=== PATIENT | female | born 1970 | race Two or more races ===

== ENCOUNTER 2018-07-27 14:17 | Emergency (ER) | payer BC ==
[~2018-07-27] VITALS: Ht 154.9 cm; Wt 68.0 kg
--- NOTE | 2018-07-27 15:30 | PHYS DOC ---
Past Medical History Past Medical History: No Pertinent History Past Surgical History: Hysterectomy Alcohol Use: None Drug Use: None Adult General Chief Complaint Chief Complaint: DIZZY/LIGHT HEADED HPI HPI Patient is a 48 year old Chadian-speaking female who presents to the ED today complaining of dizziness and a headache. Patient states yesterday she developed a cough and nasal congestion, she states she took Sudagrip which is a [place] version of a cough and congestion medication, patient states when she took the medication she became dizzy and has had a headache on and off since then. She states she was not able to sleep at night. She rates the headache is mild and intermittent. She states her symptoms are worse when she is up. She denies sensation of the room spinning or herself spinning. She denies any chest pain or shortness of breath. Interpretation was provided by the daughter for Ch[place] PCP Dr. Torres Review of Systems Review of Systems Constitutional: Denies fever or chills [] Eyes: Denies change in visual acuity, redness, or eye pain [] HENT: Reports nasal congestion, denies sore throat [] Respiratory: Reports cough, denies shortness of breath [] Cardiovascular: No additional information not addressed in HPI [] GI: Denies abdominal pain, nausea, vomiting, bloody stools or diarrhea [] : Denies dysuria or hematuria [] Musculoskeletal: Denies back pain or joint pain [] Integument: Denies rash or skin lesions [] Neurologic: Reports headache and dizziness, denies focal weakness or sensory changes [] Endocrine: Denies polyuria or polydipsia [] All other systems were reviewed and found to be within normal limits, except as documented in this note. Current Medications Current Medications Current Medications Medications (Trade) Dose Ordered Sig/Lizbeth Start Time Stop Time Status Last Admin Dose Admin Meclizine HCl (Antivert) 25 mg 1X ONCE 07/27/18 16:00 07/27/18 16:01 DC 07/27/18 16:45 25 MG Ondansetron HCl (Zofran Odt) 4 mg 1X ONCE 07/27/18 16:00 07/27/18 16:01 DC 07/27/18 16:47 4 MG Sodium Chloride 1,000 ml @ 1,000 mls/hr 1X ONCE 07/27/18 16:00 07/27/18 16:59 DC 07/27/18 16:48 1,000 MLS/HR Allergies Allergies Allergies Coded Allergies Type Severity Reaction Last Updated Verified No Known Drug Allergies 07/27/18 No Physical Exam Physical Exam Constitutional: Well developed, well nourished, no acute distress, non-toxic appearance. [] HENT: Normocephalic, atraumatic, bilateral external ears normal, oropharynx moist, no oral exudates, nose normal. [] Eyes: PERRLA, EOMI, conjunctiva normal, no discharge. [] Neck: Normal range of motion, no tenderness, supple, no stridor. [] Cardiovascular:Heart rate regular rhythm, no murmur [] Lungs & Thorax: Bilateral breath sounds clear to auscultation [] Abdomen: Bowel sounds normal, soft, no tenderness, no masses, no pulsatile masses. [] Skin: Warm, dry, no erythema, no rash. [] Back: No tenderness, no CVA tenderness. [] Extremities: No tenderness, no cyanosis, no clubbing, ROM intact, no edema. [] Neurologic: Alert and oriented X 3, normal motor function, normal sensory function, no focal deficits noted. Cranial nerves II through XII intact Psychologic: Affect normal, judgement normal, mood normal. [] Current Patient Data Vital Signs Vital Signs Date Time Temp Pulse Resp B/P (MAP) Pulse Ox O2 Delivery O2 Flow Rate FiO2 07/27/18 15:14 98.6 98 16 158/78 (104) 98 Room Air 98.6 Lab Values Laboratory Tests Test 07/27/18 15:00 07/27/18 15:10 07/27/18 16:56 Urine Collection Type Unknown Urine Color Yellow Urine Clarity Clear Urine pH 7.5 Urine Specific [place] <=1.005 Urine Protein Negative mg/dL (NEG-TRACE) Urine Glucose (UA) Negative mg/dL (NEG) Urine Ketones (Stick) Negative mg/dL (NEG) Urine Blood Negative (NEG) Urine Nitrite Negative (NEG) Urine Bilirubin Negative (NEG) Urine Urobilinogen Dipstick 0.2 mg/dL (0.2 mg/dL) Urine Leukocyte Esterase Negative (NEG) Urine RBC 0 /HPF (0-2) Urine WBC 0 /HPF (0-4) Urine Squamous Epithelial Cells Mod /LPF Urine Bacteria Few /HPF (0-FEW) Urine Opiates Screen Neg (NEG) Urine Methadone Screen Neg (NEG) Urine Barbiturates Neg (NEG) Urine Phencyclidine Screen Neg (NEG) Urine Amphetamine/Methamphetamine Neg (NEG) Urine Benzodiazepines Screen Neg (NEG) Urine Cocaine Screen Neg (NEG) Urine Cannabinoids Screen Neg (NEG) Urine Ethyl Alcohol Neg (NEG) White Blood Count 3.1 x10^3/uL (4.0-11.0) L Red Blood Count 4.44 x10^6/uL (3.50-5.40) Hemoglobin 14.1 g/dL (12.0-15.5) Hematocrit 41.9 % (36.0-47.0) Mean Corpuscular Volume 95 fL (79-100) Mean Corpuscular Hemoglobin 32 pg (25-35) Mean Corpuscular Hemoglobin Concent 34 g/dL (31-37) Red Cell Distribution Width 14.2 % (11.5-14.5) Platelet Count 243 x10^3/uL (140-400) Neutrophils (%) (Auto) 34 % (31-73) Lymphocytes (%) (Auto) 53 % (24-48) H Monocytes (%) (Auto) 10 % (0-9) H Eosinophils (%) (Auto) 2 % (0-3) Basophils (%) (Auto) 0 % (0-3) Neutrophils # (Auto) 1.1 x10^3uL (1.8-7.7) L Lymphocytes # (Auto) 1.6 x10^3/uL (1.0-4.8) Monocytes # (Auto) 0.3 x10^3/uL (0.0-1.1) Eosinophils # (Auto) 0.1 x10^3/uL (0.0-0.7) Basophils # (Auto) 0.0 x10^3/uL (0.0-0.2) Prothrombin Time 11.9 SEC (11.7-14.0) Prothrombin Time INR 0.9 (0.8-1.1) PTT 29 SEC (24-38) Sodium Level 142 mmol/L (136-145) Potassium Level 3.9 mmol/L (3.5-5.1) Chloride Level 103 mmol/L (98-107) Carbon Dioxide Level 30 mmol/L (21-32) Anion Gap 9 (6-14) Blood Urea Nitrogen 7 mg/dL (7-20) Creatinine 0.5 mg/dL (0.6-1.0) L Estimated GFR (Cockcroft-Gault) 132.8 BUN/Creatinine Ratio 14 (6-20) Glucose Level 122 mg/dL (70-99) H Calcium Level 9.0 mg/dL (8.5-10.1) Magnesium Level 2.3 mg/dL (1.8-2.4) Total Bilirubin 0.3 mg/dL (0.2-1.0) Aspartate Amino Transferase (AST) 74 U/L (15-37) H Alanine Aminotransferase (ALT) 86 U/L (14-59) H Alkaline Phosphatase 93 U/L (46-116) Creatine Kinase 485 U/L (26-192) H Creatine Kinase MB (Mass) 0.7 ng/mL (0.0-3.6) Creatine Kinase MB Relative Index 0.1 % (0-4) Troponin I Quantitative < 0.017 ng/mL (0.000-0.055) XD-Tjx-G-Type Natriuretic Peptide 19 pg/mL (0-124) Total Protein 7.8 g/dL (6.4-8.2) Albumin 3.9 g/dL (3.4-5.0) Albumin/Globulin Ratio 1.0 (1.0-1.7) Lipase 145 U/L (73-393) Thyroid Stimulating Hormone (TSH) 1.458 uIU/mL (0.358-3.74) Ethyl Alcohol Level < 10 mg/dL (0-10) Influenza Type A Antigen Positive (NEGATIVE) Influenza Type B Antigen Negative (NEGATIVE) Laboratory Tests 07/27/18 15:10 Laboratory Tests 07/27/18 15:10 EKG EKG [] Radiology/Procedures Radiology/Procedures []PROCEDURE: PORTABLE CHEST 1V Single view of the chest. 07/27/2018 3:33 PM Indication: CHEST PAIN, DIZZINESS Comparison: None Findings: Indistinctness of the left heart border is seen. Low lung volumes are noted. Favor atelectasis, though lingula infiltrate cannot be excluded. No pneumothorax is seen. No evidence of pleural effusion is seen. No acute osseous changes are identified. IMPRESSION: Indistinctness of the left heart border. Differential considerations include atelectasis versus infiltrate. Consider follow-up two-view chest radiograph, with attention to depth of inspiration. Electronically signed by: Heath Silva MD (07/27/2018 3:46 PM) [id number] DICTATED and SIGNED BY: HEATH SILVA MD DATE: 07/27/18 1546 PROCEDURE: CT HEAD WO CONTRAST Examination: CT HEAD WO CONTRAST History: DIZZY, NO PRIORS Comparison/Correlation: None Findings: Axial images of the head were obtained without contrast. Ventricles are normal size. No intracranial hemorrhage, midline shift, or mass effect. Globes and optic nerves are unremarkable. Paranasal sinuses and bony structures are grossly unremarkable. Impression: No suspicious process. PQRS Compliance Statement: One or more of the following individualized dose reduction techniques were utilized for this examination: 1. Automated exposure control 2. Adjustment of the mA and/or kV according to patient size 3. Use of iterative reconstruction technique Electronically signed by: Sukumar Bentley MD (07/27/2018 4:06 PM) [id number] DICTATED and SIGNED BY: SUKUMAR BENTLEY MD DATE: 07/27/18 1606 Course & Med Decision Making Course & Med Decision Making Pertinent Labs and Imaging studies reviewed. (See chart for details) This is a 48-year-old female patient who presents to the ED today with multiple complaints. Patient had a cough and nasal congestion yesterday, she took Sudagrip and developed headache and dizziness. CBC with a WBC of 3.1, CMP with AST of 74, ALT of 86, urine analysis is negative for infection, CT of the head is negative, troponin is normal, EKG is negative. Positive for influenza A, negative influenza B, chest x-ray was suspicious for left lower lobe pneumonia. Patient is afebrile. Was given a liter of fluid Zofran and meclizine. Feeling better. Will be discharged with Tamiflu, Zofran, meclizine and azithromycin. Instructed not to take Sudagrip. F/ u with PCP next week, instructed to return to the ED at any point symptoms worsen. Dragon Disclaimer Dragon Disclaimer This electronic medical record was generated, in whole or in part, using a voice recognition dictation system. Departure Departure Impression: Primary Impression: Influenza A Additional Impressions: Left lower lobe pneumonia Dizziness Disposition: 01 HOME, SELF-CARE Condition: STABLE Referrals: UNKNOWN PCP NAME (PCP) follow up in 1 week WAQAS TORRES MD follow up in 1 week Patient Instructions: Influenza A (H1N1), Pneumonia, Adult Additional Instructions: You were evaluated in the emergency room and tested positive for influenza you also have a touch of pneumonia. Please take the prescribed medications as ordered. Avoid taking Sudagrip. Follow-up with your doctor next week, come back to the ED at any point symptoms worsen. Scripts Ibuprofen (IBUPROFEN) 800 Mg Tablet 800 MG PO PRN Q6HRS PRN for INFLAMMATION, #10 TAB Prov: JOSEPH RICHARD APRN 07/27/18 Meclizine Hcl (MECLIZINE HCL) 25 Mg Tablet 1 TAB PO TID, #20 TAB Prov: JOSEPH RICHARD APRN 07/27/18 Azithromycin (ZITHROMAX) 250 Mg Tablet 1 PKG PO UD, #1 PKG Prov: JOSEPH RICHARD APRN 07/27/18 Oseltamivir Phosphate (TAMIFLU) 75 Mg Capsule 1 CAP PO BID, #10 CAP Prov: JOSEPH RICHARD APRN 07/27/18 Problem Qualifiers Additional Impressions: Left lower lobe pneumonia Pneumonia type: due to unspecified organism Qualified Codes: J18.1 - Lobar pneumonia, unspecified organism JOSEPH RICHARD APRN Jul 27, 2018 15:30
[2018-07-27 15:45] LABS: BASO % 0 % (0-3); EOS # 0.1 x10^3/uL (0.0-0.7); EOS % 2 % (0-3); HEMATOCRIT 41.9 % (36.0-47.0); HEMOGLOBIN 14.1 g/dL (12.0-15.5); LYMPH # 1.6 x10^3/uL (1.0-4.8); LYMPH % 53 % (24-48); MEAN CORPUSCULAR HEMOGLOBIN 32 pg (25-35); MEAN CORPUSCULAR HGB CONC 34 g/dL (31-37); MEAN CORPUSCULAR VOLUME 95 fL (79-100); MONO # 0.3 x10^3/uL (0.0-1.1); MONO % 10 % (0-9); NEUT # 1.1 x10^3uL (1.8-7.7); NEUT % 34 % (31-73); PLATELET COUNT 243 x10^3/uL (140-400); RED BLOOD COUNT 4.44 x10^6/uL (3.50-5.40); RED CELL DISTRIBUTION WIDTH 14.2 % (11.5-14.5); WHITE BLOOD COUNT 3.1 x10^3/uL (4.0-11.0)
--- NOTE | 2018-07-27 15:49 | RAD ---
Single view of the chest. 07/27/2018 3:33 PM Indication: CHEST PAIN, DIZZINESS Comparison: None Findings: Indistinctness of the left heart border is seen. Low lung volumes are noted. Favor atelectasis, though lingula infiltrate cannot be excluded. No pneumothorax is seen. No evidence of pleural effusion is seen. No acute osseous changes are identified. IMPRESSION: Indistinctness of the left heart border. Differential considerations include atelectasis versus infiltrate. Consider follow-up two-view chest radiograph, with attention to depth of inspiration. Electronically signed by: Heath Lacy MD (07/27/2018 3:46 PM) [id number]
[2018-07-27 15:58] LABS: CREATININE 0.5 mg/dL (0.6-1.0); GFR 132.8; POTASSIUM 3.9 mmol/L (3.5-5.1)
[2018-07-27] MEDS ORDERED: ONDANSETRON ODT 4 MG TAB.RAPDIS. PO ONE (16:00)
[2018-07-27] MEDS ORDERED: IV NORMAL SALINE 1000ML BAG 1,000 ML IV ONE (16:00)
[2018-07-27] MEDS ORDERED: MECLIZINE HCL 12.5 MG TABLET. PO ONE (16:00)
[2018-07-27 16:01] LABS: PROTHROMBIN TIME PATIENT 11.9 SEC (11.7-14.0)
[2018-07-27 16:04] LABS: ALBUMIN 3.9 g/dL (3.4-5.0); MAGNESIUM 2.3 mg/dL (1.8-2.4); TOTAL BILIRUBIN 0.3 mg/dL (0.2-1.0); TOTAL PROTEIN 7.8 g/dL (6.4-8.2)
--- NOTE | 2018-07-27 16:09 | RAD ---
Examination: CT HEAD WO CONTRAST History: DIZZY, NO PRIORS Comparison/Correlation: None Findings: Axial images of the head were obtained without contrast. Ventricles are normal size. No intracranial hemorrhage, midline shift, or mass effect. Globes and optic nerves are unremarkable. Paranasal sinuses and bony structures are grossly unremarkable. Impression: No suspicious process. PQRS Compliance Statement: One or more of the following individualized dose reduction techniques were utilized for this examination: 1. Automated exposure control 2. Adjustment of the mA and/or kV according to patient size 3. Use of iterative reconstruction technique Electronically signed by: Sukumar Alfaro MD (07/27/2018 4:06 PM) [id number]
--- NOTE | 2018-07-27 16:29 | EKG ---
[facility] [address] [place] [address] Test Date: 2018-07-27 Test Time: 15:06:56 Pat Name: AUGUST HILTON Department: Room: Gender: F [employer] Research Analyst: : 1970 Requested By: JOSEPH RICHARD Order Number: [id number] Reading MD: Tomas Fleming MD Measurements Intervals [place] Rate: 93 P: -32 SD: 156 QRS: 41 QRSD: 88 T: 34 QT: 368 QTc: 460 Interpretive Statements SINUS RHYTHM Electronically Signed On 07-29-2018 16:33:22 CDT by Tomas Fleming MD
[2018-07-27 17:02] LABS: BILIRUBIN,URINE NEGATIVE (NEG); CLARITY,URINE CLEAR; COLOR,URINE YELLOW; NITRITE,URINE NEGATIVE (NEG); PH,URINE 7.5; PROTEIN,URINE NEGATIVE (NEG-TRACE); UROBILINOGEN,URINE 0.2 mg/dL (0.2 mg/dL)
[2018-07-27 17:09] LABS: BARBITURATES NEG (NEG); BENZODIAZEPINES NEG (NEG); CANNABINOIDS NEG (NEG); COCAINE NEG (NEG); METHADONE NEG (NEG); OPIATES NEG (NEG); PHENCYCLIDINE NEG (NEG)
[2018-07-27 17:12] LABS: AMPHETAMINE/METHAMPHETAMINE NEG (NEG)
[2018-07-27 17:14] LABS: BACTERIA,URINE FEW /HPF (0-FEW); RBC,URINE 0 /HPF (0-2); SQUAMOUS EPITHELIAL CELL,UR MOD /LPF; WBC,URINE 0 /HPF (0-4)
[2018-07-27 17:24] LABS: INFLUENZA A PATIENT POSITIVE (NEGATIVE); INFLUENZA B PATIENT NEGATIVE (NEGATIVE)
[2018-07-27 18:14] VITALS: BP 129/66
[2018-07-27] MEDS ORDERED: IBUP-1060 PO (18:42)
[2018-07-27] MEDS ORDERED: AZIT250T PO (18:42)
[2018-07-27] MEDS ORDERED: MECL25TA3 PO (18:42)
[2018-07-27] MEDS ORDERED: OSEL75CA PO (18:42)
== END 2018-07-27 18:57 | disposition home or self-care (01) ==
LOC: EDBD 14:17 → ER 14:17
DX: J10.01 Influenza due to other identified influenza virus with the same other identified influenza virus pneumonia (principal); R42 Dizziness and giddiness; R51 Headache; Z90.710 Acquired absence of both cervix and uterus
CPT/HCPCS: 36415; 70450; 71045; 80053; 80307; 81001; 82553; 83690; 83735; 83880; 84443; 84484; 85025; 85610; 85730; 87804; 93005; 96360; 99284; G0480; J7030; J8597; Q0162

== ENCOUNTER 2020-04-02 18:41 | Emergency (ER) | payer BC ==
[~2020-04-02] VITALS: Ht 157.5 cm; Wt 80.0 kg
[~2020-04-02 18:41] MED LIST: AZIT250T PO; IBUP-1060 PO; MECL-75 PO; OSEL75CA PO
[2020-04-02 19:26] VITALS: BP 143/84
[2020-04-02] MEDS ORDERED: NAPROXEN 500 MG TABLET PO STA (19:46)
[2020-04-02] MEDS ORDERED: predniSONE 10 MG TABLET PO ONE (20:00)
[2020-04-02] MEDS ORDERED: LIDO:MAALOX 1:1 20 ML SINGLE DOSE. SWSW ONE (20:00)
[2020-04-02] MEDS ORDERED: ACETAMINOPHEN 500 MG TABLET PO ONE (20:00)
--- NOTE | 2020-04-02 20:59 | RAD ---
CHEST PA LATERAL History: Reason: cough / Spl. Instructions: / History: Comparison: July 27, 2018 Findings: Multifocal ill-defined opacities bilaterally, left greater than right. No pleural effusion. No pneumothorax. Normal heart size. Low lung volumes. Impression: 1. Multifocal ill-defined opacities bilaterally, can be seen with pneumonia including viral pneumonia. Electronically signed by: Geovanny Eddy DO (04/02/2020 8:56 PM) [facility]
[2020-04-02] MEDS ORDERED: AZITHROMYCIN 250 MG TABLET. PO ONE (22:00)
[2020-04-02] MEDS ORDERED: LIDOCAINE 1% PF 2 ML VIAL. INJ ONE (22:00)
[2020-04-02] MEDS ORDERED: predniSONE 20 MG TABLET PO ONE (22:00)
[2020-04-02] MEDS ORDERED: guaiFENesin/CODEINE 100mg/10mg 5 ML LIQUID PO ONE (22:00)
[2020-04-02] MEDS ORDERED: cefTRIAXone IM 1 GM VIAL IM ONE (22:00)
[2020-04-02] MEDS ORDERED: PRED50TA PO (22:05)
[2020-04-02] MEDS ORDERED: GUAI120L35 PO (22:05)
[2020-04-02] MEDS ORDERED: AZIT250T PO (22:05)
--- NOTE | 2020-04-02 22:05 | PHYS DOC ---
Past Medical History Past Medical History: No Pertinent History, Hypertension Additional Past Medical Histor: seasonal allergies Past Surgical History: Hysterectomy Smoking Status: Never Smoker Alcohol Use: None Drug Use: None General Adult EDM: Chief Complaint: SHORTNESS OF BREATH HPI: HPI: Patient is a 49 year old female with a history of hypertension presenting to the ED today complaining of a cough, body aches, shortness of air, symptoms began 6 days ago. Patient states she resides in a home with several family members with similar symptoms. Denies any fever. Denies any chest pain. Patient is Portuguese-speaking and interpretation was provided by family as well as freelance interpreter/translator line for Portuguese Review of Systems: Review of Systems: Constitutional: Reports body aches. Denies fever or chills. [] Eyes: Denies change in visual acuity. [] HENT: Denies nasal congestion or sore throat. [] Respiratory: Reports cough and shortness of breath Cardiovascular: Denies chest pain or edema. [] GI: Denies abdominal pain, nausea, vomiting, bloody stools or diarrhea. [] : Denies dysuria. [] Musculoskeletal: Denies back pain or joint pain. [] Integument: Denies rash. [] Neurologic: Denies headache, focal weakness or sensory changes. [] Psychiatric: Denies depression or anxiety. [] Heart Score: Risk Factors: Risk Factors: DM, Current or recent (<one month) smoker, HTN, HLP, family history of CAD, obesity. Risk Scores: Score 0 - 3: 2.5% MACE over next 6 weeks - Discharge Home Score 4 - 6: 20.3% MACE over next 6 weeks - Admit for Clinical Observation Score 7 - 10: 72.7% MACE over next 6 weeks - Early Invasive Strategies Current Medications: Current Medications Medications (Trade) Dose Ordered Sig/Lizbeth Start Time Stop Time Status Last Admin Dose Admin Acetaminophen (Tylenol) 1,000 mg 1X ONCE 04/02/20 20:00 04/02/20 20:01 DC 04/02/20 20:07 1,000 MG Azithromycin (Zithromax) 1,000 mg 1X ONCE 04/02/20 22:00 04/02/20 22:01 Ceftriaxone Sodium (Rocephin Im) 1 gm 1X ONCE 04/02/20 22:00 04/02/20 22:01 Guaifenesin/ Codeine Phosphate (Robitussin Ac) 5 ml 1X ONCE 04/02/20 22:00 04/02/20 22:01 Lidocaine HCl (Xylocaine-Mpf 1% 2ml Vial) 2 ml 1X ONCE 04/02/20 22:00 04/02/20 22:01 Multi-Ingredient Mouthwash/Gargle (Gi Cocktail) 20 ml 1X ONCE 04/02/20 20:00 04/02/20 20:01 DC 04/02/20 20:07 20 ML Naproxen (Naprosyn) 500 mg 1X STAT 04/02/20 19:46 04/02/20 19:49 DC 04/02/20 20:07 500 MG Prednisone (Prednisone) 60 mg 1X ONCE 04/02/20 22:00 04/02/20 22:01 Cancel Allergies: Allergies: Allergies Coded Allergies Type Severity Reaction Last Updated Verified No Known Drug Allergies 07/27/18 No Physical Exam: PE: Constitutional: Well developed, well nourished, no acute distress, non-toxic appearance. [] HENT: Normocephalic, atraumatic, bilateral external ears normal, oropharynx moist, no oral exudates, nose normal. [] Eyes: PERRLA, EOMI, conjunctiva normal, no discharge. [] Neck: Normal range of motion, no tenderness, supple, no stridor. [] Cardiovascular:Heart rate regular rhythm, no murmur [] Lungs & Thorax: Bilateral breath sounds clear to auscultation [] Abdomen: Bowel sounds normal, soft, no tenderness, no masses, no pulsatile masses. [] Skin: Warm, dry, no erythema, no rash. [] Back: No tenderness, no CVA tenderness. [] Extremities: No tenderness, no cyanosis, no clubbing, ROM intact, no edema. [] Neurologic: Alert and oriented X 3, normal motor function, normal sensory function, no focal deficits noted. [] Psychologic: Affect normal, judgement normal, mood normal. [] Current Patient Data: Vital Signs: Vital Signs Date Time Temp Pulse Resp B/P (MAP) Pulse Ox O2 Delivery O2 Flow Rate FiO2 04/02/20 19:26 101.0 123 20 143/84 (103) 97 Room Air 101.0 EKG: EKG: [] Radiology/Procedures: Radiology/Procedures: []PROCEDURE: CHEST PA & LATERAL CHEST PA LATERAL History: Reason: cough / Spl. Instructions: / History: Comparison: July 27, 2018 Findings: Multifocal ill-defined opacities bilaterally, left greater than right. No pleural effusion. No pneumothorax. Normal heart size. Low lung volumes. Impression: 1. Multifocal ill-defined opacities bilaterally, can be seen with pneumonia including viral pneumonia. Electronically signed by: Geovanny Reza DO (04/02/2020 8:56 PM) [facility] DICTATED and SIGNED BY: GEOVANNY REZA DO DATE: 04/02/[id number] 0 Course & Med Decision Making: Course & Med Decision Making Pertinent Labs and Imaging studies reviewed. (See chart for details) This is a 49-year-old female patient presented to the ED today complaining of cough, shortness of breath, body aches, symptoms for 6 days. Temperature on arrival to the ED is 101. Chest x-ray interpreted by radiologist was noted for bilateral lower lobe opacities seen with pneumonia including viral pneumonia. She was tested for COVID-19. Her O2 sats above 96% on room air. She was given azithromycin, Rocephin injection 1 g, prednisone and guaifenesin with codeine in the emergency room. She was also given Tylenol 1 g. I spoke to patient using freelance interpreter/translator line, I also spoke to the son who also interpreted for patient. She is given her diagnosis, she was discharged with antibiotics and prednisone as well as cough medicine. Follow-up with PCP in the course of this week or next week. Instructed to return to the ED at any point symptoms worsen. Rick Disclaimer: Rick Disclaimer: This electronic medical record was generated, in whole or in part, using a voice recognition dictation system. Departure Departure Impression: Primary Impression: Pneumonia of both lower lobes Qualified Codes: J18.9 - Pneumonia, unspecified organism Additional Impressions: Person under investigation for COVID-19 Fever Qualified Codes: R50.9 - Fever, unspecified Disposition: 01 DC HOME SELF CARE/HOMELESS Condition: STABLE Referrals: UNKNOWN PCP NAME (PCP) follow up with your doctor in one week Patient Instructions: Fever, Adult, Pneumonia, Adult, [id number] Additional Instructions: You were evaluated in the emergency room and noted to have a fever and pneumonia. You were tested for COVID-19. Please quarantine yourself for 14 days or until you get results from us. Take the prescribed medicines as ordered. Come back to the ED at any point symptoms worsen Scripts Guaifenesin/Codeine Phosphate (Codeine-Guaifen 10-100 mg/5 ml) 120 Ml Liquid 5 ML PO PRN Q6HRS PRN for cough and congestion MDD 20 Milliliter(s) for 6 Days, #120 ML 0 Refills Prov: JOSEPH RICHARD APRN 04/02/20 Prednisone (PREDNISONE) 50 Mg Tablet 1 TAB PO DAILY, #4 TAB Prov: JOSEPH RICHARD APRN 04/02/20 Azithromycin (ZITHROMAX) 250 Mg Tablet 1 PKG PO UD, #1 PKG Prov: JOSEPH RICHARD APRN 04/02/20 JOSEPH RICHARD APRN Apr 02, 2020 22:05
== END 2020-04-02 22:45 | disposition home or self-care (01) ==
LOC: ER 18:41
DX: U07.1 COVID-19 (principal); J18.9 Pneumonia, unspecified organism; R50.9 Fever, unspecified; R05 Cough; R06.02 Shortness of breath; I10 Essential (primary) hypertension; Z90.710 Acquired absence of both cervix and uterus
CPT/HCPCS: 71046; 96372; 99284; C9803; J0696; J3490; J7512; U0003

== ENCOUNTER 2020-04-05 21:48 | Inpatient (IN) | payer BC ==
[~2020-04-05] VITALS: Ht 147.3 cm; Wt 63.3 kg
[~2020-04-05 21:48] MED LIST changes: +GUAI120L35 PO; +PRED50TA PO
[2020-04-05 22:26] LABS: BASO # 0.1 x10^3/uL (0.0-0.2); BASO % 1 % (0-3); EOS % 0 % (0-3); HEMATOCRIT 39.5 % (36.0-47.0); HEMOGLOBIN 14.1 g/dL (12.0-15.5); LYMPH # 1.3 x10^3/uL (1.0-4.8); LYMPH % 15 % (24-48); MEAN CORPUSCULAR HEMOGLOBIN 33 pg (25-35); MEAN CORPUSCULAR HGB CONC 36 g/dL (31-37); MEAN CORPUSCULAR VOLUME 93 fL (79-100); MONO # 0.4 x10^3/uL (0.0-1.1); MONO % 4 % (0-9); NEUT # 7.1 x10^3/uL (1.8-7.7); NEUT % 80 % (31-73); PLATELET COUNT 241 x10^3/uL (140-400); RED BLOOD COUNT 4.27 x10^6/uL (3.50-5.40); RED CELL DISTRIBUTION WIDTH 13.7 % (11.5-14.5); WHITE BLOOD COUNT 8.8 x10^3/uL (4.0-11.0)
[2020-04-05 22:35] LABS: CALCIUM 8.2 mg/dL (8.5-10.1); CREATININE 0.7 mg/dL (0.6-1.0); GFR 89.7; POTASSIUM 3.5 mmol/L (3.5-5.1)
[2020-04-05 22:38] LABS: PROTHROMBIN TIME PATIENT 12.9 SEC (11.7-14.0)
[2020-04-05 22:40] LABS: ALBUMIN 3.5 g/dL (3.4-5.0); ALBUMIN/GLOBULIN RATIO 0.8 (1.0-1.7); MAGNESIUM 2.5 mg/dL (1.8-2.4); TOTAL BILIRUBIN 0.5 mg/dL (0.2-1.0); TOTAL PROTEIN 8.1 g/dL (6.4-8.2)
--- NOTE | 2020-04-05 22:41 | PHYS DOC ---
Past Medical History Past Medical History: No Pertinent History, High Cholesterol, Hypertension Additional Past Medical Histor: seasonal allergies, fatty liver Past Surgical History: Hysterectomy Smoking Status: Never Smoker Alcohol Use: None Drug Use: None General Adult EDM: Chief Complaint: SHORTNESS OF BREATH HPI: HPI: Patient is a 49-year-old female who presented 4 days ago for Covid-like symptoms pending testing. Patient reports symptoms have worsened including fever, shortness of air, loss of taste, nausea, fatigue, dizziness, and bilateral lower extremity pain. Denies any vomiting or diarrhea. Reports family members now with similar symptoms. Reports her spouse had some symptoms prior to her. Review of Systems: Review of Systems: Constitutional: Reports fever, chills, body aches, and generalized malaise Eyes: Denies redness or eye pain HENT: Denies nasal congestion or sore throat Respiratory: Reports cough and shortness of breath Cardiovascular: Denies chest pain or palpitations GI: Denies abdominal pain or vomiting; reports nausea : Denies dysuria or hematuria Musculoskeletal: Denies back pain or joint pain Integument: Denies rash or skin lesions Neurologic: Denies headache, focal weakness or sensory changes Complete systems were reviewed and found to be within normal limits, except as documented in this note. Allergies: Allergies: Allergies Coded Allergies Type Severity Reaction Last Updated Verified No Known Drug Allergies 07/27/18 No Physical Exam: PE: Constitutional: Well developed, well nourished, no acute distress, non-toxic appearance HENT: Normocephalic, atraumatic Eyes: Conjunctiva normal, no discharge Neck: Normal range of motion, no tenderness, supple, no meningeal signs Lungs & Thorax: Mild respiratory distress, tachypnea, equal chest rise and fall Abdomen: Soft, no tenderness Skin: Warm, dry, no erythema, no rash Extremities: No tenderness, ROM intact, no edema Neurologic: Alert and oriented X 3, normal motor function, normal sensory function, no focal deficits noted Psychologic: Affect normal, judgment normal Current Patient Data: Labs: Laboratory Tests Test 04/05/20 22:12 White Blood Count 8.8 x10^3/uL (4.0-11.0) Red Blood Count 4.27 x10^6/uL (3.50-5.40) Hemoglobin 14.1 g/dL (12.0-15.5) Hematocrit 39.5 % (36.0-47.0) Mean Corpuscular Volume 93 fL (79-100) Mean Corpuscular Hemoglobin 33 pg (25-35) Mean Corpuscular Hemoglobin Concent 36 g/dL (31-37) Red Cell Distribution Width 13.7 % (11.5-14.5) Platelet Count 241 x10^3/uL (140-400) Neutrophils (%) (Auto) 80 % (31-73) H Lymphocytes (%) (Auto) 15 % (24-48) L Monocytes (%) (Auto) 4 % (0-9) Eosinophils (%) (Auto) 0 % (0-3) Basophils (%) (Auto) 1 % (0-3) Neutrophils # (Auto) 7.1 x10^3/uL (1.8-7.7) Lymphocytes # (Auto) 1.3 x10^3/uL (1.0-4.8) Monocytes # (Auto) 0.4 x10^3/uL (0.0-1.1) Eosinophils # (Auto) 0.0 x10^3/uL (0.0-0.7) Basophils # (Auto) 0.1 x10^3/uL (0.0-0.2) Laboratory Tests 04/05/20 22:12 EKG: EKG: @2234 Sinus tachycardia at 119bpm, NO ST elevation, QRS 82ms, QT/QTc 308/434ms, baseline artifact noted. Radiology/Procedures: Radiology/Procedures: PROCEDURE: CT ANGIOGRAPHY CHEST EXAMINATION: CT ANGIOGRAPHY CHEST CLINICAL HISTORY: Shortness of breath, Covid positive, elevated d-dimer Technique: Spiral CT acquisition of the chest from the thoracic inlet to the upper abdomen following IV contrast with coronal and sagittal reformatted images also provided for review. CT Dose Reduction Employed: One or more of the following individualized dose reduction techniques were utilized for this examination: 1. Automated exposure control 2. Adjustment of the mA and/or kV according to patient size 3. Use of iterative reconstruction technique. Comparison: Chest radiograph 04/02/2020 FINDINGS: Limitations: Prominent motion artifact limits evaluation. Evaluation for Thromboembolic Disease: No evidence of main or lobar pulmonary arterial thrombus. Remainder of the pulmonary arterial system suboptimally evaluated. Lines, Tubes, and Devices: None. Lung Parenchyma, Pleura, and Airways: Peripheral and lower lobe predominant patchy groundglass opacities. No pleural effusion. Central airways patent. Lower Neck, Lymph Nodes, and Mediastinum: Visualized thyroid gland within normal limits. No supraclavicular, axillary, mediastinal, or hilar adenopathy. Heart, Pericardium, and Thoracic Vessels: Cardiac chambers normal in size. No pericardial effusion. Thoracic aorta within normal limits. No coronary artery atherosclerotic calcifications are noted, although the study is not optimized for coronary assessment. Bones and Soft Tissues: Multilevel thoracic degenerative changes. Upper Abdomen: Diffuse hypoattenuation of the hepatic parenchyma, compatible with steatosis. IMPRESSION: No evidence of main or lobar pulmonary embolus on significantly limited evaluation. Bilateral patchy groundglass opacities as described, compatible with viral pneumonia. Electronically signed by: Jorge Luis Samuels DO (04/06/2020 1:01 AM) [facility] Course & Med Decision Making: Course & Med Decision Making Pertinent Labs and Imaging studies reviewed. (See chart for details) Patient presents with worsening Covid-like symptoms. History of recent ER evaluation. [facility] review notes patient positive for COVID-19. Covid precautions in place. Patient noted to be hypoxic upon arrival. Supplemental O2 applied. Labs obtained and posted to chart. Rapid influenza negative. Troponin within normal limits. Lactic acid within normal limits. D-dimer eleva teresa. CPK significantly elevated. Troponin within normal limits. EKG stable. IV fluid hydration provided. Symptomatic treatment provided with dexamethasone. Empiric antibiotic initiated. CTA chest without signs of PE but note viral type pneumonia findings. Patient requiring admission for further evaluation and treatment. Discussed with Dr. Ascencio (hospitalist) who is in agreement with admission. Discussed findings and plan with patient, who acknowledges understanding and agreement. COVID-19 CRITERIA: The patient was evaluated during the global COVID-19 pandemic, and that diagnosis was suspected/considered upon their initial presentation. Their evaluation, treatment and testing was consistent with current guidelines for patients who present with complaints or symptoms that may be related to COVID-19. Rick Disclaimer: Rick Disclaimer: This electronic medical record was generated, in whole or in part, using a voice recognition dictation system. Departure Departure Impression: Primary Impression: Respiratory failure Qualified Codes: J96.01 - Acute respiratory failure with hypoxia Additional Impressions: Hypoxia Pneumonia due to 2019 novel coronavirus Rhabdomyolysis Qualified Codes: M62.82 - Rhabdomyolysis Disposition: 09 ADMITTED INPT THIS HOSP Admitting Physician: HARMONY Garrett) Condition: GUARDED Referrals: UNKNOWN PCP NAME (PCP) COVID-19 Assessment: COVID-19 Patient Risks: Age 65 or older: No Sign of co-morbidity: Yes Exp to person + for COVID: No Exp to PUI: No Travel from affected area: No Lower respiratory symptoms: Yes Fever: Yes Other: Yes PPE Use: Full PPE with N95 mask or PAPR: Yes Critical Care Time Critical care time was 30 minutes which includes time at bedside, spent in discu ssion of patient's care with specialists and/or family members, with interpretation of laboratory and/or radiological studies and is exclusive of procedures. GUI MUNOZ DO Apr 05, 2020 22:41
[2020-04-05 22:44] LABS: D-DIMER 0.7 ug/mlFEU (0.00-0.50)
[2020-04-05 23:33] LABS: CREATINE KINASE 54211 U/L (26-192)
[2020-04-05] MEDS ORDERED: IOHEXOL 350 MG/ML 100 ML VIAL. IV ONE (23:45)
[2020-04-05] MEDS ORDERED: CONTRAST GIVEN. MC PRN (23:45)
[2020-04-05 23:46] LABS: BILIRUBIN,URINE NEGATIVE (NEG); CLARITY,URINE CLEAR; COLOR,URINE YELLOW; NITRITE,URINE NEGATIVE (NEG); PROTEIN,URINE 100 mg/dL (NEG-TRACE)
[2020-04-05 23:52] LABS: BACTERIA,URINE 0 /HPF (0-FEW); WBC,URINE OCC /HPF (0-4)
[2020-04-06 00:08] LABS: INFLUENZA A PATIENT NEGATIVE (NEGATIVE); INFLUENZA B PATIENT NEGATIVE (NEGATIVE)
[2020-04-06] MEDS ORDERED: AZITHROMYCIN 500 MG in IV NORMAL SALINE 250ML 250 ML IV ONE (01:00)
[2020-04-06] MEDS ORDERED: IV NORMAL SALINE 1000ML BAG 1,000 ML IV ONE ×2 (01:00→01:30)
[2020-04-06] MEDS ORDERED: DEXAMETHASONE SOD PHOS 4 MG/ML VIAL IVP ONE ×2 (01:00→17:30)
--- NOTE | 2020-04-06 01:03 | RAD ---
EXAMINATION: CT ANGIOGRAPHY CHEST CLINICAL HISTORY: Shortness of breath, Covid positive, elevated d-dimer Technique: Spiral CT acquisition of the chest from the thoracic inlet to the upper abdomen following IV contrast with coronal and sagittal reformatted images also provided for review. CT Dose Reduction Employed: One or more of the following individualized dose reduction techniques were utilized for this examination: 1. Automated exposure control 2. Adjustment of the mA and/or kV according to patient size 3. Use of iterative reconstruction technique. Comparison: Chest radiograph 04/02/2020 FINDINGS: Limitations: Prominent motion artifact limits evaluation. Evaluation for Thromboembolic Disease: No evidence of main or lobar pulmonary arterial thrombus. Remainder of the pulmonary arterial system suboptimally evaluated. Lines, Tubes, and Devices: None. Lung Parenchyma, Pleura, and Airways: Peripheral and lower lobe predominant patchy groundglass opacities. No pleural effusion. Central airways patent. Lower Neck, Lymph Nodes, and Mediastinum: Visualized thyroid gland within normal limits. No supraclavicular, axillary, mediastinal, or hilar adenopathy. Heart, Pericardium, and Thoracic Vessels: Cardiac chambers normal in size. No pericardial effusion. Thoracic aorta within normal limits. No coronary artery atherosclerotic calcifications are noted, although the study is not optimized for coronary assessment. Bones and Soft Tissues: Multilevel thoracic degenerative changes. Upper Abdomen: Diffuse hypoattenuation of the hepatic parenchyma, compatible with steatosis. IMPRESSION: No evidence of main or lobar pulmonary embolus on significantly limited evaluation. Bilateral patchy groundglass opacities as described, compatible with viral pneumonia. Electronically signed by: Jorge Luis Samuels DO (04/06/2020 1:01 AM) [facility]
[2020-04-06] MEDS ORDERED: ONDANSETRON PF 4 MG/2 ML VIAL. IV PRN (01:30)
[2020-04-06] MEDS ORDERED: ACETAMINOPHEN 325 MG TABLET. PO PRN (01:30)
[2020-04-06 02:19] VITALS: BP 138/77
[2020-04-06] MEDS ORDERED: LORA10TA68 PO (05:36)
[2020-04-06 07:00] VITALS: BP 133/74
--- NOTE | 2020-04-06 09:26 | PDOC1 ---
History and Physical Date of Admission Date of Admission DATE: 04/06/20 TIME: 09:25 Source Source: Caregiver, Chart review, Patient History of Present Illness History of Present Illness Ms Olson is a 49-year-old female w/ PMHx High Cholesterol, Hypertension, seasonal allergies, fatty liver who presented 04/02/2020 for Covid-like symptoms and returns with the same. Patient reports symptoms have worsened including fever, shortness of air, loss of taste, nausea, fatigue, dizziness, and bilateral lower extremity pain. Denies any vomiting or diarrhea. Reports family members now with similar symptoms. Reports her spouse had some symptoms prior to her. Her PCR test returned positive today. Labs significant for WBC 8.8, Hb 14.1, platelets 241, D-dimer 0.70, NA 135, K3.5, BUN 6, CR 0.7, glucose 111, AST 366, ALT 177, CK 54,211. Rapid influenza negative EKG Sinus tachycardia at 119bpm, NO ST elevation, QRS 82ms, QT/QTc 308/434ms, baseline artifact noted. CTPA with no PE but Bilateral patchy groundglass opacities as described, compatible with viral pneumonia. She was hypoxic to 82% on normal air and required 6L NCO2 to improve her O2 status. Admitted for further care IV fluid hydration provided. Symptomatic treatment provided with dexamethasone. Empiric antibiotic initiated. Past Medical History Cardiovascular: HTN, Hyperlipidemia Past Surgical History Past Surgical History: Hysterectomy Family History Family History: Diabetes, High Cholestrol, Hypertension Social History Smoke: No ALCOHOL: none Drugs: None Current Problem List Problem List Problems Medical Problems: (1) Hypoxia Status: Acute (2) Pneumonia due to 2019 novel coronavirus Status: Acute (3) Respiratory failure Status: Acute (4) Rhabdomyolysis Status: Acute Current Medications Current Medications Current Medications Iohexol (Omnipaque 350 Mg/ml) 100 ml 1X ONCE IV Last administered on 04/05/20at 00:14; Start 04/05/20 at 23:45; Stop 04/05/20 at 23:46; Status DC Info (CONTRAST GIVEN -- Rx MONITORING) 1 each PRN DAILY PRN MC SEE COMMENTS; Start 04/05/20 at 23:45; Stop 04/07/20 at 23:44 Sodium Chloride 1,000 ml @ 1,000 mls/hr 1X ONCE IV Last administered on 04/06/20at 01:17; Start 04/06/20 at 01:00; Stop 04/06/20 at 01:59; Status DC Dexamethasone Sodium Phosphate (Decadron) 10 mg 1X ONCE IVP Last administered on 04/06/20at 01:16; Start 04/06/20 at 01:00; Stop 04/06/20 at 01:02; Status DC Azithromycin 500 mg/Sodium Chloride 250 ml @ 250 mls/hr 1X ONCE IV Last administered on 04/06/20at 01:16; Start 04/06/20 at 01:00; Stop 04/06/20 at 01:59; Status DC Ondansetron HCl (Zofran) 4 mg PRN Q8HRS PRN IV NAUSEA/VOMITING; Start 04/06/20 at 01:30; Stop 04/07/20 at 01:29 Acetaminophen (Tylenol) 650 mg PRN Q4HRS PRN PO FEVER > 100.3'F Last administered on 04/06/20at 02:44; Start 04/06/20 at 01:30; Stop 04/07/20 at 01:29 Sodium Chloride 1,000 ml @ 100 mls/hr 1X ONCE IV Last administered on 04/06/20at 02:37; Start 04/06/20 at 01:30; Stop 04/06/20 at 11:29 Active Scripts Active Codeine-Guaifen 10-100 mg/5 ml (Guaifenesin/Codeine Phosphate) 120 Ml Liquid 5 Ml PO PRN Q6HRS PRN MDD 20 Milliliter(s) 6 Days Prednisone 50 Mg Tablet 1 Tab PO DAILY Zithromax (Azithromycin) 250 Mg Tablet 1 Pkg PO UD Ibuprofen 800 Mg Tablet 800 Mg PO PRN Q6HRS PRN Meclizine Hcl 25 Mg Tablet 1 Tab PO TID Zithromax (Azithromycin) 250 Mg Tablet 1 Pkg PO UD Tamiflu (Oseltamivir Phosphate) 75 Mg Capsule 1 Cap PO BID Reported Claritin (Loratadine) 10 Mg Tablet 10 Mg PO DAILY Allergies Allergies: Coded Allergies: No Known Drug Allergies (Unverified , 07/27/18) ROS General: YES: Fatigue, Malaise, Appetite; No: Chills, Night Sweats, Other PSYCHOLOGICAL ROS: No: Anxiety, Behavioral Disorder, Concentration difficultie, Decreased libido, Depression, Disorientation, Hallucinations, Hostility, Irritablity, Memory difficulties, Mood Swings, Obsessive thoughts, Physical abuse, Sexual abuse, Sleep disturbances, Suicidal ideation, Other Eyes: No Blurry vision, No Decreased vision, No Double vision, No Dry eyes, No Excessive tearing, No Eye Pain, No Itchy Eyes, No Loss of vision, No Photophobia, No Scotomata, No Uses contacts, No Uses glasses, No Other HEENT: No: Heacaches, Visual Changes, Hearing change, Nasal congestion, Nasal discharge, Oral lesions, Sinus pain, Sore Throat, Epistaxis, Sneezing, Snoring, Tinnitus, Vertigo, Vocal changes, Other ALLERGY AND IMMUNOLOGY: No: Hives, Insect Bite Sensitivity, Itchy/Watery Eyes, Nasal Congestion, Post Nasal Drip, Seasonal Allergies, Other Hematological and Lymphatic: No: Bleeding Problems, Blood Clots, Blood Transfusions, Brusing, Night Sweats, Pallor, Swollen Lymph Nodes, Other ENDOCRINE: No: Breast Changes, Galactorrhea, Hair Pattern Changes, Hot Flashes, Malaise/lethargy, Mood Swings, Palpitations, Polydipsia/polyuria, Skin Changes, Temperature Intolerance, Unexpected Weight Changes, Other Breast: No New/Changing Breast Lumps, No Nipple changes, No Nipple discharge, No Other Respiratory: YES: Cough, Shortness of breath, SOB with excertion; No: Hemoptysis, Orthopnea, Pleuritic Pain, Sputum Changes, Stridor, Tachypnea, Wheezing, Other Cardiovascular: No Chest Pain, No Palpitations, No Orthopnea, No Paroxysmal Noc. Dyspnea, No Edema, No Lt Headedness, No Other Gastrointestinal: Yes Nausea; No Vomiting, No Abdominal Pain, No Diarrhea, No Constipation, No Melena, No Hematochezia, No Other Genitourinary: No Dysuria, No Frequency, No Incontinence, No Hematuria, No Retention, No Discharge, No Urgency, No Pain, No Flank Pain, No Other, No , No , No , No , No , No , No Musculoskeletal: No Gait Disturbance, No Joint Pain, No Joint Stiffness, No Joint Swelling, No Muscle Pain, No Muscular Weakness, No Pain In:, No Swelling In:, No Other Neurological: No Behavorial Changes, No Bowel/Bladder ControlChng, No Confusion, No Dizziness, No Gait Disturbance, No Headaches, No Impaired Coord/balance, No Memory Loss, No Numbness/Tingling, No Seizures, No Speech Problems, No Tremors, No Visual Changes, No Weakness, No Other Skin: No Dry Skin, No Eczema, No Hair Changes, No Lumps, No Mole Changes, No Mottling, No Nail Changes, No Pruritus, No Rash, No Skin Lesion Changes, No Other, No Acne Physical Exam General: Alert, Oriented X3, Cooperative, mild distress HEENT: Atraumatic, PERRLA, EOMI, Mucous membr. moist/pink Lungs: Other (Coarse rhonchi bilaterally) Heart: S1S2, RRR, no thrills, no rubs, no gallops, no murmurs Abdomen: Normal bowel sounds, Soft, No tenderness, No hepatosplenomegaly, No masses Rectal Exam: not examined Extremities: No clubbing, No cyanosis, No edema, Normal pulses, No te nderness/swelling Skin: No rashes, No breakdown, No significant lesion Neuro: Normal gait, Normal speech, Strength at 5/5 X4 ext, Normal tone, Sensation intact, Cranial nerves 3-12 NL, Reflexes 2+ Psych/Mental Status: Mental status NL, Mood NL Vitals Vitals Vital Signs Date Time Temp Pulse Resp B/P (MAP) Pulse Ox O2 Delivery O2 Flow Rate FiO2 04/06/20 07:00 96.9 89 18 133/74 (93) 98 Nasal Cannula 8.0 96.9 Labs Labs Laboratory Tests Test 04/05/20 22:12 04/05/20 23:36 04/06/20 05:00 White Blood Count 8.8 x10^3/uL (4.0-11.0) Red Blood Count 4.27 x10^6/uL (3.50-5.40) Hemoglobin 14.1 g/dL (12.0-15.5) Hematocrit 39.5 % (36.0-47.0) Mean Corpuscular Volume 93 fL (79-100) Mean Corpuscular Hemoglobin 33 pg (25-35) Mean Corpuscular Hemoglobin Concent 36 g/dL (31-37) Red Cell Distribution Width 13.7 % (11.5-14.5) Platelet Count 241 x10^3/uL (140-400) Neutrophils (%) (Auto) 80 % (31-73) Lymphocytes (%) (Auto) 15 % (24-48) Monocytes (%) (Auto) 4 % (0-9) Eosinophils (%) (Auto) 0 % (0-3) Basophils (%) (Auto) 1 % (0-3) Neutrophils # (Auto) 7.1 x10^3/uL (1.8-7.7) Lymphocytes # (Auto) 1.3 x10^3/uL (1.0-4.8) Monocytes # (Auto) 0.4 x10^3/uL (0.0-1.1) Eosinophils # (Auto) 0.0 x10^3/uL (0.0-0.7) Basophils # (Auto) 0.1 x10^3/uL (0.0-0.2) Prothrombin Time 12.9 SEC (11.7-14.0) Prothromb Time International Ratio 1.0 (0.8-1.1) Activated Partial Thromboplast Time 27 SEC (24-38) D-Dimer (Mary) 0.70 ug/mlFEU (0.00-0.50) Sodium Level 135 mmol/L (136-145) Potassium Level 3.5 mmol/L (3.5-5.1) Chloride Level 99 mmol/L (98-107) Carbon Dioxide Level 26 mmol/L (21-32) Anion Gap 10 (6-14) Blood Urea Nitrogen 6 mg/dL (7-20) Creatinine 0.7 mg/dL (0.6-1.0) Estimated GFR (Cockcroft-Gault) 89.7 BUN/Creatinine Ratio 9 (6-20) Glucose Level 111 mg/dL (70-99) Lactic Acid Level 1.5 mmol/L (0.4-2.0) Calcium Level 8.2 mg/dL (8.5-10.1) Magnesium Level 2.5 mg/dL (1.8-2.4) Total Bilirubin 0.5 mg/dL (0.2-1.0) Aspartate Amino Transf (AST/SGOT) 366 U/L (15-37) Alanine Aminotransferase (ALT/SGPT) 177 U/L (14-59) Alkaline Phosphatase 101 U/L (46-116) Creatine Kinase 78951 U/L (26-192) Creatine Kinase MB (Mass) < 0.5 ng/mL (0.0-3.6) Creatine Kinase MB Relative Index 0.0 % (0-4) Troponin I Quantitative < 0.017 ng/mL (0.000-0.055) 0.023 ng/mL (0.000-0.055) FA-Osm-S-Type Natriuretic Peptide 127 pg/mL (0-124) Total Protein 8.1 g/dL (6.4-8.2) Albumin 3.5 g/dL (3.4-5.0) Albumin/Globulin Ratio 0.8 (1.0-1.7) Urine Collection Type Unknown Urine Color Yellow Urine Clarity Clear Urine pH 8.0 (<5.0-8.0) Urine Specific [place] 1.010 (1.000-1.030) Urine Protein 100 mg/dL (NEG-TRACE) Urine Glucose (UA) Negative mg/dL (NEG) Urine Ketones (Stick) Negative mg/dL (NEG) Urine Blood Large (NEG) Urine Nitrite Negative (NEG) Urine Bilirubin Negative (NEG) Urine Urobilinogen Dipstick 1.0 mg/dL (0.2 mg/dL) Urine Leukocyte Esterase Negative (NEG) Urine RBC 1-2 /HPF (0-2) Urine WBC Occ /HPF (0-4) Urine Squamous Epithelial Cells Few /LPF Urine Bacteria 0 /HPF (0-FEW) Influenza Type A Antigen Negative (NEGATIVE) Influenza Type B Antigen Negative (NEGATIVE) Laboratory Tests Test 04/05/20 22:12 04/05/20 23:36 04/06/20 05:00 White Blood Count 8.8 x10^3/uL (4.0-11.0) Red Blood Count 4.27 x10^6/uL (3.50-5.40) Hemoglobin 14.1 g/dL (12.0-15.5) Hematocrit 39.5 % (36.0-47.0) Mean Corpuscular Volume 93 fL (79-100) Mean Corpuscular Hemoglobin 33 pg (25-35) Mean Corpuscular Hemoglobin Concent 36 g/dL (31-37) Red Cell Distribution Width 13.7 % (11.5-14.5) Platelet Count 241 x10^3/uL (140-400) Neutrophils (%) (Auto) 80 % (31-73) Lymphocytes (%) (Auto) 15 % (24-48) Monocytes (%) (Auto) 4 % (0-9) Eosinophils (%) (Auto) 0 % (0-3) Basophils (%) (Auto) 1 % (0-3) Neutrophils # (Auto) 7.1 x10^3/uL (1.8-7.7) Lymphocytes # (Auto) 1.3 x10^3/uL (1.0-4.8) Monocytes # (Auto) 0.4 x10^3/uL (0.0-1.1) Eosinophils # (Auto) 0.0 x10^3/uL (0.0-0.7) Basophils # (Auto) 0.1 x10^3/uL (0.0-0.2) Prothrombin Time 12.9 SEC (11.7-14.0) Prothromb Time International Ratio 1.0 (0.8-1.1) Activated Partial Thromboplast Time 27 SEC (24-38) D-Dimer (Mary) 0.70 ug/mlFEU (0.00-0.50) Sodium Level 135 mmol/L (136-145) Potassium Level 3.5 mmol/L (3.5-5.1) Chloride Level 99 mmol/L (98-107) Carbon Dioxide Level 26 mmol/L (21-32) Anion Gap 10 (6-14) Blood Urea Nitrogen 6 mg/dL (7-20) Creatinine 0.7 mg/dL (0.6-1.0) Estimated GFR (Cockcroft-Gault) 89.7 BUN/Creatinine Ratio 9 (6-20) Glucose Level 111 mg/dL (70-99) Lactic Acid Level 1.5 mmol/L (0.4-2.0) Calcium Level 8.2 mg/dL (8.5-10.1) Magnesium Level 2.5 mg/dL (1.8-2.4) Total Bilirubin 0.5 mg/dL (0.2-1.0) Aspartate Amino Transf (AST/SGOT) 366 U/L (15-37) Alanine Aminotransferase (ALT/SGPT) 177 U/L (14-59) Alkaline Phosphatase 101 U/L (46-116) Creatine Kinase 24394 U/L (26-192) Creatine Kinase MB (Mass) < 0.5 ng/mL (0.0-3.6) Creatine Kinase MB Relative Index 0.0 % (0-4) Troponin I Quantitative < 0.017 ng/mL (0.000-0.055) 0.023 ng/mL (0.000-0.055) LN-Ihx-Y-Type Natriuretic Peptide 127 pg/mL (0-124) Total Protein 8.1 g/dL (6.4-8.2) Albumin 3.5 g/dL (3.4-5.0) Albumin/Globulin Ratio 0.8 (1.0-1.7) Urine Collection Type Unknown Urine Color Yellow Urine Clarity Clear Urine pH 8.0 (<5.0-8.0) Urine Specific [place] 1.010 (1.000-1.030) Urine Protein 100 mg/dL (NEG-TRACE) Urine Glucose (UA) Negative mg/dL (NEG) Urine Ketones (Stick) Negative mg/dL (NEG) Urine Blood Large (NEG) Urine Nitrite Negative (NEG) Urine Bilirubin Negative (NEG) Urine Urobilinogen Dipstick 1.0 mg/dL (0.2 mg/dL) Urine Leukocyte Esterase Negative (NEG) Urine RBC 1-2 /HPF (0-2) Urine WBC Occ /HPF (0-4) Urine Squamous Epithelial Cells Few /LPF Urine Bacteria 0 /HPF (0-FEW) Influenza Type A Antigen Negative (NEGATIVE) Influenza Type B Antigen Negative (NEGATIVE) Images Images CTPA: Limitations: Prominent motion artifact limits evaluation. Evaluation for Thromboembolic Disease: No evidence of main or lobar pulmonary arterial thrombus. Remainder of the pulmonary arterial system suboptimally evaluated. Lines, Tubes, and Devices: None. Lung Parenchyma, Pleura, and Airways: Peripheral and lower lobe predominant patchy groundglass opacities. No pleural effusion. Central airways patent. Lower Neck, Lymph Nodes, and Mediastinum: Visualized thyroid gland within normal limits. No supraclavicular, axillary, mediastinal, or hilar adenopathy. Heart, Pericardium, and Thoracic Vessels: Cardiac chambers normal in size. No pericardial effusion. Thoracic aorta within normal limits. No coronary artery atherosclerotic calcifications are noted, although the study is not optimized for coronary assessment. Bones and Soft Tissues: Multilevel thoracic degenerative changes. Upper Abdomen: Diffuse hypoattenuation of the hepatic parenchyma, compatible with steatosis. IMPRESSION: No evidence of main or lobar pulmonary embolus on significantly limited evaluation. Bilateral patchy groundglass opacities as described, compatible with viral pneumonia. VTE Prophylaxis Ordered VTE Prophylaxis Devices: No VTE Pharmacological Prophylaxi: Yes Assessment/Plan Assessment/Plan A/P: Acute respiratory failure with hypoxia -likely due to COVID-19 pneumonia. Will aggressively use steroids. Pneumonia due to 2019 novel coronavirus - as above. May need pulmonary consultation if her respiratory status continues to decline. Rhabdomyolysis -will hydrate aggressively, monitor LFTs and renal function. Cannot have remdesivir due to this. Hypokalemia - replaced Transaminitis - likely related to rhabdomyolysis. Unfortunately this combination of symptoms is a contraindication to remdesivir therapy. High Cholesterol - given rhabdo will avoid statins Hypertension - monitor Seasonal allergies - claritin Fatty liver - will monitor transaminases FEN - regular diet PPX - lovenox FULL CODE Dispo - inpatient for above Justifications for Admission Other Justification ELINOR KAT MD Apr 06, 2020 09:26
[2020-04-06] MEDS: IV NORMAL SALINE 1000ML BAG 1,000 ML IV SCH ×2 (09:30→17:33)
[2020-04-06 09:41] LABS: CALCIUM 7.4 mg/dL (8.5-10.1); CREATININE 0.6 mg/dL (0.6-1.0); GFR 107.2; POTASSIUM 4.3 mmol/L (3.5-5.1)
[2020-04-06 11:00] VITALS: BP 103/62
--- NOTE | 2020-04-06 12:45 | NUR ---
Decreased patient oxygen flow to 7L NC. Pt sPO2 on 7L NC is approx. 84-87%. Oxygen increased back to 8L NC, patient sPO2 now between 89-93%.Will continue to monitor.
[2020-04-06 15:00] VITALS: BP 112/36
[2020-04-06] MEDS: AMINO AC 3%/ELECTROLYTE/GLYCER 1,000 ML IV SCH (17:33)
[2020-04-06] MEDS: ENOXAPARIN 40 MG/0.4 ML SYRINGE. SQ SCH (17:33)
[2020-04-06] MEDS: ZINC SULFATE 220 MG CAPSULE. PO SCH (17:33)
[2020-04-06 19:51] VITALS: BP 133/82
[2020-04-06 23:03] VITALS: BP 118/70
[2020-04-07] VITALS (13 sets, daily range): BP systolic 11–153; BP diastolic 61–93
[2020-04-07] MEDS: IV NORMAL SALINE 1000ML BAG 1,000 ML IV SCH ×4 (00:19→23:55)
[2020-04-07 05:22] LABS: HEMOGLOBIN 13.5 g/dL (12.0-15.5); MEAN CORPUSCULAR HEMOGLOBIN 32 pg (25-35); MEAN CORPUSCULAR HGB CONC 35 g/dL (31-37); MEAN CORPUSCULAR VOLUME 93 fL (79-100); PLATELET COUNT 333 x10^3/uL (140-400); RED BLOOD COUNT 4.19 x10^6/uL (3.50-5.40); RED CELL DISTRIBUTION WIDTH 13.5 % (11.5-14.5); WHITE BLOOD COUNT 11.3 x10^3/uL (4.0-11.0)
[2020-04-07 05:23] LABS: BASO % 0 % (0-3); EOS % 0 % (0-3); LYMPH # 1.3 x10^3/uL (1.0-4.8); LYMPH % 11 % (24-48); MONO # 0.7 x10^3/uL (0.0-1.1); MONO % 6 % (0-9); NEUT # 9.3 x10^3/uL (1.8-7.7); NEUT % 83 % (31-73)
[2020-04-07 05:54] LABS: ALBUMIN 2.9 g/dL (3.4-5.0); ALBUMIN/GLOBULIN RATIO 0.6 (1.0-1.7); CALCIUM 8.4 mg/dL (8.5-10.1); CREATININE 0.6 mg/dL (0.6-1.0); GFR 107.2; TOTAL BILIRUBIN 0.4 mg/dL (0.2-1.0); TOTAL PROTEIN 7.5 g/dL (6.4-8.2)
--- NOTE | 2020-04-07 06:00 | NUR ---
Pt this am with decreased O2 saturation noted. Pt O2 increased to 10L high flow however unable to keep O2 up. Pt placed on nonrebreather and O2 increased to 90% however pt states she still did not feel the oxygen so also placed nasal cannula on. Pt O2 increased to 92%. Called and spoke to Dr. Gallego and received ok orders for lasix IVP at this time. Medication given. Report given to Day Nurse.
[2020-04-07] MEDS: AMINO AC 3%/ELECTROLYTE/GLYCER 1,000 ML IV SCH ×2 (06:44→18:30)
[2020-04-07] MEDS ORDERED: FUROSEMIDE 40 MG/4 ML VIAL. IVP ONE (06:45)
--- NOTE | 2020-04-07 07:42 | PDOC ---
[employer] PROGRESS NOTE Date of Service DOS: DATE: 04/07/20 TIME: 07:37 Chief Complaint Chief Complaint A/P: Acute respiratory failure with hypoxia -likely due to COVID-19 pneumonia. Will aggressively use steroids. Pneumonia due to 2019 novel coronavirus - as above. May need pulmonary consultation if her respiratory status continues to decline. Rhabdomyolysis -will hydrate aggressively, monitor LFTs and renal function. Cannot have remdesivir due to this. Will add lasix today. Hypokalemia - replaced Transaminitis - likely related to rhabdomyolysis. Unfortunately this combination of symptoms is a contraindication to remdesivir therapy. High Cholesterol - given rhabdo will avoid statins Hypertension - monitor Seasonal allergies - claritin Fatty liver - will monitor transaminases Hyperglycemia - check A1c, sliding scale while on steroids FEN - regular diet PPX - lovenox FULL CODE Dispo - inpatient for above History of Present Illness History of Present Illness Ms Olson is a 49-year-old female w/ PMHx High Cholesterol, Hypertension, seasonal allergies, fatty liver who presented 04/02/2020 for Covid-like symptoms and returns with the same. Patient reports symptoms have worsened including fever, shortness of air, loss of taste, nausea, fatigue, dizziness, and bilateral lower extremity pain. Denies any vomiting or diarrhea. Reports family members now with similar symptoms. Reports her spouse had some symptoms prior to her. Her SARS-CoV-2 PCR test from 04/02/2020 returned positive. Other labs significant for WBC 8.8, Hb 14.1, platelets 241, D-dimer 0.70, NA 135, K3.5, BUN 6, CR 0.7, glucose 111, AST 366, ALT 177, CK 54,211. Rapid influenza negative EKG Sinus tachycardia at 119bpm, NO ST elevation, QRS 82ms, QT/QTc 308/434ms, baseline artifact noted. Febrile to 101 F CTPA with no PE but Bilateral patchy groundglass opacities as described, compatible with viral pneumonia. She was hypoxic to 82% on normal air and required 6L NCO2 to improve her O2 status. Admitted for further care IV fluid hydration provided. Symptomatic treatment provided with dexamethasone. Empiric antibiotic initiated. Afebrile overnight. Appetite decreased. O2 needs increased to 10 L/min. Labs [place] 0.6[place] [address], AST elevated 300 ALT 165. She is in much more r espiratory distress today. Plan: Add Lasix. Unfortunately she does still need some IV fluids for her severe rhabdomyolysis. We will would like to wean off O2 as soon as possible. Consult pulmonology. Continue steroid Transfer to ICU for Vapotherm Unfortunately rhabdomyolysis and transaminitis are high risk for remdesivir therapy Vitals/I&O Vitals/I&O: Vital Signs Date Time Temp Pulse Resp B/P (MAP) Pulse Ox O2 Delivery O2 Flow Rate FiO2 04/07/20 02:53 98.1 80 18 114/68 (83) 96 Nasal Cannula 7.0 98.1 I & O 04/06/20 04/06/20 04/07/20 15:00 23:00 07:00 Intake Total 770 ml 360 ml Output Total 1000 ml Balance -230 ml 360 ml Physical Exam General: Alert, Oriented X3, Cooperative, mild distress Abdomen: Normal bowel sounds, Soft, No tenderness, No hepatosplenomegaly, No masses Extremities: No clubbing, No cyanosis, No edema, Normal pulses, No tenderness/swelling Skin: No rashes, No breakdown, No significant lesion Labs Labs: Laboratory Tests Test 04/06/20 08:30 04/07/20 04:45 Sodium Level 140 mmol/L (136-145) 137 mmol/L (136-145) Potassium Level 4.3 mmol/L (3.5-5.1) 4.0 mmol/L (3.5-5.1) Chloride Level 106 mmol/L (98-107) 104 mmol/L (98-107) Carbon Dioxide Level 24 mmol/L (21-32) 23 mmol/L (21-32) Anion Gap 10 (6-14) 10 (6-14) Blood Urea Nitrogen 6 mg/dL (7-20) 9 mg/dL (7-20) Creatinine 0.6 mg/dL (0.6-1.0) 0.6 mg/dL (0.6-1.0) Estimated GFR (Cockcroft-Gault) 107.2 107.2 Glucose Level 178 mg/dL (70-99) 149 mg/dL (70-99) Calcium Level 7.4 mg/dL (8.5-10.1) 8.4 mg/dL (8.5-10.1) Creatine Kinase 08805 U/L (26-192) 38003 U/L (26-192) Troponin I Quantitative 0.017 ng/mL (0.000-0.055) White Blood Count 11.3 x10^3/uL (4.0-11.0) Red Blood Count 4.19 x10^6/uL (3.50-5.40) Hemoglobin 13.5 g/dL (12.0-15.5) Hematocrit 39.0 % (36.0-47.0) Mean Corpuscular Volume 93 fL (79-100) Mean Corpuscular Hemoglobin 32 pg (25-35) Mean Corpuscular Hemoglobin Concent 35 g/dL (31-37) Red Cell Distribution Width 13.5 % (11.5-14.5) Platelet Count 333 x10^3/uL (140-400) Neutrophils (%) (Auto) 83 % (31-73) Lymphocytes (%) (Auto) 11 % (24-48) Monocytes (%) (Auto) 6 % (0-9) Eosinophils (%) (Auto) 0 % (0-3) Basophils (%) (Auto) 0 % (0-3) Neutrophils # (Auto) 9.3 x10^3/uL (1.8-7.7) Lymphocytes # (Auto) 1.3 x10^3/uL (1.0-4.8) Monocytes # (Auto) 0.7 x10^3/uL (0.0-1.1) Eosinophils # (Auto) 0.0 x10^3/uL (0.0-0.7) Basophils # (Auto) 0.0 x10^3/uL (0.0-0.2) BUN/Creatinine Ratio 15 (6-20) Total Bilirubin 0.4 mg/dL (0.2-1.0) Aspartate Amino Transf (AST/SGOT) 300 U/L (15-37) Alanine Aminotransferase (ALT/SGPT) 165 U/L (14-59) Alkaline Phosphatase 92 U/L (46-116) Total Protein 7.5 g/dL (6.4-8.2) Albumin 2.9 g/dL (3.4-5.0) Albumin/Globulin Ratio 0.6 (1.0-1.7) Assessment and Plan Assessmemt and Plan Problems Medical Problems: (1) Hypoxia Status: Acute (2) Pneumonia due to 2019 novel coronavirus Status: Acute (3) Respiratory failure Status: Acute (4) Rhabdomyolysis Status: Acute Comment Review of Relevant I have reviewed the following items eddie (where applicable) has been applied. Medications: Current Medications Medications (Trade) Dose Ordered Sig/Lizbeth Route PRN Reason Start Time Stop Time Status Last Admin Dose Admin Sodium Chloride 1,000 ml @ 150 mls/hr [id number] IV 04/06/20 09:30 04/07/20 00:19 Dexamethasone Sodium Phosphate (Decadron) 6 mg 1X ONCE IVP 04/06/20 17:30 04/06/20 17:31 DC 04/06/20 17:34 Enoxaparin Sodium (Lovenox 40mg Syringe) 40 mg Q24H SQ 04/06/20 18:00 04/06/20 17:33 Zinc Sulfate (Orazinc) 220 mg DAILY PO 04/06/20 17:00 04/06/20 17:33 Amino Acids/ Glycerin/ Electrolytes 1,000 ml @ 80 mls/hr [id number] IV 04/06/20 17:30 04/07/20 06:44 Furosemide (Lasix) 60 mg 1X ONCE IVP 04/07/20 06:45 04/07/20 06:46 DC 04/07/20 06:44 Justifications for Admission Other Justification ELINOR KAT MD Apr 07, 2020 07:42
[2020-04-07] MEDS ORDERED: DEXTROSE 50% 25 GM / 50ML DISP.SYRIN. IV PRN (07:45)
[2020-04-07] MEDS: INSULIN LISPRO 300 UNITS/3 ML VIAL. SQ SCH ×3 (08:00→16:56)
[2020-04-07] MEDS: ZINC SULFATE 220 MG CAPSULE. PO SCH (08:35)
--- NOTE | 2020-04-07 12:11 | NUR ---
Zoom consult done with Dr. Hunt on ipad. Pt called her son on her personal cellphone during the meeting to translate. Pt verbalized understanding of transferring to ICU. Pt verbalized understanding of using vapotherm. Pt made aware of the risks of being placed on life support machine. Pt and family want all measures done for at this time. Will continue to monitor.
--- NOTE | 2020-04-07 12:52 | CONS ---
DATE OF CONSULTATION: PULMONARY CONSULTATION ATTENDING PHYSICIAN: Dieter Gallego MD REASON FOR CONSULTATION: Hypoxia, respiratory failure, COVID pneumonia. HISTORY OF PRESENT ILLNESS: The patient is a 49-year-old obese female with a BMI of 33. The patient does not speak Lebanese. I have done the consultation via interpretation with her son, who speaks Lebanese. The patient initially presented with COVID-like symptoms. She was complaining of fever, shortness of breath and loss of taste and smell and fatigue along with dizziness. No vomiting or diarrhea. She was tested positive for COVID. The patient was brought into the hospital due to dyspnea and hypoxia. Her saturations were 82% on 6 liters. She underwent CTA chest, which was reviewed by me and it showed evidence of bilateral patchy ground glass opacities consistent with viral pneumonia. No evidence of pulmonary embolism. She is currently on a nonrebreather mask with 100% FiO2. PAST MEDICAL HISTORY: Significant for hypertension and hyperlipidemia. PAST SURGICAL HISTORY: Hysterectomy. FAMILY HISTORY: Diabetes, dyslipidemia and hypertension. SOCIAL HISTORY: Nonsmoker. ALLERGIES: None. MEDICATIONS: Reviewed as listed in the MRAD. REVIEW OF SYSTEMS: Limited due to language barrier. PHYSICAL EXAMINATION: VITAL SIGNS: On examination, which was done via telemedicine, blood pressure is stable. Pulse ox is 92% on 15 liters, afebrile. GENERAL: She is mildly tachypneic. ABDOMEN: Obese. EXTREMITIES: No rash. LABORATORY DATA: Reviewed. White cell count 11.3, hemoglobin 13.5, platelets are 333. BUN 9, creatinine 0.6. IMPRESSION: 1. Acute hypoxic respiratory failure secondary to COVID-[address] chest with bilateral patchy interstitial infiltrates compatible with COVID-19 pneumonia. 3. Underlying obesity. 4. History of hypertension. RECOMMENDATIONS: 1. I have discussed with the patient's son and RN. At this time, her respiratory status is marginal. I will transfer her to the ICU and place her on Vapotherm. 2. We will continue with IV dexamethasone. 3. DVT prophylaxis with Lovenox. 4. Not a candidate for remdesivir at present. 5. Her respiratory status is marginal. We will closely watch for need for intubation. I have spoken to the son. He states that try other options before pursuing with intubation, but he wants full code. Critical care time 35 minutes. PALAK GRIGGS MD DR: Ant JOB#: [id number] / [id number]
[2020-04-07] MEDS: DEXAMETHASONE SOD PHOS 4 MG/ML VIAL IVP SCH (13:00)
[2020-04-07] MEDS: cefTRIAXone IV Push 1 GM VIAL. IVP SCH (13:00)
--- NOTE | 2020-04-07 13:30 | NUR ---
Pt transferred to room 106. Report called to LUANA Vargas. Pt transported via wheelchair. Pt clothing, purse, cell phone and cell phone firer glost kiln placed in green patient belonging bags and transferred with patient.
[2020-04-07] MEDS: ENOXAPARIN 40 MG/0.4 ML SYRINGE. SQ SCH (17:39)
[2020-04-07] MEDS: STERILE WATER for RESP 1,000 ML BAG. INH PRN (20:40)
[2020-04-07] MEDS: guaiFENesin DM 200MG/20MG 10 ML SYRUP PO PRN (21:09)
[2020-04-07] MEDS: ZOLPIDEM 5 MG TABLET. PO PRN (21:09)
[2020-04-07] MEDS: INSULIN GLARGINE SYRINGE. SQ SCH (21:20)
[2020-04-08] VITALS (24 sets, daily range): BP systolic 94–155; BP diastolic 51–95
[2020-04-08] MEDS: IV NORMAL SALINE 1000ML BAG 1,000 ML IV SCH ×4 (01:30→23:14)
[2020-04-08 02:07] LABS: HEMOGLOBIN A1C 6.2 % (4.8-5.6)
[2020-04-08] MEDS: STERILE WATER for RESP 1,000 ML BAG. INH PRN ×2 (02:23→15:11)
[2020-04-08] MEDS: AMINO AC 3%/ELECTROLYTE/GLYCER 1,000 ML IV SCH ×2 (06:46→16:09)
[2020-04-08 06:48] LABS: ALBUMIN 2.6 g/dL (3.4-5.0); ALBUMIN/GLOBULIN RATIO 0.6 (1.0-1.7); CALCIUM 7.9 mg/dL (8.5-10.1); CREATININE 0.6 mg/dL (0.6-1.0); GFR 107.2; POTASSIUM 3.7 mmol/L (3.5-5.1); TOTAL BILIRUBIN 0.5 mg/dL (0.2-1.0); TOTAL PROTEIN 6.9 g/dL (6.4-8.2)
[2020-04-08] MEDS: INSULIN LISPRO 300 UNITS/3 ML VIAL. SQ SCH ×3 (07:26→17:32)
[2020-04-08] MEDS: ZINC SULFATE 220 MG CAPSULE. PO SCH (07:56)
[2020-04-08] MEDS: DEXAMETHASONE SOD PHOS 4 MG/ML VIAL IVP SCH (07:57)
--- NOTE | 2020-04-08 08:09 | EKG ---
[facility] [address] [place] [address] Test Date: 2020-04-05 Test Time: 22:34:42 Pat Name: AUGUST HILTON Department: Room: [facility] Gender: F Tile Setter Supervisor: : [id number] Requested By: GUI MUNOZ Order Number: [id number] Reading MD: Adair Phillips Measurements Intervals [place] Rate: 119 P: -34 NE: 100 QRS: -19 QRSD: 82 T: 11 QT: 308 QTc: 434 Interpretive Statements SINUS TACHYCARDIA LEFTWARD AXIS Electronically Signed On 04-09-2020 11:06:24 HORIZONTAL BORING MILL SET UP OPERATOR by Adair Phillips
--- NOTE | 2020-04-08 08:41 | PDOC ---
PROGRESS NOTES Date of Service: DATE: 04/08/20 TIME: 08:41 Chief Complaint Chief Complaint IMPRESSION Acute respiratory failure with hypoxia -likely due to COVID-19 pneumonia. Will aggressively use steroids. Bilateral patchy groundglass opacities as described, compatible with viral pneumonia. CTA CHEST Pneumonia due to 2019 novel coronavirus - as above. pulmonary consultation Rhabdomyolysis -will hydrate aggressively, monitor LFTs and renal function. Cannot have remdesivir due to this. Will add lasix today. Hypokalemia - replaced Transaminitis - likely related to rhabdomyolysis. Unfortunately this combination of symptoms is a contraindication to remdesivir therapy. High Cholesterol - given rhabdo will avoid statins, consult nephrology Hypertension - monitor Seasonal allergies - claritin Fatty liver - will monitor transaminases, CONSULT gi Hyperglycemia - check A1c, sliding scale while on steroids PLAN FEN - regular diet PPX - lovenox FULL CODE Dispo - inpatient for above ICU BED consult nephrology 31 MIN CC TIME History of Present Illness History of Present Illness Ms Olson is a 49-year-old female w/ PMHx High Cholesterol, Hypertension, seasonal allergies, fatty liver who presented 04/02/2020 for Covid-like symptoms and returns with the same. Patient reports symptoms have worsened including fever, shortness of air, loss of taste, nausea, fatigue, dizziness, and bilateral lower extremity pain. Denies any vomiting or diarrhea. Reports family members now with similar symptoms. Reports her spouse had some symptoms prior to her. Her SARS-CoV-2 PCR test from 04/02/2020 returned positive. Other labs significant for WBC 8.8, Hb 14.1, platelets 241, D-dimer 0.70, NA 135, K3.5, BUN 6, CR 0.7, glucose 111, AST 366, ALT 177, CK 54,211. Rapid influenza negative EKG Sinus tachycardia at 119bpm, NO ST elevation, QRS 82ms, QT/QTc 308/434ms, baseline artifact noted. Febrile to 101 F CTPA with no PE but Bilateral patchy groundglass opacities as described, compatible with viral pneumonia. She was hypoxic to 82% on normal air and required 6L NCO2 to improve her O2 status. Admitted for further care IV fluid hydration provided. Symptomatic treatment provided with dexamethasone. Empiric antibiotic initiated. Afebrile overnight. Appetite decreased. O2 needs increased to 10 L/min. Labs [place] 0[place] [address], AST elevated 300 ALT 165. She is in much more respiratory distress today. Plan: Add Lasix. Unfortunately she does still need some IV fluids for her severe r habdomyolysis. We will would like to wean off O2 as soon as possible. Consult pulmonology. Continue steroid Transfer to ICU for Vapotherm Unfortunately rhabdomyolysis and transaminitis are high risk for remdesivir therapy Vitals Vitals Vital Signs Date Time Temp Pulse Resp B/P (MAP) Pulse Ox O2 Delivery O2 Flow Rate FiO2 04/08/20 07:00 97.5 95 20 138/75 (96) 93 Nasal Cannula 40.0 97.5 Physical Exam Physical Exam visual exam due to covid 19 pandemic General: Alert, Oriented X3, Cooperative, mild distress Abdomen: Normal bowel sounds, Soft, No tenderness, No hepatosplenomegaly, No masses Extremities: No clubbing, No cyanosis, No edema, Normal pulses, No tenderness/swelling Skin: No rashes, No breakdown, No significant lesion Labs LABS Procedure Result BLOOD CULTURE Preliminary NO GROWTH AFTER 2 DAYS EXAMINATION: CT ANGIOGRAPHY CHEST CLINICAL HISTORY: Shortness of breath, Covid positive, elevated d-dimer Technique: Spiral CT acquisition of the chest from the thoracic inlet to the upper abdomen following IV contrast with coronal and sagittal reformatted images also provided for review. CT Dose Reduction Employed: One or more of the following individualized dose reduction techniques were utilized for this examination: 1. Automated exposure control 2. Adjustment of the mA and/or kV according to patient size 3. Use of iterative reconstruction technique. Comparison: Chest radiograph 04/02/2020 FINDINGS: Limitations: Prominent motion artifact limits evaluation. Evaluation for Thromboembolic Disease: No evidence of main or lobar pulmonary arterial thrombus. Remainder of the pulmonary arterial system suboptimally evaluated. Lines, Tubes, and Devices: None. Lung Parenchyma, Pleura, and Airways: Peripheral and lower lobe predominant patchy groundglass opacities. No pleural effusion. Central airways patent. Lower Neck, Lymph Nodes, and Mediastinum: Visualized thyroid gland within normal limits. No supraclavicular, axillary, mediastinal, or hilar adenopathy. Heart, Pericardium, and Thoracic Vessels: Cardiac chambers normal in size. No pericardial effusion. Thoracic aorta within normal limits. No coronary artery atherosclerotic calcifications are noted, although the study is not optimized for coronary assessment. Bones and Soft Tissues: Multilevel thoracic degenerative changes. Upper Abdomen: Diffuse hypoattenuation of the hepatic parenchyma, compatible with steatosis. IMPRESSION: No evidence of main or lobar pulmonary embolus on significantly limited evaluation. Bilateral patchy groundglass opacities as described, compatible with viral pneumonia. Electronically signed by: Jorge Luis Kaur DO (04/06/2020 1:01 AM) [facility] DICTATED and SIGNED BY: JORGE LUIS KAUR DO DATE: 04/06/20 [id number] Laboratory Tests Test 04/07/20 12:22 04/07/20 16:51 04/07/20 21:14 04/08/20 05:10 Glucose (Fingerstick) 131 mg/dL (70-99) 123 mg/dL (70-99) 146 mg/dL (70-99) D-Dimer (Mary) 0.44 ug/mlFEU (0.00-0.50) Sodium Level 139 mmol/L (136-145) Potassium Level 3.7 mmol/L (3.5-5.1) Chloride Level 105 mmol/L (98-107) Carbon Dioxide Level 22 mmol/L (21-32) Anion Gap 12 (6-14) Blood Urea Nitrogen 10 mg/dL (7-20) Creatinine 0.6 mg/dL (0.6-1.0) Estimated GFR (Cockcroft-Gault) 107.2 BUN/Creatinine Ratio 17 (6-20) Glucose Level 116 mg/dL (70-99) Calcium Level 7.9 mg/dL (8.5-10.1) Total Bilirubin 0.5 mg/dL (0.2-1.0) Aspartate Amino Transf (AST/SGOT) 253 U/L (15-37) Alanine Aminotransferase (ALT/SGPT) 152 U/L (14-59) Alkaline Phosphatase 91 U/L (46-116) Creatine Kinase 48009 U/L (26-192) Total Protein 6.9 g/dL (6.4-8.2) Albumin 2.6 g/dL (3.4-5.0) Albumin/Globulin Ratio 0.6 (1.0-1.7) Assessment and Plan Assessmemt and Plan Problems Medical Problems: (1) Hypoxia Status: Acute (2) Pneumonia due to 2019 novel coronavirus Status: Acute (3) Respiratory failure Status: Acute (4) Rhabdomyolysis Status: Acute Comment Review of Relevant I have reviewed the following items eddie (where applicable) has been applied. Labs Laboratory Tests Test 04/07/20 04:45 04/07/20 07:59 04/07/20 12:22 04/07/20 16:51 White Blood Count 11.3 x10^3/uL (4.0-11.0) Red Blood Count 4.19 x10^6/uL (3.50-5.40) Hemoglobin 13.5 g/dL (12.0-15.5) Hematocrit 39.0 % (36.0-47.0) Mean Corpuscular Volume 93 fL (79-100) Mean Corpuscular Hemoglobin 32 pg (25-35) Mean Corpuscular Hemoglobin Concent 35 g/dL (31-37) Red Cell Distribution Width 13.5 % (11.5-14.5) Platelet Count 333 x10^3/uL (140-400) Neutrophils (%) (Auto) 83 % (31-73) Lymphocytes (%) (Auto) 11 % (24-48) Monocytes (%) (Auto) 6 % (0-9) Eosinophils (%) (Auto) 0 % (0-3) Basophils (%) (Auto) 0 % (0-3) Neutrophils # (Auto) 9.3 x10^3/uL (1.8-7.7) Lymphocytes # (Auto) 1.3 x10^3/uL (1.0-4.8) Monocytes # (Auto) 0.7 x10^3/uL (0.0-1.1) Eosinophils # (Auto) 0.0 x10^3/uL (0.0-0.7) Basophils # (Auto) 0.0 x10^3/uL (0.0-0.2) Sodium Level 137 mmol/L (136-145) Potassium Level 4.0 mmol/L (3.5-5.1) Chloride Level 104 mmol/L (98-107) Carbon Dioxide Level 23 mmol/L (21-32) Anion Gap 10 (6-14) Blood Urea Nitrogen 9 mg/dL (7-20) Creatinine 0.6 mg/dL (0.6-1.0) Estimated GFR (Cockcroft-Gault) 107.2 BUN/Creatinine Ratio 15 (6-20) Glucose Level 149 mg/dL (70-99) Hemoglobin A1c 6.2 % (4.8-5.6) Calcium Level 8.4 mg/dL (8.5-10.1) Total Bilirubin 0.4 mg/dL (0.2-1.0) Aspartate Amino Transf (AST/SGOT) 300 U/L (15-37) Alanine Aminotransferase (ALT/SGPT) 165 U/L (14-59) Alkaline Phosphatase 92 U/L (46-116) Creatine Kinase 05441 U/L (26-192) Total Protein 7.5 g/dL (6.4-8.2) Albumin 2.9 g/dL (3.4-5.0) Albumin/Globulin Ratio 0.6 (1.0-1.7) Thyroid Stimulating Hormone (TSH) 0.659 uIU/mL (0.358-3.74) Glucose (Fingerstick) 183 mg/dL (70-99) 131 mg/dL (70-99) 123 mg/dL (70-99) Test 04/07/20 21:14 04/08/20 05:10 Glucose (Fingerstick) 146 mg/dL (70-99) D-Dimer (Mary) 0.44 ug/mlFEU (0.00-0.50) Sodium Level 139 mmol/L (136-145) Potassium Level 3.7 mmol/L (3.5-5.1) Chloride Level 105 mmol/L (98-107) Carbon Dioxide Level 22 mmol/L (21-32) Anion Gap 12 (6-14) Blood Urea Nitrogen 10 mg/dL (7-20) Creatinine 0.6 mg/dL (0.6-1.0) Estimated GFR (Cockcroft-Gault) 107.2 BUN/Creatinine Ratio 17 (6-20) Glucose Level 116 mg/dL (70-99) Calcium Level 7.9 mg/dL (8.5-10.1) Total Bilirubin 0.5 mg/dL (0.2-1.0) Aspartate Amino Transf (AST/SGOT) 253 U/L (15-37) Alanine Aminotransferase (ALT/SGPT) 152 U/L (14-59) Alkaline Phosphatase 91 U/L (46-116) Creatine Kinase 76015 U/L (26-192) Total Protein 6.9 g/dL (6.4-8.2) Albumin 2.6 g/dL (3.4-5.0) Albumin/Globulin Ratio 0.6 (1.0-1.7) Laboratory Tests Test 04/07/20 12:22 04/07/20 16:51 04/07/20 21:14 04/08/20 05:10 Glucose (Fingerstick) 131 mg/dL (70-99) 123 mg/dL (70-99) 146 mg/dL (70-99) D-Dimer (Mary) 0.44 ug/mlFEU (0.00-0.50) Sodium Level 139 mmol/L (136-145) Potassium Level 3.7 mmol/L (3.5-5.1) Chloride Level 105 mmol/L (98-107) Carbon Dioxide Level 22 mmol/L (21-32) Anion Gap 12 (6-14) Blood Urea Nitrogen 10 mg/dL (7-20) Creatinine 0.6 mg/dL (0.6-1.0) Estimated GFR (Cockcroft-Gault) 107.2 BUN/Creatinine Ratio 17 (6-20) Glucose Level 116 mg/dL (70-99) Calcium Level 7.9 mg/dL (8.5-10.1) Total Bilirubin 0.5 mg/dL (0.2-1.0) Aspartate Amino Transf (AST/SGOT) 253 U/L (15-37) Alanine Aminotransferase (ALT/SGPT) 152 U/L (14-59) Alkaline Phosphatase 91 U/L (46-116) Creatine Kinase 30792 U/L (26-192) Total Protein 6.9 g/dL (6.4-8.2) Albumin 2.6 g/dL (3.4-5.0) Albumin/Globulin Ratio 0.6 (1.0-1.7) Microbiology 04/06/20 Blood Culture - Preliminary, Resulted NO GROWTH AFTER 2 DAYS Medications Current Medications Iohexol (Omnipaque 350 Mg/ml) 100 ml 1X ONCE IV Last administered on 04/05/20at 00:14; Start 04/05/20 at 23:45; Stop 04/05/20 at 23:46; Status DC Info (CONTRAST GIVEN -- Rx MONITORING) 1 each PRN DAILY PRN MC SEE COMMENTS; S tart 04/05/20 at 23:45; Stop 04/07/20 at 23:44; Status DC Sodium Chloride 1,000 ml @ 1,000 mls/hr 1X ONCE IV Last administered on 04/06/20at 01:17; Start 04/06/20 at 01:00; Stop 04/06/20 at 01:59; Status DC Dexamethasone Sodium Phosphate (Decadron) 10 mg 1X ONCE IVP Last administered on 04/06/20at 01:16; Start 04/06/20 at 01:00; Stop 04/06/20 at 01:02; Status DC Azithromycin 500 mg/Sodium Chloride 250 ml @ 250 mls/hr 1X ONCE IV Last administered on 04/06/20at 01:16; Start 04/06/20 at 01:00; Stop 04/06/20 at 01:59; Status DC Ondansetron HCl (Zofran) 4 mg PRN Q8HRS PRN IV NAUSEA/VOMITING; Start 04/06/20 at 01:30; Stop 04/06/20 at 17:17; Status DC Acetaminophen (Tylenol) 650 mg PRN Q4HRS PRN PO FEVER > 100.3'F Last administered on 04/06/20at 02:44; Start 04/06/20 at 01:30; Stop 04/06/20 at 17:17; Status DC Sodium Chloride 1,000 ml @ 100 mls/hr 1X ONCE IV Last administered on 04/06/20at 02:37; Start 04/06/20 at 01:30; Stop 04/06/20 at 11:29; Status DC Sodium Chloride 1,000 ml @ 150 mls/hr Q6H40M IV Last administered on 04/08/20at 07:26; Start 04/06/20 at 09:30 Ondansetron HCl (Zofran) 4 mg PRN Q4HRS PRN IV NAUSEA/VOMITING; Start 04/06/20 at 17:15 Acetaminophen (Tylenol) 650 mg PRN Q6HRS PRN PO FEVER > 100.3'F; Start 04/06/20 at 17:15 Guaifenesin (Robitussin Dm) 10 ml PRN Q6HRS PRN PO COUGH Last administered on 04/07/20at 21:09; Start 04/06/20 at 17:15 Dexamethasone Sodium Phosphate (Decadron) 6 mg 1X ONCE IVP Last administered on 04/06/20at 17:34; Start 04/06/20 at 17:30; Stop 04/06/20 at 17:31; Status DC Enoxaparin Sodium (Lovenox 40mg Syringe) 40 mg Q24H SQ Last administered on 04/07/20at 17:39; Start 04/06/20 at 18:00 Zinc Sulfate (Orazinc) 220 mg DAILY PO Last administered on 04/08/20at 07:56; Start 04/06/20 at 17:00 Zolpidem Tartrate (Ambien) 5 mg PRN QHS PRN PO INSOMNIA; Start 04/06/20 at 17:15 Morphine Sulfate (Morphine Sulfate) 2 mg PRN Q2HR PRN IV PAIN; Start 04/06/20 at 17:15 Amino Acids/ Glycerin/ Electrolytes 1,000 ml @ 80 mls/hr [id number] IV Last adm inistered on 04/07/20at 06:44; Start 04/06/20 at 17:30 Furosemide (Lasix) 60 mg 1X ONCE IVP Last administered on 04/07/20at 06:44; Start 04/07/20 at 06:45; Stop 04/07/20 at 06:46; Status DC Insulin Glargine (Lantus Syringe) 5 unit QHS SQ Last administered on 04/07/20at 21:20; Start 04/07/20 at 21:00 Insulin Human Lispro (HumaLOG) 0-7 UNITS TIDWMEALS SQ ; Start 04/07/20 at 08:00 Dextrose (Dextrose 50%-Water Syringe) 12.5 gm PRN Q15MIN PRN IV SEE COMMENTS; Start 04/07/20 at 07:45 Dexamethasone Sodium Phosphate (Decadron) 6 mg DAILY IVP Last administered on 04/08/20at 07:57; Start 04/07/20 at 13:00 Ceftriaxone Sodium (Rocephin) 1 gm Q24H IVP Last administered on 04/07/20at 13:00; Start 04/07/20 at 13:00 Sterile Water (WATER for RESP) 1,000 ml CONT PRN INH VIA VAPOTHERM DEVICE Last administered on 04/08/20at 02:23; Start 04/07/20 at 13:00 Active Scripts Active Codeine-Guaifen 10-100 mg/5 ml (Guaifenesin/Codeine Phosphate) 120 Ml Liquid 5 Ml PO PRN Q6HRS PRN MDD 20 Milliliter(s) 6 Days Prednisone 50 Mg Tablet 1 Tab PO DAILY Zithromax (Azithromycin) 250 Mg Tablet 1 Pkg PO UD Ibuprofen 800 Mg Tablet 800 Mg PO PRN Q6HRS PRN Meclizine Hcl 25 Mg Tablet 1 Tab PO TID Zithromax (Azithromycin) 250 Mg Tablet 1 Pkg PO UD Tamiflu (Oseltamivir Phosphate) 75 Mg Capsule 1 Cap PO BID Reported Claritin (Loratadine) 10 Mg Tablet 10 Mg PO DAILY Vitals/I & O Vital Sign - Last 24 Hours 04/07/20 04/07/20 04/07/20 04/07/20 11:00 13:30 13:30 15:00 Temp 97.7 98.5 97.7 98.5 Pulse 99 93 82 Resp 24 B/P (MAP) 125/63 (83) 153/93 (113) 140/81 (100) Pulse Ox 93 99 95 O2 Delivery NonRebreather Mask vapotherm vapotherm O2 Flow Rate 15.0 40.0 40.0 40.0 04/07/20 04/07/20 04/07/20 04/07/20 15:21 16:09 16:57 18:03 Pulse 82 79 92 B/P (MAP) 127/81 (96) 124/82 (96) 141/78 (99) Pulse Ox 95 95 95 95 O2 Delivery VAPOTHERM O2 Flow Rate 40.0 40.0 40.0 40.0 04/07/20 04/07/20 04/07/20 04/07/20 19:00 20:00 20:00 20:10 Temp 98.2 98.2 Pulse 84 70 B/P (MAP) 119/70 (86) 11/70 (51) Pulse Ox 96 94 94 O2 Delivery vapotherm Non-Rebreather vapotherm VAPOTHERM O2 Flow Rate 40.0 40.0 40.0 40.0 04/07/20 04/07/20 04/07/20 04/07/20 21:00 22:00 23:00 23:38 Temp 97.8 97.8 Pulse 78 84 79 B/P (MAP) 123/75 (91) 121/77 (92) 110/61 (77) Pulse Ox 96 92 97 O2 Delivery vapotherm vapotherm Vapotherm O2 Flow Rate 40.0 40.0 40.0 04/07/20 04/08/20 04/08/20 04/08/20 23:50 00:00 00:16 01:00 Pulse 63 62 Resp 19 32 B/P (MAP) 112/70 (84) 115/70 (85) Pulse Ox 92 92 94 O2 Delivery VAPOTHERM Vapotherm Non-Rebreather Vapotherm O2 Flow Rate 40.0 40.0 40.0 40.0 04/08/20 04/08/20 04/08/20 04/08/20 02:00 03:00 03:35 04:00 Temp 97.7 97.7 Pulse 88 72 78 Resp 24 22 36 B/P (MAP) 94/51 (65) 123/69 (87) 117/73 (88) Pulse Ox 92 95 92 O2 Delivery Vapotherm Vapotherm Vapotherm O2 Flow Rate 40.0 40.0 40.0 04/08/20 04/08/20 04/08/20 04/08/20 04:00 04:15 05:00 06:00 Pulse 84 69 Resp 32 26 B/P (MAP) 131/83 (99) 138/75 (96) Pulse Ox 93 94 92 O2 Delivery Non-Rebreather VAPOTHERM Vapotherm Vapotherm O2 Flow Rate 40.0 40.0 40.0 40.0 04/08/20 07:00 Temp 97.5 97.5 Pulse 95 Resp 20 B/P (MAP) 138/75 (96) Pulse Ox 93 O2 Delivery Nasal Cannula O2 Flow Rate 40.0 Intake and Output 04/07/20 04/07/20 04/08/20 14:59 22:59 06:59 Intake Total 250 ml 500 ml 1100 ml Output Total 0 ml 1050 ml 1375 ml Balance 250 ml -550 ml -275 ml Justicifation of Admission Dx: Justifications for Admission: Justification of Admission Dx: Yes Comments: severe rhabdomyolysis RADHA GARCIA MD Apr 08, 2020 08:41
[2020-04-08] MEDS: ENOXAPARIN 40 MG/0.4 ML SYRINGE. SQ SCH ×2 (09:05→21:15)
--- NOTE | 2020-04-08 09:49 | PDOC ---
PULMONARY PROGRESS NOTES DATE: 04/08/20 TIME: 09:46 Subjective Patient remains on Vapotherm FiO2 100% and 40 L Afebrile overnight No overnight concerns from nursing Vitals Vital Signs Date Time Temp Pulse Resp B/P (MAP) Pulse Ox O2 Delivery O2 Flow Rate FiO2 04/08/20 09:00 79 18 146/85 (105) 95 40.0 04/08/20 08:30 VAPOTHERM 04/08/20 07:00 97.5 97.5 Comments Patient seen during ID pandemic, visual exam performed Regular rate and rhythm Vapotherm No accessory muscle use/distress No obvious rash or edema Labs Laboratory Tests Test 04/07/20 04:45 04/07/20 07:59 04/07/20 12:22 04/07/20 16:51 White Blood Count 11.3 x10^3/uL (4.0-11.0) Red Blood Count 4.19 x10^6/uL (3.50-5.40) Hemoglobin 13.5 g/dL (12.0-15.5) Hematocrit 39.0 % (36.0-47.0) Mean Corpuscular Volume 93 fL (79-100) Mean Corpuscular Hemoglobin 32 pg (25-35) Mean Corpuscular Hemoglobin Concent 35 g/dL (31-37) Red Cell Distribution Width 13.5 % (11.5-14.5) Platelet Count 333 x10^3/uL (140-400) Neutrophils (%) (Auto) 83 % (31-73) Lymphocytes (%) (Auto) 11 % (24-48) Monocytes (%) (Auto) 6 % (0-9) Eosinophils (%) (Auto) 0 % (0-3) Basophils (%) (Auto) 0 % (0-3) Neutrophils # (Auto) 9.3 x10^3/uL (1.8-7.7) Lymphocytes # (Auto) 1.3 x10^3/uL (1.0-4.8) Monocytes # (Auto) 0.7 x10^3/uL (0.0-1.1) Eosinophils # (Auto) 0.0 x10^3/uL (0.0-0.7) Basophils # (Auto) 0.0 x10^3/uL (0.0-0.2) Sodium Level 137 mmol/L (136-145) Potassium Level 4.0 mmol/L (3.5-5.1) Chloride Level 104 mmol/L (98-107) Carbon Dioxide Level 23 mmol/L (21-32) Anion Gap 10 (6-14) Blood Urea Nitrogen 9 mg/dL (7-20) Creatinine 0.6 mg/dL (0.6-1.0) Estimated GFR (Cockcroft-Gault) 107.2 BUN/Creatinine Ratio 15 (6-20) Glucose Level 149 mg/dL (70-99) Hemoglobin A1c 6.2 % (4.8-5.6) Calcium Level 8.4 mg/dL (8.5-10.1) Total Bilirubin 0.4 mg/dL (0.2-1.0) Aspartate Amino Transf (AST/SGOT) 300 U/L (15-37) Alanine Aminotransferase (ALT/SGPT) 165 U/L (14-59) Alkaline Phosphatase 92 U/L (46-116) Creatine Kinase 56643 U/L (26-192) Total Protein 7.5 g/dL (6.4-8.2) Albumin 2.9 g/dL (3.4-5.0) Albumin/Globulin Ratio 0.6 (1.0-1.7) Thyroid Stimulating Hormone (TSH) 0.659 uIU/mL (0.358-3.74) Glucose (Fingerstick) 183 mg/dL (70-99) 131 mg/dL (70-99) 123 mg/dL (70-99) Test 04/07/20 21:14 04/08/20 05:10 Glucose (Fingerstick) 146 mg/dL (70-99) D-Dimer (Mary) 0.44 ug/mlFEU (0.00-0.50) Sodium Level 139 mmol/L (136-145) Potassium Level 3.7 mmol/L (3.5-5.1) Chloride Level 105 mmol/L (98-107) Carbon Dioxide Level 22 mmol/L (21-32) Anion Gap 12 (6-14) Blood Urea Nitrogen 10 mg/dL (7-20) Creatinine 0.6 mg/dL (0.6-1.0) Estimated GFR (Cockcroft-Gault) 107.2 BUN/Creatinine Ratio 17 (6-20) Glucose Level 116 mg/dL (70-99) Calcium Level 7.9 mg/dL (8.5-10.1) Total Bilirubin 0.5 mg/dL (0.2-1.0) Aspartate Amino Transf (AST/SGOT) 253 U/L (15-37) Alanine Aminotransferase (ALT/SGPT) 152 U/L (14-59) Alkaline Phosphatase 91 U/L (46-116) Creatine Kinase 54215 U/L (26-192) Total Protein 6.9 g/dL (6.4-8.2) Albumin 2.6 g/dL (3.4-5.0) Albumin/Globulin Ratio 0.6 (1.0-1.7) Laboratory Tests Test 04/07/20 12:22 04/07/20 16:51 04/07/20 21:14 04/08/20 05:10 Glucose (Fingerstick) 131 mg/dL (70-99) 123 mg/dL (70-99) 146 mg/dL (70-99) D-Dimer (Mary) 0.44 ug/mlFEU (0.00-0.50) Sodium Level 139 mmol/L (136-145) Potassium Level 3.7 mmol/L (3.5-5.1) Chloride Level 105 mmol/L (98-107) Carbon Dioxide Level 22 mmol/L (21-32) Anion Gap 12 (6-14) Blood Urea Nitrogen 10 mg/dL (7-20) Creatinine 0.6 mg/dL (0.6-1.0) Estimated GFR (Cockcroft-Gault) 107.2 BUN/Creatinine Ratio 17 (6-20) Glucose Level 116 mg/dL (70-99) Calcium Level 7.9 mg/dL (8.5-10.1) Total Bilirubin 0.5 mg/dL (0.2-1.0) Aspartate Amino Transf (AST/SGOT) 253 U/L (15-37) Alanine Aminotransferase (ALT/SGPT) 152 U/L (14-59) Alkaline Phosphatase 91 U/L (46-116) Creatine Kinase 36591 U/L (26-192) Total Protein 6.9 g/dL (6.4-8.2) Albumin 2.6 g/dL (3.4-5.0) Albumin/Globulin Ratio 0.6 (1.0-1.7) Medications Active Scripts Medications Dose Route/Sig Max Daily Dose Days Date Category Claritin (Loratadine) 10 Mg Tablet 10 Mg PO DAILY 04/06/20 Reported Codeine-Guaifen 10-100 mg/5 ml (Guaifenesin/Codeine Phosphate) 120 Ml Liquid 5 Ml PO PRN Q6HRS PRN MDD 20 Milliliter(s) 6 04/02/20 Rx Prednisone 50 Mg Tablet 1 Tab PO DAILY 04/02/20 Rx Zithromax (Azithromycin) 250 Mg Tablet 1 Pkg PO UD 04/02/20 Rx Ibuprofen 800 Mg Tablet 800 Mg PO PRN Q6HRS PRN 07/27/18 Rx Meclizine Hcl 25 Mg Tablet 1 Tab PO TID 07/27/18 Rx Zithromax (Azithromycin) 250 Mg Tablet 1 Pkg PO UD 07/27/18 Rx Tamiflu (Oseltamivir Phosphate) 75 Mg Capsule 1 Cap PO BID 07/27/18 Rx Comments CTA chest IMPRESSION: No evidence of main or lobar pulmonary embolus on significantly limited evaluation. Bilateral patchy groundglass opacities as described, compatible with viral pneumonia. Impression . IMPRESSION: 1. Acute hypoxic respiratory failure secondary to COVID-[address] chest with bilateral patchy interstitial infiltrates compatible with COVID-19 pneumonia. 3. Underlying obesity. 4. History of hypertension. Plan . RECOMMENDATIONS: Continue supplemental oxygen to keep oxygen saturations greater than 92%, currently on Vapotherm 100% FiO2 and 40 L Continue IV steroids Not a candidate for remdesivir Monitor respiratory status for need for intubation Continue PPN for nutritional support CTA of chest reviewed negative for pulmonary embolism Continue antibiotics, currently on Rocephin DVT/GI prophylaxis Discussed with RN and RT Critical care time 30 minutes reviewing laboratory data, diagnostics and discussing with the care team PALAK GRIGGS MD Apr 08, 2020 09:49
--- NOTE | 2020-04-08 12:15 | PDOC2 ---
CONSULT Date of Consult Date of Consult DATE: 04/08/20 TIME: 12:15 Reason for Consult Reason for Consult: Rhabdomyolysis Source Source: Caregiver, Chart review History of Present Illness Reason for Visit: Pt is a 49-year-old female w/ PMHx High Cholesterol, Hypertension, fatty liver who presented on 04/02/2020 for Covid-like symptoms and returns with the same, admitted on 04/05 . She was having worsening symptoms including fever, shortness of air, loss of taste, nausea, fatigue, dizziness, and bilateral lower extremity pain. Denies any vomiting or diarrhea. No urinary complaints Reports family members with similar symptoms. Reports her spouse had some symptoms prior to her. Her PCR test returned positive . She was hypoxic to 82% at presentation . Currently on Vapotherm. No new concerns voiced by nursing Labs POA - NA 135, K3.5, BUN 6, CR 0.7, AST 366, ALT 177, CK 54,211. Rapid influenza negative.CTA with no PE but Bilateral patchy groundglass opacities as described, compatible with viral pneumonia. . Past Medical History Cardiovascular: HTN, Hyperlipidemia Past Surgical History Past Surgical History: Hysterectomy Family History Family History Family members including tested CoVid Positive Family History: Diabetes, High Cholestrol, Hypertension Social History No ALCOHOL: none Drugs: None Current Problem List Problem List Problems Medical Problems: (1) Hypoxia Status: Acute (2) Pneumonia due to 2019 novel coronavirus Status: Acute (3) Respiratory failure Status: Acute (4) Rhabdomyolysis Status: Acute Current Medications Current Medications Current Medications Iohexol (Omnipaque 350 Mg/ml) 100 ml 1X ONCE IV Last administered on 04/05/20at 00:14; Start 04/05/20 at 23:45; Stop 04/05/20 at 23:46; Status DC Info (CONTRAST GIVEN -- Rx MONITORING) 1 each PRN DAILY PRN MC SEE COMMENTS; Start 04/05/20 at 23:45; Stop 04/07/20 at 23:44; Status DC Sodium Chloride 1,000 ml @ 1,000 mls/hr 1X ONCE IV Last administered on 04/06/20at 01:17; Start 04/06/20 at 01:00; Stop 04/06/20 at 01:59; Status DC Dexamethasone Sodium Phosphate (Decadron) 10 mg 1X ONCE IVP Last administered on 04/06/20at 01:16; Start 04/06/20 at 01:00; Stop 04/06/20 at 01:02; Status DC Azithromycin 500 mg/Sodium Chloride 250 ml @ 250 mls/hr 1X ONCE IV Last administered on 04/06/20at 01:16; Start 04/06/20 at 01:00; Stop 04/06/20 at 01:59; Status DC Ondansetron HCl (Zofran) 4 mg PRN Q8HRS PRN IV NAUSEA/VOMITING; Start 04/06/20 at 01:30; Stop 04/06/20 at 17:17; Status DC Acetaminophen (Tylenol) 650 mg PRN Q4HRS PRN PO FEVER > 100.3'F Last administered on 04/06/20at 02:44; Start 04/06/20 at 01:30; Stop 04/06/20 at 17:17; Status DC Sodium Chloride 1,000 ml @ 100 mls/hr 1X ONCE IV Last administered on 04/06/20at 02:37; Start 04/06/20 at 01:30; Stop 04/06/20 at 11:29; Status DC Sodium Chloride 1,000 ml @ 150 mls/hr Q6H40M IV Last administered on 04/08/20at 07:26; Start 04/06/20 at 09:30 Ondansetron HCl (Zofran) 4 mg PRN Q4HRS PRN IV NAUSEA/VOMITING; Start 04/06/20 at 17:15 Acetaminophen (Tylenol) 650 mg PRN Q6HRS PRN PO FEVER > 100.3'F; Start 04/06/20 at 17:15 Guaifenesin (Robitussin Dm) 10 ml PRN Q6HRS PRN PO COUGH Last administered on 04/07/20at 21:09; Start 04/06/20 at 17:15 Dexamethasone Sodium Phosphate (Decadron) 6 mg 1X ONCE IVP Last administered on 04/06/20at 17:34; Start 04/06/20 at 17:30; Stop 04/06/20 at 17:31; Status DC Enoxaparin Sodium (Lovenox 40mg Syringe) 40 mg Q24H SQ Last administered on 04/07/20at 17:39; Start 04/06/20 at 18:00; Stop 04/08/20 at 08:52; Status DC Zinc Sulfate (Orazinc) 220 mg DAILY PO Last administered on 04/08/20at 07:56; Start 04/06/20 at 17:00 Zolpidem Tartrate (Ambien) 5 mg PRN QHS PRN PO INSOMNIA; Start 04/06/20 at 17:15 Morphine Sulfate (Morphine Sulfate) 2 mg PRN Q2HR PRN IV PAIN; Start 04/06/20 at 17:15 Amino Acids/ Glycerin/ Electrolytes 1,000 ml @ 80 mls/hr [id number] IV Last administered on 04/07/20at 06:44; Start 04/06/20 at 17:30 Furosemide (Lasix) 60 mg 1X ONCE IVP Last administered on 04/07/20at 06:44; Start 04/07/20 at 06:45; Stop 04/07/20 at 06:46; Status DC Insulin Glargine (Lantus Syringe) 5 unit QHS SQ Last administered on 04/07/20at 21:20; Start 04/07/20 at 21:00 Insulin Human Lispro (HumaLOG) 0-7 UNITS TIDWMEALS SQ ; Start 04/07/20 at 08:00 Dextrose (Dextrose 50%-Water Syringe) 12.5 gm PRN Q15MIN PRN IV SEE COMMENTS; Start 04/07/20 at 07:45 Dexamethasone Sodium Phosphate (Decadron) 6 mg DAILY IVP Last administered on 04/08/20at 07:57; Start 04/07/20 at 13:00 Ceftriaxone Sodium (Rocephin) 1 gm Q24H IVP Last administered on 04/07/20at 13:00; Start 04/07/20 at 13:00 Sterile Water (WATER for RESP) 1,000 ml CONT PRN INH VIA VAPOTHERM DEVICE Last administered on 04/08/20at 02:23; Start 04/07/20 at 13:00 Enoxaparin Sodium (Lovenox 40mg Syringe) 40 mg BID SQ Last administered on 04/08/20at 09:05; Start 04/08/20 at 09:00 Active Scripts Active Codeine-Guaifen 10-100 mg/5 ml (Guaifenesin/Codeine Phosphate) 120 Ml Liquid 5 Ml PO PRN Q6HRS PRN MDD 20 Milliliter(s) 6 Days Prednisone 50 Mg Tablet 1 Tab PO DAILY Zithromax (Azithromycin) 250 Mg Tablet 1 Pkg PO UD Ibuprofen 800 Mg Tablet 800 Mg PO PRN Q6HRS PRN Meclizine Hcl 25 Mg Tablet 1 Tab PO TID Zithromax (Azithromycin) 250 Mg Tablet 1 Pkg PO UD Tamiflu (Oseltamivir Phosphate) 75 Mg Capsule 1 Cap PO BID Reported Claritin (Loratadine) 10 Mg Tablet 10 Mg PO DAILY Allergies Allergies: Coded Allergies: No Known Drug Allergies (Unverified , 07/27/18) ROS Review of System As per HPI, rest of the ROS is negative Physical Exam Physical Exam General: NAD HEENT: Atraumatic, PERRLA, EOMI, Mucous membr. moist/pink, On Non rebreather Neck supple Lungs: decreased at bases Heart: S1S2, RRR, no thrills, no rubs, no gallops, no murmurs Abdomen: Normal bowel sounds, Soft, No tenderness Extremities: No clubbing, No cyanosis, No edema, Skin: No rashes, Neuro: grossly normal Psych/Mental Status: Mental status NL, No Rosa Vital Signs Vital Signs Date Time Temp Pulse Resp B/P (MAP) Pulse Ox O2 Delivery O2 Flow Rate FiO2 04/08/20 11:55 94 VAPOTHERM 40.0 04/08/20 11:00 84 22 146/89 (108) 04/08/20 10:00 98.0 98.0 Assessment & Plan Rhabdomyolysis - CK improving, continue aggressive hydration with IV NS ,Lasix prn , statins held , renal function normal, UA unremarkable UOP increasing, doesnt have rosa supportive care, strict I/O monitor Acute respiratory failure with hypoxia -likely due to COVID-19 pneumonia. On steroids. Covid 19 Pneumonia - as above. Hypokalemia POA - replaced Transaminitis - likely related to rhabdomyolysis. . Hypertension - monitor Labs Labs Laboratory Tests Test 04/07/20 04:45 04/07/20 07:59 04/07/20 12:22 04/07/20 16:51 White Blood Count 11.3 x10^3/uL (4.0-11.0) Red Blood Count 4.19 x10^6/uL (3.50-5.40) Hemoglobin 13.5 g/dL (12.0-15.5) Hematocrit 39.0 % (36.0-47.0) Mean Corpuscular Volume 93 fL (79-100) Mean Corpuscular Hemoglobin 32 pg (25-35) Mean Corpuscular Hemoglobin Concent 35 g/dL (31-37) Red Cell Distribution Width 13.5 % (11.5-14.5) Platelet Count 333 x10^3/uL (140-400) Neutrophils (%) (Auto) 83 % (31-73) Lymphocytes (%) (Auto) 11 % (24-48) Monocytes (%) (Auto) 6 % (0-9) Eosinophils (%) (Auto) 0 % (0-3) Basophils (%) (Auto) 0 % (0-3) Neutrophils # (Auto) 9.3 x10^3/uL (1.8-7.7) Lymphocytes # (Auto) 1.3 x10^3/uL (1.0-4.8) Monocytes # (Auto) 0.7 x10^3/uL (0.0-1.1) Eosinophils # (Auto) 0.0 x10^3/uL (0.0-0.7) Basophils # (Auto) 0.0 x10^3/uL (0.0-0.2) Sodium Level 137 mmol/L (136-145) Potassium Level 4.0 mmol/L (3.5-5.1) Chloride Level 104 mmol/L (98-107) Carbon Dioxide Level 23 mmol/L (21-32) Anion Gap 10 (6-14) Blood Urea Nitrogen 9 mg/dL (7-20) Creatinine 0.6 mg/dL (0.6-1.0) Estimated GFR (Cockcroft-Gault) 107.2 BUN/Creatinine Ratio 15 (6-20) Glucose Level 149 mg/dL (70-99) Hemoglobin A1c 6.2 % (4.8-5.6) Calcium Level 8.4 mg/dL (8.5-10.1) Total Bilirubin 0.4 mg/dL (0.2-1.0) Aspartate Amino Transf (AST/SGOT) 300 U/L (15-37) Alanine Aminotransferase (ALT/SGPT) 165 U/L (14-59) Alkaline Phosphatase 92 U/L (46-116) Creatine Kinase 63894 U/L (26-192) Total Protein 7.5 g/dL (6.4-8.2) Albumin 2.9 g/dL (3.4-5.0) Albumin/Globulin Ratio 0.6 (1.0-1.7) Thyroid Stimulating Hormone (TSH) 0.659 uIU/mL (0.358-3.74) Glucose (Fingerstick) 183 mg/dL (70-99) 131 mg/dL (70-99) 123 mg/dL (70-99) Test 04/07/20 21:14 04/08/20 05:10 Glucose (Fingerstick) 146 mg/dL (70-99) D-Dimer (Mary) 0.44 ug/mlFEU (0.00-0.50) Sodium Level 139 mmol/L (136-145) Potassium Level 3.7 mmol/L (3.5-5.1) Chloride Level 105 mmol/L (98-107) Carbon Dioxide Level 22 mmol/L (21-32) Anion Gap 12 (6-14) Blood Urea Nitrogen 10 mg/dL (7-20) Creatinine 0.6 mg/dL (0.6-1.0) Estimated GFR (Cockcroft-Gault) 107.2 BUN/Creatinine Ratio 17 (6-20) Glucose Level 116 mg/dL (70-99) Calcium Level 7.9 mg/dL (8.5-10.1) Total Bilirubin 0.5 mg/dL (0.2-1.0) Aspartate Amino Transf (AST/SGOT) 253 U/L (15-37) Alanine Aminotransferase (ALT/SGPT) 152 U/L (14-59) Alkaline Phosphatase 91 U/L (46-116) Creatine Kinase 05910 U/L (26-192) Total Protein 6.9 g/dL (6.4-8.2) Albumin 2.6 g/dL (3.4-5.0) Albumin/Globulin Ratio 0.6 (1.0-1.7) Laboratory Tests Test 04/07/20 12:22 04/07/20 16:51 04/07/20 21:14 04/08/20 05:10 Glucose (Fingerstick) 131 mg/dL (70-99) 123 mg/dL (70-99) 146 mg/dL (70-99) D-Dimer (Mary) 0.44 ug/mlFEU (0.00-0.50) Sodium Level 139 mmol/L (136-145) Potassium Level 3.7 mmol/L (3.5-5.1) Chloride Level 105 mmol/L (98-107) Carbon Dioxide Level 22 mmol/L (21-32) Anion Gap 12 (6-14) Blood Urea Nitrogen 10 mg/dL (7-20) Creatinine 0.6 mg/dL (0.6-1.0) Estimated GFR (Cockcroft-Gault) 107.2 BUN/Creatinine Ratio 17 (6-20) Glucose Level 116 mg/dL (70-99) Calcium Level 7.9 mg/dL (8.5-10.1) Total Bilirubin 0.5 mg/dL (0.2-1.0) Aspartate Amino Transf (AST/SGOT) 253 U/L (15-37) Alanine Aminotransferase (ALT/SGPT) 152 U/L (14-59) Alkaline Phosphatase 91 U/L (46-116) Creatine Kinase 40188 U/L (26-192) Total Protein 6.9 g/dL (6.4-8.2) Albumin 2.6 g/dL (3.4-5.0) Albumin/Globulin Ratio 0.6 (1.0-1.7) Review All relevant outside records, renal labs, imaging studies, telemetry/EKG's were reviewed. Images Images CTA 04/05 Upper Abdomen: Diffuse hypoattenuation of the hepatic parenchyma, compatible with steatosis. IMPRESSION: No evidence of main or lobar pulmonary embolus on significantly limited evaluation. Bilateral patchy groundglass opacities as described, compatible with viral pneumonia. LIZBETH MARADIAGA MD Apr 08, 2020 12:15
[2020-04-08] MEDS: cefTRIAXone IV Push 1 GM VIAL. IVP SCH (12:17)
--- NOTE | 2020-04-08 12:31 | PDOC2 ---
GI CONSULT Date of Service: DATE: 04/08/20 TIME: 12:22 Reason For Consult: elevated LFTs HPI: HPI: 49 y/o female w/ COVID-19 infection on vapotherm in ICU. Impressive CK on labs, also elevated AST and ALT that have improved. Speaks Israeli - translation help from family member via her cell phone. Denies reflux/heartburn, dysphagia, n/v, abd pain, diarrhea, constipation, hematochezia, melena, and weight loss. No previous EGD or colonoscopy. H/o fatty liver per PCP - not sure what/if had imaging. No GB, pancreas, or PUD history. She would like a salad, mashed potatoes, and a Sprite. PMH: PMH: HTN, HLD, fatty liver, seasonal allergies hysterectomy Social History: Smoke: No ALCOHOL: none Drugs: None ROS: GEN: Denies fevers, chills, sweats HEENT: Denies blurred vision, sore throat CV: Denies chest pain RESP: +SOA GI: Per HPI : Denies hematuria, dysuria ENDO: Denies weight changes NEURO: Denies confusion, dizziness MSK: Denies weakness, joint pain/swelling SKIN: Denies jaundice, pruritus Vitals: Vitals: Vital Signs Date Time Temp Pulse Resp B/P (MAP) Pulse Ox O2 Delivery O2 Flow Rate FiO2 04/08/20 11:55 94 VAPOTHERM 40.0 04/08/20 11:00 84 22 146/89 (108) 04/08/20 10:00 98.0 98.0 Labs: Labs: Laboratory Tests Test 04/07/20 16:51 04/07/20 21:14 04/08/20 05:10 Glucose (Fingerstick) 123 mg/dL (70-99) 146 mg/dL (70-99) D-Dimer (Mary) 0.44 ug/mlFEU (0.00-0.50) Sodium Level 139 mmol/L (136-145) Potassium Level 3.7 mmol/L (3.5-5.1) Chloride Level 105 mmol/L (98-107) Carbon Dioxide Level 22 mmol/L (21-32) Anion Gap 12 (6-14) Blood Urea Nitrogen 10 mg/dL (7-20) Creatinine 0.6 mg/dL (0.6-1.0) Estimated GFR (Cockcroft-Gault) 107.2 BUN/Creatinine Ratio 17 (6-20) Glucose Level 116 mg/dL (70-99) Calcium Level 7.9 mg/dL (8.5-10.1) Total Bilirubin 0.5 mg/dL (0.2-1.0) Aspartate Amino Transf (AST/SGOT) 253 U/L (15-37) Alanine Aminotransferase (ALT/SGPT) 152 U/L (14-59) Alkaline Phosphatase 91 U/L (46-116) Creatine Kinase 26226 U/L (26-192) Total Protein 6.9 g/dL (6.4-8.2) Albumin 2.6 g/dL (3.4-5.0) Albumin/Globulin Ratio 0.6 (1.0-1.7) BLOOD CULTURE Preliminary NO GROWTH AFTER 2 DAYS Allergies: Coded Allergies: No Known Drug Allergies (Unverified , 07/27/18) Medications: Current Medications Medications (Trade) Dose Ordered Sig/Lizbeth Route PRN Reason Start Time Stop Time Status Last Admin Dose Admin Insulin Glargine (Lantus Syringe) 5 unit QHS SQ 04/07/20 21:00 04/07/20 21:20 Dexamethasone Sodium Phosphate (Decadron) 6 mg DAILY IVP 04/07/20 13:00 04/08/20 07:57 Ceftriaxone Sodium (Rocephin) 1 gm Q24H IVP 04/07/20 13:00 04/08/20 12:17 Sterile Water (WATER for RESP) 1,000 ml CONT PRN INH VIA VAPOTHERM DEVICE 04/07/20 13:00 04/08/20 02:23 Enoxaparin Sodium (Lovenox 40mg Syringe) 40 mg BID SQ 04/08/20 09:00 04/08/20 09:05 Imaging: Imaging: Chest CTA FINDINGS: Limitations: Prominent motion artifact limits evaluation. Evaluation for Thromboembolic Disease: No evidence of main or lobar pulmonary arterial thrombus. Remainder of the pulmonary arterial system suboptimally evaluated. Lines, Tubes, and Devices: None. Lung Parenchyma, Pleura, and Airways: Peripheral and lower lobe predominant patchy groundglass opacities. No pleural effusion. Central airways patent. Lower Neck, Lymph Nodes, and Mediastinum: Visualized thyroid gland within normal limits. No supraclavicular, axillary, mediastinal, or hilar adenopathy. Heart, Pericardium, and Thoracic Vessels: Cardiac chambers normal in size. No pericardial effusion. Thoracic aorta within normal limits. No coronary artery atherosclerotic calcifications are noted, although the study is notoptimized for coronary assessment. Bones and Soft Tissues: Multilevel thoracic degenerative changes. Upper Abdomen: Diffuse hypoattenuation of the hepatic parenchyma, compatible with steatosis. IMPRESSION: No evidence of main or lobar pulmonary embolus on significantly limited evaluation. Bilateral patchy groundglass opacities as described, compatible with viral pneumonia. PE: GEN: in COVID isolation HEENT: Atraumatic, PERRL LUNGS: diminished, vapotherm HEART: RRR ABD: NABS, S/ND/NT EXTREMITY: No edema SKIN: No rashes, no jaundice NEURO/PSYCH: A & O 3, anxious A/P: A/P: COVID-19 infection (+ 04/02), resp failure/pneumonia Elevated CK, AST, and ALT - improving Fatty liver - reportedly a known issue, also noted on chest CTA CRC screen - none -- Monitor LFTs. ALLISON CHAMORRO Apr 08, 2020 12:31
--- NOTE | 2020-04-08 13:10 | NUR ---
SS following up with discharge planning. SS reviewed pt chart and discussed with pt RN. Pt is from home with spouse and is currently on Vapotherm at 100%. COVID19 positive. Pt on IV Rocephin. SS will continue to follow for discharge planning.
[2020-04-08] MEDS: guaiFENesin DM 200MG/20MG 10 ML SYRUP PO PRN ×2 (15:11→21:15)
[2020-04-08] MEDS: INSULIN GLARGINE SYRINGE. SQ SCH (21:17)
[2020-04-08] MEDS: ONDANSETRON PF 4 MG/2 ML VIAL. IV PRN (22:58)
[2020-04-09] VITALS (23 sets, daily range): BP systolic 86–147; BP diastolic 51–98
[2020-04-09] MEDS: guaiFENesin/CODEINE 100mg/10mg 5 ML LIQUID PO PRN ×4 (00:46→20:56)
[2020-04-09] MEDS: ONDANSETRON PF 4 MG/2 ML VIAL. IV PRN ×3 (03:05→20:55)
[2020-04-09] MEDS: STERILE WATER for RESP 1,000 ML BAG. INH PRN ×3 (04:21→16:34)
[2020-04-09] MEDS: IV NORMAL SALINE 1000ML BAG 1,000 ML IV SCH ×3 (05:47→18:26)
[2020-04-09] MEDS: AMINO AC 3%/ELECTROLYTE/GLYCER 1,000 ML IV SCH (08:00)
[2020-04-09] MEDS: INSULIN LISPRO 300 UNITS/3 ML VIAL. SQ SCH ×3 (08:00→17:00)
--- NOTE | 2020-04-09 08:26 | PDOC ---
PULMONARY PROGRESS NOTES DATE: 04/09/20 TIME: 08:26 Subjective Patient remains on Vapotherm FiO2 100% and 40 L Afebrile overnight No overnight concerns from nursing Vitals Vital Signs Date Time Temp Pulse Resp B/P (MAP) Pulse Ox O2 Delivery O2 Flow Rate FiO2 04/09/20 06:37 87 23 147/72 (97) 93 High Flow Nasal Cannula 40.0 04/09/20 04:06 97.4 97.4 Comments Patient seen during , visual exam performed Regular rate and rhythm Vapotherm No accessory muscle use/distress No obvious rash or edema Labs Laboratory Tests Test 04/07/20 12:22 04/07/20 16:51 04/07/20 21:14 04/08/20 05:10 Glucose (Fingerstick) 131 mg/dL (70-99) 123 mg/dL (70-99) 146 mg/dL (70-99) D-Dimer (Mary) 0.44 ug/mlFEU (0.00-0.50) Sodium Level 139 mmol/L (136-145) Potassium Level 3.7 mmol/L (3.5-5.1) Chloride Level 105 mmol/L (98-107) Carbon Dioxide Level 22 mmol/L (21-32) Anion Gap 12 (6-14) Blood Urea Nitrogen 10 mg/dL (7-20) Creatinine 0.6 mg/dL (0.6-1.0) Estimated GFR (Cockcroft-Gault) 107.2 BUN/Creatinine Ratio 17 (6-20) Glucose Level 116 mg/dL (70-99) Calcium Level 7.9 mg/dL (8.5-10.1) Total Bilirubin 0.5 mg/dL (0.2-1.0) Aspartate Amino Transf (AST/SGOT) 253 U/L (15-37) Alanine Aminotransferase (ALT/SGPT) 152 U/L (14-59) Alkaline Phosphatase 91 U/L (46-116) Creatine Kinase 43046 U/L (26-192) Total Protein 6.9 g/dL (6.4-8.2) Albumin 2.6 g/dL (3.4-5.0) Albumin/Globulin Ratio 0.6 (1.0-1.7) Medications Active Scripts Medications Dose Route/Sig Max Daily Dose Days Date Category Claritin (Loratadine) 10 Mg Tablet 10 Mg PO DAILY 04/06/20 Reported Codeine-Guaifen 10-100 mg/5 ml (Guaifenesin/Codeine Phosphate) 120 Ml Liquid 5 Ml PO PRN Q6HRS PRN MDD 20 Milliliter(s) 6 04/02/20 Rx Prednisone 50 Mg Tablet 1 Tab PO DAILY 04/02/20 Rx Zithromax (Azithromycin) 250 Mg Tablet 1 Pkg PO UD 04/02/20 Rx Ibuprofen 800 Mg Tablet 800 Mg PO PRN Q6HRS PRN 07/27/18 Rx Meclizine Hcl 25 Mg Tablet 1 Tab PO TID 07/27/18 Rx Zithromax (Azithromycin) 250 Mg Tablet 1 Pkg PO UD 07/27/18 Rx Tamiflu (Oseltamivir Phosphate) 75 Mg Capsule 1 Cap PO BID 07/27/18 Rx Comments CTA chest IMPRESSION: No evidence of main or lobar pulmonary embolus on significantly limited evaluation. Bilateral patchy groundglass opacities as described, compatible with viral pneumonia. Impression . IMPRESSION: 1. Acute hypoxic respiratory failure secondary to COVID-[address] chest with bilateral patchy interstitial infiltrates compatible with COVID-19 pneumonia. 3. Underlying obesity. 4. History of hypertension. Plan . RECOMMENDATIONS: Continue supplemental oxygen to keep oxygen saturations greater than 92%, currently on Vapotherm 100% FiO2 and 40 L Continue IV steroids, with slow taper Not a candidate for remdesivir Monitor respiratory status for need for intubation Follow GI recs Follow Nephrology recs Continue PPN for nutritional support CTA of chest reviewed negative for pulmonary embolism Continue antibiotics, currently on Rocephin Follow Cultures- NGTD DVT/GI prophylaxis Discussed with RN and RT Critical care time [id number] Pt. CODE FULL TYRONE COWAN MD Apr 09, 2020 08:26
[2020-04-09] MEDS: DEXAMETHASONE SOD PHOS 4 MG/ML VIAL IVP SCH (08:51)
[2020-04-09] MEDS: ZINC SULFATE 220 MG CAPSULE. PO SCH (08:52)
[2020-04-09] MEDS: ENOXAPARIN 40 MG/0.4 ML SYRINGE. SQ SCH ×3 (08:52→21:00)
--- NOTE | 2020-04-09 09:01 | PDOC ---
PROGRESS NOTES Date of Service: DATE: 04/09/20 TIME: 09:01 Chief Complaint Chief Complaint IMPRESSION Acute respiratory failure with hypoxia -likely due to COVID-19 pneumonia. Will aggressively use steroids. Bilateral patchy groundglass opacities as described, compatible with viral pneumonia. CTA CHEST Pneumonia due to 2019 novel coronavirus - as above. pulmonary consultation Rhabdomyolysis -will hydrate aggressively, monitor LFTs and renal function. Cannot have remdesivir due to this. Will add lasix today. Hypokalemia - replaced Transaminitis - likely related to rhabdomyolysis. Unfortunately this combination of symptoms is a contraindication to remdesivir therapy. High Cholesterol - given rhabdo will avoid statins, consult nephrology Hypertension - monitor Seasonal allergies - claritin Fatty liver - will monitor transaminases, CONSULT gi Hyperglycemia - check A1c, sliding scale while on steroids PLAN FEN - regular diet PPX - lovenox FULL CODE Dispo - inpatient for above ICU BED consult nephrology 31 MIN CC TIME History of Present Illness History of Present Illness Ms Olson is a 49-year-old female w/ PMHx High Cholesterol, Hypertension, seasonal allergies, fatty liver who presented 04/02/2020 for Covid-like symptoms and returns with the same. Patient reports symptoms have worsened including fever, shortness of air, loss of taste, nausea, fatigue, dizziness, and bilateral lower extremity pain. Denies any vomiting or diarrhea. Reports family members now with similar symptoms. Reports her spouse had some symptoms prior to her. Her SARS-CoV-2 PCR test from 04/02/2020 returned positive. Other labs significant for WBC 8.8, Hb 14.1, platelets 241, D-dimer 0.70, NA 135, K3.5, BUN 6, CR 0.7, glucose 111, AST 366, ALT 177, CK 54,211. Rapid influenza negative EKG Sinus tachycardia at 119bpm, NO ST elevation, QRS 82ms, QT/QTc 308/434ms, baseline artifact noted. Febrile to 101 F CTPA with no PE but Bilateral patchy groundglass opacities as described, compatible with viral pneumonia. She was hypoxic to 82% on normal air and required 6L NCO2 to improve her O2 status. Admitted for further care IV fluid hydration provided. Symptomatic treatment provided with dexamethasone. Empiric antibiotic initiated. Afebrile overnight. Appetite decreased. O2 needs increased to 10 L/min. Labs [place] 0.6[place] [address], AST elevated 300 ALT 165. She is in much more respiratory distress today. Plan: Add Lasix. Unfortunately she does still need some IV fluids for her severe rh abdomyolysis. We will would like to wean off O2 as soon as possible. Consult pulmonology. Continue steroid Transfer to ICU for Vapotherm Unfortunately rhabdomyolysis and transaminitis are high risk for remdesivir therapy Vitals Vitals Vital Signs Date Time Temp Pulse Resp B/P (MAP) Pulse Ox O2 Delivery O2 Flow Rate FiO2 04/09/20 06:37 87 23 147/72 (97) 93 High Flow Nasal Cannula 40.0 04/09/20 04:06 97.4 97.4 Physical Exam Physical Exam visual exam due to covid 19 pandemic General: Alert, Oriented X3, Cooperative, mild distress Abdomen: Normal bowel sounds, Soft, No tenderness, No hepatosplenomegaly, No masses Extremities: No clubbing, No cyanosis, No edema, Normal pulses, No tenderness/swelling Skin: No rashes, No breakdown, No significant lesion Assessment and Plan Assessmemt and Plan Problems Medical Problems: (1) Hypoxia Status: Acute (2) Pneumonia due to 2019 novel coronavirus Status: Acute (3) Respiratory failure Status: Acute (4) Rhabdomyolysis Status: Acute Counseling Smoking Cessation 7 min to pt portal A clinician can make a significant impact on a tobacco user. Clinicians can address the social, financial, and emotional issues surrounding tobacco use, in addition to the health impacts associated with use. Find information about why it's important to children counselor tobacco users, as well as when and how to do so. Get the why, when, and how of helping patients quit in this infographic. Supporting Youth who are Addicted to Nicotine: Advice for Pediatricians This factsheet provides information for pediatricians about how to support adolescents who are addicted to nicotine from cigarettes, vaping, or other tobacco products. The content includes tips for screening, counseling, and helping youth with a cessation attempt. This factsheet is also available in [facility] Nicotine [facility]placement [facility] and Adolescent Patients: Information for Pediatricians This document provides information for pediatricians about how to use nicotine replacement therapy (NRT) to support adolescents who are addicted to nicotine from cigarettes, vaping, or other tobacco products. Note: Though the information below talks mostly about smoking, the information can be helpful for users of other tobacco products as well. Why Should You Latrine Cleaner for Smoking Cessation? Parental smoking is the main source of children's secondhand smoke exposure. When parents quit smoking, adolescents are less likely to start. Pediatric clinicians have direct contact with roughly 25% of the nation's smokers through child health visits. Parental counseling by the child's physician increases rates of parents' attempts to quit. Most parents see their child's provider more frequently than their own, with an average of 10 visits in the first two years of a child's life. While many children are covered by Medicaid, their parents may be uninsured, so pediatric clinicians may be their only available source of counseling. When Should You Latrine Cleaner for Smoking Cessation? If adolescents and/or parents are smoking, children counselor them to quit tobacco use. If parents or other family members are smoking, children counselor them to prevent and reduce children's exposure to secondhand smoke. If a new parent is a current or former smoker, assist them in their efforts to avoid relapse following . If a pre-adolescent or adolescent patient is not a smoker, children counselor them to prevent initiation of tobacco use. How Should You Latrine Cleaner for Smoking Cessation? Brief counseling, delivered in as little as three minutes, can be effective. Focus on the child as a primary beneficiary of smoking cessation. Counseling Techniques 2 As + R Physicians can help patients who smoke to quit through an effective 30-second intervention, 2 As + R (Ask, Assist, Refer): Physicians Ask patients if they smoke, Assist them in their quit attempt, and Refer them to cessation services (1-800-QUIT NOW or to community/ internet quit resources). Information on the 2 As + R strategy can be found in the presentations listed on the Downloadable PowerPoint Presentations page. 5 As The [place] [employer] and [employer] has developed five major steps to intervention (the "5 As") for clinicians to provide counseling to tobacco users who want to quit. Comment Review of Relevant I have reviewed the following items eddie (where applicable) has been applied. Labs Laboratory Tests Test 04/07/20 12:22 04/07/20 16:51 04/07/20 21:14 04/08/20 05:10 Glucose (Fingerstick) 131 mg/dL (70-99) 123 mg/dL (70-99) 146 mg/dL (70-99) D-Dimer (Mary) 0.44 ug/mlFEU (0.00-0.50) Sodium Level 139 mmol/L (136-145) Potassium Level 3.7 mmol/L (3.5-5.1) Chloride Level 105 mmol/L (98-107) Carbon Dioxide Level 22 mmol/L (21-32) Anion Gap 12 (6-14) Blood Urea Nitrogen 10 mg/dL (7-20) Creatinine 0.6 mg/dL (0.6-1.0) Estimated GFR (Cockcroft-Gault) 107.2 BUN/Creatinine Ratio 17 (6-20) Glucose Level 116 mg/dL (70-99) Calcium Level 7.9 mg/dL (8.5-10.1) Total Bilirubin 0.5 mg/dL (0.2-1.0) Aspartate Amino Transf (AST/SGOT) 253 U/L (15-37) Alanine Aminotransferase (ALT/SGPT) 152 U/L (14-59) Alkaline Phosphatase 91 U/L (46-116) Creatine Kinase 61420 U/L (26-192) Total Protein 6.9 g/dL (6.4-8.2) Albumin 2.6 g/dL (3.4-5.0) Albumin/Globulin Ratio 0.6 (1.0-1.7) Microbiology 04/06/20 Blood Culture - Preliminary, Resulted NO GROWTH AFTER 3 DAYS Medications Current Medications Iohexol (Omnipaque 350 Mg/ml) 100 ml 1X ONCE IV Last administered on 06/05/19at 00:14; Start 04/05/20 at 23:45; Stop 04/05/20 at 23:46; Status DC Info (CONTRAST GIVEN -- Rx MONITORING) 1 each PRN DAILY PRN MC SEE COMMENTS; Start 04/05/20 at 23:45; Stop 04/07/20 at 23:44; Status DC Sodium Chloride 1,000 ml @ 1,000 mls/hr 1X ONCE IV Last administered on 04/06/20at 01:17; Start 04/06/20 at 01:00; Stop 04/06/20 at 01:59; Status DC Dexamethasone Sodium Phosphate (Decadron) 10 mg 1X ONCE IVP Last administered on 04/06/20at 01:16; Start 04/06/20 at 01:00; Stop 04/06/20 at 01:02; Status DC Azithromycin 500 mg/Sodium Chloride 250 ml @ 250 mls/hr 1X ONCE IV Last administered on 04/06/20at 01:16; Start 04/06/20 at 01:00; Stop 04/06/20 at 01:59; Status DC Ondansetron HCl (Zofran) 4 mg PRN Q8HRS PRN IV NAUSEA/VOMITING; Start 04/06/20 at 01:30; Stop 04/06/20 at 17:17; Status DC Acetaminophen (Tylenol) 650 mg PRN Q4HRS PRN PO FEVER > 100.3'F Last administered on 04/06/20at 02:44; Start 04/06/20 at 01:30; Stop 04/06/20 at 17:17; Status DC Sodium Chloride 1,000 ml @ 100 mls/hr 1X ONCE IV Last administered on 04/06/20at 02:37; Start 04/06/20 at 01:30; Stop 04/06/20 at 11:29; Status DC Sodium Chloride 1,000 ml @ 150 mls/hr Q6H40M IV Last administered on 04/09/20at 05:47; Start 04/06/20 at 09:30 Ondansetron HCl (Zofran) 4 mg PRN Q4HRS PRN IV NAUSEA/VOMITING Last administered on 04/09/20at 08:42; Start 04/06/20 at 17:15 Acetaminophen (Tylenol) 650 mg PRN Q6HRS PRN PO FEVER > 100.3'F; Start 04/06/20 at 17:15 Guaifenesin (Robitussin Dm) 10 ml PRN Q6HRS PRN PO COUGH Last administered on 04/08/20at 21:15; Start 04/06/20 at 17:15 Dexamethasone Sodium Phosphate (Decadron) 6 mg 1X ONCE IVP Last administered on 04/06/20at 17:34; Start 04/06/20 at 17:30; Stop 04/06/20 at 17:31; Status DC Enoxaparin Sodium (Lovenox 40mg Syringe) 40 mg Q24H SQ Last administered on 04/07/20at 17:39; Start 04/06/20 at 18:00; Stop 04/08/20 at 08:52; Status DC Zinc Sulfate (Orazinc) 220 mg DAILY PO Last administered on 04/08/20at 07:56; Start 04/06/20 at 17:00 Zolpidem Tartrate (Ambien) 5 mg PRN QHS PRN PO INSOMNIA; Start 04/06/20 at 17:15 Morphine Sulfate (Morphine Sulfate) 2 mg PRN Q2HR PRN IV PAIN; Start 04/06/20 at 17:15 Amino Acids/ Glycerin/ Electrolytes 1,000 ml @ 80 mls/hr [id number] IV Last administered on 04/07/20at 06:44; Start 04/06/20 at 17:30 Furosemide (Lasix) 60 mg 1X ONCE IVP Last administered on 04/07/20 06:44; Start 04/07/20 at 06:45; Stop 04/07/20 at 06:46; Status DC Insulin Glargine (Lantus Syringe) 5 unit QHS SQ Last administered on 04/08/20at 21:17; Start 04/07/20 at 21:00 Insulin Human Lispro (HumaLOG) 0-7 UNITS TIDWMEALS SQ Last administered on 04/08/20at 17:32; Start 04/07/20 at 08:00 Dextrose (Dextrose 50%-Water Syringe) 12.5 gm PRN Q15MIN PRN IV SEE COMMENTS; Start 04/07/20 at 07:45 Dexamethasone Sodium Phosphate (Decadron) 6 mg DAILY IVP Last administered on 04/08/20at 07:57; Start 04/07/20 at 13:00 Ceftriaxone Sodium (Rocephin) 1 gm Q24H IVP Last administered on 04/08/20at 12:17; Start 04/07/20 at 13:00 Sterile Water (WATER for RESP) 1,000 ml CONT PRN INH VIA VAPOTHERM DEVICE Last administered on 04/09/20at 04:21; Start 04/07/20 at 13:00 Enoxaparin Sodium (Lovenox 40mg Syringe) 40 mg BID SQ Last administered on 04/08/20at 21:15; Start 04/08/20 at 09:00 Guaifenesin/ Codeine Phosphate (Robitussin Ac) 10 ml PRN Q4HRS PRN PO COUGH Last administered on 04/09/20at 04:46; Start 04/09/20 at 00:30 Active Scripts Active Codeine-Guaifen 10-100 mg/5 ml (Guaifenesin/Codeine Phosphate) 120 Ml Liquid 5 Ml PO PRN Q6HRS PRN MDD 20 Milliliter(s) 6 Days Prednisone 50 Mg Tablet 1 Tab PO DAILY Zithromax (Azithromycin) 250 Mg Tablet 1 Pkg PO UD Ibuprofen 800 Mg Tablet 800 Mg PO PRN Q6HRS PRN Meclizine Hcl 25 Mg Tablet 1 Tab PO TID Zithromax (Azithromycin) 250 Mg Tablet 1 Pkg PO UD Tamiflu (Oseltamivir Phosphate) 75 Mg Capsule 1 Cap PO BID Reported Claritin (Loratadine) 10 Mg Tablet 10 Mg PO DAILY Vitals/I & O Vital Sign - Last 24 Hours 04/08/20 04/08/20 04/08/20 04/08/20 10:00 11:00 11:55 12:00 Temp 98.0 98.0 Pulse 87 84 Resp 15 22 B/P (MAP) 117/74 (88) 146/89 (108) Pulse Ox 91 92 94 O2 Delivery VAPOTHERM Non-Rebreather O2 Flow Rate 40.0 40.0 40.0 40.0 04/08/20 04/08/20 04/08/20 04/08/20 12:00 13:00 14:00 15:00 Temp 97.6 97.6 Pulse 84 80 77 79 Resp 20 20 23 19 B/P (MAP) 152/95 (114) 135/83 (100) 131/75 (93) 135/83 (100) Pulse Ox 92 97 92 91 O2 Flow Rate 40.0 40.0 40.0 40.0 04/08/20 04/08/20 04/08/20 04/08/20 15:20 16:00 16:09 17:00 Pulse 80 84 Resp 22 25 B/P (MAP) 134/91 (105) 155/82 (106) Pulse Ox 96 96 95 O2 Delivery Non-Rebreather VAPOTHERM O2 Flow Rate 40.0 40.0 40.0 40.0 04/08/20 04/08/20 04/08/20 04/08/20 18:00 19:00 19:55 20:08 Temp 98.4 98.4 Pulse 89 87 86 Resp 18 26 B/P (MAP) 135/70 (91) 134/71 (92) 128/74 (92) Pulse Ox 94 91 87 O2 Delivery High Flow Nasal Cannula Non-Rebreather High Flow Nasal Cannula O2 Flow Rate 40.0 40.0 40.0 40.0 04/08/20 04/08/20 04/08/20 04/08/20 20:30 21:15 22:19 23:20 Pulse 83 84 84 Resp 41 35 29 B/P (MAP) 113/60 (77) 133/78 (96) 137/90 (106) Pulse Ox 95 98 99 93 O2 Delivery VAPOTHERM High Flow Nasal Cannula High Flow Nasal Cannula High Flow Nasal Cannula O2 Flow Rate 40.0 40.0 40.0 40.0 04/09/20 04/09/20 04/09/20 04/09/20 00:02 00:43 01:06 02:00 Pulse 82 78 Resp 35 B/P (MAP) 112/66 (81) 120/72 (88) Pulse Ox 92 89 96 O2 Delivery Non-Rebreather VAPOTHERM High Flow Nasal Cannula High Flow Nasal Cannula O2 Flow Rate 40.0 40.0 40.0 40.0 04/09/20 04/09/20 04/09/20 04/09/20 03:02 03:57 04:06 04:21 Temp 97.4 97.4 Pulse 82 60 Resp 35 37 B/P (MAP) 112/66 (81) 86/54 (65) Pulse Ox 89 89 92 O2 Delivery High Flow Nasal Cannula Non-Rebreather High Flow Nasal Cannula VAPOTHERM O2 Flow Rate 40.0 40.0 40.0 40.0 04/09/20 04/09/20 05:16 06:37 Pulse 89 87 Resp 22 23 B/P (MAP) 105/60 (75) 147/72 (97) Pulse Ox 92 93 O2 Delivery High Flow Nasal Cannula High Flow Nasal Cannula O2 Flow Rate 40.0 40.0 Intake and Output 04/08/20 04/08/20 04/09/20 15:00 23:00 07:00 Intake Total 1340 ml 2983 ml 1740 ml Output Total 2525 ml 2100 ml 1300 ml Balance -1185 ml 883 ml 440 ml Justicifation of Admission Dx: Justifications for Admission: Justification of Admission Dx: Yes RADHA GARCIA MD Apr 09, 2020 09:01
--- NOTE | 2020-04-09 09:24 | PDOC ---
Date of Service: DATE: 04/09/20 TIME: 09:21 Objective: Objective: D/w nurse - some nausea and spitting up. Vital Signs: Vital Signs Date Time Temp Pulse Resp B/P (MAP) Pulse Ox O2 Delivery O2 Flow Rate FiO2 04/09/20 06:37 87 23 147/72 (97) 93 High Flow Nasal Cannula 40.0 04/09/20 04:06 97.4 97.4 PE: GEN: in COVID isolation - visual exam done - nurse in room LUNGS: high flow NC HEART: RRR ABD: non-distended NEURO/PSYCH: A & O 3 A/P: COVID-19 infection, resp failure/pneumonia N/v Elevated CK, AST, and ALT - improved (checked 04/08) Fatty liver -- Labs pending today. Empiric acid-production coordinator - IV for now. Justicifation of Admission Dx: Justifications for Admission: Justification of Admission Dx: Yes ALLISON CHAMORRO Apr 09, 2020 09:24
--- NOTE | 2020-04-09 10:44 | PDOC ---
DATE OF SERVICE DATE: 04/09/20 TIME: 10:43 SUBJECTIVE ROS No new complaints/Concerns voiced by RN. Pt sitting up in bed, NAD OBJECTIVE Vital Signs Vital Signs Date Time Temp Pulse Resp B/P (MAP) Pulse Ox O2 Delivery O2 Flow Rate FiO2 04/09/20 08:00 Non-Rebreather 40.0 04/09/20 06:37 87 23 147/72 (97) 93 04/09/20 04:06 97.4 97.4 I & 0 Intake and Output 04/09/20 07:00 Intake Total 6063 ml Output Total 5925 ml Balance 138 ml Intake Oral 3680 ml IV Total 2383 ml Output Urine Total 5925 ml # Voids 1 PHYSICAL EXAM Physical Exam General: NAD HEENT: Atraumatic, PERRLA, EOMI, Mucous membr. moist/pink, On Non rebreather Neck supple Lungs: decreased at bases Heart: S1S2, RRR, no thrills, no rubs, no gallops, no murmurs Abdomen: Normal bowel sounds, Soft, No tenderness Extremities: No clubbing, No cyanosis, No edema, Skin: No rashes, Neuro: grossly normal Psych/Mental Status: Mental status NL, No Lakhani DIAGNOSIS/ASSESSMENT Assessment & Plan Rhabdomyolysis - CK improving, continue hydration with IV NS ,Lasix prn , statins held , renal function normal, UA unremarkable Labs ordered not done yet , will follow , supportive care, strict I/O monitor Acute respiratory failure with hypoxia -likely due to COVID-19 pneumonia. On steroids. Covid 19 Pneumonia - as above. Hypokalemia POA - replaced Transaminitis - likely related to rhabdomyolysis. . Hypertension - monitor COMMENT/RELEVANT DATA Meds Current Medications Medications (Trade) Dose Ordered Sig/Lizbeth Start Time Stop Time Status Last Admin Dose Admin Acetaminophen (Tylenol) 650 mg PRN Q6HRS PRN 04/06/20 17:15 Amino Acids/ Glycerin/ Electrolytes 1,000 ml @ 80 mls/hr [id number] 04/06/20 17:30 04/07/20 06:44 80 MLS/HR Azithromycin 500 mg/Sodium Chloride 250 ml @ 250 mls/hr 1X ONCE 04/06/20 01:00 04/06/20 01:59 DC 04/06/20 01:16 250 MLS/HR Bisacodyl (Dulcolax Tab) 5 mg PRN DAILY PRN 04/09/20 10:00 Ceftriaxone Sodium (Rocephin) 1 gm Q24H 04/07/20 13:00 04/08/20 12:17 1 GM Dexamethasone Sodium Phosphate (Decadron) 6 mg DAILY 04/07/20 13:00 04/09/20 08:51 6 MG Dextrose (Dextrose 50%-Water Syringe) 12.5 gm PRN Q15MIN PRN 04/07/20 07:45 Enoxaparin Sodium (Lovenox 40mg Syringe) 40 mg BID 04/08/20 09:00 04/09/20 08:52 40 MG Famotidine (Pepcid Vial) 20 mg BID 04/09/20 10:00 Furosemide (Lasix) 60 mg 1X ONCE 04/07/20 06:45 04/07/20 06:46 DC 04/07/20 06:44 60 MG Guaifenesin (Robitussin Dm) 10 ml PRN Q6HRS PRN 04/06/20 17:15 04/08/20 21:15 10 ML Guaifenesin/ Codeine Phosphate (Robitussin Ac) 10 ml PRN Q4HRS PRN 04/09/20 00:30 04/09/20 04:46 10 ML Info (CONTRAST GIVEN -- Rx MONITORING) 1 each PRN DAILY PRN 04/05/20 23:45 04/07/20 23:44 DC Insulin Glargine (Lantus Syringe) 5 unit QHS 04/07/20 21:00 04/08/20 21:17 5 UNIT Insulin Human Lispro (HumaLOG) 0-7 UNITS TIDWMEALS 04/07/20 08:00 04/08/20 17:32 3 UNITS Iohexol (Omnipaque 350 Mg/ml) 100 ml 1X ONCE 04/05/20 23:45 04/05/20 23:46 DC 04/05/20 00:14 100 ML Morphine Sulfate (Morphine Sulfate) 2 mg PRN Q2HR PRN 04/06/20 17:15 Ondansetron HCl (Zofran) 4 mg PRN Q4HRS PRN 04/06/20 17:15 04/09/20 08:42 4 MG Polyethylene Glycol (miraLAX PACKET) 17 gm PRN DAILY PRN 04/09/20 10:00 Sodium Chloride 1,000 ml @ 150 mls/hr Q6H40M 04/06/20 09:30 04/09/20 05:47 150 MLS/HR Sterile Water (WATER for RESP) 1,000 ml CONT PRN 04/07/20 13:00 04/09/20 04:21 1,000 ML Zinc Sulfate (Orazinc) 220 mg DAILY 04/06/20 17:00 04/09/20 08:52 220 MG Zolpidem Tartrate (Ambien) 5 mg PRN QHS PRN 04/06/20 17:15 Results All relevant outside records, renal labs, imaging studies, telemetry/EKG's were reviewed. Justicifation of Admission Dx: Justifications for Admission: Justification of Admission Dx: Yes LIZBETH MARADIAGA MD Apr 09, 2020 10:44
[2020-04-09] MEDS: FAMOTIDINE 20 MG/2 ML VIAL IVP SCH ×2 (11:27→20:22)
[2020-04-09] MEDS: POLYETHYLENE GLYCOL 3350 17 GM PACKET. PO SCH (11:27)
[2020-04-09] MEDS: BISACODYL 5 MG TABLET.DR. PO PRN (11:31)
[2020-04-09] MEDS: cefTRIAXone IV Push 1 GM VIAL. IVP SCH (16:34)
[2020-04-09 17:05] LABS: ALBUMIN 2.6 g/dL (3.4-5.0); ALBUMIN/GLOBULIN RATIO 0.7 (1.0-1.7); CALCIUM 7.9 mg/dL (8.5-10.1); CREATININE 0.5 mg/dL (0.6-1.0); GFR 132.2; POTASSIUM 3.9 mmol/L (3.5-5.1); TOTAL BILIRUBIN 0.5 mg/dL (0.2-1.0); TOTAL PROTEIN 6.6 g/dL (6.4-8.2)
[2020-04-09] MEDS: INSULIN GLARGINE SYRINGE. SQ SCH ×2 (20:54→21:00)
[2020-04-09] MEDS: guaiFENesin DM 200MG/20MG 10 ML SYRUP PO PRN (23:48)
[2020-04-10] VITALS (24 sets, daily range): BP systolic 79–145; BP diastolic 42–76
[2020-04-10] MEDS: ACETAMINOPHEN 325 MG TABLET. PO PRN (00:01)
[2020-04-10] MEDS: IV NORMAL SALINE 1000ML BAG 1,000 ML IV SCH ×3 (02:05→17:05)
[2020-04-10] MEDS: guaiFENesin/CODEINE 100mg/10mg 5 ML LIQUID PO PRN ×3 (04:05→14:22)
[2020-04-10] MEDS: STERILE WATER for RESP 1,000 ML BAG. INH PRN ×2 (04:14→16:09)
[2020-04-10] MEDS: guaiFENesin DM 200MG/20MG 10 ML SYRUP PO PRN ×3 (05:41→20:57)
[2020-04-10] MEDS: ZINC SULFATE 220 MG CAPSULE. PO SCH (07:59)
[2020-04-10] MEDS: FAMOTIDINE 20 MG/2 ML VIAL IVP SCH ×2 (07:59→20:54)
[2020-04-10] MEDS: POLYETHYLENE GLYCOL 3350 17 GM PACKET. PO SCH (07:59)
[2020-04-10] MEDS: ENOXAPARIN 40 MG/0.4 ML SYRINGE. SQ SCH ×2 (07:59→20:53)
[2020-04-10] MEDS: INSULIN LISPRO 300 UNITS/3 ML VIAL. SQ SCH ×3 (08:00→17:13)
[2020-04-10] MEDS: DEXAMETHASONE SOD PHOS 4 MG/ML VIAL IVP SCH (08:00)
--- NOTE | 2020-04-10 08:16 | PDOC ---
PROGRESS NOTES Date of Service: DATE: 04/10/20 TIME: 08:16 Chief Complaint Chief Complaint IMPRESSION Acute respiratory failure with hypoxia -likely due to COVID-19 pneumonia. Will aggressively use steroids. Bilateral patchy groundglass opacities as described, compatible with viral pneumonia. CTA CHEST Pneumonia due to 2019 novel coronavirus - as above. pulmonary consultation Rhabdomyolysis -will hydrate aggressively, monitor LFTs and renal function. Cannot have remdesivir due to this. Will add lasix today. Hypokalemia - replaced Transaminitis - likely related to rhabdomyolysis. Unfortunately this combination of symptoms is a contraindication to remdesivir therapy. High Cholesterol - given rhabdo will avoid statins, consult nephrology Hypertension - monitor Seasonal allergies - claritin Fatty liver - will monitor transaminases, CONSULT gi Hyperglycemia - check A1c, sliding scale while on steroids PLAN FEN - regular diet PPX - lovenox FULL CODE Dispo - inpatient for above ICU BED consult nephrology CTA of chest reviewed negative for pulmonary embolism antibiotics, iv Rocephin 31 MIN CC TIME History of Present Illness History of Present Illness Ms Olson is a 49-year-old female w/ PMHx High Cholesterol, Hypertension, seasonal allergies, fatty liver who presented 04/02/2020 for Covid-like symptoms and returns with the same. Patient reports symptoms have worsened including fever, shortness of air, loss of taste, nausea, fatigue, dizziness, and bilateral lower extremity pain. Denies any vomiting or diarrhea. Reports family members now with similar symptoms. Reports her spouse had some symptoms prior to her. Her SARS-CoV-2 PCR test from 04/02/2020 returned positive. Other labs significant for WBC 8.8, Hb 14.1, platelets 241, D-dimer 0.70, NA 135, K3.5, BUN 6, CR 0.7, glucose 111, AST 366, ALT 177, CK 54,211. Rapid influenza negative EKG Sinus tachycardia at 119bpm, NO ST elevation, QRS 82ms, QT/QTc 308/434ms, baseline artifact noted. Febrile to 101 F CTPA with no PE but Bilateral patchy groundglass opacities as described, compatible with viral pneumonia. She was hypoxic to 82% on normal air and required 6L NCO2 to improve her O2 status. Admitted for further care IV fluid hydration provided. Symptomatic treatment provided with dexamethasone. Empiric antibiotic initiated. Afebrile overnight. Appetite decreased. O2 needs increased to 10 L/min. Labs [place] 0[place] [address], AST elevated 300 ALT 165. She is in much more respiratory distress today. Plan: Add Lasix. Unfortunately she does still need some IV fluids for her severe rhabdomyolysis. We will would like to wean off O2 as soon as possible. Consult pulmonology. Continue steroid Transfer to ICU for Vapotherm Unfortunately rhabdomyolysis and transaminitis are high risk for remdesivir therapy Vitals Vitals Vital Signs Date Time Temp Pulse Resp B/P (MAP) Pulse Ox O2 Delivery O2 Flow Rate FiO2 04/10/20 07:53 96 VAPOTHERM 40.0 04/10/20 07:00 95 18 91/46 (61) 04/10/20 00:00 100.5 100.5 Physical Exam Physical Exam visual exam due to covid 19 pandemic General: Alert, Oriented X3, Cooperative, No acute distress Heart: Regular rate Lungs: Crackles Abdomen: Normal bowel sounds, Soft, No tenderness, No hepatosplenomegaly, No masses Extremities: No clubbing, No cyanosis, No edema, Normal pulses, No tenderness/swelling Skin: No rashes, No breakdown, No significant lesion Labs LABS Laboratory Tests Test 04/09/20 08:57 04/09/20 11:35 04/09/20 16:35 04/09/20 16:37 Glucose (Fingerstick) 87 mg/dL (70-99) 124 mg/dL (70-99) 145 mg/dL (70-99) Sodium Level 135 mmol/L (136-145) Potassium Level 3.9 mmol/L (3.5-5.1) Chloride Level 104 mmol/L (98-107) Carbon Dioxide Level 25 mmol/L (21-32) Anion Gap 6 (6-14) Blood Urea Nitrogen 8 mg/dL (7-20) Creatinine 0.5 mg/dL (0.6-1.0) Estimated GFR (Cockcroft-Gault) 132.2 BUN/Creatinine Ratio 16 (6-20) Glucose Level 147 mg/dL (70-99) Calcium Level 7.9 mg/dL (8.5-10.1) Total Bilirubin 0.5 mg/dL (0.2-1.0) Aspartate Amino Transf (AST/SGOT) 305 U/L (15-37) Alanine Aminotransferase (ALT/SGPT) 182 U/L (14-59) Alkaline Phosphatase 100 U/L (46-116) Creatine Kinase 92893 U/L (26-192) Total Protein 6.6 g/dL (6.4-8.2) Albumin 2.6 g/dL (3.4-5.0) Albumin/Globulin Ratio 0.7 (1.0-1.7) Test 04/09/20 20:21 Glucose (Fingerstick) 114 mg/dL (70-99) Assessment and Plan Assessmemt and Plan Problems Medical Problems: (1) Hypoxia Status: Acute (2) Pneumonia due to 2019 novel coronavirus Status: Acute (3) Respiratory failure Status: Acute (4) Rhabdomyolysis Status: Acute Comment Review of Relevant I have reviewed the following items eddie (where applicable) has been applied. Labs Laboratory Tests Test 04/08/20 11:17 04/08/20 16:30 04/08/20 21:13 04/08/20 23:03 Glucose (Fingerstick) 146 mg/dL (70-99) 174 mg/dL (70-99) 101 mg/dL (70-99) 126 mg/dL (70-99) Test 04/09/20 08:57 04/09/20 11:35 04/09/20 16:35 04/09/20 16:37 Glucose (Fingerstick) 87 mg/dL (70-99) 124 mg/dL (70-99) 145 mg/dL (70-99) Sodium Level 135 mmol/L (136-145) Potassium Level 3.9 mmol/L (3.5-5.1) Chloride Level 104 mmol/L (98-107) Carbon Dioxide Level 25 mmol/L (21-32) Anion Gap 6 (6-14) Blood Urea Nitrogen 8 mg/dL (7-20) Creatinine 0.5 mg/dL (0.6-1.0) Estimated GFR (Cockcroft-Gault) 132.2 BUN/Creatinine Ratio 16 (6-20) Glucose Level 147 mg/dL (70-99) Calcium Level 7.9 mg/dL (8.5-10.1) Total Bilirubin 0.5 mg/dL (0.2-1.0) Aspartate Amino Transf (AST/SGOT) 305 U/L (15-37) Alanine Aminotransferase (ALT/SGPT) 182 U/L (14-59) Alkaline Phosphatase 100 U/L (46-116) Creatine Kinase 79046 U/L (26-192) Total Protein 6.6 g/dL (6.4-8.2) Albumin 2.6 g/dL (3.4-5.0) Albumin/Globulin Ratio 0.7 (1.0-1.7) Test 04/09/20 20:21 Glucose (Fingerstick) 114 mg/dL (70-99) Laboratory Tests Test 04/09/20 08:57 04/09/20 11:35 04/09/20 16:35 04/09/20 16:37 Glucose (Fingerstick) 87 mg/dL (70-99) 124 mg/dL (70-99) 145 mg/dL (70-99) Sodium Level 135 mmol/L (136-145) Potassium Level 3.9 mmol/L (3.5-5.1) Chloride Level 104 mmol/L (98-107) Carbon Dioxide Level 25 mmol/L (21-32) Anion Gap 6 (6-14) Blood Urea Nitrogen 8 mg/dL (7-20) Creatinine 0.5 mg/dL (0.6-1.0) Estimated GFR (Cockcroft-Gault) 132.2 BUN/Creatinine Ratio 16 (6-20) Glucose Level 147 mg/dL (70-99) Calcium Level 7.9 mg/dL (8.5-10.1) Total Bilirubin 0.5 mg/dL (0.2-1.0) Aspartate Amino Transf (AST/SGOT) 305 U/L (15-37) Alanine Aminotransferase (ALT/SGPT) 182 U/L (14-59) Alkaline Phosphatase 100 U/L (46-116) Creatine Kinase 64682 U/L (26-192) Total Protein 6.6 g/dL (6.4-8.2) Albumin 2.6 g/dL (3.4-5.0) Albumin/Globulin Ratio 0.7 (1.0-1.7) Test 04/09/20 20:21 Glucose (Fingerstick) 114 mg/dL (70-99) Microbiology 04/06/20 Blood Culture - Preliminary, Resulted NO GROWTH AFTER 4 DAYS Medications Current Medications Iohexol (Omnipaque 350 Mg/ml) 100 ml 1X ONCE IV Last administered on 04/05/20at 00:14; Start 04/05/20 at 23:45; Stop 04/05/20 at 23:46; Status DC Info (CONTRAST GIVEN -- Rx MONITORING) 1 each PRN DAILY PRN MC SEE COMMENTS; Start 04/05/20 at 23:45; Stop 04/07/20 at 23:44; Status DC Sodium Chloride 1,000 ml @ 1,000 mls/hr 1X ONCE IV Last administered on 04/06/20at 01:17; Start 04/06/20 at 01:00; Stop 04/06/20 at 01:59; Status DC Dexamethasone Sodium Phosphate (Decadron) 10 mg 1X ONCE IVP Last administered on 04/06/20at 01:16; Start 04/06/20 at 01:00; Stop 04/06/20 at 01:02; Status DC Azithromycin 500 mg/Sodium Chloride 250 ml @ 250 mls/hr 1X ONCE IV Last administered on 04/06/20at 01:16; Start 04/06/20 at 01:00; Stop 04/06/20 at 01:59; Status DC Ondansetron HCl (Zofran) 4 mg PRN Q8HRS PRN IV NAUSEA/VOMITING; Start 04/06/20 at 01:30; Stop 04/06/20 at 17:17; Status DC Acetaminophen (Tylenol) 650 mg PRN Q4HRS PRN PO FEVER > 100.3'F Last administered on 04/06/20at 02:44; Start 04/06/20 at 01:30; Stop 04/06/20 at 17:17; Status DC Sodium Chloride 1,000 ml @ 100 mls/hr 1X ONCE IV Last administered on 04/06/20at 02:37; Start 04/06/20 at 01:30; Stop 04/06/20 at 11:29; Status DC Sodium Chloride 1,000 ml @ 150 mls/hr Q6H40M IV Last administered on 04/10/20at 02:05; Start 04/06/20 at 09:30 Ondansetron HCl (Zofran) 4 mg PRN Q4HRS PRN IV NAUSEA/VOMITING Last administered on 04/09/20at 20:55; Start 04/06/20 at 17:15 Acetaminophen (Tylenol) 650 mg PRN Q6HRS PRN PO FEVER > 100.3'F Last administered on 04/10/20at 00:01; Start 04/06/20 at 17:15 Guaifenesin (Robitussin Dm) 10 ml PRN Q6HRS PRN PO COUGH, 1ST CHOICE Last administered on 04/10/20at 05:41; Start 04/06/20 at 17:15 Dexamethasone Sodium Phosphate (Decadron) 6 mg 1X ONCE IVP Last administered on 04/06/20at 17:34; Start 04/06/20 at 17:30; Stop 04/06/20 at 17:31; Status DC Enoxaparin Sodium (Lovenox 40mg Syringe) 40 mg Q24H SQ Last administered on 04/07/20at 17:39; Start 04/06/20 at 18:00; Stop 04/08/20 at 08:52; Status DC Zinc Sulfate (Orazinc) 220 mg DAILY PO Last administered on 04/10/20at 07:59; Start 04/06/20 at 17:00 Zolpidem Tartrate (Ambien) 5 mg PRN QHS PRN PO INSOMNIA; Start 04/06/20 at 17:15 Morphine Sulfate (Morphine Sulfate) 2 mg PRN Q2HR PRN IV PAIN; Start 04/06/20 at 17:15 Amino Acids/ Glycerin/ Electrolytes 1,000 ml @ 80 mls/hr [id number] IV Last administered on 04/07/20at 06:44; Start 04/06/20 at 17:30; Stop 04/09/20 at 16:21; Status DC Furosemide (Lasix) 60 mg 1X ONCE IVP Last administered on 04/07/20at 06:44; Start 04/07/20 at 06:45; Stop 04/07/20 at 06:46; Status DC Insulin Glargine (Lantus Syringe) 5 unit QHS SQ Last administered on 04/08/20at 21:17; Start 04/07/20 at 21:00 Insulin Human Lispro (HumaLOG) 0-7 UNITS TIDWMEALS SQ Last administered on 04/08/20at 17:32; Start 04/07/20 at 08:00 Dextrose (Dextrose 50%-Water Syringe) 12.5 gm PRN Q15MIN PRN IV SEE COMMENTS; Start 04/07/20 at 07:45 Dexamethasone Sodium Phosphate (Decadron) 6 mg DAILY IVP Last administered on 04/10/20at 08:00; Start 04/07/20 at 13:00 Ceftriaxone Sodium (Rocephin) 1 gm Q24H IVP Last administered on 04/09/20at 16:34; Start 04/07/20 at 13:00 Sterile Water (WATER for RESP) 1,000 ml CONT PRN INH VIA VAPOTHERM DEVICE Last administered on 04/10/20at 04:14; Start 04/07/20 at 13:00 Enoxaparin Sodium (Lovenox 40mg Syringe) 40 mg BID SQ Last administered on 04/10/20at 07:59; Start 04/08/20 at 09:00 Guaifenesin/ Codeine Phosphate (Robitussin Ac) 10 ml PRN Q4HRS PRN PO COUGH, 2ND CHOICE Last administered on 04/10/20at 04:05; Start 04/09/20 at 00:30 Famotidine (Pepcid Vial) 20 mg BID IVP Last administered on 04/10/20at 07:59; Start 04/09/20 at 10:00 Polyethylene Glycol (miraLAX PACKET) 17 gm DAILY PO Last administered on 04/10/20at 07:59; Start 04/09/20 at 10:00 Polyethylene Glycol (miraLAX PACKET) 17 gm PRN DAILY PRN PO CONSTIPATION, 1ST CHOICE; Start 04/09/20 at 10:00 Bisacodyl (Dulcolax Tab) 5 mg PRN DAILY PRN PO CONSTIPATION, 2ND CHOICE Last administered on 04/09/20at 11:31; Start 04/09/20 at 10:00 Active Scripts Active Codeine-Guaifen 10-100 mg/5 ml (Guaifenesin/Codeine Phosphate) 120 Ml Liquid 5 Ml PO PRN Q6HRS PRN MDD 20 Milliliter(s) 6 Days Prednisone 50 Mg Tablet 1 Tab PO DAILY Zithromax (Azithromycin) 250 Mg Tablet 1 Pkg PO UD Ibuprofen 800 Mg Tablet 800 Mg PO PRN Q6HRS PRN Meclizine Hcl 25 Mg Tablet 1 Tab PO TID Zithromax (Azithromycin) 250 Mg Tablet 1 Pkg PO UD Tamiflu (Oseltamivir Phosphate) 75 Mg Capsule 1 Cap PO BID Reported Claritin (Loratadine) 10 Mg Tablet 10 Mg PO DAILY Vitals/I & O Vital Sign - Last 24 Hours 04/09/20 04/09/20 04/09/20 04/09/20 09:00 09:10 10:00 11:00 Pulse 88 96 88 Resp 22 22 24 B/P (MAP) 115/75 (88) 118/67 (84) 112/60 (77) Pulse Ox 91 88 92 83 O2 Delivery High Flow Nasal Cannula VAPOTHERM High Flow Nasal Cannula High Flow Nasal Cannula O2 Flow Rate 40.0 40.0 40.0 40.0 04/09/20 04/09/20 04/09/20 04/09/20 12:00 12:00 12:20 13:00 Pulse 88 82 Resp 24 24 B/P (MAP) 111/59 (76) 90/51 (64) Pulse Ox 99 97 99 O2 Delivery Non-Rebreather High Flow Nasal Cannula VAPOTHERM High Flow Nasal Cannula O2 Flow Rate 40.0 40.0 40.0 40.0 04/09/20 04/09/20 04/09/20 04/09/20 14:00 15:00 15:59 16:00 Temp 98.7 98.7 Pulse 94 96 Resp 24 20 B/P (MAP) 114/71 (85) 100/98 (99) Pulse Ox 100 88 98 O2 Delivery High Flow Nasal Cannula High Flow Nasal Cannula VAPOTHERM Non-Jeanne reather O2 Flow Rate 40.0 40.0 40.0 40.0 04/09/20 04/09/20 04/09/20 04/09/20 16:00 17:00 18:00 19:00 Temp 98.2 98.2 Pulse 94 92 92 74 Resp 20 20 20 17 B/P (MAP) 98/86 (90) 97/90 (92) 100/65 (77) 100/65 (77) Pulse Ox 98 98 98 98 O2 Delivery High Flow Nasal Cannula High Flow Nasal Cannula Vepotherm O2 Flow Rate 40.0 40.0 40.0 40.0 04/09/20 04/09/20 04/09/20 04/09/20 19:50 20:00 20:09 21:00 Pulse 88 92 Resp 30 32 B/P (MAP) 114/69 (84) 94/61 (72) Pulse Ox 98 97 93 O2 Delivery Nasal Cannula High Flow Nasal Cannula VAPOTHERM O2 Flow Rate 40.0 40.0 40.0 40.0 04/09/20 04/09/20 04/09/20 04/10/20 22:00 23:00 23:45 00:00 Temp 100.5 100.5 Pulse 92 76 88 Resp 29 B/P (MAP) 119/75 (90) 110/63 (79) 118/67 (84) Pulse Ox 94 94 96 O2 Delivery High Flow Nasal Cannula High Flow Nasal Cannula VAPOTHERM High Flow Nasal Cannula O2 Flow Rate 40.0 40.0 40.0 40.0 04/10/20 04/10/20 04/10/20 04/10/20 00:25 01:00 02:09 03:13 Pulse 72 70 101 Resp 28 26 B/P (MAP) 94/53 (67) 81/42 (55) 99/59 (72) Pulse Ox 99 99 O2 Delivery Nasal Cannula High Flow Nasal Cannula High Flow Nasal Cannula High Flow Nasal Cannula O2 Flow Rate 40.0 40.0 40.0 40.0 04/10/20 04/10/20 04/10/20 04/10/20 04:00 04:01 04:16 05:08 Pulse 88 83 Resp 28 B/P (MAP) 103/59 (74) 95/47 (63) Pulse Ox 98 96 97 O2 Delivery High Flow Nasal Cannula Nasal Cannula VAPOTHERM High Flow Nasal Cannula O2 Flow Rate 40.0 40.0 40.0 40.0 04/10/20 04/10/20 07:00 07:53 Pulse 95 Resp 18 B/P (MAP) 91/46 (61) Pulse Ox 95 96 O2 Delivery High Flow Nasal Cannula VAPOTHERM O2 Flow Rate 40.0 40.0 Intake and Output 04/09/20 04/09/20 04/10/20 15:00 23:00 07:00 Intake Total 834 ml 2980 ml 3341 ml Output Total 2750 ml 1800 ml 2500 ml Balance -1916 ml 1180 ml 841 ml Justicifation of Admission Dx: Justifications for Admission: Justification of Admission Dx: Yes RADHA GARCIA MD Apr 10, 2020 08:16
--- NOTE | 2020-04-10 08:30 | PDOC ---
PULMONARY PROGRESS NOTES DATE: 04/10/20 TIME: 08:29 Subjective Patient remains on Vapotherm FiO2 100% and 40 L Afebrile overnight No overnight concerns from nursing Vitals Vital Signs Date Time Temp Pulse Resp B/P (MAP) Pulse Ox O2 Delivery O2 Flow Rate FiO2 04/10/20 07:53 96 VAPOTHERM 40.0 04/10/20 07:00 95 18 91/46 (61) 04/10/20 00:00 100.5 100.5 Comments Patient seen during , visual exam performed Regular rate and rhythm Vapotherm No accessory muscle use/distress No obvious rash or edema Labs Laboratory Tests Test 04/08/20 11:17 04/08/20 16:30 04/08/20 21:13 04/08/20 23:03 Glucose (Fingerstick) 146 mg/dL (70-99) 174 mg/dL (70-99) 101 mg/dL (70-99) 126 mg/dL (70-99) Test 04/09/20 08:57 04/09/20 11:35 04/09/20 16:35 04/09/20 16:37 Glucose (Fingerstick) 87 mg/dL (70-99) 124 mg/dL (70-99) 145 mg/dL (70-99) Sodium Level 135 mmol/L (136-145) Potassium Level 3.9 mmol/L (3.5-5.1) Chloride Level 104 mmol/L (98-107) Carbon Dioxide Level 25 mmol/L (21-32) Anion Gap 6 (6-14) Blood Urea Nitrogen 8 mg/dL (7-20) Creatinine 0.5 mg/dL (0.6-1.0) Estimated GFR (Cockcroft-Gault) 132.2 BUN/Creatinine Ratio 16 (6-20) Glucose Level 147 mg/dL (70-99) Calcium Level 7.9 mg/dL (8.5-10.1) Total Bilirubin 0.5 mg/dL (0.2-1.0) Aspartate Amino Transf (AST/SGOT) 305 U/L (15-37) Alanine Aminotransferase (ALT/SGPT) 182 U/L (14-59) Alkaline Phosphatase 100 U/L (46-116) Creatine Kinase 23379 U/L (26-192) Total Protein 6.6 g/dL (6.4-8.2) Albumin 2.6 g/dL (3.4-5.0) Albumin/Globulin Ratio 0.7 (1.0-1.7) Test 04/09/20 20:21 04/10/20 08:08 Glucose (Fingerstick) 114 mg/dL (70-99) 101 mg/dL (70-99) Laboratory Tests Test 04/09/20 08:57 04/09/20 11:35 04/09/20 16:35 04/09/20 16:37 Glucose (Fingerstick) 87 mg/dL (70-99) 124 mg/dL (70-99) 145 mg/dL (70-99) Sodium Level 135 mmol/L (136-145) Potassium Level 3.9 mmol/L (3.5-5.1) Chloride Level 104 mmol/L (98-107) Carbon Dioxide Level 25 mmol/L (21-32) Anion Gap 6 (6-14) Blood Urea Nitrogen 8 mg/dL (7-20) Creatinine 0.5 mg/dL (0.6-1.0) Estimated GFR (Cockcroft-Gault) 132.2 BUN/Creatinine Ratio 16 (6-20) Glucose Level 147 mg/dL (70-99) Calcium Level 7.9 mg/dL (8.5-10.1) Total Bilirubin 0.5 mg/dL (0.2-1.0) Aspartate Amino Transf (AST/SGOT) 305 U/L (15-37) Alanine Aminotransferase (ALT/SGPT) 182 U/L (14-59) Alkaline Phosphatase 100 U/L (46-116) Creatine Kinase 51309 U/L (26-192) Total Protein 6.6 g/dL (6.4-8.2) Albumin 2.6 g/dL (3.4-5.0) Albumin/Globulin Ratio 0.7 (1.0-1.7) Test 04/09/20 20:21 04/10/20 08:08 Glucose (Fingerstick) 114 mg/dL (70-99) 101 mg/dL (70-99) Medications Active Scripts Medications Dose Route/Sig Max Daily Dose Days Date Category Claritin (Loratadine) 10 Mg Tablet 10 Mg PO DAILY 04/06/20 Reported Codeine-Guaifen 10-100 mg/5 ml (Guaifenesin/Codeine Phosphate) 120 Ml Liquid 5 Ml PO PRN Q6HRS PRN MDD 20 Milliliter(s) 6 04/02/20 Rx Prednisone 50 Mg Tablet 1 Tab PO DAILY 04/02/20 Rx Zithromax (Azithromycin) 250 Mg Tablet 1 Pkg PO UD 04/02/20 Rx Ibuprofen 800 Mg Tablet 800 Mg PO PRN Q6HRS PRN 07/27/18 Rx Meclizine Hcl 25 Mg Tablet 1 Tab PO TID 07/27/18 Rx Zithromax (Azithromycin) 250 Mg Tablet 1 Pkg PO UD 07/27/18 Rx Tamiflu (Oseltamivir Phosphate) 75 Mg Capsule 1 Cap PO BID 07/27/18 Rx Comments CTA chest IMPRESSION: No evidence of main or lobar pulmonary embolus on significantly limited evaluation. Bilateral patchy groundglass opacities as described, compatible with viral pneumonia. Impression . IMPRESSION: 1. Acute hypoxic respiratory failure secondary to COVID-[address] chest with bilateral patchy interstitial infiltrates compatible with COVID-19 pneumonia. 3. Underlying obesity. 4. History of hypertension. Plan . RECOMMENDATIONS: Continue supplemental oxygen to keep oxygen saturations greater than 92%, currently on Vapotherm 100% FiO2 and 40 L symptomatic treatment of cough Continue IV steroids, with slow taper Not a candidate for remdesivir Follow Nephrology recs CTA of chest reviewed negative for pulmonary embolism Continue antibiotics, currently on Rocephin Follow Cultures- NGTD DVT/GI prophylaxis Discussed with RN and RT Critical care time [id number] Pt. CODE FULL TYRONE COWAN MD Apr 10, 2020 08:30
[2020-04-10] MEDS: ONDANSETRON PF 4 MG/2 ML VIAL. IV PRN ×2 (09:42→20:13)
--- NOTE | 2020-04-10 11:01 | PDOC ---
Date of Service: DATE: 04/10/20 TIME: 10:58 Objective: Objective: D/w nurse - family brings food for her to eat - c/o nausea so got some Zofran today but no vomiting. Stooled yesterday. Vital Signs: Vital Signs Date Time Temp Pulse Resp B/P (MAP) Pulse Ox O2 Delivery O2 Flow Rate FiO2 04/10/20 10:00 91 25 116/68 (84) 95 Nasal Cannula 40.0 04/10/20 08:00 98.5 98.5 Labs: Laboratory Tests Test 04/09/20 11:35 04/09/20 16:35 04/09/20 16:37 04/09/20 20:21 Glucose (Fingerstick) 124 mg/dL 145 mg/dL 114 mg/dL Sodium Level 135 mmol/L Potassium Level 3.9 mmol/L Chloride Level 104 mmol/L Carbon Dioxide Level 25 mmol/L Anion Gap 6 Blood Urea Nitrogen 8 mg/dL Creatinine 0.5 mg/dL Estimated GFR (Cockcroft-Gault) 132.2 BUN/Creatinine Ratio 16 Glucose Level 147 mg/dL Calcium Level 7.9 mg/dL Total Bilirubin 0.5 mg/dL Aspartate Amino Transf (AST/SGOT) 305 U/L Alanine Aminotransferase (ALT/SGPT) 182 U/L Alkaline Phosphatase 100 U/L Creatine Kinase 87432 U/L Total Protein 6.6 g/dL Albumin 2.6 g/dL Albumin/Globulin Ratio 0.7 Test 04/10/20 08:08 Glucose (Fingerstick) 101 mg/dL PE: GEN: COVID isolation - visual exam done - sitting up in bed w/ cell phone LUNGS: high flow NC HEART: RR on monitor ABD: non-distended NEURO/PSYCH: awake and alert A/P: COVID-19 infection, resp failure/pneumonia N/v - better Elevated AST and ALT - fluctuating Fatty liver Constipation - resolved -- Monitor LFTs. 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 Continue constipation treatment as needed. Justicifation of Admission Dx: Justifications for Admission: Justification of Admission Dx: Yes ALLISON CHAMORRO Apr 10, 2020 11:01
[2020-04-10 11:32] LABS: BASO % 0 % (0-3); EOS # 0.1 x10^3/uL (0.0-0.7); EOS % 1 % (0-3); HEMATOCRIT 38.4 % (36.0-47.0); HEMOGLOBIN 13.1 g/dL (12.0-15.5); LYMPH # 1.3 x10^3/uL (1.0-4.8); LYMPH % 10 % (24-48); MEAN CORPUSCULAR HEMOGLOBIN 32 pg (25-35); MEAN CORPUSCULAR HGB CONC 34 g/dL (31-37); MEAN CORPUSCULAR VOLUME 93 fL (79-100); MONO # 0.3 x10^3/uL (0.0-1.1); MONO % 2 % (0-9); NEUT # 11.5 x10^3/uL (1.8-7.7); NEUT % 88 % (31-73); PLATELET COUNT 345 x10^3/uL (140-400); RED BLOOD COUNT 4.13 x10^6/uL (3.50-5.40); RED CELL DISTRIBUTION WIDTH 13.8 % (11.5-14.5); WHITE BLOOD COUNT 13.1 x10^3/uL (4.0-11.0)
[2020-04-10] MEDS: cefTRIAXone IV Push 1 GM VIAL. IVP SCH (12:20)
[2020-04-10 12:29] LABS: ALBUMIN 2.7 g/dL (3.4-5.0); ALBUMIN/GLOBULIN RATIO 0.8 (1.0-1.7); CREATININE 0.5 mg/dL (0.6-1.0); GFR 132.2; POTASSIUM 4.2 mmol/L (3.5-5.1); TOTAL BILIRUBIN 0.6 mg/dL (0.2-1.0); TOTAL PROTEIN 6.3 g/dL (6.4-8.2)
[2020-04-10 13:12] LABS: % ATYL 1 % (0-0); % BANDS 4 % (0-9); % EOS 1 % (0-5); % LYMPHS 5 % (24-48); % METAS 2 % (0-0); % MONOS 1 % (0-10); % MYELOS 3 % (0-0); % SEGS 83 % (35-66); PLT ESTIMATE ADEQUATE (ADEQUATE)
--- NOTE | 2020-04-10 13:12 | PDOC ---
DATE OF SERVICE DATE: 04/10/20 TIME: 13:01 SUBJECTIVE ROS No concerns overnight per nursing OBJECTIVE Vital Signs Vital Signs Date Time Temp Pulse Resp B/P (MAP) Pulse Ox O2 Delivery O2 Flow Rate FiO2 04/10/20 12:00 82 19 119/67 (84) 97 Nasal Cannula 40.0 04/10/20 11:00 99.3 99.3 I & 0 Intake and Output 04/10/20 07:00 Intake Total 7155 ml Output Total 7050 ml Balance 105 ml Intake Oral 3614 ml IV Total 3541 ml Output Urine Total 7050 ml PHYSICAL EXAM Physical Exam General: NAD HEENT: Atraumatic, PERRLA, EOMI, Mucous membr. moist/pink, On Non rebreather Neck supple Lungs: decreased at bases Heart: S1S2, RRR, no thrills, no rubs, no gallops, no murmurs Abdomen: Normal bowel sounds, Soft, No tenderness Extremities: No clubbing, No cyanosis, No edema, Skin: No rashes, Neuro: grossly normal Psych/Mental Status: Mental status NL, No Lakhani DIAGNOSIS/ASSESSMENT Assessment & Plan Rhabdomyolysis - CK worsening again, continue aggressive hydration with IV NS ,Lasix prn , statins held , renal function normal, UA unremarkable supportive care, strict I/O monitor , daily labs Acute respiratory failure with hypoxia -likely due to COVID-19 pneumonia. On steroids. Covid 19 Pneumonia - as above. Hypokalemia POA - replaced Transaminitis - LFT's elevated Hypertension - monitor COMMENT/RELEVANT DATA Meds Current Medications Medications (Trade) Dose Ordered Sig/Lizbeth Start Time Stop Time Status Last Admin Dose Admin Acetaminophen (Tylenol) 650 mg PRN Q6HRS PRN 04/06/20 17:15 04/10/20 00:01 650 MG Amino Acids/ Glycerin/ Electrolytes 1,000 ml @ 80 mls/hr [id number] 04/06/20 17:30 04/09/20 16:21 DC 04/07/20 06:44 80 MLS/HR Azithromycin 500 mg/Sodium Chloride 250 ml @ 250 mls/hr 1X ONCE 04/06/20 01:00 04/06/20 01:59 DC 04/06/20 01:16 250 MLS/HR Bisacodyl (Dulcolax Tab) 5 mg PRN DAILY PRN 04/09/20 10:00 04/09/20 11:31 5 MG Ceftriaxone Sodium (Rocephin) 1 gm Q24H 04/07/20 13:00 04/10/20 12:20 1 GM Dexamethasone Sodium Phosphate (Decadron) 6 mg DAILY 04/07/20 13:00 04/10/20 08:00 6 MG Dextrose (Dextrose 50%-Water Syringe) 12.5 gm PRN Q15MIN PRN 04/07/20 07:45 Enoxaparin Sodium (Lovenox 40mg Syringe) 40 mg BID 04/08/20 09:00 04/10/20 07:59 40 MG Famotidine (Pepcid Vial) 20 mg BID 04/09/20 10:00 04/10/20 07:59 20 MG Furosemide (Lasix) 60 mg 1X ONCE 04/07/20 06:45 04/07/20 06:46 DC 04/07/20 06:44 60 MG Guaifenesin (Robitussin Dm) 10 ml PRN Q6HRS PRN 04/06/20 17:15 04/10/20 12:20 10 ML Guaifenesin/ Codeine Phosphate (Robitussin Ac) 5 ml PRN Q6HRS PRN 04/10/20 09:45 Info (CONTRAST GIVEN -- Rx MONITORING) 1 each PRN DAILY PRN 04/05/20 23:45 04/07/20 23:44 DC Insulin Glargine (Lantus Syringe) 5 unit QHS 04/07/20 21:00 04/08/20 21:17 5 UNIT Insulin Human Lispro (HumaLOG) 0-7 UNITS TIDWMEALS 04/07/20 08:00 04/10/20 12:36 4 UNITS Iohexol (Omnipaque 350 Mg/ml) 100 ml 1X ONCE 04/05/20 23:45 04/05/20 23:46 DC 04/05/20 00:14 100 ML Morphine Sulfate (Morphine Sulfate) 2 mg PRN Q2HR PRN 04/06/20 17:15 Ondansetron HCl (Zofran) 4 mg PRN Q4HRS PRN 04/06/20 17:15 04/10/20 09:42 4 MG Polyethylene Glycol (miraLAX PACKET) 17 gm PRN DAILY PRN 04/09/20 10:00 Sodium Chloride 1,000 ml @ 150 mls/hr Q6H40M 04/06/20 09:30 04/10/20 09:14 150 MLS/HR Sterile Water (WATER for RESP) 1,000 ml CONT PRN 04/07/20 13:00 04/10/20 04:14 1,000 ML Zinc Sulfate (Orazinc) 220 mg DAILY 04/06/20 17:00 04/10/20 07:59 220 MG Zolpidem Tartrate (Ambien) 5 mg PRN QHS PRN 04/06/20 17:15 Lab Laboratory Tests Test 04/09/20 16:35 04/09/20 16:37 04/09/20 20:21 04/10/20 08:08 Sodium Level 135 mmol/L (136-145) Potassium Level 3.9 mmol/L (3.5-5.1) Chloride Level 104 mmol/L (98-107) Carbon Dioxide Level 25 mmol/L (21-32) Anion Gap 6 (6-14) Blood Urea Nitrogen 8 mg/dL (7-20) Creatinine 0.5 mg/dL (0.6-1.0) Estimated GFR (Cockcroft-Gault) 132.2 BUN/Creatinine Ratio 16 (6-20) Glucose Level 147 mg/dL (70-99) Calcium Level 7.9 mg/dL (8.5-10.1) Total Bilirubin 0.5 mg/dL (0.2-1.0) Aspartate Amino Transf (AST/SGOT) 305 U/L (15-37) Alanine Aminotransferase (ALT/SGPT) 182 U/L (14-59) Alkaline Phosphatase 100 U/L (46-116) Creatine Kinase 45086 U/L (26-192) Total Protein 6.6 g/dL (6.4-8.2) Albumin 2.6 g/dL (3.4-5.0) Albumin/Globulin Ratio 0.7 (1.0-1.7) Glucose (Fingerstick) 145 mg/dL (70-99) 114 mg/dL (70-99) 101 mg/dL (70-99) Test 04/10/20 10:15 04/10/20 11:11 White Blood Count 13.1 x10^3/uL (4.0-11.0) Red Blood Count 4.13 x10^6/uL (3.50-5.40) Hemoglobin 13.1 g/dL (12.0-15.5) Hematocrit 38.4 % (36.0-47.0) Mean Corpuscular Volume 93 fL (79-100) Mean Corpuscular Hemoglobin 32 pg (25-35) Mean Corpuscular Hemoglobin Concent 34 g/dL (31-37) Red Cell Distribution Width 13.8 % (11.5-14.5) Platelet Count 345 x10^3/uL (140-400) Neutrophils (%) (Auto) 88 % (31-73) Lymphocytes (%) (Auto) 10 % (24-48) Monocytes (%) (Auto) 2 % (0-9) Eosinophils (%) (Auto) 1 % (0-3) Basophils (%) (Auto) 0 % (0-3) Neutrophils # (Auto) 11.5 x10^3/uL (1.8-7.7) Lymphocytes # (Auto) 1.3 x10^3/uL (1.0-4.8) Monocytes # (Auto) 0.3 x10^3/uL (0.0-1.1) Eosinophils # (Auto) 0.1 x10^3/uL (0.0-0.7) Basophils # (Auto) 0.0 x10^3/uL (0.0-0.2) Sodium Level 134 mmol/L (136-145) Potassium Level 4.2 mmol/L (3.5-5.1) Chloride Level 101 mmol/L (98-107) Carbon Dioxide Level 24 mmol/L (21-32) Anion Gap 9 (6-14) Blood Urea Nitrogen 7 mg/dL (7-20) Creatinine 0.5 mg/dL (0.6-1.0) Estimated GFR (Cockcroft-Gault) 132.2 BUN/Creatinine Ratio 14 (6-20) Glucose Level 143 mg/dL (70-99) Calcium Level 8.0 mg/dL (8.5-10.1) Total Bilirubin 0.6 mg/dL (0.2-1.0) Aspartate Amino Transf (AST/SGOT) 343 U/L (15-37) Alanine Aminotransferase (ALT/SGPT) 191 U/L (14-59) Alkaline Phosphatase 111 U/L (46-116) Creatine Kinase 01319 U/L (26-192) Total Protein 6.3 g/dL (6.4-8.2) Albumin 2.7 g/dL (3.4-5.0) Albumin/Globulin Ratio 0.8 (1.0-1.7) Glucose (Fingerstick) 231 mg/dL (70-99) Results All relevant outside records, renal labs, imaging studies, telemetry/EKG's were reviewed. Justicifation of Admission Dx: Justifications for Admission: Justification of Admission Dx: Yes LIZBETH MARADIAGA MD Apr 10, 2020 13:12
--- NOTE | 2020-04-10 13:56 | NUR ---
SS following up with discharge planning. SS reviewed pt chart and discussed with pt RN. Pt is currently on Vapotherm at 90%. COVID19 positive. Pt on IV Rocephin. SS will continue to follow for discharge planning.
[2020-04-10] MEDS: BENZOCAINE/MENTHOL LOZENGE. PO PRN ×4 (14:22→23:16)
--- NOTE | 2020-04-10 15:08 | RAD ---
CHEST AP ONLY History: Reason: pneumonia / Spl. Instructions: / History: Comparison: April 02, 2020 Findings: Increased multifocal pulmonary opacities. No pleural effusion. Normal heart size. No pneumothorax. Impression: 1. Increased multifocal pulmonary opacities, concerning for viral pneumonia. Electronically signed by: Geovanny Eddy DO (04/10/2020 3:06 PM) [id number]
[2020-04-10] MEDS: ZOLPIDEM 5 MG TABLET. PO PRN ×2 (20:53→22:44)
[2020-04-10] MEDS: LACTOBACILLUS RHAMNOSUS GG 1 CAPSULE. PO SCH (20:53)
[2020-04-10] MEDS: INSULIN GLARGINE SYRINGE. SQ SCH (21:00)
--- NOTE | 2020-04-10 21:30 | NUR ---
Pt refused lantus, glucose level 132
[2020-04-11] VITALS (20 sets, daily range): BP systolic 91–160; BP diastolic 50–90
[2020-04-11] MEDS: IV NORMAL SALINE 1000ML BAG 1,000 ML IV SCH ×5 (00:16→23:15)
[2020-04-11] MEDS: ONDANSETRON PF 4 MG/2 ML VIAL. IV PRN ×4 (01:31→19:51)
[2020-04-11] MEDS: guaiFENesin/CODEINE 100mg/10mg 5 ML LIQUID PO PRN ×2 (02:11→13:06)
[2020-04-11] MEDS: STERILE WATER for RESP 1,000 ML BAG. INH PRN (04:04)
[2020-04-11 07:01] LABS: ALBUMIN 2.4 g/dL (3.4-5.0); CALCIUM 8.3 mg/dL (8.5-10.1); CREATININE 0.5 mg/dL (0.6-1.0); GFR 132.2; PHOSPHORUS 2.8 mg/dL (2.6-4.7); POTASSIUM 4.1 mmol/L (3.5-5.1); URIC ACID 1.8 mg/dL (2.6-6.0)
[2020-04-11] MEDS: POLYETHYLENE GLYCOL 3350 17 GM PACKET. PO SCH (07:48)
[2020-04-11] MEDS: INSULIN LISPRO 300 UNITS/3 ML VIAL. SQ SCH ×3 (08:00→17:35)
[2020-04-11] MEDS: guaiFENesin DM 200MG/20MG 10 ML SYRUP PO PRN ×2 (08:14→21:49)
[2020-04-11] MEDS: LACTOBACILLUS RHAMNOSUS GG 1 CAPSULE. PO SCH ×2 (08:15→21:49)
[2020-04-11] MEDS: ZINC SULFATE 220 MG CAPSULE. PO SCH (08:15)
[2020-04-11] MEDS: DEXAMETHASONE SOD PHOS 4 MG/ML VIAL IVP SCH (08:15)
[2020-04-11] MEDS: FAMOTIDINE 20 MG/2 ML VIAL IVP SCH ×2 (08:16→21:49)
[2020-04-11] MEDS: ENOXAPARIN 40 MG/0.4 ML SYRINGE. SQ SCH ×2 (08:16→21:49)
--- NOTE | 2020-04-11 08:38 | PDOC ---
PULMONARY PROGRESS NOTES DATE: 04/11/20 TIME: 08:38 Subjective Patient remains on Vapotherm FiO2 100% and 40 L Feeling a little nauseated this am Afebrile overnight No overnight concerns from nursing Vitals Vital Signs Date Time Temp Pulse Resp B/P (MAP) Pulse Ox O2 Delivery O2 Flow Rate FiO2 04/11/20 08:16 94 Nasal Cannula 15.0 04/11/20 06:00 94 106/64 (78) 04/11/20 03:00 98.9 98.9 04/10/20 22:00 33 Comments Patient seen during pandemic, visual exam performed Regular rate and rhythm Vapotherm No accessory muscle use/distress No obvious rash or edema Lungs: Crackles Labs Laboratory Tests Test 04/09/20 08:57 04/09/20 11:35 04/09/20 16:35 04/09/20 16:37 Glucose (Fingerstick) 87 mg/dL (70-99) 124 mg/dL (70-99) 145 mg/dL (70-99) Sodium Level 135 mmol/L (136-145) Potassium Level 3.9 mmol/L (3.5-5.1) Chloride Level 104 mmol/L (98-107) Carbon Dioxide Level 25 mmol/L (21-32) Anion Gap 6 (6-14) Blood Urea Nitrogen 8 mg/dL (7-20) Creatinine 0.5 mg/dL (0.6-1.0) Estimated GFR (Cockcroft-Gault) 132.2 BUN/Creatinine Ratio 16 (6-20) Glucose Level 147 mg/dL (70-99) Calcium Level 7.9 mg/dL (8.5-10.1) Total Bilirubin 0.5 mg/dL (0.2-1.0) Aspartate Amino Transf (AST/SGOT) 305 U/L (15-37) Alanine Aminotransferase (ALT/SGPT) 182 U/L (14-59) Alkaline Phosphatase 100 U/L (46-116) Creatine Kinase 35969 U/L (26-192) Total Protein 6.6 g/dL (6.4-8.2) Albumin 2.6 g/dL (3.4-5.0) Albumin/Globulin Ratio 0.7 (1.0-1.7) Test 04/09/20 20:21 04/10/20 08:08 04/10/20 10:15 04/10/20 11:11 Glucose (Fingerstick) 114 mg/dL (70-99) 101 mg/dL (70-99) 231 mg/dL (70-99) White Blood Count 13.1 x10^3/uL (4.0-11.0) Red Blood Count 4.13 x10^6/uL (3.50-5.40) Hemoglobin 13.1 g/dL (12.0-15.5) Hematocrit 38.4 % (36.0-47.0) Mean Corpuscular Volume 93 fL (79-100) Mean Corpuscular Hemoglobin 32 pg (25-35) Mean Corpuscular Hemoglobin Concent 34 g/dL (31-37) Red Cell Distribution Width 13.8 % (11.5-14.5) Platelet Count 345 x10^3/uL (140-400) Neutrophils (%) (Auto) 88 % (31-73) Lymphocytes (%) (Auto) 10 % (24-48) Monocytes (%) (Auto) 2 % (0-9) Eosinophils (%) (Auto) 1 % (0-3) Basophils (%) (Auto) 0 % (0-3) Neutrophils # (Auto) 11.5 x10^3/uL (1.8-7.7) Lymphocytes # (Auto) 1.3 x10^3/uL (1.0-4.8) Monocytes # (Auto) 0.3 x10^3/uL (0.0-1.1) Eosinophils # (Auto) 0.1 x10^3/uL (0.0-0.7) Basophils # (Auto) 0.0 x10^3/uL (0.0-0.2) Segmented Neutrophils % 83 % (35-66) Band Neutrophils % 4 % (0-9) Lymphocytes % 5 % (24-48) Atypical Lymphocytes % (Manual) 1 % (0-0) Monocytes % 1 % (0-10) Eosinophils % 1 % (0-5) Metamyelocytes % 2 % (0-0) Myelocytes % 3 % (0-0) Platelet Estimate Adequate (ADEQUATE) Sodium Level 134 mmol/L (136-145) Potassium Level 4.2 mmol/L (3.5-5.1) Chloride Level 101 mmol/L (98-107) Carbon Dioxide Level 24 mmol/L (21-32) Anion Gap 9 (6-14) Blood Urea Nitrogen 7 mg/dL (7-20) Creatinine 0.5 mg/dL (0.6-1.0) Estimated GFR (Cockcroft-Gault) 132.2 BUN/Creatinine Ratio 14 (6-20) Glucose Level 143 mg/dL (70-99) Calcium Level 8.0 mg/dL (8.5-10.1) Total Bilirubin 0.6 mg/dL (0.2-1.0) Aspartate Amino Transf (AST/SGOT) 343 U/L (15-37) Alanine Aminotransferase (ALT/SGPT) 191 U/L (14-59) Alkaline Phosphatase 111 U/L (46-116) Creatine Kinase 68210 U/L (26-192) Total Protein 6.3 g/dL (6.4-8.2) Albumin 2.7 g/dL (3.4-5.0) Albumin/Globulin Ratio 0.8 (1.0-1.7) Test 04/10/20 16:19 04/10/20 21:15 04/11/20 06:12 Glucose (Fingerstick) 205 mg/dL (70-99) 132 mg/dL (70-99) Sodium Level 135 mmol/L (136-145) Potassium Level 4.1 mmol/L (3.5-5.1) Chloride Level 101 mmol/L (98-107) Carbon Dioxide Level 29 mmol/L (21-32) Anion Gap 5 (6-14) Blood Urea Nitrogen 7 mg/dL (7-20) Creatinine 0.5 mg/dL (0.6-1.0) Estimated GFR (Cockcroft-Gault) 132.2 Glucose Level 95 mg/dL (70-99) Uric Acid 1.8 mg/dL (2.6-6.0) Calcium Level 8.3 mg/dL (8.5-10.1) Phosphorus Level 2.8 mg/dL (2.6-4.7) Creatine Kinase 96963 U/L (26-192) Albumin 2.4 g/dL (3.4-5.0) Laboratory Tests Test 04/10/20 10:15 04/10/20 11:11 04/10/20 16:19 04/10/20 21:15 White Blood Count 13.1 x10^3/uL (4.0-11.0) Red Blood Count 4.13 x10^6/uL (3.50-5.40) Hemoglobin 13.1 g/dL (12.0-15.5) Hematocrit 38.4 % (36.0-47.0) Mean Corpuscular Volume 93 fL (79-100) Mean Corpuscular Hemoglobin 32 pg (25-35) Mean Corpuscular Hemoglobin Concent 34 g/dL (31-37) Red Cell Distribution Width 13.8 % (11.5-14.5) Platelet Count 345 x10^3/uL (140-400) Neutrophils (%) (Auto) 88 % (31-73) Lymphocytes (%) (Auto) 10 % (24-48) Monocytes (%) (Auto) 2 % (0-9) Eosinophils (%) (Auto) 1 % (0-3) Basophils (%) (Auto) 0 % (0-3) Neutrophils # (Auto) 11.5 x10^3/uL (1.8-7.7) Lymphocytes # (Auto) 1.3 x10^3/uL (1.0-4.8) Monocytes # (Auto) 0.3 x10^3/uL (0.0-1.1) Eosinophils # (Auto) 0.1 x10^3/uL (0.0-0.7) Basophils # (Auto) 0.0 x10^3/uL (0.0-0.2) Segmented Neutrophils % 83 % (35-66) Band Neutrophils % 4 % (0-9) Lymphocytes % 5 % (24-48) Atypical Lymphocytes % (Manual) 1 % (0-0) Monocytes % 1 % (0-10) Eosinophils % 1 % (0-5) Metamyelocytes % 2 % (0-0) Myelocytes % 3 % (0-0) Platelet Estimate Adequate (ADEQUATE) Sodium Level 134 mmol/L (136-145) Potassium Level 4.2 mmol/L (3.5-5.1) Chloride Level 101 mmol/L (98-107) Carbon Dioxide Level 24 mmol/L (21-32) Anion Gap 9 (6-14) Blood Urea Nitrogen 7 mg/dL (7-20) Creatinine 0.5 mg/dL (0.6-1.0) Estimated GFR (Cockcroft-Gault) 132.2 BUN/Creatinine Ratio 14 (6-20) Glucose Level 143 mg/dL (70-99) Calcium Level 8.0 mg/dL (8.5-10.1) Total Bilirubin 0.6 mg/dL (0.2-1.0) Aspartate Amino Transf (AST/SGOT) 343 U/L (15-37) Alanine Aminotransferase (ALT/SGPT) 191 U/L (14-59) Alkaline Phosphatase 111 U/L (46-116) Creatine Kinase 39864 U/L (26-192) Total Protein 6.3 g/dL (6.4-8.2) Albumin 2.7 g/dL (3.4-5.0) Albumin/Globulin Ratio 0.8 (1.0-1.7) Glucose (Fingerstick) 231 mg/dL (70-99) 205 mg/dL (70-99) 132 mg/dL (70-99) Test 04/11/20 06:12 Sodium Level 135 mmol/L (136-145) Potassium Level 4.1 mmol/L (3.5-5.1) Chloride Level 101 mmol/L (98-107) Carbon Dioxide Level 29 mmol/L (21-32) Anion Gap 5 (6-14) Blood Urea Nitrogen 7 mg/dL (7-20) Creatinine 0.5 mg/dL (0.6-1.0) Estimated GFR (Cockcroft-Gault) 132.2 Glucose Level 95 mg/dL (70-99) Uric Acid 1.8 mg/dL (2.6-6.0) Calcium Level 8.3 mg/dL (8.5-10.1) Phosphorus Level 2.8 mg/dL (2.6-4.7) Creatine Kinase 16163 U/L (26-192) Albumin 2.4 g/dL (3.4-5.0) Medications Active Scripts Medications Dose Route/Sig Max Daily Dose Days Date Category Claritin (Loratadine) 10 Mg Tablet 10 Mg PO DAILY 04/06/20 Reported Codeine-Guaifen 10-100 mg/5 ml (Guaifenesin/Codeine Phosphate) 120 Ml Liquid 5 Ml PO PRN Q6HRS PRN MDD 20 Milliliter(s) 6 04/02/20 Rx Prednisone 50 Mg Tablet 1 Tab PO DAILY 04/02/20 Rx Zithromax (Azithromycin) 250 Mg Tablet 1 Pkg PO UD 04/02/20 Rx Ibuprofen 800 Mg Tablet 800 Mg PO PRN Q6HRS PRN 07/27/18 Rx Meclizine Hcl 25 Mg Tablet 1 Tab PO TID 07/27/18 Rx Zithromax (Azithromycin) 250 Mg Tablet 1 Pkg PO UD 07/27/18 Rx Tamiflu (Oseltamivir Phosphate) 75 Mg Capsule 1 Cap PO BID 07/27/18 Rx Comments CTA chest IMPRESSION: No evidence of main or lobar pulmonary embolus on significantly limited evaluation. Bilateral patchy groundglass opacities as described, compatible with viral pneumonia. Impression . IMPRESSION: 1. Acute hypoxic respiratory failure secondary to COVID-[address] chest with bilateral patchy interstitial infiltrates compatible with COVID-19 pneumonia. 3. Underlying obesity. 4. History of hypertension. Plan . RECOMMENDATIONS: Continue supplemental oxygen to keep oxygen saturations greater than 92%, currently on Vapotherm 100% FiO2 and 40 L Continue IV steroids, with slow taper CTA of chest reviewed negative for pulmonary embolism Continue antibiotics, currently on Rocephin Follow Cultures- NGTD DVT/GI prophylaxis Discussed with RN and RT Critical care time [id number] Pt. CODE FULL TYRONE COWAN MD Apr 11, 2020 08:38
--- NOTE | 2020-04-11 09:33 | PDOC ---
PROGRESS NOTES Date of Service: DATE: 04/11/20 TIME: 09:32 Chief Complaint Chief Complaint IMPRESSION Acute respiratory failure with hypoxia -likely due to COVID-19 pneumonia. Will aggressively use steroids. Increased multifocal pulmonary opacities. No pleural effusion. Normal heart size. No pneumothorax. Bilateral patchy groundglass opacities as described, compatible with viral pneumonia. CTA CHEST Pneumonia due to 2019 novel coronavirus - as above. pulmonary consultation Rhabdomyolysis -will hydrate aggressively, monitor LFTs and renal function. Cannot have remdesivir due to this. Hypokalemia - replaced Transaminitis - likely related to rhabdomyolysis. Unfortunately this combination of symptoms is a contraindication to remdesivir therapy. High Cholesterol - given rhabdo will avoid statins, consult nephrology Hypertension - monitor Seasonal allergies - claritin Fatty liver - will monitor transaminases, CONSULT gi Hyperglycemia - check A1c, sliding scale while on steroids PLAN FEN - regular diet PPX - lovenox FULL CODE Dispo - inpatient for above ICU BED consult nephrology CTA of chest reviewed negative for pulmonary embolism antibiotics, iv Rocephin CPK [id number] 04-11 34 MIN CC TIME History of Present Illness History of Present Illness Ms Olson is a 49-year-old female w/ PMHx High Cholesterol, Hypertension, seasonal allergies, fatty liver who presented 04/02/2020 for Covid-like symptoms and returns with the same. Patient reports symptoms have worsened including fever, shortness of air, loss of taste, nausea, fatigue, dizziness, and bilateral lower extremity pain. Denies any vomiting or diarrhea. Reports family members now with similar symptoms. Reports her spouse had some symptoms prior to her. Her SARS-CoV-2 PCR test from 04/02/2020 returned positive. Other labs significant for WBC 8.8, Hb 14.1, platelets 241, D-dimer 0.70, NA 135, K3.5, BUN 6, CR 0.7, glucose 111, AST 366, ALT 177, CK 54,211. Rapid influenza negative EKG Sinus tachycardia at 119bpm, NO ST elevation, QRS 82ms, QT/QTc 308/434ms, baseline artifact noted. Febrile to 101 F CTPA with no PE but Bilateral patchy groundglass opacities as described, compatible with viral pneumonia. She was hypoxic to 82% on normal air and required 6L NCO2 to improve her O2 st atus. Admitted for further care IV fluid hydration provided. Symptomatic treatment provided with dexamethasone. Empiric antibiotic initiated. Afebrile overnight. Appetite decreased. O2 needs increased to 10 L/min. Labs [place] 0.6[place] [address], AST elevated 300 ALT 165. She is in much more respiratory distress today. Plan: Add Lasix. Unfortunately she does still need some IV fluids for her severe rhabdomyolysis. We will would like to wean off O2 as soon as possible. Consult pulmonology. Continue steroid Transfer to ICU for Vapotherm Unfortunately rhabdomyolysis and transaminitis are high risk for remdesivir therapy Vitals Vitals Vital Signs Date Time Temp Pulse Resp B/P (MAP) Pulse Ox O2 Delivery O2 Flow Rate FiO2 04/11/20 08:16 94 Nasal Cannula 15.0 04/11/20 06:00 94 106/64 (78) 04/11/20 03:00 98.9 98.9 04/10/20 22:00 33 Physical Exam Physical Exam visual exam due to covid 19 pandemic General: Alert, Oriented X3, Cooperative, No acute distress Heart: Regular rate Lungs: Crackles Abdomen: Normal bowel sounds, Soft, No tenderness, No hepatosplenomegaly, No masses Extremities: No clubbing, No cyanosis, No edema, Normal pulses, No tenderness/swelling Skin: No rashes, No breakdown, No significant lesion Labs LABS CHEST AP ONLY History: Reason: pneumonia / Spl. Instructions: / History: Comparison: April 02, 2020 Findings: Increased multifocal pulmonary opacities. No pleural effusion. Normal heart size. No pneumothorax. Impression: 1. Increased multifocal pulmonary opacities, concerning for viral pneumonia. Electronically signed by: Geovanny Reza DO (04/10/2020 3:06 PM) [id number] DICTATED and SIGNED BY: GEOVANNY REZA DO DATE: 04/10/20 [id number] Laboratory Tests Test 04/10/20 10:15 04/10/20 11:11 04/10/20 16:19 04/10/20 21:15 White Blood Count 13.1 x10^3/uL (4.0-11.0) Red Blood Count 4.13 x10^6/uL (3.50-5.40) Hemoglobin 13.1 g/dL (12.0-15.5) Hematocrit 38.4 % (36.0-47.0) Mean Corpuscular Volume 93 fL (79-100) Mean Corpuscular Hemoglobin 32 pg (25-35) Mean Corpuscular Hemoglobin Concent 34 g/dL (31-37) Red Cell Distribution Width 13.8 % (11.5-14.5) Platelet Count 345 x10^3/uL (140-400) Neutrophils (%) (Auto) 88 % (31-73) Lymphocytes (%) (Auto) 10 % (24-48) Monocytes (%) (Auto) 2 % (0-9) Eosinophils (%) (Auto) 1 % (0-3) Basophils (%) (Auto) 0 % (0-3) Neutrophils # (Auto) 11.5 x10^3/uL (1.8-7.7) Lymphocytes # (Auto) 1.3 x10^3/uL (1.0-4.8) Monocytes # (Auto) 0.3 x10^3/uL (0.0-1.1) Eosinophils # (Auto) 0.1 x10^3/uL (0.0-0.7) Basophils # (Auto) 0.0 x10^3/uL (0.0-0.2) Segmented Neutrophils % 83 % (35-66) Band Neutrophils % 4 % (0-9) Lymphocytes % 5 % (24-48) Atypical Lymphocytes % (Manual) 1 % (0-0) Monocytes % 1 % (0-10) Eosinophils % 1 % (0-5) Metamyelocytes % 2 % (0-0) Myelocytes % 3 % (0-0) Platelet Estimate Adequate (ADEQUATE) Sodium Level 134 mmol/L (136-145) Potassium Level 4.2 mmol/L (3.5-5.1) Chloride Level 101 mmol/L (98-107) Carbon Dioxide Level 24 mmol/L (21-32) Anion Gap 9 (6-14) Blood Urea Nitrogen 7 mg/dL (7-20) Creatinine 0.5 mg/dL (0.6-1.0) Estimated GFR (Cockcroft-Gault) 132.2 BUN/Creatinine Ratio 14 (6-20) Glucose Level 143 mg/dL (70-99) Calcium Level 8.0 mg/dL (8.5-10.1) Total Bilirubin 0.6 mg/dL (0.2-1.0) Aspartate Amino Transf (AST/SGOT) 343 U/L (15-37) Alanine Aminotransferase (ALT/SGPT) 191 U/L (14-59) Alkaline Phosphatase 111 U/L (46-116) Creatine Kinase 31121 U/L (26-192) Total Protein 6.3 g/dL (6.4-8.2) Albumin 2.7 g/dL (3.4-5.0) Albumin/Globulin Ratio 0.8 (1.0-1.7) Glucose (Fingerstick) 231 mg/dL (70-99) 205 mg/dL (70-99) 132 mg/dL (70-99) Test 04/11/20 06:12 Sodium Level 135 mmol/L (136-145) Potassium Level 4.1 mmol/L (3.5-5.1) Chloride Level 101 mmol/L (98-107) Carbon Dioxide Level 29 mmol/L (21-32) Anion Gap 5 (6-14) Blood Urea Nitrogen 7 mg/dL (7-20) Creatinine 0.5 mg/dL (0.6-1.0) Estimated GFR (Cockcroft-Gault) 132.2 Glucose Level 95 mg/dL (70-99) Uric Acid 1.8 mg/dL (2.6-6.0) Calcium Level 8.3 mg/dL (8.5-10.1) Phosphorus Level 2.8 mg/dL (2.6-4.7) Creatine Kinase 18833 U/L (26-192) Albumin 2.4 g/dL (3.4-5.0) Assessment and Plan Assessmemt and Plan Problems Medical Problems: (1) Hypoxia Status: Acute (2) Pneumonia due to 2019 novel coronavirus Status: Acute (3) Respiratory failure Status: Acute (4) Rhabdomyolysis Status: Acute Comment Review of Relevant I have reviewed the following items eddie (where applicable) has been applied. Labs Laboratory Tests Test 04/09/20 11:35 04/09/20 16:35 04/09/20 16:37 04/09/20 20:21 Glucose (Fingerstick) 124 mg/dL (70-99) 145 mg/dL (70-99) 114 mg/dL (70-99) Sodium Level 135 mmol/L (136-145) Potassium Level 3.9 mmol/L (3.5-5.1) Chloride Level 104 mmol/L (98-107) Carbon Dioxide Level 25 mmol/L (21-32) Anion Gap 6 (6-14) Blood Urea Nitrogen 8 mg/dL (7-20) Creatinine 0.5 mg/dL (0.6-1.0) Estimated GFR (Cockcroft-Gault) 132.2 BUN/Creatinine Ratio 16 (6-20) Glucose Level 147 mg/dL (70-99) Calcium Level 7.9 mg/dL (8.5-10.1) Total Bilirubin 0.5 mg/dL (0.2-1.0) Aspartate Amino Transf (AST/SGOT) 305 U/L (15-37) Alanine Aminotransferase (ALT/SGPT) 182 U/L (14-59) Alkaline Phosphatase 100 U/L (46-116) Creatine Kinase 31485 U/L (26-192) Total Protein 6.6 g/dL (6.4-8.2) Albumin 2.6 g/dL (3.4-5.0) Albumin/Globulin Ratio 0.7 (1.0-1.7) Test 04/10/20 08:08 04/10/20 10:15 04/10/20 11:11 04/10/20 16:19 Glucose (Fingerstick) 101 mg/dL (70-99) 231 mg/dL (70-99) 205 mg/dL (70-99) White Blood Count 13.1 x10^3/uL (4.0-11.0) Red Blood Count 4.13 x10^6/uL (3.50-5.40) Hemoglobin 13.1 g/dL (12.0-15.5) Hematocrit 38.4 % (36.0-47.0) Mean Corpuscular Volume 93 fL (79-100) Mean Corpuscular Hemoglobin 32 pg (25-35) Mean Corpuscular Hemoglobin Concent 34 g/dL (31-37) Red Cell Distribution Width 13.8 % (11.5-14.5) Platelet Count 345 x10^3/uL (140-400) Neutrophils (%) (Auto) 88 % (31-73) Lymphocytes (%) (Auto) 10 % (24-48) Monocytes (%) (Auto) 2 % (0-9) Eosinophils (%) (Auto) 1 % (0-3) Basophils (%) (Auto) 0 % (0-3) Neutrophils # (Auto) 11.5 x10^3/uL (1.8-7.7) Lymphocytes # (Auto) 1.3 x10^3/uL (1.0-4.8) Monocytes # (Auto) 0.3 x10^3/uL (0.0-1.1) Eosinophils # (Auto) 0.1 x10^3/uL (0.0-0.7) Basophils # (Auto) 0.0 x10^3/uL (0.0-0.2) Segmented Neutrophils % 83 % (35-66) Band Neutrophils % 4 % (0-9) Lymphocytes % 5 % (24-48) Atypical Lymphocytes % (Manual) 1 % (0-0) Monocytes % 1 % (0-10) Eosinophils % 1 % (0-5) Metamyelocytes % 2 % (0-0) Myelocytes % 3 % (0-0) Platelet Estimate Adequate (ADEQUATE) Sodium Level 134 mmol/L (136-145) Potassium Level 4.2 mmol/L (3.5-5.1) Chloride Level 101 mmol/L (98-107) Carbon Dioxide Level 24 mmol/L (21-32) Anion Gap 9 (6-14) Blood Urea Nitrogen 7 mg/dL (7-20) Creatinine 0.5 mg/dL (0.6-1.0) Estimated GFR (Cockcroft-Gault) 132.2 BUN/Creatinine Ratio 14 (6-20) Glucose Level 143 mg/dL (70-99) Calcium Level 8.0 mg/dL (8.5-10.1) Total Bilirubin 0.6 mg/dL (0.2-1.0) Aspartate Amino Transf (AST/SGOT) 343 U/L (15-37) Alanine Aminotransferase (ALT/SGPT) 191 U/L (14-59) Alkaline Phosphatase 111 U/L (46-116) Creatine Kinase 64171 U/L (26-192) Total Protein 6.3 g/dL (6.4-8.2) Albumin 2.7 g/dL (3.4-5.0) Albumin/Globulin Ratio 0.8 (1.0-1.7) Test 12/2/20 21:15 04/11/20 06:12 Glucose (Fingerstick) 132 mg/dL (70-99) Sodium Level 135 mmol/L (136-145) Potassium Level 4.1 mmol/L (3.5-5.1) Chloride Level 101 mmol/L (98-107) Carbon Dioxide Level 29 mmol/L (21-32) Anion Gap 5 (6-14) Blood Urea Nitrogen 7 mg/dL (7-20) Creatinine 0.5 mg/dL (0.6-1.0) Estimated GFR (Cockcroft-Gault) 132.2 Glucose Level 95 mg/dL (70-99) Uric Acid 1.8 mg/dL (2.6-6.0) Calcium Level 8.3 mg/dL (8.5-10.1) Phosphorus Level 2.8 mg/dL (2.6-4.7) Creatine Kinase 22338 U/L (26-192) Albumin 2.4 g/dL (3.4-5.0) Laboratory Tests Test 04/10/20 10:15 04/10/20 11:11 04/10/20 16:19 04/10/20 21:15 White Blood Count 13.1 x10^3/uL (4.0-11.0) Red Blood Count 4.13 x10^6/uL (3.50-5.40) Hemoglobin 13.1 g/dL (12.0-15.5) Hematocrit 38.4 % (36.0-47.0) Mean Corpuscular Volume 93 fL (79-100) Mean Corpuscular Hemoglobin 32 pg (25-35) Mean Corpuscular Hemoglobin Concent 34 g/dL (31-37) Red Cell Distribution Width 13.8 % (11.5-14.5) Platelet Count 345 x10^3/uL (140-400) Neutrophils (%) (Auto) 88 % (31-73) Lymphocytes (%) (Auto) 10 % (24-48) Monocytes (%) (Auto) 2 % (0-9) Eosinophils (%) (Auto) 1 % (0-3) Basophils (%) (Auto) 0 % (0-3) Neutrophils # (Auto) 11.5 x10^3/uL (1.8-7.7) Lymphocytes # (Auto) 1.3 x10^3/uL (1.0-4.8) Monocytes # (Auto) 0.3 x10^3/uL (0.0-1.1) Eosinophils # (Auto) 0.1 x10^3/uL (0.0-0.7) Basophils # (Auto) 0.0 x10^3/uL (0.0-0.2) Segmented Neutrophils % 83 % (35-66) Band Neutrophils % 4 % (0-9) Lymphocytes % 5 % (24-48) Atypical Lymphocytes % (Manual) 1 % (0-0) Monocytes % 1 % (0-10) Eosinophils % 1 % (0-5) Metamyelocytes % 2 % (0-0) Myelocytes % 3 % (0-0) Platelet Estimate Adequate (ADEQUATE) Sodium Level 134 mmol/L (136-145) Potassium Level 4.2 mmol/L (3.5-5.1) Chloride Level 101 mmol/L (98-107) Carbon Dioxide Level 24 mmol/L (21-32) Anion Gap 9 (6-14) Blood Urea Nitrogen 7 mg/dL (7-20) Creatinine 0.5 mg/dL (0.6-1.0) Estimated GFR (Cockcroft-Gault) 132.2 BUN/Creatinine Ratio 14 (6-20) Glucose Level 143 mg/dL (70-99) Calcium Level 8.0 mg/dL (8.5-10.1) Total Bilirubin 0.6 mg/dL (0.2-1.0) Aspartate Amino Transf (AST/SGOT) 343 U/L (15-37) Alanine Aminotransferase (ALT/SGPT) 191 U/L (14-59) Alkaline Phosphatase 111 U/L (46-116) Creatine Kinase 06633 U/L (26-192) Total Protein 6.3 g/dL (6.4-8.2) Albumin 2.7 g/dL (3.4-5.0) Albumin/Globulin Ratio 0.8 (1.0-1.7) Glucose (Fingerstick) 231 mg/dL (70-99) 205 mg/dL (70-99) 132 mg/dL (70-99) Test 04/11/20 06:12 Sodium Level 135 mmol/L (136-145) Potassium Level 4.1 mmol/L (3.5-5.1) Chloride Level 101 mmol/L (98-107) Carbon Dioxide Level 29 mmol/L (21-32) Anion Gap 5 (6-14) Blood Urea Nitrogen 7 mg/dL (7-20) Creatinine 0.5 mg/dL (0.6-1.0) Estimated GFR (Cockcroft-Gault) 132.2 Glucose Level 95 mg/dL (70-99) Uric Acid 1.8 mg/dL (2.6-6.0) Calcium Level 8.3 mg/dL (8.5-10.1) Phosphorus Level 2.8 mg/dL (2.6-4.7) Creatine Kinase 68170 U/L (26-192) Albumin 2.4 g/dL (3.4-5.0) Microbiology 04/06/20 Blood Culture - Final, Complete NO GROWTH AFTER 5 DAYS Medications Current Medications Iohexol (Omnipaque 350 Mg/ml) 100 ml 1X ONCE IV Last administered on 04/05/20at 00:14; Start 04/05/20 at 23:45; Stop 04/05/20 at 23:46; Status DC Info (CONTRAST GIVEN -- Rx MONITORING) 1 each PRN DAILY PRN MC SEE COMMENTS; Start 04/05/20 at 23:45; Stop 04/07/20 at 23:44; Status DC Sodium Chloride 1,000 ml @ 1,000 mls/hr 1X ONCE IV Last administered on 04/06/20at 01:17; Start 04/06/20 at 01:00; Stop 04/06/20 at 01:59; Status DC Dexamethasone Sodium Phosphate (Decadron) 10 mg 1X ONCE IVP Last administered on 04/06/20at 01:16; Start 04/06/20 at 01:00; Stop 04/06/20 at 01:02; Status DC Azithromycin 500 mg/Sodium Chloride 250 ml @ 250 mls/hr 1X ONCE IV Last administered on 04/06/20at 01:16; Start 04/06/20 at 01:00; Stop 04/06/20 at 01:59; Status DC Ondansetron HCl (Zofran) 4 mg PRN Q8HRS PRN IV NAUSEA/VOMITING; Start 04/06/20 at 01:30; Stop 04/06/20 at 17:17; Status DC Acetaminophen (Tylenol) 650 mg PRN Q4HRS PRN PO FEVER > 100.3'F Last administered on 04/06/20at 02:44; Start 04/06/20 at 01:30; Stop 04/06/20 at 17:17; Status DC Sodium Chloride 1,000 ml @ 100 mls/hr 1X ONCE IV Last administered on 04/06/20at 02:37; Start 04/06/20 at 01:30; Stop 04/06/20 at 11:29; Status DC Sodium Chloride 1,000 ml @ 150 mls/hr Q6H40M IV Last administered on 04/11/20at 00:16; Start 04/06/20 at 09:30 Ondansetron HCl (Zofran) 4 mg PRN Q4HRS PRN IV NAUSEA/VOMITING Last administe red on 04/11/20at 05:20; Start 04/06/20 at 17:15 Acetaminophen (Tylenol) 650 mg PRN Q6HRS PRN PO FEVER > 100.3'F Last administe red on 04/10/20at 00:01; Start 04/06/20 at 17:15 Guaifenesin (Robitussin Dm) 10 ml PRN Q6HRS PRN PO COUGH, 1ST CHOICE Last admi nistered on 04/11/20at 08:14; Start 04/06/20 at 17:15 Dexamethasone Sodium Phosphate (Decadron) 6 mg 1X ONCE IVP Last administered on 04/06/20at 17:34; Start 04/06/20 at 17:30; Stop 04/06/20 at 17:31; Status DC Enoxaparin Sodium (Lovenox 40mg Syringe) 40 mg Q24H SQ Last administered on 04/07/20at 17:39; Start 04/06/20 at 18:00; Stop 04/08/20 at 08:52; Status DC Zinc Sulfate (Orazinc) 220 mg DAILY PO Last administered on 04/11/20at 08:15; Start 04/06/20 at 17:00 Zolpidem Tartrate (Ambien) 5 mg PRN QHS PRN PO INSOMNIA; Start 04/06/20 at 17:15 Morphine Sulfate (Morphine Sulfate) 2 mg PRN Q2HR PRN IV PAIN; Start 04/06/20 at 17:15 Amino Acids/ Glycerin/ Electrolytes 1,000 ml @ 80 mls/hr [id number] IV Last administered on 04/07/20at 06:44; Start 04/06/20 at 17:30; Stop 04/09/20 at 16:21; Status DC Furosemide (Lasix) 60 mg 1X ONCE IVP Last administered on 04/07/20at 06:44; Start 04/07/20 at 06:45; Stop 04/07/20 at 06:46; Status DC Insulin Glargine (Lantus Syringe) 5 unit QHS SQ Last administered on 04/08/20at 21:17; Start 04/07/20 at 21:00 Insulin Human Lispro (HumaLOG) 0-7 UNITS TIDWMEALS SQ Last administered on 04/10/20at 17:13; Start 04/07/20 at 08:00 Dextrose (Dextrose 50%-Water Syringe) 12.5 gm PRN Q15MIN PRN IV SEE COMMENTS; Start 04/07/20 at 07:45 Dexamethasone Sodium Phosphate (Decadron) 6 mg DAILY IVP Last administered on 04/11/20at 08:15; Start 04/07/20 at 13:00 Ceftriaxone Sodium (Rocephin) 1 gm Q24H IVP Last administered on 04/10/20at 12:20; Start 04/07/20 at 13:00 Sterile Water (WATER for RESP) 1,000 ml CONT PRN INH VIA VAPOTHERM DEVICE Last administered on 04/11/20at 04:04; Start 04/07/20 at 13:00 Enoxaparin Sodium (Lovenox 40mg Syringe) 40 mg BID SQ Last administered on 04/11/20at 08:16; Start 04/08/20 at 09:00 Guaifenesin/ Codeine Phosphate (Robitussin Ac) 10 ml PRN Q4HRS PRN PO COUGH, 2ND CHOICE Last administered on 04/10/20at 14:22; Start 04/09/20 at 00:30; Stop 04/10/20 at 16:28; Status DC Famotidine (Pepcid Vial) 20 mg BID IVP Last administered on 04/11/20at 08:16; Start 04/09/20 at 10:00 Polyethylene Glycol (miraLAX PACKET) 17 gm DAILY PO Last administered on 04/10/20at 07:59; Start 04/09/20 at 10:00 Polyethylene Glycol (miraLAX PACKET) 17 gm PRN DAILY PRN PO CONSTIPATION, 1ST CHOICE; Start 04/09/20 at 10:00 Bisacodyl (Dulcolax Tab) 5 mg PRN DAILY PRN PO CONSTIPATION, 2ND CHOICE Last administered on 04/09/20at 11:31; Start 04/09/20 at 10:00 Guaifenesin/ Codeine Phosphate (Robitussin Ac) 5 ml PRN Q6HRS PRN PO COUGH Last administered on 04/11/20at 02:11; Start 04/10/20 at 09:45 Lactobacillus Rhamnosus (Culturelle) 1 cap BID PO Last administered on 04/11/20at 08:15; Start 04/10/20 at 21:00 Throat Lozenges (Cepacol Sore Throat Lozenge) 1 jeffrey PRN Q2HRS PRN PO SORE THROAT Last administered on 04/10/20at 23:16; Start 04/10/20 at 14:30 Active Scripts Active Codeine-Guaifen 10-100 mg/5 ml (Guaifenesin/Codeine Phosphate) 120 Ml Liquid 5 Ml PO PRN Q6HRS PRN MDD 20 Milliliter(s) 6 Days Prednisone 50 Mg Tablet 1 Tab PO DAILY Zithromax (Azithromycin) 250 Mg Tablet 1 Pkg PO UD Ibuprofen 800 Mg Tablet 800 Mg PO PRN Q6HRS PRN Meclizine Hcl 25 Mg Tablet 1 Tab PO TID Zithromax (Azithromycin) 250 Mg Tablet 1 Pkg PO UD Tamiflu (Oseltamivir Phosphate) 75 Mg Capsule 1 Cap PO BID Reported Claritin (Loratadine) 10 Mg Tablet 10 Mg PO DAILY Vitals/I & O Vital Sign - Last 24 Hours 04/10/20 04/10/20 04/10/20 04/10/20 10:00 11:00 11:33 11:44 Temp 99.3 99.3 Pulse 91 96 Resp 25 20 B/P (MAP) 116/68 (84) 103/61 (75) Pulse Ox 95 96 98 O2 Delivery Nasal Cannula Nasal Cannula VAPOTHERM Nasal Cannula O2 Flow Rate 40.0 40.0 40.0 40.0 04/10/20 04/10/20 04/10/20 04/10/20 12:00 13:00 14:00 14:26 Pulse 82 86 81 Resp 19 21 22 B/P (MAP) 119/67 (84) 97/51 (66) 79/61 (67) 102/58 (73) Pulse Ox 97 96 95 O2 Delivery Nasal Cannula Nasal Cannula Nasal Cannula O2 Flow Rate 40.0 40.0 40.0 04/10/20 04/10/20 04/10/20 04/10/20 15:00 16:00 16:00 16:08 Temp 98.8 98.8 Pulse 80 92 Resp 25 20 B/P (MAP) 108/62 (77) 116/64 (81) Pulse Ox 93 95 93 O2 Delivery Nasal Cannula Nasal Cannula Nasal Cannula VAPOTHERM O2 Flow Rate 40.0 40.0 40.0 40.0 04/10/20 04/10/20 04/10/20 04/10/20 17:00 18:00 19:00 20:00 Temp 98.6 98.6 Pulse 88 97 90 Resp 19 18 33 B/P (MAP) 119/67 (84) 129/72 (91) 137/75 (95) Pulse Ox 97 97 96 O2 Delivery Nasal Cannula Nasal Cannula Nasal Cannula Nasal Cannula O2 Flow Rate 40.0 40.0 40.0 40.0 04/10/20 04/10/20 04/10/20 04/10/20 20:00 20:38 21:00 22:00 Pulse 90 88 Resp 37 30 33 B/P (MAP) 124/66 (85) 130/76 (94) 101/69 (80) Pulse Ox 90 90 92 92 O2 Delivery Nasal Cannula VAPOTHERM Nasal Cannula Nasal Cannula O2 Flow Rate 40.0 40.0 40.0 40.0 04/10/20 04/11/20 04/11/20 04/11/20 23:00 00:00 00:00 01:00 Temp 98.5 98.5 Pulse 92 92 90 B/P (MAP) 94/64 (74) 122/79 (93) 113/63 (80) Pulse Ox 88 90 90 O2 Delivery Nasal Cannula Nasal Cannula Nasal Cannula Nasal Cannula O2 Flow Rate 40.0 40.0 40.0 40.0 04/11/20 04/11/20 04/11/20 04/11/20 01:21 02:00 03:00 04:00 Temp 98.9 98.9 Pulse 90 74 94 B/P (MAP) 127/78 (94) 132/76 (94) 106/64 (78) Pulse Ox 90 92 93 96 O2 Delivery VAPOTHERM Nasal Cannula Nasal Cannula Nasal Cannula O2 Flow Rate 40.0 40.0 40.0 40.0 04/11/20 04/11/20 04/11/20 04/11/20 04:00 04:04 05:00 06:00 Pulse 94 94 B/P (MAP) 106/64 (78) 106/64 (78) Pulse Ox 94 96 96 O2 Delivery Nasal Cannula VAPOTHERM Nasal Cannula Nasal Cannula O2 Flow Rate 40.0 40.0 40.0 40.0 04/11/20 08:16 Pulse Ox 94 O2 Delivery Nasal Cannula O2 Flow Rate 15.0 Intake and Output 04/10/20 04/10/20 04/11/20 14:59 22:59 06:59 Intake Total 1976 ml 4786 ml 2309 ml Output Total 4575 ml 2650 ml 1525 ml Balance -2599 ml 2136 ml 784 ml Justicifation of Admission Dx: Justifications for Admission: Justification of Admission Dx: Yes RADHA GARCIA MD Apr 11, 2020 09:33
--- NOTE | 2020-04-11 09:34 | PDOC ---
DATE OF SERVICE DATE: 04/11/20 TIME: 09:34 SUBJECTIVE ROS No overnight concerns, stable OBJECTIVE Vital Signs Vital Signs Date Time Temp Pulse Resp B/P (MAP) Pulse Ox O2 Delivery O2 Flow Rate FiO2 04/11/20 08:16 94 Nasal Cannula 15.0 04/11/20 06:00 94 106/64 (78) 04/11/20 03:00 98.9 98.9 04/10/20 22:00 33 I & 0 Intake and Output 04/11/20 07:00 Intake Total 9071 ml Output Total 8750 ml Balance 321 ml Intake Oral 7003 ml IV Total 1259 ml Blood Product IV Normal Saline Flush 809 ml Output Urine Total 8750 ml # Bowel Movements 1 PHYSICAL EXAM Physical Exam General: NAD HEENT: Atraumatic, PERRLA, EOMI, Mucous membr. moist/pink, On Non rebreather Neck supple Lungs: decreased at bases Heart: S1S2, RRR, no thrills, no rubs, no gallops, no murmurs Abdomen: Normal bowel sounds, Soft, No tenderness Extremities: No clubbing, No cyanosis, No edema, Skin: No rashes, Neuro: grossly normal Psych/Mental Status: Mental status NL, No Lakhani DIAGNOSIS/ASSESSMENT Assessment & Plan Rhabdomyolysis - Improving hydration with IV NS ,Lasix prn , statins held , renal function normal, UA unremarkable supportive care, strict I/O monitor , daily labs Acute respiratory failure with hypoxia -likely due to COVID-19 pneumonia. On steroids. Covid 19 Pneumonia - as above. Hypokalemia POA - replaced Transaminitis - LFT's elevated Hypertension - monitor COMMENT/RELEVANT DATA Meds Current Medications Medications (Trade) Dose Ordered Sig/Lizbeth Start Time Stop Time Status Last Admin Dose Admin Acetaminophen (Tylenol) 650 mg PRN Q6HRS PRN 04/06/20 17:15 04/10/20 00:01 650 MG Amino Acids/ Glycerin/ Electrolytes 1,000 ml @ 80 mls/hr [id number] 04/06/20 17:30 04/09/20 16:21 DC 04/07/20 06:44 80 MLS/HR Azithromycin 500 mg/Sodium Chloride 250 ml @ 250 mls/hr 1X ONCE 04/06/20 01:00 04/06/20 01:59 DC 04/06/20 01:16 250 MLS/HR Bisacodyl (Dulcolax Tab) 5 mg PRN DAILY PRN 04/09/20 10:00 04/09/20 11:31 5 MG Ceftriaxone Sodium (Rocephin) 1 gm Q24H 04/07/20 13:00 04/10/20 12:20 1 GM Dexamethasone Sodium Phosphate (Decadron) 6 mg DAILY 04/07/20 13:00 04/11/20 08:15 6 MG Dextrose (Dextrose 50%-Water Syringe) 12.5 gm PRN Q15MIN PRN 04/07/20 07:45 Enoxaparin Sodium (Lovenox 40mg Syringe) 40 mg BID 04/08/20 09:00 04/11/20 08:16 40 MG Famotidine (Pepcid Vial) 20 mg BID 04/09/20 10:00 04/11/20 08:16 20 MG Furosemide (Lasix) 60 mg 1X ONCE 04/07/20 06:45 04/07/20 06:46 DC 04/07/20 06:44 60 MG Guaifenesin (Robitussin Dm) 10 ml PRN Q6HRS PRN 04/06/20 17:15 04/11/20 08:14 10 ML Guaifenesin/ Codeine Phosphate (Robitussin Ac) 5 ml PRN Q6HRS PRN 04/10/20 09:45 04/11/20 02:11 5 ML Info (CONTRAST GIVEN -- Rx MONITORING) 1 each PRN DAILY PRN 04/05/20 23:45 04/07/20 23:44 DC Insulin Glargine (Lantus Syringe) 5 unit QHS 04/07/20 21:00 04/08/20 21:17 5 UNIT Insulin Human Lispro (HumaLOG) 0-7 UNITS TIDWMEALS 04/07/20 08:00 04/10/20 17:13 4 UNITS Iohexol (Omnipaque 350 Mg/ml) 100 ml 1X ONCE 04/05/20 23:45 04/05/20 23:46 DC 04/05/20 00:14 100 ML Lactobacillus Rhamnosus (Culturelle) 1 cap BID 04/10/20 21:00 04/11/20 08:15 1 CAP Morphine Sulfate (Morphine Sulfate) 2 mg PRN Q2HR PRN 04/06/20 17:15 Ondansetron HCl (Zofran) 4 mg PRN Q4HRS PRN 04/06/20 17:15 04/11/20 05:20 4 MG Polyethylene Glycol (miraLAX PACKET) 17 gm PRN DAILY PRN 04/09/20 10:00 Sodium Chloride 1,000 ml @ 150 mls/hr Q6H40M 04/06/20 09:30 04/11/20 00:16 150 MLS/HR Sterile Water (WATER for RESP) 1,000 ml CONT PRN 04/07/20 13:00 04/11/20 04:04 1,000 ML Throat Lozenges (Cepacol Sore Throat Lozenge) 1 jessica PRN Q2HRS PRN 04/10/20 14:30 04/10/20 23:16 1 JESSICA Zinc Sulfate (Orazinc) 220 mg DAILY 04/06/20 17:00 04/11/20 08:15 220 MG Zolpidem Tartrate (Ambien) 5 mg PRN QHS PRN 04/06/20 17:15 Lab Laboratory Tests Test 04/10/20 10:15 04/10/20 11:11 04/10/20 16:19 04/10/20 21:15 White Blood Count 13.1 x10^3/uL (4.0-11.0) Red Blood Count 4.13 x10^6/uL (3.50-5.40) Hemoglobin 13.1 g/dL (12.0-15.5) Hematocrit 38.4 % (36.0-47.0) Mean Corpuscular Volume 93 fL (79-100) Mean Corpuscular Hemoglobin 32 pg (25-35) Mean Corpuscular Hemoglobin Concent 34 g/dL (31-37) Red Cell Distribution Width 13.8 % (11.5-14.5) Platelet Count 345 x10^3/uL (140-400) Neutrophils (%) (Auto) 88 % (31-73) Lymphocytes (%) (Auto) 10 % (24-48) Monocytes (%) (Auto) 2 % (0-9) Eosinophils (%) (Auto) 1 % (0-3) Basophils (%) (Auto) 0 % (0-3) Neutrophils # (Auto) 11.5 x10^3/uL (1.8-7.7) Lymphocytes # (Auto) 1.3 x10^3/uL (1.0-4.8) Monocytes # (Auto) 0.3 x10^3/uL (0.0-1.1) Eosinophils # (Auto) 0.1 x10^3/uL (0.0-0.7) Basophils # (Auto) 0.0 x10^3/uL (0.0-0.2) Segmented Neutrophils % 83 % (35-66) Band Neutrophils % 4 % (0-9) Lymphocytes % 5 % (24-48) Atypical Lymphocytes % (Manual) 1 % (0-0) Monocytes % 1 % (0-10) Eosinophils % 1 % (0-5) Metamyelocytes % 2 % (0-0) Myelocytes % 3 % (0-0) Platelet Estimate Adequate (ADEQUATE) Sodium Level 134 mmol/L (136-145) Potassium Level 4.2 mmol/L (3.5-5.1) Chloride Level 101 mmol/L (98-107) Carbon Dioxide Level 24 mmol/L (21-32) Anion Gap 9 (6-14) Blood Urea Nitrogen 7 mg/dL (7-20) Creatinine 0.5 mg/dL (0.6-1.0) Estimated GFR (Cockcroft-Gault) 132.2 BUN/Creatinine Ratio 14 (6-20) Glucose Level 143 mg/dL (70-99) Calcium Level 8.0 mg/dL (8.5-10.1) Total Bilirubin 0.6 mg/dL (0.2-1.0) Aspartate Amino Transf (AST/SGOT) 343 U/L (15-37) Alanine Aminotransferase (ALT/SGPT) 191 U/L (14-59) Alkaline Phosphatase 111 U/L (46-116) Creatine Kinase 92629 U/L (26-192) Total Protein 6.3 g/dL (6.4-8.2) Albumin 2.7 g/dL (3.4-5.0) Albumin/Globulin Ratio 0.8 (1.0-1.7) Glucose (Fingerstick) 231 mg/dL (70-99) 205 mg/dL (70-99) 132 mg/dL (70-99) Test 04/11/20 06:12 Sodium Level 135 mmol/L (136-145) Potassium Level 4.1 mmol/L (3.5-5.1) Chloride Level 101 mmol/L (98-107) Carbon Dioxide Level 29 mmol/L (21-32) Anion Gap 5 (6-14) Blood Urea Nitrogen 7 mg/dL (7-20) Creatinine 0.5 mg/dL (0.6-1.0) Estimated GFR (Cockcroft-Gault) 132.2 Glucose Level 95 mg/dL (70-99) Uric Acid 1.8 mg/dL (2.6-6.0) Calcium Level 8.3 mg/dL (8.5-10.1) Phosphorus Level 2.8 mg/dL (2.6-4.7) Creatine Kinase 67044 U/L (26-192) Albumin 2.4 g/dL (3.4-5.0) Results All relevant outside records, renal labs, imaging studies, telemetry/EKG's were reviewed. Justicifation of Admission Dx: Justifications for Admission: Justification of Admission Dx: Yes LIZBETH MARADIAGA MD Apr 11, 2020 09:34
--- NOTE | 2020-04-11 11:00 | NUR ---
Pt used call light while on the phone. Pt family member was requesting nausea medication, informed him she just received it. This RN answered all questions asked. Family member was verbally aggressive, and stated "If you hate your job, just tell the doctor you don't want to work any more." Informed family member, that is not the case, and this RN loves her job, and "please don't misinterpret what I'm informing you. I am answering your questions." Used interpretation line to speak with patient. Patient is receptive to information and teaching. Family member not receptive.
--- NOTE | 2020-04-11 12:22 | PDOC ---
Date of Service: DATE: 04/11/20 TIME: 12:19 Objective: Objective: Nurse says nausea ongoing - spits up phlegm and spit but not food. Vital Signs: Vital Signs Date Time Temp Pulse Resp B/P (MAP) Pulse Ox O2 Delivery O2 Flow Rate FiO2 04/11/20 11:38 94 Nasal Cannula 14.0 04/11/20 11:00 78 36 116/70 (85) 04/11/20 08:00 98.3 98.3 Labs: Laboratory Tests Test 04/10/20 16:19 04/10/20 21:15 04/11/20 06:12 Glucose (Fingerstick) 205 mg/dL 132 mg/dL Sodium Level 135 mmol/L Potassium Level 4.1 mmol/L Chloride Level 101 mmol/L Carbon Dioxide Level 29 mmol/L Anion Gap 5 Blood Urea Nitrogen 7 mg/dL Creatinine 0.5 mg/dL Estimated GFR (Cockcroft-Gault) 132.2 Glucose Level 95 mg/dL Uric Acid 1.8 mg/dL Calcium Level 8.3 mg/dL Phosphorus Level 2.8 mg/dL Creatine Kinase 94103 U/L Albumin 2.4 g/dL PE: GEN: in COVID isolation - visual exam done LUNGS: NC 14L HEART: RR ABD: non-distended NEURO/PSYCH: awake and alert A/P: COVID-19 infection, resp failure/pneumonia Nausea Elevated AST and ALT Fatty liver -- Monitor LFTs, 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 Justicifation of Admission Dx: Justifications for Admission: Justification of Admission Dx: Yes ALLISON CHAMORRO Apr 11, 2020 12:22
[2020-04-11] MEDS: cefTRIAXone IV Push 1 GM VIAL. IVP SCH (12:28)
--- NOTE | 2020-04-11 14:37 | NUR ---
SS following up with discharge planning. SS reviewed pt chart and discussed with pt RN. Pt is currently on 14 liters nasal canula. COVID19 positive. Pt on IV Rocephin. SS will continue to follow for discharge planning.
--- NOTE | 2020-04-11 20:25 | NUR ---
Patient was put on bipap following low sats on the high flow cannula. Pt lasted less than 15minutes on the bipap, became very anxious and restless attempting to remove the mask. Felipe (pt 's son) tried to calm her down over the phone but pt would not calm down, kept saying she wanted the mask off , she couldn't breathe. I offered that l can get her medicine for anxiety and pt refused. Pt was placed back on high flow nasal cannula at 15L , sats currently 94 % RR 30's to 40's, will monitor.
--- NOTE | 2020-04-11 21:10 | NUR ---
Spoke to patient's son, Felipe at 2039 regarding his and patient's request to transfer patient to [facility]. Explained to son procedure for transfer: patient's physician must agree to transfer patient, an [facility] physician to accept care of patient and the hospital agrees to lateral transfer. Son insistent that patient transfer tonight; explained that patient's physician will be notified as will the nursing marketing sales supervisor--son agreeable. Paged Dr Harper, returned page at 2049, notified of above and updated on patient need for increased O2; patient refused to wear BiPap and oxygen now at 15L High flow NC with O2 saturation of 88-93%. Orders received to change status to ICU for the night secondary to increased O2 need and patient not stable to transfer to another hospital tonight but can be reevaluated in am. Nursing Elevators Inspector spoke to [facility]'s Nurisng Elevators Inspector who states they are not accepting lateral transfer at this point. Called Felipe at [phone], notified of physicians orders and [facility] refusing patient. Felipe verbalized understanding and stated he is just trying to help his mom; he also verbalized he and his are also Covid +. Notified patient's oxygen saturation is much improved and if she worsens we will call with an update or he can call later for an update.
[2020-04-11] MEDS: INSULIN GLARGINE SYRINGE. SQ SCH (22:00)
[2020-04-11] MEDS: ZOLPIDEM 5 MG TABLET. PO PRN (22:00)
[2020-04-12] VITALS (14 sets, daily range): BP systolic 87–149; BP diastolic 54–94
[2020-04-12] MEDS: guaiFENesin/CODEINE 100mg/10mg 5 ML LIQUID PO PRN ×2 (03:08→21:09)
[2020-04-12 05:35] LABS: BASO % 0 % (0-3); EOS % 0 % (0-3); HEMATOCRIT 36.4 % (36.0-47.0); HEMOGLOBIN 12.4 g/dL (12.0-15.5); LYMPH # 0.9 x10^3/uL (1.0-4.8); LYMPH % 7 % (24-48); MEAN CORPUSCULAR HEMOGLOBIN 32 pg (25-35); MEAN CORPUSCULAR HGB CONC 34 g/dL (31-37); MEAN CORPUSCULAR VOLUME 93 fL (79-100); MONO # 0.2 x10^3/uL (0.0-1.1); MONO % 2 % (0-9); NEUT # 12.5 x10^3/uL (1.8-7.7); NEUT % 91 % (31-73); PLATELET COUNT 322 x10^3/uL (140-400); RED BLOOD COUNT 3.93 x10^6/uL (3.50-5.40); RED CELL DISTRIBUTION WIDTH 13.8 % (11.5-14.5); WHITE BLOOD COUNT 13.7 x10^3/uL (4.0-11.0)
[2020-04-12 06:11] LABS: ALBUMIN 2.3 g/dL (3.4-5.0); ALBUMIN/GLOBULIN RATIO 0.5 (1.0-1.7); CALCIUM 8.1 mg/dL (8.5-10.1); CREATININE 0.6 mg/dL (0.6-1.0); GFR 107.2; POTASSIUM 3.9 mmol/L (3.5-5.1); TOTAL BILIRUBIN 0.4 mg/dL (0.2-1.0); TOTAL PROTEIN 6.6 g/dL (6.4-8.2)
[2020-04-12] MEDS: INSULIN LISPRO 300 UNITS/3 ML VIAL. SQ SCH ×3 (08:00→16:51)
[2020-04-12] MEDS: ZINC SULFATE 220 MG CAPSULE. PO SCH (08:24)
[2020-04-12] MEDS: LACTOBACILLUS RHAMNOSUS GG 1 CAPSULE. PO SCH ×2 (08:24→20:58)
[2020-04-12] MEDS: DEXAMETHASONE SOD PHOS 4 MG/ML VIAL IVP SCH (08:25)
[2020-04-12] MEDS: FAMOTIDINE 20 MG/2 ML VIAL IVP SCH (08:25)
[2020-04-12] MEDS: POLYETHYLENE GLYCOL 3350 17 GM PACKET. PO SCH (08:26)
[2020-04-12] MEDS: ENOXAPARIN 40 MG/0.4 ML SYRINGE. SQ SCH ×2 (08:26→20:58)
--- NOTE | 2020-04-12 08:32 | PDOC ---
PROGRESS NOTES Date of Service: DATE: 04/12/20 TIME: 08:31 Chief Complaint Chief Complaint IMPRESSION Acute respiratory failure with hypoxia -likely due to COVID-19 pneumonia. Will aggressively use steroids. Increased multifocal pulmonary opacities. No pleural effusion. Normal heart size. No pneumothorax. Bilateral patchy groundglass opacities as described, compatible with viral pneumonia. CTA CHEST Pneumonia due to 2019 novel coronavirus - as above. pulmonary consultation Rhabdomyolysis -will hydrate aggressively, monitor LFTs and renal function. Cannot have remdesivir due to this. Hypokalemia - replaced Transaminitis - likely related to rhabdomyolysis. Unfortunately this combination of symptoms is a contraindication to remdesivir therapy. High Cholesterol - given rhabdo will avoid statins, consult nephrology Hypertension - monitor Seasonal allergies - claritin Fatty liver - will monitor transaminases, CONSULT gi Hyperglycemia - check A1c, sliding scale while on steroids anxiety, inc PLAN FEN - regular diet PPX - lovenox FULL CODE Dispo - inpatient for above ICU BED consult nephrology CTA of chest reviewed negative for pulmonary embolism antibiotics, iv Rocephin begin buspar 10 mg po tid iv fluid support CPK [id number] 04-11 [id number] - 32 MIN CC TIME History of Present Illness History of Present Illness Ms Olson is a 49-year-old female w/ PMHx High Cholesterol, Hypertension, seasonal allergies, fatty liver who presented 04/02/2020 for Covid-like symptoms and returns with the same. Patient reports symptoms have worsened including fever, shortness of air, loss of taste, nausea, fatigue, dizziness, and bilateral lower extremity pain. Denies any vomiting or diarrhea. Reports family members now with similar symptoms. Reports her spouse had some symptoms prior to her. Her SARS-CoV-2 PCR test from 04/02/2020 returned positive. Other labs significant for WBC 8.8, Hb 14.1, platelets 241, D-dimer 0.70, NA 135, K3.5, BUN 6, CR 0.7, glucose 111, AST 366, ALT 177, CK 54,211. Rapid influenza negative EKG Sinus tachycardia at 119bpm, NO ST elevation, QRS 82ms, QT/QTc 308/434ms, baseline artifact noted. Febrile to 101 F CTPA with no PE but Bilateral patchy groundglass opacities as described, compatible with viral pneumonia. She was hypoxic to 82% on normal air and required 6L NCO2 to improve her O2 status. Admitted for further care IV fluid hydration provided. Symptomatic treatment provided with dexamethasone. Empiric antibiotic initiated. Afebrile overnight. Appetite decreased. O2 needs increased to 10 L/min. Labs [place] 0.6[place] [address], AST elevated 300 ALT 165. She is in much more respiratory distress today. Plan: Add Lasix. Unfortunately she does still need some IV fluids for her severe rhabdomyolysis. We will would like to wean off O2 as soon as possible. Consult pulmonology. Continue steroid Transfer to ICU for Vapotherm Unfortunately rhabdomyolysis and transaminitis are high risk for remdesivir therapy Vitals Vitals Vital Signs Date Time Temp Pulse Resp B/P (MAP) Pulse Ox O2 Delivery O2 Flow Rate FiO2 04/12/20 08:00 89 29 142/79 (100) 96 Nasal Cannula 15.0 04/12/20 07:00 97.7 97.7 Physical Exam Physical Exam visual exam due to covid 19 pandemic General: Alert, Oriented X3, Cooperative, No acute distress Heart: Regular rate Lungs: Crackles Abdomen: Normal bowel sounds, Soft, No tenderness, No hepatosplenomegaly, No masses Extremities: No clubbing, No cyanosis, No edema, Normal pulses, No tenderness/swelling Skin: No rashes, No breakdown, No significant lesion Labs LABS Laboratory Tests Test 04/11/20 21:56 04/12/20 05:00 Glucose (Fingerstick) 156 mg/dL (70-99) White Blood Count 13.7 x10^3/uL (4.0-11.0) Red Blood Count 3.93 x10^6/uL (3.50-5.40) Hemoglobin 12.4 g/dL (12.0-15.5) Hematocrit 36.4 % (36.0-47.0) Mean Corpuscular Volume 93 fL (79-100) Mean Corpuscular Hemoglobin 32 pg (25-35) Mean Corpuscular Hemoglobin Concent 34 g/dL (31-37) Red Cell Distribution Width 13.8 % (11.5-14.5) Platelet Count 322 x10^3/uL (140-400) Neutrophils (%) (Auto) 91 % (31-73) Lymphocytes (%) (Auto) 7 % (24-48) Monocytes (%) (Auto) 2 % (0-9) Eosinophils (%) (Auto) 0 % (0-3) Basophils (%) (Auto) 0 % (0-3) Neutrophils # (Auto) 12.5 x10^3/uL (1.8-7.7) Lymphocytes # (Auto) 0.9 x10^3/uL (1.0-4.8) Monocytes # (Auto) 0.2 x10^3/uL (0.0-1.1) Eosinophils # (Auto) 0.0 x10^3/uL (0.0-0.7) Basophils # (Auto) 0.0 x10^3/uL (0.0-0.2) Sodium Level 137 mmol/L (136-145) Potassium Level 3.9 mmol/L (3.5-5.1) Chloride Level 103 mmol/L (98-107) Carbon Dioxide Level 26 mmol/L (21-32) Anion Gap 8 (6-14) Blood Urea Nitrogen 14 mg/dL (7-20) Creatinine 0.6 mg/dL (0.6-1.0) Estimated GFR (Cockcroft-Gault) 107.2 BUN/Creatinine Ratio 23 (6-20) Glucose Level 110 mg/dL (70-99) Calcium Level 8.1 mg/dL (8.5-10.1) Total Bilirubin 0.4 mg/dL (0.2-1.0) Aspartate Amino Transf (AST/SGOT) 142 U/L (15-37) Alanine Aminotransferase (ALT/SGPT) 154 U/L (14-59) Alkaline Phosphatase 110 U/L (46-116) Creatine Kinase 92482 U/L (26-192) Total Protein 6.6 g/dL (6.4-8.2) Albumin 2.3 g/dL (3.4-5.0) Albumin/Globulin Ratio 0.5 (1.0-1.7) Assessment and Plan Assessmemt and Plan Problems Medical Problems: (1) Hypoxia Status: Acute (2) Pneumonia due to 2019 novel coronavirus Status: Acute (3) Respiratory failure Status: Acute (4) Rhabdomyolysis Status: Acute Comment Review of Relevant I have reviewed the following items eddie (where applicable) has been applied. Labs Laboratory Tests Test 04/10/20 10:15 04/10/20 11:11 04/10/20 16:19 04/10/20 21:15 White Blood Count 13.1 x10^3/uL (4.0-11.0) Red Blood Count 4.13 x10^6/uL (3.50-5.40) Hemoglobin 13.1 g/dL (12.0-15.5) Hematocrit 38.4 % (36.0-47.0) Mean Corpuscular Volume 93 fL (79-100) Mean Corpuscular Hemoglobin 32 pg (25-35) Mean Corpuscular Hemoglobin Concent 34 g/dL (31-37) Red Cell Distribution Width 13.8 % (11.5-14.5) Platelet Count 345 x10^3/uL (140-400) Neutrophils (%) (Auto) 88 % (31-73) Lymphocytes (%) (Auto) 10 % (24-48) Monocytes (%) (Auto) 2 % (0-9) Eosinophils (%) (Auto) 1 % (0-3) Basophils (%) (Auto) 0 % (0-3) Neutrophils # (Auto) 11.5 x10^3/uL (1.8-7.7) Lymphocytes # (Auto) 1.3 x10^3/uL (1.0-4.8) Monocytes # (Auto) 0.3 x10^3/uL (0.0-1.1) Eosinophils # (Auto) 0.1 x10^3/uL (0.0-0.7) Basophils # (Auto) 0.0 x10^3/uL (0.0-0.2) Segmented Neutrophils % 83 % (35-66) Band Neutrophils % 4 % (0-9) Lymphocytes % 5 % (24-48) Atypical Lymphocytes % (Manual) 1 % (0-0) Monocytes % 1 % (0-10) Eosinophils % 1 % (0-5) Metamyelocytes % 2 % (0-0) Myelocytes % 3 % (0-0) Platelet Estimate Adequate (ADEQUATE) Sodium Level 134 mmol/L (136-145) Potassium Level 4.2 mmol/L (3.5-5.1) Chloride Level 101 mmol/L (98-107) Carbon Dioxide Level 24 mmol/L (21-32) Anion Gap 9 (6-14) Blood Urea Nitrogen 7 mg/dL (7-20) Creatinine 0.5 mg/dL (0.6-1.0) Estimated GFR (Cockcroft-Gault) 132.2 BUN/Creatinine Ratio 14 (6-20) Glucose Level 143 mg/dL (70-99) Calcium Level 8.0 mg/dL (8.5-10.1) Total Bilirubin 0.6 mg/dL (0.2-1.0) Aspartate Amino Transf (AST/SGOT) 343 U/L (15-37) Alanine Aminotransferase (ALT/SGPT) 191 U/L (14-59) Alkaline Phosphatase 111 U/L (46-116) Creatine Kinase 80498 U/L (26-192) Total Protein 6.3 g/dL (6.4-8.2) Albumin 2.7 g/dL (3.4-5.0) Albumin/Globulin Ratio 0.8 (1.0-1.7) Glucose (Fingerstick) 231 mg/dL (70-99) 205 mg/dL (70-99) 132 mg/dL (70-99) Test 04/11/20 06:12 04/11/20 21:56 04/12/20 05:00 Sodium Level 135 mmol/L (136-145) 137 mmol/L (136-145) Potassium Level 4.1 mmol/L (3.5-5.1) 3.9 mmol/L (3.5-5.1) Chloride Level 101 mmol/L (98-107) 103 mmol/L (98-107) Carbon Dioxide Level 29 mmol/L (21-32) 26 mmol/L (21-32) Anion Gap 5 (6-14) 8 (6-14) Blood Urea Nitrogen 7 mg/dL (7-20) 14 mg/dL (7-20) Creatinine 0.5 mg/dL (0.6-1.0) 0.6 mg/dL (0.6-1.0) Estimated GFR (Cockcroft-Gault) 132.2 107.2 Glucose Level 95 mg/dL (70-99) 110 mg/dL (70-99) Uric Acid 1.8 mg/dL (2.6-6.0) Calcium Level 8.3 mg/dL (8.5-10.1) 8.1 mg/dL (8.5-10.1) Phosphorus Level 2.8 mg/dL (2.6-4.7) Creatine Kinase 91850 U/L (26-192) 84901 U/L (26-192) Albumin 2.4 g/dL (3.4-5.0) 2.3 g/dL (3.4-5.0) Glucose (Fingerstick) 156 mg/dL (70-99) White Blood Count 13.7 x10^3/uL (4.0-11.0) Red Blood Count 3.93 x10^6/uL (3.50-5.40) Hemoglobin 12.4 g/dL (12.0-15.5) Hematocrit 36.4 % (36.0-47.0) Mean Corpuscular Volume 93 fL (79-100) Mean Corpuscular Hemoglobin 32 pg (25-35) Mean Corpuscular Hemoglobin Concent 34 g/dL (31-37) Red Cell Distribution Width 13.8 % (11.5-14.5) Platelet Count 322 x10^3/uL (140-400) Neutrophils (%) (Auto) 91 % (31-73) Lymphocytes (%) (Auto) 7 % (24-48) Monocytes (%) (Auto) 2 % (0-9) Eosinophils (%) (Auto) 0 % (0-3) Basophils (%) (Auto) 0 % (0-3) Neutrophils # (Auto) 12.5 x10^3/uL (1.8-7.7) Lymphocytes # (Auto) 0.9 x10^3/uL (1.0-4.8) Monocytes # (Auto) 0.2 x10^3/uL (0.0-1.1) Eosinophils # (Auto) 0.0 x10^3/uL (0.0-0.7) Basophils # (Auto) 0.0 x10^3/uL (0.0-0.2) BUN/Creatinine Ratio 23 (6-20) Total Bilirubin 0.4 mg/dL (0.2-1.0) Aspartate Amino Transf (AST/SGOT) 142 U/L (15-37) Alanine Aminotransferase (ALT/SGPT) 154 U/L (14-59) Alkaline Phosphatase 110 U/L (46-116) Total Protein 6.6 g/dL (6.4-8.2) Albumin/Globulin Ratio 0.5 (1.0-1.7) Laboratory Tests Test 04/11/20 21:56 04/12/20 05:00 Glucose (Fingerstick) 156 mg/dL (70-99) White Blood Count 13.7 x10^3/uL (4.0-11.0) Red Blood Count 3.93 x10^6/uL (3.50-5.40) Hemoglobin 12.4 g/dL (12.0-15.5) Hematocrit 36.4 % (36.0-47.0) Mean Corpuscular Volume 93 fL (79-100) Mean Corpuscular Hemoglobin 32 pg (25-35) Mean Corpuscular Hemoglobin Concent 34 g/dL (31-37) Red Cell Distribution Width 13.8 % (11.5-14.5) Platelet Count 322 x10^3/uL (140-400) Neutrophils (%) (Auto) 91 % (31-73) Lymphocytes (%) (Auto) 7 % (24-48) Monocytes (%) (Auto) 2 % (0-9) Eosinophils (%) (Auto) 0 % (0-3) Basophils (%) (Auto) 0 % (0-3) Neutrophils # (Auto) 12.5 x10^3/uL (1.8-7.7) Lymphocytes # (Auto) 0.9 x10^3/uL (1.0-4.8) Monocytes # (Auto) 0.2 x10^3/uL (0.0-1.1) Eosinophils # (Auto) 0.0 x10^3/uL (0.0-0.7) Basophils # (Auto) 0.0 x10^3/uL (0.0-0.2) Sodium Level 137 mmol/L (136-145) Potassium Level 3.9 mmol/L (3.5-5.1) Chloride Level 103 mmol/L (98-107) Carbon Dioxide Level 26 mmol/L (21-32) Anion Gap 8 (6-14) Blood Urea Nitrogen 14 mg/dL (7-20) Creatinine 0.6 mg/dL (0.6-1.0) Estimated GFR (Cockcroft-Gault) 107.2 BUN/Creatinine Ratio 23 (6-20) Glucose Level 110 mg/dL (70-99) Calcium Level 8.1 mg/dL (8.5-10.1) Total Bilirubin 0.4 mg/dL (0.2-1.0) Aspartate Amino Transf (AST/SGOT) 142 U/L (15-37) Alanine Aminotransferase (ALT/SGPT) 154 U/L (14-59) Alkaline Phosphatase 110 U/L (46-116) Creatine Kinase 21814 U/L (26-192) Total Protein 6.6 g/dL (6.4-8.2) Albumin 2.3 g/dL (3.4-5.0) Albumin/Globulin Ratio 0.5 (1.0-1.7) Microbiology 04/06/20 Blood Culture - Final, Complete NO GROWTH AFTER 5 DAYS Medications Current Medications Iohexol (Omnipaque 350 Mg/ml) 100 ml 1X ONCE IV Last administered on 04/05/20at 00:14; Start 04/05/20 at 23:45; Stop 04/05/20 at 23:46; Status DC Info (CONTRAST GIVEN -- Rx MONITORING) 1 each PRN DAILY PRN MC SEE COMMENTS; Start 04/05/20 at 23:45; Stop 04/07/20 at 23:44; Status DC Sodium Chloride 1,000 ml @ 1,000 mls/hr 1X ONCE IV Last administered on at 01:17; Start 04/06/20 at 01:00; Stop 04/06/20 at 01:59; Status DC Dexamethasone Sodium Phosphate (Decadron) 10 mg 1X ONCE IVP Last administered on 04/06/20at 01:16; Start 04/06/20 at 01:00; Stop 04/06/20 at 01:02; Status DC Azithromycin 500 mg/Sodium Chloride 250 ml @ 250 mls/hr 1X ONCE IV Last administered on 04/06/20at 01:16; Start 04/06/20 at 01:00; Stop 04/06/20 at 01:59; Status DC Ondansetron HCl (Zofran) 4 mg PRN Q8HRS PRN IV NAUSEA/VOMITING; Start 04/06/20 at 01:30; Stop 04/06/20 at 17:17; Status DC Acetaminophen (Tylenol) 650 mg PRN Q4HRS PRN PO FEVER > 100.3'F Last administered on 04/06/20 02:44; Start 04/06/20 at 01:30; Stop 04/06/20 at 17:17; Status DC Sodium Chloride 1,000 ml @ 100 mls/hr 1X ONCE IV Last administered on 04/06/20at 02:37; Start 04/06/20 at 01:30; Stop 04/06/20 at 11:29; Status DC Sodium Chloride 1,000 ml @ 100 mls/hr Q10H IV Last administered on 04/11/20at 23:15; Start 04/06/20 at 09:30 Ondansetron HCl (Zofran) 4 mg PRN Q4HRS PRN IV NAUSEA/VOMITING Last administered on 04/11/20 19:51; Start 04/06/20 at 17:15 Acetaminophen (Tylenol) 650 mg PRN Q6HRS PRN PO FEVER > 100.3'F Last administered on 04/10/20at 00:01; Start 04/06/20 at 17:15 Guaifenesin (Robitussin Dm) 10 ml PRN Q6HRS PRN PO COUGH, 1ST CHOICE Last administered on 04/11/20 21:49; Start 04/06/20 at 17:15 Dexamethasone Sodium Phosphate (Decadron) 6 mg 1X ONCE IVP Last administered on 04/06/20at 17:34; Start 04/06/20 at 17:30; Stop 04/06/20 at 17:31; Status DC Enoxaparin Sodium (Lovenox 40mg Syringe) 40 mg Q24H SQ Last administered on 04/07/20at 17:39; Start 04/06/20 at 18:00; Stop 04/08/20 at 08:52; Status DC Zinc Sulfate (Orazinc) 220 mg DAILY PO Last administered on 04/12/20 08:24; Start 04/06/20 at 17:00 Zolpidem Tartrate (Ambien) 5 mg PRN QHS PRN PO INSOMNIA Last administered on 04/11/20 22:00; Start 04/06/20 at 17:15 Morphine Sulfate (Morphine Sulfate) 2 mg PRN Q2HR PRN IV PAIN; Start 04/06/20 at 17:15 Amino Acids/ Glycerin/ Electrolytes 1,000 ml @ 80 mls/hr [id number] IV Last administered on 04/07/20 06:44; Start 04/06/20 at 17:30; Stop 04/09/20 at 16:21; Status DC Furosemide (Lasix) 60 mg 1X ONCE IVP Last administered on 04/07/20 06:44; Start 04/07/20 at 06:45; Stop 04/07/20 at 06:46; Status DC Insulin Glargine (Lantus Syringe) 5 unit QHS SQ Last administered on 04/08/20 21:17; Start 04/07/20 at 21:00 Insulin Human Lispro (HumaLOG) 0-7 UNITS TIDWMEALS SQ Last administered on 04/11/20 17:35; Start 04/07/20 at 08:00 Dextrose (Dextrose 50%-Water Syringe) 12.5 gm PRN Q15MIN PRN IV SEE COMMENTS; Start 04/07/20 at 07:45 Dexamethasone Sodium Phosphate (Decadron) 6 mg DAILY IVP Last administered on 04/12/20at 08:25; Start 04/07/20 at 13:00 Ceftriaxone Sodium (Rocephin) 1 gm Q24H IVP Last administered on 04/11/20 12:28; Start 04/07/20 at 13:00 Sterile Water (WATER for RESP) 1,000 ml CONT PRN INH VIA VAPOTHERM DEVICE Last administered on 04/11/20 04:04; Start 04/07/20 at 13:00 Enoxaparin Sodium (Lovenox 40mg Syringe) 40 mg BID SQ Last administered on 04/12/20 08:26; Start 04/08/20 at 09:00 Guaifenesin/ Codeine Phosphate (Robitussin Ac) 10 ml PRN Q4HRS PRN PO COUGH, 2ND CHOICE Last administered on 04/10/20 14:22; Start 04/09/20 at 00:30; Stop 04/10/20 at 16:28; Status DC Famotidine (Pepcid Vial) 20 mg BID IVP Last administered on 04/12/20 08:25; Start 04/09/20 at 10:00 Polyethylene Glycol (miraLAX PACKET) 17 gm DAILY PO Last administered on 12/2/20at 07:59; Start 04/09/20 at 10:00 Polyethylene Glycol (miraLAX PACKET) 17 gm PRN DAILY PRN PO CONSTIPATION, 1ST CHOICE; Start 04/09/20 at 10:00 Bisacodyl (Dulcolax Tab) 5 mg PRN DAILY PRN PO CONSTIPATION, 2ND CHOICE Last ad ministered on 04/09/20at 11:31; Start 04/09/20 at 10:00 Guaifenesin/ Codeine Phosphate (Robitussin Ac) 5 ml PRN Q6HRS PRN PO COUGH Last administered on 04/12/20at 03:08; Start 04/10/20 at 09:45 Lactobacillus Rhamnosus (Culturelle) 1 cap BID PO Last administered on 04/12/20at 08:24; Start 04/10/20 at 21:00 Throat Lozenges (Cepacol Sore Throat Lozenge) 1 jeffrey PRN Q2HRS PRN PO SORE THR OAT Last administered on 04/10/20at 23:16; Start 04/10/20 at 14:30 Active Scripts Active Codeine-Guaifen 10-100 mg/5 ml (Guaifenesin/Codeine Phosphate) 120 Ml Liquid 5 Ml PO PRN Q6HRS PRN MDD 20 Milliliter(s) 6 Days Prednisone 50 Mg Tablet 1 Tab PO DAILY Zithromax (Azithromycin) 250 Mg Tablet 1 Pkg PO UD Ibuprofen 800 Mg Tablet 800 Mg PO PRN Q6HRS PRN Meclizine Hcl 25 Mg Tablet 1 Tab PO TID Zithromax (Azithromycin) 250 Mg Tablet 1 Pkg PO UD Tamiflu (Oseltamivir Phosphate) 75 Mg Capsule 1 Cap PO BID Reported Claritin (Loratadine) 10 Mg Tablet 10 Mg PO DAILY Vitals/I & O Vital Sign - Last 24 Hours 04/11/20 04/11/20 04/11/20 04/11/20 09:00 11:00 11:38 12:00 Pulse 92 78 Resp 32 36 B/P (MAP) 126/74 (91) 116/70 (85) Pulse Ox 94 94 94 O2 Delivery High Flow Nasal Cannula High Flow Nasal Cannula Nasal Cannula Nasal Cannula O2 Flow Rate 15.0 14.0 14.0 14.0 04/11/20 04/11/20 04/11/20 04/11/20 12:00 13:00 14:00 15:00 Temp 98.5 98.4 98.4 98.5 98.4 98.4 Pulse 95 94 96 93 Resp 31 26 24 32 B/P (MAP) 118/54 (75) 103/69 (80) 118/59 (78) 135/73 (93) Pulse Ox 96 93 92 95 O2 Delivery High Flow Nasal Cannula High Flow Nasal Cannula High Flow Nasal Ca nnula High Flow Nasal Cannula O2 Flow Rate 14.0 14.0 14.0 10.0 04/11/20 04/11/20 04/11/20 04/11/20 15:26 19:00 19:45 20:00 Temp 98.3 98.3 Pulse 87 Resp 34 B/P (MAP) 134/79 (97) Pulse Ox 94 100 O2 Delivery Nasal Cannula High Flow Nasal Cannula BiPAP/CPAP Nasal Cannula O2 Flow Rate 14.0 10.0 15.0 04/11/20 04/11/20 04/11/20 04/11/20 20:00 21:00 22:00 23:00 Pulse 100 100 96 82 Resp 40 32 32 37 B/P (MAP) 136/82 (100) 133/73 (93) 160/90 (113) 126/73 (90) Pulse Ox 100 94 94 90 O2 Delivery BiPAP/CPAP Nasal Cannula Nasal Cannula Nasal Cannula O2 Flow Rate 15.0 15.0 15.0 04/12/20 04/12/20 04/12/20 04/12/20 00:00 00:00 00:19 01:00 Temp 97.6 97.6 Pulse 74 Resp 33 35 B/P (MAP) 93/54 (67) 95/62 (73) Pulse Ox 91 91 93 O2 Delivery Nasal Cannula Nasal Cannula Nasal Cannula Nasal Cannula O2 Flow Rate 15.0 15.0 15.0 15.0 04/12/20 04/12/20 04/12/20 04/12/20 02:00 03:00 04:00 04:00 Temp 98.1 98.1 Pulse 70 100 86 Resp 38 35 37 B/P (MAP) 87/54 (65) 129/70 (89) 104/60 (75) Pulse Ox 96 86 92 O2 Delivery Nasal Cannula Nasal Cannula Nasal Cannula Nasal Cannula O2 Flow Rate 15.0 15.0 15.0 15.0 04/12/20 04/12/20 04/12/20 04/12/20 05:00 06:00 07:00 08:00 Temp 97.7 97.7 Pulse 82 80 104 89 Resp 38 37 28 29 B/P (MAP) 126/73 (90) 110/75 (87) 120/84 (96) 142/79 (100) Pulse Ox 95 84 94 96 O2 Delivery Nasal Cannula Nasal Cannula Nasal Cannula Nasal Cannula O2 Flow Rate 15.0 15.0 15.0 15.0 Intake and Output 04/11/20 04/11/20 04/12/20 15:00 23:00 07:00 Intake Total 3110 ml 820 ml 1026 ml Output Total 2892 ml 900 ml 420 ml Balance 218 ml -80 ml 606 ml Justicifation of Admission Dx: Justifications for Admission: Justification of Admission Dx: Yes RADHA GARCIA MD Apr 12, 2020 08:31
--- NOTE | 2020-04-12 08:36 | PDOC ---
PULMONARY PROGRESS NOTES DATE: 04/12/20 TIME: 08:36 Subjective Patient remains on 15 liters Did not tolerate BIPAP Afebrile overnight nursing report some anxiety overnight Vitals Vital Signs Date Time Temp Pulse Resp B/P (MAP) Pulse Ox O2 Delivery O2 Flow Rate FiO2 04/12/20 08:00 89 29 142/79 (100) 96 Nasal Cannula 15.0 04/12/20 07:00 97.7 97.7 Comments Patient seen during pandemic, visual exam performed Regular rate and rhythm Vapotherm No accessory muscle use/distress No obvious rash or edema Lungs: Crackles Labs Laboratory Tests Test 04/10/20 10:15 04/10/20 11:11 04/10/20 16:19 04/10/20 21:15 White Blood Count 13.1 x10^3/uL (4.0-11.0) Red Blood Count 4.13 x10^6/uL (3.50-5.40) Hemoglobin 13.1 g/dL (12.0-15.5) Hematocrit 38.4 % (36.0-47.0) Mean Corpuscular Volume 93 fL (79-100) Mean Corpuscular Hemoglobin 32 pg (25-35) Mean Corpuscular Hemoglobin Concent 34 g/dL (31-37) Red Cell Distribution Width 13.8 % (11.5-14.5) Platelet Count 345 x10^3/uL (140-400) Neutrophils (%) (Auto) 88 % (31-73) Lymphocytes (%) (Auto) 10 % (24-48) Monocytes (%) (Auto) 2 % (0-9) Eosinophils (%) (Auto) 1 % (0-3) Basophils (%) (Auto) 0 % (0-3) Neutrophils # (Auto) 11.5 x10^3/uL (1.8-7.7) Lymphocytes # (Auto) 1.3 x10^3/uL (1.0-4.8) Monocytes # (Auto) 0.3 x10^3/uL (0.0-1.1) Eosinophils # (Auto) 0.1 x10^3/uL (0.0-0.7) Basophils # (Auto) 0.0 x10^3/uL (0.0-0.2) Segmented Neutrophils % 83 % (35-66) Band Neutrophils % 4 % (0-9) Lymphocytes % 5 % (24-48) Atypical Lymphocytes % (Manual) 1 % (0-0) Monocytes % 1 % (0-10) Eosinophils % 1 % (0-5) Metamyelocytes % 2 % (0-0) Myelocytes % 3 % (0-0) Platelet Estimate Adequate (ADEQUATE) Sodium Level 134 mmol/L (136-145) Potassium Level 4.2 mmol/L (3.5-5.1) Chloride Level 101 mmol/L (98-107) Carbon Dioxide Level 24 mmol/L (21-32) Anion Gap 9 (6-14) Blood Urea Nitrogen 7 mg/dL (7-20) Creatinine 0.5 mg/dL (0.6-1.0) Estimated GFR (Cockcroft-Gault) 132.2 BUN/Creatinine Ratio 14 (6-20) Glucose Level 143 mg/dL (70-99) Calcium Level 8.0 mg/dL (8.5-10.1) Total Bilirubin 0.6 mg/dL (0.2-1.0) Aspartate Amino Transf (AST/SGOT) 343 U/L (15-37) Alanine Aminotransferase (ALT/SGPT) 191 U/L (14-59) Alkaline Phosphatase 111 U/L (46-116) Creatine Kinase 36016 U/L (26-192) Total Protein 6.3 g/dL (6.4-8.2) Albumin 2.7 g/dL (3.4-5.0) Albumin/Globulin Ratio 0.8 (1.0-1.7) Glucose (Fingerstick) 231 mg/dL (70-99) 205 mg/dL (70-99) 132 mg/dL (70-99) Test 04/11/20 06:12 04/11/20 21:56 04/12/20 05:00 Sodium Level 135 mmol/L (136-145) 137 mmol/L (136-145) Potassium Level 4.1 mmol/L (3.5-5.1) 3.9 mmol/L (3.5-5.1) Chloride Level 101 mmol/L (98-107) 103 mmol/L (98-107) Carbon Dioxide Level 29 mmol/L (21-32) 26 mmol/L (21-32) Anion Gap 5 (6-14) 8 (6-14) Blood Urea Nitrogen 7 mg/dL (7-20) 14 mg/dL (7-20) Creatinine 0.5 mg/dL (0.6-1.0) 0.6 mg/dL (0.6-1.0) Estimated GFR (Cockcroft-Gault) 132.2 107.2 Glucose Level 95 mg/dL (70-99) 110 mg/dL (70-99) Uric Acid 1.8 mg/dL (2.6-6.0) Calcium Level 8.3 mg/dL (8.5-10.1) 8.1 mg/dL (8.5-10.1) Phosphorus Level 2.8 mg/dL (2.6-4.7) Creatine Kinase 26875 U/L (26-192) 36969 U/L (26-192) Albumin 2.4 g/dL (3.4-5.0) 2.3 g/dL (3.4-5.0) Glucose (Fingerstick) 156 mg/dL (70-99) White Blood Count 13.7 x10^3/uL (4.0-11.0) Red Blood Count 3.93 x10^6/uL (3.50-5.40) Hemoglobin 12.4 g/dL (12.0-15.5) Hematocrit 36.4 % (36.0-47.0) Mean Corpuscular Volume 93 fL (79-100) Mean Corpuscular Hemoglobin 32 pg (25-35) Mean Corpuscular Hemoglobin Concent 34 g/dL (31-37) Red Cell Distribution Width 13.8 % (11.5-14.5) Platelet Count 322 x10^3/uL (140-400) Neutrophils (%) (Auto) 91 % (31-73) Lymphocytes (%) (Auto) 7 % (24-48) Monocytes (%) (Auto) 2 % (0-9) Eosinophils (%) (Auto) 0 % (0-3) Basophils (%) (Auto) 0 % (0-3) Neutrophils # (Auto) 12.5 x10^3/uL (1.8-7.7) Lymphocytes # (Auto) 0.9 x10^3/uL (1.0-4.8) Monocytes # (Auto) 0.2 x10^3/uL (0.0-1.1) Eosinophils # (Auto) 0.0 x10^3/uL (0.0-0.7) Basophils # (Auto) 0.0 x10^3/uL (0.0-0.2) BUN/Creatinine Ratio 23 (6-20) Total Bilirubin 0.4 mg/dL (0.2-1.0) Aspartate Amino Transf (AST/SGOT) 142 U/L (15-37) Alanine Aminotransferase (ALT/SGPT) 154 U/L (14-59) Alkaline Phosphatase 110 U/L (46-116) Total Protein 6.6 g/dL (6.4-8.2) Albumin/Globulin Ratio 0.5 (1.0-1.7) Laboratory Tests Test 04/11/20 21:56 04/12/20 05:00 Glucose (Fingerstick) 156 mg/dL (70-99) White Blood Count 13.7 x10^3/uL (4.0-11.0) Red Blood Count 3.93 x10^6/uL (3.50-5.40) Hemoglobin 12.4 g/dL (12.0-15.5) Hematocrit 36.4 % (36.0-47.0) Mean Corpuscular Volume 93 fL (79-100) Mean Corpuscular Hemoglobin 32 pg (25-35) Mean Corpuscular Hemoglobin Concent 34 g/dL (31-37) Red Cell Distribution Width 13.8 % (11.5-14.5) Platelet Count 322 x10^3/uL (140-400) Neutrophils (%) (Auto) 91 % (31-73) Lymphocytes (%) (Auto) 7 % (24-48) Monocytes (%) (Auto) 2 % (0-9) Eosinophils (%) (Auto) 0 % (0-3) Basophils (%) (Auto) 0 % (0-3) Neutrophils # (Auto) 12.5 x10^3/uL (1.8-7.7) Lymphocytes # (Auto) 0.9 x10^3/uL (1.0-4.8) Monocytes # (Auto) 0.2 x10^3/uL (0.0-1.1) Eosinophils # (Auto) 0.0 x10^3/uL (0.0-0.7) Basophils # (Auto) 0.0 x10^3/uL (0.0-0.2) Sodium Level 137 mmol/L (136-145) Potassium Level 3.9 mmol/L (3.5-5.1) Chloride Level 103 mmol/L (98-107) Carbon Dioxide Level 26 mmol/L (21-32) Anion Gap 8 (6-14) Blood Urea Nitrogen 14 mg/dL (7-20) Creatinine 0.6 mg/dL (0.6-1.0) Estimated GFR (Cockcroft-Gault) 107.2 BUN/Creatinine Ratio 23 (6-20) Glucose Level 110 mg/dL (70-99) Calcium Level 8.1 mg/dL (8.5-10.1) Total Bilirubin 0.4 mg/dL (0.2-1.0) Aspartate Amino Transf (AST/SGOT) 142 U/L (15-37) Alanine Aminotransferase (ALT/SGPT) 154 U/L (14-59) Alkaline Phosphatase 110 U/L (46-116) Creatine Kinase 68369 U/L (26-192) Total Protein 6.6 g/dL (6.4-8.2) Albumin 2.3 g/dL (3.4-5.0) Albumin/Globulin Ratio 0.5 (1.0-1.7) Medications Active Scripts Medications Dose Route/Sig Max Daily Dose Days Date Category Claritin (Loratadine) 10 Mg Tablet 10 Mg PO DAILY 04/06/20 Reported Codeine-Guaifen 10-100 mg/5 ml (Guaifenesin/Codeine Phosphate) 120 Ml Liquid 5 Ml PO PRN Q6HRS PRN MDD 20 Milliliter(s) 6 04/02/20 Rx Prednisone 50 Mg Tablet 1 Tab PO DAILY 04/02/20 Rx Zithromax (Azithromycin) 250 Mg Tablet 1 Pkg PO UD 04/02/20 Rx Ibuprofen 800 Mg Tablet 800 Mg PO PRN Q6HRS PRN 07/27/18 Rx Meclizine Hcl 25 Mg Tablet 1 Tab PO TID 07/27/18 Rx Zithromax (Azithromycin) 250 Mg Tablet 1 Pkg PO UD 07/27/18 Rx Tamiflu (Oseltamivir Phosphate) 75 Mg Capsule 1 Cap PO BID 07/27/18 Rx Comments CTA chest IMPRESSION: No evidence of main or lobar pulmonary embolus on significantly limited evaluation. Bilateral patchy groundglass opacities as described, compatible with viral pneumonia. Impression . IMPRESSION: 1. Acute hypoxic respiratory failure secondary to COVID-[address] chest with bilateral patchy interstitial infiltrates compatible with COVID-19 pneumonia. 3. Underlying obesity. 4. History of hypertension. Plan . RECOMMENDATIONS: Continue supplemental oxygen to keep oxygen saturations greater than 92%, currently on 15 liters, wean as tolerated Continue IV steroids, with slow taper CTA of chest reviewed negative for pulmonary embolism Continue antibiotics, currently on Rocephin Follow Cultures- NGTD DVT/GI prophylaxis: lovenox/pepcid Family requested transfer to [facility] Dr. Lopez and Social work aware Discussed with RN and RT Critical care time [id number] Pt. CODE FULL OK to transfer out of ICU today if ok with other consults TYRONE COWAN MD Apr 12, 2020 08:36
[2020-04-12] MEDS ORDERED: busPIRone 10 MG TABLET. PO PRN (09:30)
[2020-04-12] MEDS ORDERED: SODIUM CHL/ALOE VERA NASAL GEL 14.1GM TUBE. NS PRN (09:30)
[2020-04-12] MEDS: busPIRone 10 MG TABLET. PO SCH ×3 (09:43→20:58)
[2020-04-12] MEDS: IV NORMAL SALINE 1000ML BAG 1,000 ML IV SCH ×2 (10:23→21:11)
--- NOTE | 2020-04-12 11:13 | NUR ---
SS following up with discharge planning. SS reviewed pt chart and discussed with pt RN. Pt is currently on high flow oxygen at 15 liters nasal canula. COVID19 positive. Pt on IV Rocephin. Pt transferring to room 675 today. OANH, Starr, to follow.
--- NOTE | 2020-04-12 12:08 | RAD ---
CHEST AP ONLY History: Reason: pneumonia / Spl. Instructions: / History: Comparison: April 10, 2020 Findings: Increased diffuse interstitial and alveolar opacities. No pneumothorax. No pleural effusions. Normal heart size. Impression: 1. Increased diffuse interstitial and alveolar opacities. Electronically signed by: Geovanny Eddy DO (04/12/2020 12:05 PM) [id number]
--- NOTE | 2020-04-12 12:18 | PDOC ---
Date of Service: DATE: 04/12/20 TIME: 12:14 Objective: Objective: D/w nurse - no c/o nausea today. Doesn't like food here so family brings her broth. Vital Signs: Vital Signs Date Time Temp Pulse Resp B/P (MAP) Pulse Ox O2 Delivery O2 Flow Rate FiO2 04/12/20 10:00 97.8 93 28 114/72 (86) 94 Nasal Cannula 15.0 97.8 Labs: Laboratory Tests Test 04/11/20 21:56 04/12/20 05:00 Glucose (Fingerstick) 156 mg/dL White Blood Count 13.7 x10^3/uL Red Blood Count 3.93 x10^6/uL Hemoglobin 12.4 g/dL Hematocrit 36.4 % Mean Corpuscular Volume 93 fL Mean Corpuscular Hemoglobin 32 pg Mean Corpuscular Hemoglobin Concent 34 g/dL Red Cell Distribution Width 13.8 % Platelet Count 322 x10^3/uL Neutrophils (%) (Auto) 91 % Lymphocytes (%) (Auto) 7 % Monocytes (%) (Auto) 2 % Eosinophils (%) (Auto) 0 % Basophils (%) (Auto) 0 % Neutrophils # (Auto) 12.5 x10^3/uL Lymphocytes # (Auto) 0.9 x10^3/uL Monocytes # (Auto) 0.2 x10^3/uL Eosinophils # (Auto) 0.0 x10^3/uL Basophils # (Auto) 0.0 x10^3/uL Sodium Level 137 mmol/L Potassium Level 3.9 mmol/L Chloride Level 103 mmol/L Carbon Dioxide Level 26 mmol/L Anion Gap 8 Blood Urea Nitrogen 14 mg/dL Creatinine 0.6 mg/dL Estimated GFR (Cockcroft-Gault) 107.2 BUN/Creatinine Ratio 23 Glucose Level 110 mg/dL Calcium Level 8.1 mg/dL Total Bilirubin 0.4 mg/dL Aspartate Amino Transf (AST/SGOT) 142 U/L Alanine Aminotransferase (ALT/SGPT) 154 U/L Alkaline Phosphatase 110 U/L Creatine Kinase 15686 U/L Total Protein 6.6 g/dL Albumin 2.3 g/dL Albumin/Globulin Ratio 0.5 Imaging: CXR 04/12 Impression: 1. Increased diffuse interstitial and alveolar opacities. PE: GEN: in COVID isolation - visual exam done LUNGS: NC 15L HEART: intermittent mild tachycardia noted in chart ABD: non-distended NEURO/PSYCH: A & O 3 A/P: COVID-19 infection, resp failure/pneumonia Nausea - resolved? - on H2 yin Elevated AST and ALT - improving Fatty liver -- Improved GI-[place], continue support. 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 Justicifation of Admission Dx: Justifications for Admission: Justification of Admission Dx: Yes ALLISON CHAMORRO Apr 12, 2020 12:18
--- NOTE | 2020-04-12 12:46 | PDOC ---
DATE OF SERVICE DATE: 04/12/20 TIME: 12:38 SUBJECTIVE ROS No overnight concerns, stable OBJECTIVE Vital Signs Vital Signs Date Time Temp Pulse Resp B/P (MAP) Pulse Ox O2 Delivery O2 Flow Rate FiO2 04/12/20 10:00 97.8 93 28 114/72 (86) 94 Nasal Cannula 15.0 97.8 I & 0 Intake and Output 04/12/20 07:00 Intake Total 4956 ml Output Total 4212 ml Balance 744 ml Intake Oral 1940 ml Blood Product IV Normal Saline Flush 3016 ml Output Urine Total 4212 ml PHYSICAL EXAM Physical Exam General: NAD HEENT: Atraumatic, PERRLA, EOMI, Mucous membr. moist/pink, On Non rebreather Neck supple Lungs: decreased at bases Heart: S1S2, RRR, no thrills, no rubs, no gallops, no murmurs Abdomen: Normal bowel sounds, Soft, No tenderness Extremities: No clubbing, No cyanosis, No edema, Skin: No rashes, Neuro: grossly normal Psych/Mental Status: Mental status NL, No Lakhani DIAGNOSIS/ASSESSMENT Assessment & Plan Rhabdomyolysis - Improving hydration with IV NS ,Lasix prn , statins held , renal function normal, UA unremarkable supportive care, strict I/O monitor , daily labs Acute respiratory failure with hypoxia -likely due to COVID-19 pneumonia. On steroids. Covid 19 Pneumonia - as above. Hypokalemia POA - replaced Transaminitis - LFT's elevated Hypertension - monitor COMMENT/RELEVANT DATA Meds Current Medications Medications (Trade) Dose Ordered Sig/Lizbeth Start Time Stop Time Status Last Admin Dose Admin Acetaminophen (Tylenol) 650 mg PRN Q6HRS PRN 04/06/20 17:15 04/10/20 00:01 650 MG Alprazolam (Xanax) 0.5 mg BID 04/12/20 13:00 Amino Acids/ Glycerin/ Electrolytes 1,000 ml @ 80 mls/hr [id number] 04/06/20 17:30 04/09/20 16:21 DC 04/07/20 06:44 80 MLS/HR Azithromycin 500 mg/Sodium Chloride 250 ml @ 250 mls/hr 1X ONCE 04/06/20 01:00 04/06/20 01:59 DC 04/06/20 01:16 250 MLS/HR Bisacodyl (Dulcolax Tab) 5 mg PRN DAILY PRN 04/09/20 10:00 04/09/20 11:31 5 MG Buspirone HCl (Buspar) 10 mg TID 04/12/20 09:30 04/12/20 09:43 10 MG Ceftriaxone Sodium (Rocephin) 1 gm Q24H 04/07/20 13:00 04/11/20 12:28 1 GM Dexamethasone Sodium Phosphate (Decadron) 6 mg DAILY 04/07/20 13:00 04/12/20 08:25 6 MG Dextrose (Dextrose 50%-Water Syringe) 12.5 gm PRN Q15MIN PRN 04/07/20 07:45 Enoxaparin Sodium (Lovenox 40mg Syringe) 40 mg BID 04/08/20 09:00 04/12/20 08:26 40 MG Famotidine (Pepcid Vial) 20 mg BID 04/09/20 10:00 04/12/20 12:18 DC 04/12/20 08:25 20 MG Famotidine (Pepcid) 20 mg BID 04/12/20 21:00 Furosemide (Lasix) 60 mg 1X ONCE 04/07/20 06:45 04/07/20 06:46 DC 04/07/20 06:44 60 MG Guaifenesin (Robitussin Dm) 10 ml PRN Q6HRS PRN 04/06/20 17:15 04/11/20 21:49 10 ML Guaifenesin/ Codeine Phosphate (Robitussin Ac) 5 ml PRN Q6HRS PRN 04/10/20 09:45 04/12/20 03:08 5 ML Info (CONTRAST GIVEN -- Rx MONITORING) 1 each PRN DAILY PRN 04/05/20 23:45 04/07/20 23:44 DC Insulin Glargine (Lantus Syringe) 5 unit QHS 04/07/20 21:00 04/08/20 21:17 5 UNIT Insulin Human Lispro (HumaLOG) 0-7 UNITS TIDWMEALS 04/07/20 08:00 04/11/20 17:35 3 UNITS Iohexol (Omnipaque 350 Mg/ml) 100 ml 1X ONCE 04/05/20 23:45 04/05/20 23:46 DC 11/27/20 00:14 100 ML Lactobacillus Rhamnosus (Culturelle) 1 cap BID 04/10/20 21:00 04/12/20 08:24 1 CAP Morphine Sulfate (Morphine Sulfate) 2 mg PRN Q2HR PRN 04/06/20 17:15 Ondansetron HCl (Zofran) 4 mg PRN Q4HRS PRN 04/06/20 17:15 04/11/20 19:51 4 MG Polyethylene Glycol (miraLAX PACKET) 17 gm PRN DAILY PRN 04/09/20 10:00 Sodium Chloride ([place] Saline Nasal) 1 sarah PRN DAILY PRN 04/12/20 09:30 04/12/20 09:42 1 SARAH Sterile Water (WATER for RESP) 1,000 ml CONT PRN 04/07/20 13:00 04/11/20 04:04 1,000 ML Throat Lozenges (Cepacol Sore Throat Lozenge) 1 jessica PRN Q2HRS PRN 04/10/20 14:30 04/10/20 23:16 1 JESSICA Zinc Sulfate (Orazinc) 220 mg DAILY 04/06/20 17:00 04/12/20 08:24 220 MG Zolpidem Tartrate (Ambien) 5 mg PRN QHS PRN 04/06/20 17:15 04/11/20 22:00 5 MG Lab Laboratory Tests Test 04/11/20 21:56 04/12/20 05:00 Glucose (Fingerstick) 156 mg/dL (70-99) White Blood Count 13.7 x10^3/uL (4.0-11.0) Red Blood Count 3.93 x10^6/uL (3.50-5.40) Hemoglobin 12.4 g/dL (12.0-15.5) Hematocrit 36.4 % (36.0-47.0) Mean Corpuscular Volume 93 fL (79-100) Mean Corpuscular Hemoglobin 32 pg (25-35) Mean Corpuscular Hemoglobin Concent 34 g/dL (31-37) Red Cell Distribution Width 13.8 % (11.5-14.5) Platelet Count 322 x10^3/uL (140-400) Neutrophils (%) (Auto) 91 % (31-73) Lymphocytes (%) (Auto) 7 % (24-48) Monocytes (%) (Auto) 2 % (0-9) Eosinophils (%) (Auto) 0 % (0-3) Basophils (%) (Auto) 0 % (0-3) Neutrophils # (Auto) 12.5 x10^3/uL (1.8-7.7) Lymphocytes # (Auto) 0.9 x10^3/uL (1.0-4.8) Monocytes # (Auto) 0.2 x10^3/uL (0.0-1.1) Eosinophils # (Auto) 0.0 x10^3/uL (0.0-0.7) Basophils # (Auto) 0.0 x10^3/uL (0.0-0.2) Sodium Level 137 mmol/L (136-145) Potassium Level 3.9 mmol/L (3.5-5.1) Chloride Level 103 mmol/L (98-107) Carbon Dioxide Level 26 mmol/L (21-32) Anion Gap 8 (6-14) Blood Urea Nitrogen 14 mg/dL (7-20) Creatinine 0.6 mg/dL (0.6-1.0) Estimated GFR (Cockcroft-Gault) 107.2 BUN/Creatinine Ratio 23 (6-20) Glucose Level 110 mg/dL (70-99) Calcium Level 8.1 mg/dL (8.5-10.1) Total Bilirubin 0.4 mg/dL (0.2-1.0) Aspartate Amino Transf (AST/SGOT) 142 U/L (15-37) Alanine Aminotransferase (ALT/SGPT) 154 U/L (14-59) Alkaline Phosphatase 110 U/L (46-116) Creatine Kinase 18382 U/L (26-192) Total Protein 6.6 g/dL (6.4-8.2) Albumin 2.3 g/dL (3.4-5.0) Albumin/Globulin Ratio 0.5 (1.0-1.7) Results All relevant outside records, renal labs, imaging studies, telemetry/EKG's were reviewed. Justicifation of Admission Dx: Justifications for Admission: Justification of Admission Dx: Yes LIZBETH MARADIAGA MD Apr 12, 2020 12:46
[2020-04-12] MEDS: cefTRIAXone IV Push 1 GM VIAL. IVP SCH (12:59)
[2020-04-12] MEDS: ALPRAZolam 0.5 MG TABLET PO SCH ×2 (12:59→20:58)
[2020-04-12] MEDS: guaiFENesin DM 200MG/20MG 10 ML SYRUP PO PRN (14:54)
[2020-04-12] MEDS: MORPHINE SULFATE 2 MG/ML VIAL. IV PRN (16:37)
[2020-04-12] MEDS: FAMOTIDINE 20 MG TABLET. PO SCH (20:58)
[2020-04-12] MEDS: INSULIN GLARGINE SYRINGE. SQ SCH (21:16)
[2020-04-12] MEDS: ZOLPIDEM 5 MG TABLET. PO PRN (22:04)
[2020-04-13] MEDS ORDERED: BENZONATATE 100 MG CAPSULE. PO ONE (03:00)
[2020-04-13] MEDS: guaiFENesin/CODEINE 100mg/10mg 5 ML LIQUID PO PRN ×3 (03:09→17:58)
[2020-04-13 03:15] VITALS: BP 123/75
--- NOTE | 2020-04-13 04:30 | NUR ---
Patients oxygen saturation was 80% on 15L high flow NC, at that time patient was placed on a non rebreather.
[2020-04-13 04:42] LABS: BASO % 0 % (0-3); EOS % 0 % (0-3); HEMATOCRIT 38.2 % (36.0-47.0); HEMOGLOBIN 13.1 g/dL (12.0-15.5); LYMPH % 7 % (24-48); MEAN CORPUSCULAR HEMOGLOBIN 32 pg (25-35); MEAN CORPUSCULAR HGB CONC 34 g/dL (31-37); MEAN CORPUSCULAR VOLUME 94 fL (79-100); MONO # 0.2 x10^3/uL (0.0-1.1); MONO % 2 % (0-9); NEUT # 13.1 x10^3/uL (1.8-7.7); NEUT % 91 % (31-73); PLATELET COUNT 339 x10^3/uL (140-400); RED BLOOD COUNT 4.08 x10^6/uL (3.50-5.40); RED CELL DISTRIBUTION WIDTH 14.1 % (11.5-14.5); WHITE BLOOD COUNT 14.3 x10^3/uL (4.0-11.0)
[2020-04-13 05:01] LABS: ALBUMIN 2.3 g/dL (3.4-5.0); ALBUMIN/GLOBULIN RATIO 0.5 (1.0-1.7); CALCIUM 8.5 mg/dL (8.5-10.1); CREATININE 0.6 mg/dL (0.6-1.0); GFR 107.2; TOTAL BILIRUBIN 0.4 mg/dL (0.2-1.0); TOTAL PROTEIN 6.6 g/dL (6.4-8.2)
[2020-04-13 05:11] LABS: POTASSIUM 3.9 mmol/L (3.5-5.1)
[2020-04-13] MEDS: INSULIN LISPRO 300 UNITS/3 ML VIAL. SQ SCH ×3 (08:00→17:56)
[2020-04-13] MEDS: ALPRAZolam 0.5 MG TABLET PO SCH ×2 (08:37→20:49)
[2020-04-13] MEDS: ZINC SULFATE 220 MG CAPSULE. PO SCH (08:37)
[2020-04-13] MEDS: busPIRone 10 MG TABLET. PO SCH ×4 (08:37→20:49)
[2020-04-13] MEDS: LACTOBACILLUS RHAMNOSUS GG 1 CAPSULE. PO SCH ×2 (08:37→20:49)
[2020-04-13] MEDS: DEXAMETHASONE SOD PHOS 4 MG/ML VIAL IVP SCH (08:38)
[2020-04-13] MEDS: ENOXAPARIN 40 MG/0.4 ML SYRINGE. SQ SCH ×2 (08:39→20:50)
[2020-04-13] MEDS: IV NORMAL SALINE 1000ML BAG 1,000 ML IV SCH ×2 (08:39→20:52)
[2020-04-13 08:59] VITALS: BP_SYST 127; BP_SYST 134; BP_DIAS 67; BP_DIAS 82
--- NOTE | 2020-04-13 10:00 | PDOC ---
PULMONARY PROGRESS NOTES DATE: 04/13/20 TIME: 09:58 Subjective Patient remains on 15 liters Did not tolerate BIPAP Afebrile overnight nursing report some anxiety overnight Vitals Vital Signs Date Time Temp Pulse Resp B/P (MAP) Pulse Ox O2 Delivery O2 Flow Rate FiO2 04/13/20 08:59 99.2 92 40 134/82 (99) 91 NonRebreather Mask 99.2 04/13/20 03:15 15.0 Comments Patient seen during , visual exam performed Regular rate and rhythm Vapotherm No accessory muscle use/distress No obvious rash or edema Labs Laboratory Tests Test 04/11/20 21:56 04/12/20 05:00 04/12/20 13:02 04/12/20 16:48 Glucose (Fingerstick) 156 mg/dL (70-99) 173 mg/dL (70-99) 142 mg/dL (70-99) White Blood Count 13.7 x10^3/uL (4.0-11.0) Red Blood Count 3.93 x10^6/uL (3.50-5.40) Hemoglobin 12.4 g/dL (12.0-15.5) Hematocrit 36.4 % (36.0-47.0) Mean Corpuscular Volume 93 fL (79-100) Mean Corpuscular Hemoglobin 32 pg (25-35) Mean Corpuscular Hemoglobin Concent 34 g/dL (31-37) Red Cell Distribution Width 13.8 % (11.5-14.5) Platelet Count 322 x10^3/uL (140-400) Neutrophils (%) (Auto) 91 % (31-73) Lymphocytes (%) (Auto) 7 % (24-48) Monocytes (%) (Auto) 2 % (0-9) Eosinophils (%) (Auto) 0 % (0-3) Basophils (%) (Auto) 0 % (0-3) Neutrophils # (Auto) 12.5 x10^3/uL (1.8-7.7) Lymphocytes # (Auto) 0.9 x10^3/uL (1.0-4.8) Monocytes # (Auto) 0.2 x10^3/uL (0.0-1.1) Eosinophils # (Auto) 0.0 x10^3/uL (0.0-0.7) Basophils # (Auto) 0.0 x10^3/uL (0.0-0.2) Sodium Level 137 mmol/L (136-145) Potassium Level 3.9 mmol/L (3.5-5.1) Chloride Level 103 mmol/L (98-107) Carbon Dioxide Level 26 mmol/L (21-32) Anion Gap 8 (6-14) Blood Urea Nitrogen 14 mg/dL (7-20) Creatinine 0.6 mg/dL (0.6-1.0) Estimated GFR (Cockcroft-Gault) 107.2 BUN/Creatinine Ratio 23 (6-20) Glucose Level 110 mg/dL (70-99) Calcium Level 8.1 mg/dL (8.5-10.1) Total Bilirubin 0.4 mg/dL (0.2-1.0) Aspartate Amino Transf (AST/SGOT) 142 U/L (15-37) Alanine Aminotransferase (ALT/SGPT) 154 U/L (14-59) Alkaline Phosphatase 110 U/L (46-116) Creatine Kinase 48643 U/L (26-192) Total Protein 6.6 g/dL (6.4-8.2) Albumin 2.3 g/dL (3.4-5.0) Albumin/Globulin Ratio 0.5 (1.0-1.7) Test 04/12/20 21:02 04/13/20 04:00 Glucose (Fingerstick) 180 mg/dL (70-99) White Blood Count 14.3 x10^3/uL (4.0-11.0) Red Blood Count 4.08 x10^6/uL (3.50-5.40) Hemoglobin 13.1 g/dL (12.0-15.5) Hematocrit 38.2 % (36.0-47.0) Mean Corpuscular Volume 94 fL (79-100) Mean Corpuscular Hemoglobin 32 pg (25-35) Mean Corpuscular Hemoglobin Concent 34 g/dL (31-37) Red Cell Distribution Width 14.1 % (11.5-14.5) Platelet Count 339 x10^3/uL (140-400) Neutrophils (%) (Auto) 91 % (31-73) Lymphocytes (%) (Auto) 7 % (24-48) Monocytes (%) (Auto) 2 % (0-9) Eosinophils (%) (Auto) 0 % (0-3) Basophils (%) (Auto) 0 % (0-3) Neutrophils # (Auto) 13.1 x10^3/uL (1.8-7.7) Lymphocytes # (Auto) 1.0 x10^3/uL (1.0-4.8) Monocytes # (Auto) 0.2 x10^3/uL (0.0-1.1) Eosinophils # (Auto) 0.0 x10^3/uL (0.0-0.7) Basophils # (Auto) 0.0 x10^3/uL (0.0-0.2) Sodium Level 136 mmol/L (136-145) Potassium Level 3.9 mmol/L (3.5-5.1) Chloride Level 101 mmol/L (98-107) Carbon Dioxide Level 23 mmol/L (21-32) Anion Gap 12 (6-14) Blood Urea Nitrogen 11 mg/dL (7-20) Creatinine 0.6 mg/dL (0.6-1.0) Estimated GFR (Cockcroft-Gault) 107.2 BUN/Creatinine Ratio 18 (6-20) Glucose Level 146 mg/dL (70-99) Calcium Level 8.5 mg/dL (8.5-10.1) Total Bilirubin 0.4 mg/dL (0.2-1.0) Aspartate Amino Transf (AST/SGOT) 106 U/L (15-37) Alanine Aminotransferase (ALT/SGPT) 138 U/L (14-59) Alkaline Phosphatase 123 U/L (46-116) Creatine Kinase 4427 U/L (26-192) Total Protein 6.6 g/dL (6.4-8.2) Albumin 2.3 g/dL (3.4-5.0) Albumin/Globulin Ratio 0.5 (1.0-1.7) Laboratory Tests Test 04/12/20 13:02 04/12/20 16:48 04/12/20 21:02 04/13/20 04:00 Glucose (Fingerstick) 173 mg/dL (70-99) 142 mg/dL (70-99) 180 mg/dL (70-99) White Blood Count 14.3 x10^3/uL (4.0-11.0) Red Blood Count 4.08 x10^6/uL (3.50-5.40) Hemoglobin 13.1 g/dL (12.0-15.5) Hematocrit 38.2 % (36.0-47.0) Mean Corpuscular Volume 94 fL (79-100) Mean Corpuscular Hemoglobin 32 pg (25-35) Mean Corpuscular Hemoglobin Concent 34 g/dL (31-37) Red Cell Distribution Width 14.1 % (11.5-14.5) Platelet Count 339 x10^3/uL (140-400) Neutrophils (%) (Auto) 91 % (31-73) Lymphocytes (%) (Auto) 7 % (24-48) Monocytes (%) (Auto) 2 % (0-9) Eosinophils (%) (Auto) 0 % (0-3) Basophils (%) (Auto) 0 % (0-3) Neutrophils # (Auto) 13.1 x10^3/uL (1.8-7.7) Lymphocytes # (Auto) 1.0 x10^3/uL (1.0-4.8) Monocytes # (Auto) 0.2 x10^3/uL (0.0-1.1) Eosinophils # (Auto) 0.0 x10^3/uL (0.0-0.7) Basophils # (Auto) 0.0 x10^3/uL (0.0-0.2) Sodium Level 136 mmol/L (136-145) Potassium Level 3.9 mmol/L (3.5-5.1) Chloride Level 101 mmol/L (98-107) Carbon Dioxide Level 23 mmol/L (21-32) Anion Gap 12 (6-14) Blood Urea Nitrogen 11 mg/dL (7-20) Creatinine 0.6 mg/dL (0.6-1.0) Estimated GFR (Cockcroft-Gault) 107.2 BUN/Creatinine Ratio 18 (6-20) Glucose Level 146 mg/dL (70-99) Calcium Level 8.5 mg/dL (8.5-10.1) Total Bilirubin 0.4 mg/dL (0.2-1.0) Aspartate Amino Transf (AST/SGOT) 106 U/L (15-37) Alanine Aminotransferase (ALT/SGPT) 138 U/L (14-59) Alkaline Phosphatase 123 U/L (46-116) Creatine Kinase 4427 U/L (26-192) Total Protein 6.6 g/dL (6.4-8.2) Albumin 2.3 g/dL (3.4-5.0) Albumin/Globulin Ratio 0.5 (1.0-1.7) Medications Active Scripts Medications Dose Route/Sig Max Daily Dose Days Date Category Claritin (Loratadine) 10 Mg Tablet 10 Mg PO DAILY 04/06/20 Reported Codeine-Guaifen 10-100 mg/5 ml (Guaifenesin/Codeine Phosphate) 120 Ml Liquid 5 Ml PO PRN Q6HRS PRN MDD 20 Milliliter(s) 6 04/02/20 Rx Prednisone 50 Mg Tablet 1 Tab PO DAILY 04/02/20 Rx Zithromax (Azithromycin) 250 Mg Tablet 1 Pkg PO UD 04/02/20 Rx Ibuprofen 800 Mg Tablet 800 Mg PO PRN Q6HRS PRN 07/27/18 Rx Meclizine Hcl 25 Mg Tablet 1 Tab PO TID 07/27/18 Rx Zithromax (Azithromycin) 250 Mg Tablet 1 Pkg PO UD 07/27/18 Rx Tamiflu (Oseltamivir Phosphate) 75 Mg Capsule 1 Cap PO BID 07/27/18 Rx Comments CTA chest IMPRESSION: No evidence of main or lobar pulmonary embolus on significantly limited evaluation. Bilateral patchy groundglass opacities as described, compatible with viral pneumonia. Impression . IMPRESSION: 1. Acute hypoxic respiratory failure secondary to COVID-[address] chest with bilateral patchy interstitial infiltrates compatible with COVID-19 pneumonia. 3. Underlying obesity. 4. History of hypertension. Plan . RECOMMENDATIONS: Continue supplemental oxygen to keep oxygen saturations 90% Continue IV steroids, with slow taper CTA of chest reviewed negative for pulmonary embolism Continue antibiotics, currently on Rocephin Follow Cultures- NGTD DVT/GI prophylaxis: lovenox/pepcid Family requested transfer to [facility] [place] Dr. Lopez and Social work aware Discussed with RN and RT Critical care time [id number] Pt. JOHN SMITH MD Apr 13, 2020 10:00
[2020-04-13] MEDS: FAMOTIDINE 20 MG TABLET. PO SCH ×2 (10:09→20:49)
--- NOTE | 2020-04-13 11:51 | PDOC ---
[employer] PROGRESS NOTE Date of Service DOS: DATE: 04/13/20 TIME: 11:46 Chief Complaint Chief Complaint Acute respiratory failure with hypoxia -likely due to COVID-19 pneumonia Increased multifocal pulmonary opacities Bilateral patchy groundglass opacities as described, compatible with viral pneumonia Pneumonia due to 2019 novel coronavirus Rhabdomyolysis -will hydrate aggressively Hypokalemia Transaminitis High Cholesterol Hypertension Seasonal allergies Fatty liver - will monitor transaminases, Hyperglycemia anxiety PLAN FEN - regular diet PPX - lovenox FULL CODE Dispo - inpatient for above ICU BED consult nephrology CTA of chest reviewed negative for pulmonary embolism antibiotics, iv Rocephin begin buspar 10 mg po tid iv fluid support CPK [id number] 04-11 [id number] 04-12 32 MIN CC TIME History of Present Illness History of Present Illness 04/13/2020 Patient seen and examined She is still on 100% nonrebreather Appears quite ill Discussed with RN Discussed with pharmacy Chart reviewed Ms Olson is a 49-year-old female w/ PMHx High Cholesterol, Hypertension, seasonal allergies, fatty liver who presented 04/02/2020 for Covid-like symptoms and returns with the same. Patient reports symptoms have worsened including fever, shortness of air, loss of taste, nausea, fatigue, dizziness, and bilateral lower extremity pain. Denies any vomiting or diarrhea. Reports family members now with similar symptoms. Reports her spouse had some symptoms prior to her. Her SARS-CoV-2 PCR test from 04/02/2020 returned positive. Other labs significant for WBC 8.8, Hb 14.1, platelets 241, D-dimer 0.70, NA 135, K3.5, BUN 6, CR 0.7, glucose 111, AST 366, ALT 177, CK 54,211. Rapid influenza negative EKG Sinus tachycardia at 119bpm, NO ST elevation, QRS 82ms, QT/QTc 308/434ms, baseline artifact noted. Febrile to 101 F CTPA with no PE but Bilateral patchy groundglass opacities as described, compatible with viral pneumonia. She was hypoxic to 82% on normal air and required 6L NCO2 to improve her O2 status. Admitted for further care IV fluid hydration provided. Symptomatic treatment provided with dexamethasone. Empiric antibiotic initiated. Afebrile overnight. Appetite decreased. O2 needs increased to 10 L/min. Labs [place] 0[place] [address], AST elevated 300 ALT 165. She is in much more respiratory distress today. Plan: Add Lasix. Unfortunately she does still need some IV fluids for her severe rhabdomyolysis. We will would like to wean off O2 as soon as possible. Consult pulmonology. Continue steroid Transfer to ICU for Vapotherm Unfortunately rhabdomyolysis and transaminitis are high risk for remdesivir therapy Vitals/I&O Vitals/I&O: Vital Signs Date Time Temp Pulse Resp B/P (MAP) Pulse Ox O2 Delivery O2 Flow Rate FiO2 04/13/20 08:59 99.2 92 40 134/82 (99) 91 NonRebreather Mask 99.2 04/13/20 03:15 15.0 I & O 04/12/20 04/12/20 04/13/20 15:00 23:00 07:00 Intake Total 2320 ml 250 ml 1520 ml Output Total 900 ml 1000 ml 3600 ml Balance 1420 ml -750 ml -2080 ml Physical Exam Physical Exam: visual exam due to covid 19 pandemic General: Alert, Oriented X3, Cooperative, No acute distress Heart: Regular rate Abdomen: Normal bowel sounds, Soft, No tenderness, No hepatosplenomegaly, No masses Extremities: No clubbing, No cyanosis, No edema, Normal pulses, No tender ness/swelling Skin: No rashes, No breakdown, No significant lesion Labs Labs: Laboratory Tests Test 04/12/20 13:02 04/12/20 16:48 04/12/20 21:02 04/13/20 04:00 Glucose (Fingerstick) 173 mg/dL (70-99) 142 mg/dL (70-99) 180 mg/dL (70-99) White Blood Count 14.3 x10^3/uL (4.0-11.0) Red Blood Count 4.08 x10^6/uL (3.50-5.40) Hemoglobin 13.1 g/dL (12.0-15.5) Hematocrit 38.2 % (36.0-47.0) Mean Corpuscular Volume 94 fL (79-100) Mean Corpuscular Hemoglobin 32 pg (25-35) Mean Corpuscular Hemoglobin Concent 34 g/dL (31-37) Red Cell Distribution Width 14.1 % (11.5-14.5) Platelet Count 339 x10^3/uL (140-400) Neutrophils (%) (Auto) 91 % (31-73) Lymphocytes (%) (Auto) 7 % (24-48) Monocytes (%) (Auto) 2 % (0-9) Eosinophils (%) (Auto) 0 % (0-3) Basophils (%) (Auto) 0 % (0-3) Neutrophils # (Auto) 13.1 x10^3/uL (1.8-7.7) Lymphocytes # (Auto) 1.0 x10^3/uL (1.0-4.8) Monocytes # (Auto) 0.2 x10^3/uL (0.0-1.1) Eosinophils # (Auto) 0.0 x10^3/uL (0.0-0.7) Basophils # (Auto) 0.0 x10^3/uL (0.0-0.2) Sodium Level 136 mmol/L (136-145) Potassium Level 3.9 mmol/L (3.5-5.1) Chloride Level 101 mmol/L (98-107) Carbon Dioxide Level 23 mmol/L (21-32) Anion Gap 12 (6-14) Blood Urea Nitrogen 11 mg/dL (7-20) Creatinine 0.6 mg/dL (0.6-1.0) Estimated GFR (Cockcroft-Gault) 107.2 BUN/Creatinine Ratio 18 (6-20) Glucose Level 146 mg/dL (70-99) Calcium Level 8.5 mg/dL (8.5-10.1) Total Bilirubin 0.4 mg/dL (0.2-1.0) Aspartate Amino Transf (AST/SGOT) 106 U/L (15-37) Alanine Aminotransferase (ALT/SGPT) 138 U/L (14-59) Alkaline Phosphatase 123 U/L (46-116) Creatine Kinase 4427 U/L (26-192) Total Protein 6.6 g/dL (6.4-8.2) Albumin 2.3 g/dL (3.4-5.0) Albumin/Globulin Ratio 0.5 (1.0-1.7) Assessment and Plan Assessmemt and Plan COVID-19 respiratory failure Acute respiratory failure with hypoxia Increased multifocal pulmonary opacities Bilateral patchy groundglass opacities as described, compatible with viral pneumonia Pneumonia due to 2019 novel coronavirus Rhabdomyolysis -will hydrate aggressively Hypokalemia Transaminitis High Cholesterol Hypertension Seasonal allergies Fatty liver - will monitor transaminases, Hyperglycemia anxiety Plan Continue IV Rocephin Vitamins and minerals IV steroids Albuterol metered-dose inhaler O2 per 100% nonrebreather She cannot have remdesivir due to elevated transaminases Codeine cough syrup Prognosis guarded CC time 31-minute Per pulmonary please see the following recommendations; Continue supplemental oxygen to keep oxygen saturations 90% Continue IV steroids, with slow taper CTA of chest reviewed negative for pulmonary embolism Continue antibiotics, currently on Rocephin Follow Cultures- NGTD DVT/GI prophylaxis: lovenox/pepcid Family requested transfer to [facility] [place] Dr. Lopez and Social work aware Discussed with RN and RT Critical care time [id number] Comment Review of Relevant I have reviewed the following items eddie (where applicable) has been applied. Medications: Current Medications Medications (Trade) Dose Ordered Sig/Lizbeth Route PRN Reason Start Time Stop Time Status Last Admin Dose Admin Alprazolam (Xanax) 0.5 mg BID PO 04/12/20 13:00 04/13/20 08:37 Famotidine (Pepcid) 20 mg BID PO 04/12/20 21:00 04/13/20 10:09 Benzonatate (Tessalon Perle) 100 mg 1X ONCE PO 04/13/20 03:00 04/13/20 03:01 DC 04/13/20 02:53 Justifications for Admission Other Justification JOSHUA BALDWIN III DO Apr 13, 2020 11:51
[2020-04-13 11:59] VITALS: BP 119/63
[2020-04-13] MEDS ORDERED: guaiFENesin/CODEINE 100mg/10mg 5 ML LIQUID PO PRN (12:00)
[2020-04-13] MEDS: guaiFENesin DM 200MG/20MG 10 ML SYRUP PO PRN ×2 (12:12→21:06)
[2020-04-13] MEDS: cefTRIAXone IV Push 1 GM VIAL. IVP SCH (12:12)
--- NOTE | 2020-04-13 12:50 | NUR ---
Pt did not eat lunch, lunch dose of HumaLOG was held. Will recheck BS at 1700
[2020-04-13 14:50] VITALS: BP 139/70
--- NOTE | 2020-04-13 14:55 | PDOC ---
DATE OF SERVICE: DOS: DATE: 04/13/20 TIME: 14:53 SUBJECTIVE ROS Follow-up for rhabdomyolysis Unable to get review of systems due to Covid-19 positivity OBJECTIVE Vital Signs Vital Signs Date Time Temp Pulse Resp B/P (MAP) Pulse Ox O2 Delivery O2 Flow Rate FiO2 04/13/20 11:59 99.0 84 24 119/63 (81) 91 NonRebreather Mask 99.0 04/13/20 08:00 14.0 I & 0 Intake and Output 04/13/20 07:00 Intake Total 4090 ml Output Total 5500 ml Balance -1410 ml Intake Oral 3090 ml IV Total 1000 ml Output Urine Total 5500 ml PHYSICAL EXAM Physical Exam Unable to examine due to Covid positive status DIAGNOSIS/ASSESSMENT Assessment & Plan Rhabdomyolysis - CPK trending downwards with hydration statins held , renal function normal, Acute respiratory failure with hypoxia -likely due to COVID-19 pneumonia. On steroids. Hypertension presumably due to steroids. Currently appears to be well controlled COMMENT/RELEVANT DATA Meds Current Medications Medications (Trade) Dose Ordered Sig/Lizbeth Start Time Stop Time Status Last Admin Dose Admin Acetaminophen (Tylenol) 650 mg PRN Q6HRS PRN 04/06/20 17:15 04/10/20 00:01 650 MG Alprazolam (Xanax) 0.5 mg BID 04/12/20 13:00 04/13/20 08:37 0.5 MG Amino Acids/ Glycerin/ Electrolytes 1,000 ml @ 80 mls/hr [id number] 04/06/20 17:30 04/09/20 16:21 DC 04/07/20 06:44 80 MLS/HR Azithromycin 500 mg/Sodium Chloride 250 ml @ 250 mls/hr 1X ONCE 04/06/20 01:00 04/06/20 01:59 DC 04/06/20 01:16 250 MLS/HR Benzonatate (Tessalon Perle) 100 mg 1X ONCE 04/13/20 03:00 04/13/20 03:01 DC 04/13/20 02:53 100 MG Bisacodyl (Dulcolax Tab) 5 mg PRN DAILY PRN 04/09/20 10:00 04/09/20 11:31 5 MG Buspirone HCl (Buspar) 10 mg TID 04/12/20 09:30 04/13/20 10:09 10 MG Ceftriaxone Sodium (Rocephin) 1 gm Q24H 04/07/20 13:00 04/13/20 12:12 1 GM Dexamethasone Sodium Phosphate (Decadron) 6 mg DAILY 04/07/20 13:00 04/13/20 08:38 6 MG Dextrose (Dextrose 50%-Water Syringe) 12.5 gm PRN Q15MIN PRN 04/07/20 07:45 Enoxaparin Sodium (Lovenox 40mg Syringe) 40 mg BID 04/08/20 09:00 04/12/20 20:58 40 MG Famotidine (Pepcid Vial) 20 mg BID 04/09/20 10:00 04/12/20 12:18 DC 04/12/20 08:25 20 MG Famotidine (Pepcid) 20 mg BID 04/12/20 21:00 04/13/20 10:09 20 MG Furosemide (Lasix) 60 mg 1X ONCE 04/07/20 06:45 04/07/20 06:46 DC 04/07/20 06:44 60 MG Guaifenesin (Robitussin Dm) 10 ml PRN Q6HRS PRN 04/06/20 17:15 04/13/20 12:12 10 ML Guaifenesin/ Codeine Phosphate (Robitussin Ac) 5 ml PRN Q6HRS PRN 04/13/20 12:00 Info (CONTRAST GIVEN -- Rx MONITORING) 1 each PRN DAILY PRN 04/05/20 23:45 04/07/20 23:44 DC Insulin Glargine (Lantus Syringe) 5 unit QHS 04/07/20 21:00 04/12/20 21:16 5 UNIT Insulin Human Lispro (HumaLOG) 0-7 UNITS TIDWMEALS 04/07/20 08:00 04/12/20 13:07 3 UNITS Iohexol (Omnipaque 350 Mg/ml) 100 ml 1X ONCE 04/05/20 23:45 04/05/20 23:46 DC 04/05/20 00:14 100 ML Lactobacillus Rhamnosus (Culturelle) 1 cap BID 04/10/20 21:00 04/13/20 08:37 1 CAP Morphine Sulfate (Morphine Sulfate) 2 mg PRN Q2HR PRN 04/06/20 17:15 04/12/20 16:37 2 MG Ondansetron HCl (Zofran) 4 mg PRN Q4HRS PRN 04/06/20 17:15 04/11/20 19:51 4 MG Polyethylene Glycol (miraLAX PACKET) 17 gm PRN DAILY PRN 04/09/20 10:00 Sodium Chloride ([place] Saline Nasal) 1 sarah PRN DAILY PRN 04/12/20 09:30 04/12/20 09:42 1 SARAH Sterile Water (WATER for RESP) 1,000 ml CONT PRN 04/07/20 13:00 04/11/20 04:04 1,000 ML Throat Lozenges (Cepacol Sore Throat Lozenge) 1 jessica PRN Q2HRS PRN 04/10/20 14:30 04/10/20 23:16 1 JESSICA Zinc Sulfate (Orazinc) 220 mg DAILY 04/06/20 17:00 04/13/20 08:37 220 MG Zolpidem Tartrate (Ambien) 5 mg PRN QHS PRN 04/06/20 17:15 04/12/20 22:04 5 MG Lab Laboratory Tests Test 04/12/20 16:48 04/12/20 21:02 04/13/20 04:00 04/13/20 08:29 Glucose (Fingerstick) 142 mg/dL (70-99) 180 mg/dL (70-99) 105 mg/dL (70-99) White Blood Count 14.3 x10^3/uL (4.0-11.0) Red Blood Count 4.08 x10^6/uL (3.50-5.40) Hemoglobin 13.1 g/dL (12.0-15.5) Hematocrit 38.2 % (36.0-47.0) Mean Corpuscular Volume 94 fL (79-100) Mean Corpuscular Hemoglobin 32 pg (25-35) Mean Corpuscular Hemoglobin Concent 34 g/dL (31-37) Red Cell Distribution Width 14.1 % (11.5-14.5) Platelet Count 339 x10^3/uL (140-400) Neutrophils (%) (Auto) 91 % (31-73) Lymphocytes (%) (Auto) 7 % (24-48) Monocytes (%) (Auto) 2 % (0-9) Eosinophils (%) (Auto) 0 % (0-3) Basophils (%) (Auto) 0 % (0-3) Neutrophils # (Auto) 13.1 x10^3/uL (1.8-7.7) Lymphocytes # (Auto) 1.0 x10^3/uL (1.0-4.8) Monocytes # (Auto) 0.2 x10^3/uL (0.0-1.1) Eosinophils # (Auto) 0.0 x10^3/uL (0.0-0.7) Basophils # (Auto) 0.0 x10^3/uL (0.0-0.2) Sodium Level 136 mmol/L (136-145) Potassium Level 3.9 mmol/L (3.5-5.1) Chloride Level 101 mmol/L (98-107) Carbon Dioxide Level 23 mmol/L (21-32) Anion Gap 12 (6-14) Blood Urea Nitrogen 11 mg/dL (7-20) Creatinine 0.6 mg/dL (0.6-1.0) Estimated GFR (Cockcroft-Gault) 107.2 BUN/Creatinine Ratio 18 (6-20) Glucose Level 146 mg/dL (70-99) Calcium Level 8.5 mg/dL (8.5-10.1) Total Bilirubin 0.4 mg/dL (0.2-1.0) Aspartate Amino Transf (AST/SGOT) 106 U/L (15-37) Alanine Aminotransferase (ALT/SGPT) 138 U/L (14-59) Alkaline Phosphatase 123 U/L (46-116) Creatine Kinase 4427 U/L (26-192) Total Protein 6.6 g/dL (6.4-8.2) Albumin 2.3 g/dL (3.4-5.0) Albumin/Globulin Ratio 0.5 (1.0-1.7) Results All relevant outside records, renal labs, imaging studies, telemetry/EKG's were reviewed. Justicifation of Admission Dx: Justifications for Admission: Justification of Admission Dx: Yes MARVA GARRETT MD Apr 13, 2020 14:55
[2020-04-13 19:00] VITALS: BP 128/67
[2020-04-13] MEDS: INSULIN GLARGINE SYRINGE. SQ SCH (21:00)
[2020-04-13] MEDS: ZOLPIDEM 5 MG TABLET. PO PRN (21:06)
[2020-04-13 23:51] VITALS: BP 125/100
[2020-04-14] VITALS (19 sets, daily range): BP systolic 80–124; BP diastolic 52–82
--- NOTE | 2020-04-14 00:15 | NUR ---
Patient was increasingly diaphoretic as well as having a low oxygen saturation. Rapid response was called on patient conduct in depth review of patient and current situation. Patient was unable to speak sami, thus her son helped translate. After much discussion with the patient, patient agreed to wear the bi-bap, in attempt to improve oxygen level. Patient was resting well after placement of bi-pap. Will continue to monitor patient at this time.
[2020-04-14 00:48] LABS: BASE EXCESS ABG 1 mmol/L (-3-3); FIO2 ABG 100; HCO3 ABG 25 mmol/L (21-28); PCO2 ABG 38 mmHg (35-46); PO2 ABG 44 mmHg (75-108); SAT O2 ABG 80 % (92-99)
--- NOTE | 2020-04-14 02:31 | NUR ---
Rapid response called at 0012. This RN responded as well as RT, multiple floor RNs, and nursing supervisor shearing. Pt noted to be diaphoretic, breathing shallowly at approx 46 breaths/min. Pt alert. Monitor was reading pts oxygen saturation between the 70s-80s on 100% NRB. ABG drawn with critical PO2 of [address] Tanner notified of critical at 0030. Pt to be placed on BiPap; received orders for PRN Ativan 2 mg Q2hrs PRN for anxiety, may give 4mg Ativan if needed. Orders entered into system. Pt is Tajik speaking only. Nursing supervisor shearing spoke with patients brother who translated to pt that she needed to be on BiPap or may require intubation. Pt initially refused bipap, but once anxiety medication was ordered, pt agreed to be placed on it. At 0050, pts SPO2 was reading 77% on 100% NRB and 10L nc. Once placed on bipap, pts SPO2 reading 92%. Pts BiPap settings 18/8, 20 backup respirations, and 100% FiO2. If pt condition worsens, may require transfer down to ICU. Addendum: 04/14/20 at 0240 by JOSEPH BALTAZAR RN RN Amended: Links added.
--- NOTE | 2020-04-14 03:26 | NUR ---
Pt transferred to ICU room 114 from 6S, arrived to unit on bed. Moved to ICU bed. Placed on BiPAP, tolerating at this time with O2 sats in mid 90's on 100% FiO2. Pt. is very drowsy, recently received PRN Ativan.
[2020-04-14] MEDS ORDERED: ATROPINE 0.5 MG/5 ML DISP.SYRINGE. IV PRN (06:00)
[2020-04-14] MEDS ORDERED: NOREPINEPHRINE VIAL 8 MG in IV DEXTROSE 5% 250 ML IV PRN (06:00)
[2020-04-14] MEDS ORDERED: IV NORMAL SALINE 500ML BAG 500 ML IV PRN (06:00)
[2020-04-14] MEDS: INSULIN LISPRO 300 UNITS/3 ML VIAL. SQ SCH ×3 (08:00→17:00)
--- NOTE | 2020-04-14 08:27 | PDOC ---
PULMONARY PROGRESS NOTES DATE: 04/14/20 TIME: 08:24 Subjective transfered to icu on bipap Vitals Vital Signs Date Time Temp Pulse Resp B/P (MAP) Pulse Ox O2 Delivery O2 Flow Rate FiO2 04/14/20 06:00 66 31 119/61 (80) 98 BiPAP/CPAP 04/14/20 03:00 98.1 98.1 04/14/20 00:35 15.0 Comments ros unable to obtain on bipap Patient seen during , visual exam performed rrr bipap has accessory muscle use/distress No obvious rash or edema Labs Laboratory Tests Test 04/12/20 08:29 04/12/20 13:02 04/12/20 16:48 04/12/20 21:02 Glucose (Fingerstick) 114 mg/dL (70-99) 173 mg/dL (70-99) 142 mg/dL (70-99) 180 mg/dL (70-99) Test 04/13/20 04:00 04/13/20 08:29 04/13/20 17:26 04/13/20 21:45 White Blood Count 14.3 x10^3/uL (4.0-11.0) Red Blood Count 4.08 x10^6/uL (3.50-5.40) Hemoglobin 13.1 g/dL (12.0-15.5) Hematocrit 38.2 % (36.0-47.0) Mean Corpuscular Volume 94 fL (79-100) Mean Corpuscular Hemoglobin 32 pg (25-35) Mean Corpuscular Hemoglobin Concent 34 g/dL (31-37) Red Cell Distribution Width 14.1 % (11.5-14.5) Platelet Count 339 x10^3/uL (140-400) Neutrophils (%) (Auto) 91 % (31-73) Lymphocytes (%) (Auto) 7 % (24-48) Monocytes (%) (Auto) 2 % (0-9) Eosinophils (%) (Auto) 0 % (0-3) Basophils (%) (Auto) 0 % (0-3) Neutrophils # (Auto) 13.1 x10^3/uL (1.8-7.7) Lymphocytes # (Auto) 1.0 x10^3/uL (1.0-4.8) Monocytes # (Auto) 0.2 x10^3/uL (0.0-1.1) Eosinophils # (Auto) 0.0 x10^3/uL (0.0-0.7) Basophils # (Auto) 0.0 x10^3/uL (0.0-0.2) Sodium Level 136 mmol/L (136-145) Potassium Level 3.9 mmol/L (3.5-5.1) Chloride Level 101 mmol/L (98-107) Carbon Dioxide Level 23 mmol/L (21-32) Anion Gap 12 (6-14) Blood Urea Nitrogen 11 mg/dL (7-20) Creatinine 0.6 mg/dL (0.6-1.0) Estimated GFR (Cockcroft-Gault) 107.2 BUN/Creatinine Ratio 18 (6-20) Glucose Level 146 mg/dL (70-99) Calcium Level 8.5 mg/dL (8.5-10.1) Total Bilirubin 0.4 mg/dL (0.2-1.0) Aspartate Amino Transf (AST/SGOT) 106 U/L (15-37) Alanine Aminotransferase (ALT/SGPT) 138 U/L (14-59) Alkaline Phosphatase 123 U/L (46-116) Creatine Kinase 4427 U/L (26-192) Total Protein 6.6 g/dL (6.4-8.2) Albumin 2.3 g/dL (3.4-5.0) Albumin/Globulin Ratio 0.5 (1.0-1.7) Glucose (Fingerstick) 105 mg/dL (70-99) 153 mg/dL (70-99) 149 mg/dL (70-99) Test 04/14/20 00:14 04/14/20 00:26 Glucose (Fingerstick) 112 mg/dL (70-99) O2 Saturation 80 % (92-99) Arterial Blood pH 7.44 (7.35-7.45) Arterial Blood pCO2 at Patient Temp 38 mmHg (35-46) Arterial Blood pO2 at Patient Temp 44 mmHg (75-108) Arterial Blood HCO3 25 mmol/L (21-28) Arterial Blood Base Excess 1 mmol/L (-3-3) FiO2 100 Laboratory Tests Test 04/13/20 08:29 04/13/20 17:26 04/13/20 21:45 04/14/20 00:14 Glucose (Fingerstick) 105 mg/dL (70-99) 153 mg/dL (70-99) 149 mg/dL (70-99) 112 mg/dL (70-99) Test 04/14/20 00:26 O2 Saturation 80 % (92-99) Arterial Blood pH 7.44 (7.35-7.45) Arterial Blood pCO2 at Patient Temp 38 mmHg (35-46) Arterial Blood pO2 at Patient Temp 44 mmHg (75-108) Arterial Blood HCO3 25 mmol/L (21-28) Arterial Blood Base Excess 1 mmol/L (-3-3) FiO2 100 Medications Active Scripts Medications Dose Route/Sig Max Daily Dose Days Date Category Claritin (Loratadine) 10 Mg Tablet 10 Mg PO DAILY 04/06/20 Reported Codeine-Guaifen 10-100 mg/5 ml (Guaifenesin/Codeine Phosphate) 120 Ml Liquid 5 Ml PO PRN Q6HRS PRN MDD 20 Milliliter(s) 6 04/02/20 Rx Prednisone 50 Mg Tablet 1 Tab PO DAILY 04/02/20 Rx Zithromax (Azithromycin) 250 Mg Tablet 1 Pkg PO UD 04/02/20 Rx Ibuprofen 800 Mg Tablet 800 Mg PO PRN Q6HRS PRN 07/27/18 Rx Meclizine Hcl 25 Mg Tablet 1 Tab PO TID 07/27/18 Rx Zithromax (Azithromycin) 250 Mg Tablet 1 Pkg PO UD 07/27/18 Rx Tamiflu (Oseltamivir Phosphate) 75 Mg Capsule 1 Cap PO BID 07/27/18 Rx Comments CTA chest IMPRESSION: No evidence of main or lobar pulmonary embolus on significantly limited evaluation. Bilateral patchy groundglass opacities as described, compatible with viral pneumonia. Impression . IMPRESSION: 1. Acute hypoxic respiratory failure secondary to COVID-19 pneumonia. r/o b acterial pneumonia 2. Abnormal CT chest with bilateral patchy interstitial infiltrates compatible with COVID-19 pneumonia. 3. Underlying obesity. ?conor 4. History of hypertension. 5. encephalopathy Plan . RECOMMENDATIONS: cont bipap setting reviewed monitor closely in icu may need intubation keep oxygen saturations 90% consult id cxr change dexa to solumedrol 40 q 8 hrs CTA of chest reviewed negative for pulmonary embolism Continue antibiotics, currently on Rocephin Follow Cultures- NGTD DVT/GI prophylaxis: lovenox/pepcid Family requested transfer to [facility] [place] Dr. Lopez and Social work aware Discussed with RN and RT critically ill cct 30 min no overlap Pt. CODE FULL JOHN RAZA MD Apr 14, 2020 08:27
[2020-04-14] MEDS: ENOXAPARIN 40 MG/0.4 ML SYRINGE. SQ SCH ×2 (08:43→20:34)
[2020-04-14] MEDS: FAMOTIDINE 20 MG TABLET. PO SCH ×2 (08:43→20:33)
[2020-04-14] MEDS: LACTOBACILLUS RHAMNOSUS GG 1 CAPSULE. PO SCH ×2 (08:43→20:33)
[2020-04-14] MEDS: busPIRone 10 MG TABLET. PO SCH ×3 (08:43→20:33)
[2020-04-14] MEDS: ZINC SULFATE 220 MG CAPSULE. PO SCH (08:43)
[2020-04-14] MEDS: methylPREDNISolone SOD SUCC PF 40 MG/ML VIAL. IV SCH ×3 (08:44→21:47)
--- NOTE | 2020-04-14 08:51 | RAD ---
CHEST AP ONLY Clinical History: Reason: resp fail / Spl. Instructions: / History: Technique: AP view of the chest was obtained at 04/14/2020 8:29 AM. Comparison: April 12, 2020. Findings: The heart is top normal limits in size. This patchy opacities of lungs bilaterally. The pulmonary vessels are not well seen. There is a cervical rib on the right. Impression: Moderate bilateral infiltrates could be pulmonary edema or ARDS or pneumonia and appears mildly worse. Electronically signed by: Tyrone Deluna III, MD (04/14/2020 8:49 AM) [facility]
[2020-04-14 08:59] LABS: BASE EXCESS ABG 0 mmol/L (-3-3); HCO3 ABG 24 mmol/L (21-28); PCO2 ABG 35 mmHg (35-46); PO2 ABG 52 mmHg (75-108); SAT O2 ABG 86 % (92-99)
[2020-04-14 09:04] LABS: FIO2 ABG 90%
--- NOTE | 2020-04-14 09:07 | PDOC ---
DATE OF SERVICE: DOS: DATE: 04/14/20 TIME: 09:06 SUBJECTIVE ROS Follow-up for rhabdomyolysis Patient back in the ICU, remains on BiPAP OBJECTIVE Vital Signs Vital Signs Date Time Temp Pulse Resp B/P (MAP) Pulse Ox O2 Delivery O2 Flow Rate FiO2 04/14/20 08:36 99 BiPAP/CPAP 04/14/20 06:00 66 31 119/61 (80) 04/14/20 03:00 98.1 98.1 04/14/20 00:35 15.0 I & 0 Intake and Output 04/14/20 07:00 Intake Total 300 ml Output Total 4150 ml Balance -3850 ml Intake Oral 300 ml Output Urine Total 4150 ml PHYSICAL EXAM Physical Exam Patient unable to be physically exam due to COVID-19 isolation restrictions. I have reviewed other physicians documentation with regards to physical exam and corroborated the findings with his nurse DIAGNOSIS/ASSESSMENT Assessment & Plan Rhabdomyolysis: We will check CPK in the morning. This was trending down nicely. Renal function is stable COMMENT/RELEVANT DATA Meds Current Medications Medications (Trade) Dose Ordered Sig/Lizbeth Start Time Stop Time Status Last Admin Dose Admin Acetaminophen (Tylenol) 650 mg PRN Q6HRS PRN 04/06/20 17:15 04/10/20 00:01 650 MG Alprazolam (Xanax) 0.5 mg BID 04/12/20 13:00 04/13/20 20:49 0.5 MG Amino Acids/ Glycerin/ Electrolytes 1,000 ml @ 80 mls/hr [id number] 04/06/20 17:30 04/09/20 16:21 DC 04/07/20 06:44 80 MLS/HR Atropine Sulfate (ATROPINE 0.5mg SYRINGE) 0.5 mg PRN Q5MIN PRN 04/14/20 06:00 Azithromycin 500 mg/Sodium Chloride 250 ml @ 250 mls/hr 1X ONCE 04/06/20 01:00 04/06/20 01:59 DC 04/06/20 01:16 250 MLS/HR Benzonatate (Tessalon Perle) 100 mg 1X ONCE 04/13/20 03:00 04/13/20 03:01 DC 04/13/20 02:53 100 MG Bisacodyl (Dulcolax Tab) 5 mg PRN DAILY PRN 04/09/20 10:00 04/09/20 11:31 5 MG Buspirone HCl (Buspar) 10 mg TID 04/12/20 09:30 04/14/20 08:43 10 MG Ceftriaxone Sodium (Rocephin) 1 gm Q24H 04/07/20 13:00 04/13/20 12:12 1 GM Dexamethasone Sodium Phosphate (Decadron) 6 mg DAILY 04/07/20 13:00 04/14/20 08:28 DC 04/13/20 08:38 6 MG Dexmedetomidine HCl 400 mcg/ Sodium Chloride 100 ml @ 0 mls/hr CONT PRN 04/14/20 06:00 Dextrose (Dextrose 50%-Water Syringe) 12.5 gm PRN Q15MIN PRN 04/07/20 07:45 Enoxaparin Sodium (Lovenox 40mg Syringe) 40 mg BID 04/08/20 09:00 04/14/20 08:43 40 MG Famotidine (Pepcid Vial) 20 mg BID 04/09/20 10:00 04/12/20 12:18 DC 04/12/20 08:25 20 MG Famotidine (Pepcid) 20 mg BID 04/12/20 21:00 04/14/20 08:43 20 MG Furosemide (Lasix) 60 mg 1X ONCE 04/07/20 06:45 04/07/20 06:46 DC 04/07/20 06:44 60 MG Guaifenesin (Robitussin Dm) 10 ml PRN Q6HRS PRN 04/06/20 17:15 04/13/20 21:06 10 ML Guaifenesin/ Codeine Phosphate (Robitussin Ac) 5 ml PRN Q6HRS PRN 04/13/20 12:00 Info (CONTRAST GIVEN -- Rx MONITORING) 1 each PRN DAILY PRN 04/05/20 23:45 04/07/20 23:44 DC Insulin Glargine (Lantus Syringe) 5 unit QHS 04/07/20 21:00 04/12/20 21:16 5 UNIT Insulin Human Lispro (HumaLOG) 0-7 UNITS TIDWMEALS 04/07/20 08:00 04/13/20 17:56 3 UNITS Iohexol (Omnipaque 350 Mg/ml) 100 ml 1X ONCE 04/05/20 23:45 04/05/20 23:46 DC 04/05/20 00:14 100 ML Lactobacillus Rhamnosus (Culturelle) 1 cap BID 04/10/20 21:00 04/14/20 08:43 1 CAP Lorazepam (Ativan Inj) 4 mg PRN Q4HRS PRN 04/14/20 01:15 Methylprednisolone Sodium Succinate (SOLU-Medrol 40MG VIAL) 40 mg Q8HRS 04/14/20 08:30 04/14/20 08:44 40 MG Morphine Sulfate (Morphine Sulfate) 2 mg PRN Q2HR PRN 04/06/20 17:15 04/12/20 16:37 2 MG Norepinephrine Bitartrate 8 mg/ Dextrose 258 ml @ 6.676 mls/ hr CONT PRN 04/14/20 06:00 04/14/20 06:14 6.676 MLS/HR Ondansetron HCl (Zofran) 4 mg PRN Q4HRS PRN 04/06/20 17:15 04/11/20 19:51 4 MG Polyethylene Glycol (miraLAX PACKET) 17 gm PRN DAILY PRN 04/09/20 10:00 Sodium Chloride 500 ml @ 500 mls/hr 1X PRN PRN 04/14/20 06:00 Sodium Chloride ([place] Saline Nasal) 1 sarah PRN DAILY PRN 04/12/20 09:30 04/12/20 09:42 1 SARAH Sterile Water (WATER for RESP) 1,000 ml CONT PRN 04/07/20 13:00 04/11/20 04:04 1,000 ML Throat Lozenges (Cepacol Sore Throat Lozenge) 1 jessica PRN Q2HRS PRN 04/10/20 14:30 04/10/20 23:16 1 JESSICA Zinc Sulfate (Orazinc) 220 mg DAILY 04/06/20 17:00 04/14/20 08:43 220 MG Zolpidem Tartrate (Ambien) 5 mg PRN QHS PRN 04/06/20 17:15 04/13/20 21:06 5 MG Lab Laboratory Tests Test 04/13/20 17:26 04/13/20 21:45 04/14/20 00:14 04/14/20 00:26 Glucose (Fingerstick) 153 mg/dL (70-99) 149 mg/dL (70-99) 112 mg/dL (70-99) O2 Saturation 80 % (92-99) Arterial Blood pH 7.44 (7.35-7.45) Arterial Blood pCO2 at Patient Temp 38 mmHg (35-46) Arterial Blood pO2 at Patient Temp 44 mmHg (75-108) Arterial Blood HCO3 25 mmol/L (21-28) Arterial Blood Base Excess 1 mmol/L (-3-3) FiO2 100 Test 04/14/20 08:48 04/14/20 09:00 Glucose (Fingerstick) 103 mg/dL (70-99) O2 Saturation 86 % (92-99) Arterial Blood pH 7.45 (7.35-7.45) Arterial Blood pCO2 at Patient Temp 35 mmHg (35-46) Arterial Blood pO2 at Patient Temp 52 mmHg (75-108) Arterial Blood HCO3 24 mmol/L (21-28) Arterial Blood Base Excess 0 mmol/L (-3-3) FiO2 90% Results All relevant outside records, renal labs, imaging studies, telemetry/EKG's were reviewed. Justicifation of Admission Dx: Justifications for Admission: Justification of Admission Dx: Yes MARVA GARRETT MD Apr 14, 2020 09:07
--- NOTE | 2020-04-14 10:52 | PDOC ---
PROGRESS NOTES Date of Service: DATE: 04/14/20 TIME: 10:51 Chief Complaint Chief Complaint IMPRESSION Acute respiratory failure with hypoxia -likely due to COVID-19 pneumonia Increased multifocal pulmonary opacities Bilateral patchy groundglass opacities as described, compatible with viral pneumonia Moderate bilateral infiltrates could be pulmonary edema or ARDS or pneumonia and appears mildly worse.04-14 Pneumonia due to 2019 novel coronavirus Rhabdomyolysis -will hydrate aggressively Hypokalemia Transaminitis High Cholesterol Hypertension Seasonal allergies Fatty liver - will monitor transaminases, Hyperglycemia anxiety PLAN FEN - regular diet PPX - lovenox FULL CODE Dispo - inpatient for above ICU BED consult nephrology CTA of chest reviewed negative for pulmonary embolism antibiotics, iv Rocephin begin buspar 10 mg po tid iv fluid support CPK [id number] 04-11 [id number] 04-12 4427 04-13 31 MIN CC TIME History of Present Illness History of Present Illness 04/14/2020 Patient seen and examined She is still on 100% nonrebreather Appears quite ill Discussed with RN Discussed with pharmacy Chart reviewed Ms Olson is a 49-year-old female w/ PMHx High Cholesterol, Hypertension, seasonal allergies, fatty liver who presented 04/02/2020 for Covid-like symptoms and returns with the same. Patient reports symptoms have worsened including fe magdiel, shortness of air, loss of taste, nausea, fatigue, dizziness, and bilateral lower extremity pain. Denies any vomiting or diarrhea. Reports family members now with similar symptoms. Reports her spouse had some symptoms prior to her. Her SARS-CoV-2 PCR test from 04/02/2020 returned positive. Other labs significant for WBC 8.8, Hb 14.1, platelets 241, D-dimer 0.70, NA 135, K3.5, BUN 6, CR 0.7, glucose 111, AST 366, ALT 177, CK 54,211. Rapid influenza negative EKG Sinus tachycardia at 119bpm, NO ST elevation, QRS 82ms, QT/QTc 308/434ms, baseline artifact noted. Febrile to 101 F CTPA with no PE but Bilateral patchy groundglass opacities as described, compatible with viral pneumonia. She was hypoxic to 82% on normal air and required 6L NCO2 to improve her O2 status. Admitted for further care IV fluid hydration provided. Symptomatic treatment provided with dexamethasone. Empiric antibiotic initiated. Afebrile overnight. Appetite decreased. O2 needs increased to 10 L/min. Labs [place] 0.6[place] [address], AST elevated 300 ALT 165. She is in much more respiratory distress today. Plan: Add Lasix. Unfortunately she does still need some IV fluids for her severe rhabdomyolysis. We will would like to wean off O2 as soon as possible. Consult pulmonology. Continue steroid Transfer to ICU for Vapotherm Unfortunately rhabdomyolysis and transaminitis are high risk for remdesivir therapy Vitals Vitals Vital Signs Date Time Temp Pulse Resp B/P (MAP) Pulse Ox O2 Delivery O2 Flow Rate FiO2 04/14/20 10:00 82 44 110/54 (72) 96 BiPAP/CPAP 04/14/20 08:00 98.6 98.6 04/14/20 00:35 15.0 Physical Exam Physical Exam visual exam due to covid 19 pandemic General: Alert, Oriented X3, Cooperative, No acute distress Heart: Regular rate Abdomen: Normal bowel sounds, Soft, No tenderness, No hepatosplenomegaly, No masses Extremities: No clubbing, No cyanosis, No edema, Normal pulses, No tenderness/swelling Skin: No rashes, No breakdown, No significant lesion Labs LABS CHEST AP ONLY Clinical History: Reason: resp fail / Spl. Instructions: / History: Technique: AP view of the chest was obtained at 04/14/2020 8:29 AM. Comparison: April 12, 2020. Findings: The heart is top normal limits in size. This patchy opacities of lungs bilaterally. The pulmonary vessels are not well seen. There is a cervical rib on the right. Impression: Moderate bilateral infiltrates could be pulmonary edema or ARDS or pneumonia and appears mildly worse. Electronically signed by: Blane Deluna III, MD (04/14/2020 8:49 AM) [facility] DICTATED and SIGNED BY: BLANE DELUNA III, MD DATE: 04/14/20 [id number] Laboratory Tests Test 04/13/20 17:26 04/13/20 21:45 04/14/20 00:14 04/14/20 00:26 Glucose (Fingerstick) 153 mg/dL (70-99) 149 mg/dL (70-99) 112 mg/dL (70-99) O2 Saturation 80 % (92-99) Arterial Blood pH 7.44 (7.35-7.45) Arterial Blood pCO2 at Patient Temp 38 mmHg (35-46) Arterial Blood pO2 at Patient Temp 44 mmHg (75-108) Arterial Blood HCO3 25 mmol/L (21-28) Arterial Blood Base Excess 1 mmol/L (-3-3) FiO2 100 Test 04/14/20 08:48 04/14/20 09:00 Glucose (Fingerstick) 103 mg/dL (70-99) O2 Saturation 86 % (92-99) Arterial Blood pH 7.45 (7.35-7.45) Arterial Blood pCO2 at Patient Temp 35 mmHg (35-46) Arterial Blood pO2 at Patient Temp 52 mmHg (75-108) Arterial Blood HCO3 24 mmol/L (21-28) Arterial Blood Base Excess 0 mmol/L (-3-3) FiO2 90% Assessment and Plan Assessmemt and Plan Problems Medical Problems: (1) Hypoxia Status: Acute (2) Pneumonia due to 2019 novel coronavirus Status: Acute (3) Respiratory failure Status: Acute (4) Rhabdomyolysis Status: Acute Comment Review of Relevant I have reviewed the following items eddie (where applicable) has been applied. Labs Laboratory Tests Test 04/12/20 13:02 04/12/20 16:48 04/12/20 21:02 04/13/20 04:00 Glucose (Fingerstick) 173 mg/dL (70-99) 142 mg/dL (70-99) 180 mg/dL (70-99) White Blood Count 14.3 x10^3/uL (4.0-11.0) Red Blood Count 4.08 x10^6/uL (3.50-5.40) Hemoglobin 13.1 g/dL (12.0-15.5) Hematocrit 38.2 % (36.0-47.0) Mean Corpuscular Volume 94 fL (79-100) Mean Corpuscular Hemoglobin 32 pg (25-35) Mean Corpuscular Hemoglobin Concent 34 g/dL (31-37) Red Cell Distribution Width 14.1 % (11.5-14.5) Platelet Count 339 x10^3/uL (140-400) Neutrophils (%) (Auto) 91 % (31-73) Lymphocytes (%) (Auto) 7 % (24-48) Monocytes (%) (Auto) 2 % (0-9) Eosinophils (%) (Auto) 0 % (0-3) Basophils (%) (Auto) 0 % (0-3) Neutrophils # (Auto) 13.1 x10^3/uL (1.8-7.7) Lymphocytes # (Auto) 1.0 x10^3/uL (1.0-4.8) Monocytes # (Auto) 0.2 x10^3/uL (0.0-1.1) Eosinophils # (Auto) 0.0 x10^3/uL (0.0-0.7) Basophils # (Auto) 0.0 x10^3/uL (0.0-0.2) Sodium Level 136 mmol/L (136-145) Potassium Level 3.9 mmol/L (3.5-5.1) Chloride Level 101 mmol/L (98-107) Carbon Dioxide Level 23 mmol/L (21-32) Anion Gap 12 (6-14) Blood Urea Nitrogen 11 mg/dL (7-20) Creatinine 0.6 mg/dL (0.6-1.0) Estimated GFR (Cockcroft-Gault) 107.2 BUN/Creatinine Ratio 18 (-20) Glucose Level 146 mg/dL (70-99) Calcium Level 8.5 mg/dL (8.5-10.1) Total Bilirubin 0.4 mg/dL (0.2-1.0) Aspartate Amino Transf (AST/SGOT) 106 U/L (15-37) Alanine Aminotransferase (ALT/SGPT) 138 U/L (14-59) Alkaline Phosphatase 123 U/L (46-116) Creatine Kinase 4427 U/L (26-192) Total Protein 6.6 g/dL (6.4-8.2) Albumin 2.3 g/dL (3.4-5.0) Albumin/Globulin Ratio 0.5 (1.0-1.7) Test 04/13/20 08:29 04/13/20 17:26 04/13/20 21:45 04/14/20 00:14 Glucose (Fingerstick) 105 mg/dL (70-99) 153 mg/dL (70-99) 149 mg/dL (70-99) 112 mg/dL (70-99) Test 04/14/20 00:26 04/14/20 08:48 04/14/20 09:00 O2 Saturation 80 % (92-99) 86 % (92-99) Arterial Blood pH 7.44 (7.35-7.45) 7.45 (7.35-7.45) Arterial Blood pCO2 at Patient Temp 38 mmHg (35-46) 35 mmHg (35-46) Arterial Blood pO2 at Patient Temp 44 mmHg (75-108) 52 mmHg (75-108) Arterial Blood HCO3 25 mmol/L (21-28) 24 mmol/L (21-28) Arterial Blood Base Excess 1 mmol/L (-3-3) 0 mmol/L (-3-3) FiO2 100 90% Glucose (Fingerstick) 103 mg/dL (70-99) Laboratory Tests Test 04/13/20 17:26 04/13/20 21:45 04/14/20 00:14 04/14/20 00:26 Glucose (Fingerstick) 153 mg/dL (70-99) 149 mg/dL (70-99) 112 mg/dL (70-99) O2 Saturation 80 % (92-99) Arterial Blood pH 7.44 (7.35-7.45) Arterial Blood pCO2 at Patient Temp 38 mmHg (35-46) Arterial Blood pO2 at Patient Temp 44 mmHg (75-108) Arterial Blood HCO3 25 mmol/L (21-28) Arterial Blood Base Excess 1 mmol/L (-3-3) FiO2 100 Test 04/14/20 08:48 04/14/20 09:00 Glucose (Fingerstick) 103 mg/dL (70-99) O2 Saturation 86 % (92-99) Arterial Blood pH 7.45 (7.35-7.45) Arterial Blood pCO2 at Patient Temp 35 mmHg (35-46) Arterial Blood pO2 at Patient Temp 52 mmHg (75-108) Arterial Blood HCO3 24 mmol/L (21-28) Arterial Blood Base Excess 0 mmol/L (-3-3) FiO2 90% Microbiology 04/06/20 Blood Culture - Final, Complete NO GROWTH AFTER 5 DAYS Medications Current Medications Iohexol (Omnipaque 350 Mg/ml) 100 ml 1X ONCE IV Last administered on 04/05/20at 00:14; Start 04/05/20 at 23:45; Stop 04/05/20 at 23:46; Status DC Info (CONTRAST GIVEN -- Rx MONITORING) 1 each PRN DAILY PRN MC SEE COMMENTS; Start 04/05/20 at 23:45; Stop 04/07/20 at 23:44; Status DC Sodium Chloride 1,000 ml @ 1,000 mls/hr 1X ONCE IV Last administered on 04/06/20at 01:17; Start 04/06/20 at 01:00; Stop 04/06/20 at 01:59; Status DC Dexamethasone Sodium Phosphate (Decadron) 10 mg 1X ONCE IVP Last administered on 04/06/20at 01:16; Start 04/06/20 at 01:00; Stop 04/06/20 at 01:02; Status DC Azithromycin 500 mg/Sodium Chloride 250 ml @ 250 mls/hr 1X ONCE IV Last administered on 04/06/20at 01:16; Start 04/06/20 at 01:00; Stop 04/06/20 at 01:59; Status DC Ondansetron HCl (Zofran) 4 mg PRN Q8HRS PRN IV NAUSEA/VOMITING; Start 04/06/20 at 01:30; Stop 04/06/20 at 17:17; Status DC Acetaminophen (Tylenol) 650 mg PRN Q4HRS PRN PO FEVER > 100.3'F Last administered on 04/06/20at 02:44; Start 04/06/20 at 01:30; Stop 04/06/20 at 17:17; Status DC Sodium Chloride 1,000 ml @ 100 mls/hr 1X ONCE IV Last administered on 04/06/20at 02:37; Start 04/06/20 at 01:30; Stop 04/06/20 at 11:29; Status DC Sodium Chloride 1,000 ml @ 60 mls/hr [id number] IV Last administered on 04/13/20at 20:52; Start 04/06/20 at 09:30 Ondansetron HCl (Zofran) 4 mg PRN Q4HRS PRN IV NAUSEA/VOMITING Last ad ministered on 04/11/20at 19:51; Start 04/06/20 at 17:15 Acetaminophen (Tylenol) 650 mg PRN Q6HRS PRN PO FEVER > 100.3'F Last ad ministered on 04/10/20at 00:01; Start 04/06/20 at 17:15 Guaifenesin (Robitussin Dm) 10 ml PRN Q6HRS PRN PO COUGH, 1ST CHOICE Last administered on 04/13/20 21:06; Start 04/06/20 at 17:15 Dexamethasone Sodium Phosphate (Decadron) 6 mg 1X ONCE IVP Last administered on 04/06/20at 17:34; Start 04/06/20 at 17:30; Stop 04/06/20 at 17:31; Status DC Enoxaparin Sodium (Lovenox 40mg Syringe) 40 mg Q24H SQ Last administered on 04/07/20at 17:39; Start 04/06/20 at 18:00; Stop 04/08/20 at 08:52; Status DC Zinc Sulfate (Orazinc) 220 mg DAILY PO Last administered on 04/14/20at 08:43; Start 04/06/20 at 17:00 Zolpidem Tartrate (Ambien) 5 mg PRN QHS PRN PO INSOMNIA Last administered on 04/13/20 21:06; Start 04/06/20 at 17:15 Morphine Sulfate (Morphine Sulfate) 2 mg PRN Q2HR PRN IV PAIN Last administered on 04/12/20at 16:37; Start 04/06/20 at 17:15 Amino Acids/ Glycerin/ Electrolytes 1,000 ml @ 80 mls/hr [id number] IV Last administered on 04/07/20at 06:44; Start 04/06/20 at 17:30; Stop 04/09/20 at 16:21; Status DC Furosemide (Lasix) 60 mg 1X ONCE IVP Last administered on 04/07/20at 06:44; Start 04/07/20 at 06:45; Stop 04/07/20 at 06:46; Status DC Insulin Glargine (Lantus Syringe) 5 unit QHS SQ Last administered on 04/12/20 21:16; Start 04/07/20 at 21:00 Insulin Human Lispro (HumaLOG) 0-7 UNITS TIDWMEALS SQ Last administered on 04/13/20at 17:56; Start 04/07/20 at 08:00 Dextrose (Dextrose 50%-Water Syringe) 12.5 gm PRN Q15MIN PRN IV SEE COMMENTS; Start 04/07/20 at 07:45 Dexamethasone Sodium Phosphate (Decadron) 6 mg DAILY IVP Last administered on 04/13/20 08:38; Start 04/07/20 at 13:00; Stop 04/14/20 at 08:28; Status DC Ceftriaxone Sodium (Rocephin) 1 gm Q24H IVP Last administered on 04/13/20 12:12; Start 04/07/20 at 13:00 Sterile Water (WATER for RESP) 1,000 ml CONT PRN INH VIA VAPOTHERM DEVICE Last administered on 04/11/20 04:04; Start 04/07/20 at 13:00 Enoxaparin Sodium (Lovenox 40mg Syringe) 40 mg BID SQ Last administered on 04/14/20 08:43; Start 04/08/20 at 09:00 Guaifenesin/ Codeine Phosphate (Robitussin Ac) 10 ml PRN Q4HRS PRN PO COUGH, 2ND CHOICE Last administered on 04/10/20 14:22; Start 04/09/20 at 00:30; Stop 04/10/20 at 16:28; Status DC Famotidine (Pepcid Vial) 20 mg BID IVP Last administered on 04/12/20 08:25; Start 04/09/20 at 10:00; Stop 04/12/20 at 12:18; Status DC Polyethylene Glycol (miraLAX PACKET) 17 gm DAILY PO Last administered on 04/10/20 07:59; Start 04/09/20 at 10:00; Stop 04/12/20 at 12:18; Status DC Polyethylene Glycol (miraLAX PACKET) 17 gm PRN DAILY PRN PO CONSTIPATION, 1ST CHOICE; Start 04/09/20 at 10:00 Bisacodyl (Dulcolax Tab) 5 mg PRN DAILY PRN PO CONSTIPATION, 2ND CHOICE Last a dministered on 04/09/20 11:31; Start 04/09/20 at 10:00 Guaifenesin/ Codeine Phosphate (Robitussin Ac) 5 ml PRN Q6HRS PRN PO COUGH, 2ND CHOICE Last administered on 04/13/20 17:58; Start 04/10/20 at 09:45 Lactobacillus Rhamnosus (Culturelle) 1 cap BID PO Last administered on 04/14/20 08:43; Start 04/10/20 at 21:00 Throat Lozenges (Cepacol Sore Throat Lozenge) 1 jeffrey PRN Q2HRS PRN PO SORE THROAT Last administered on 04/10/20at 23:16; Start 04/10/20 at 14:30 Buspirone HCl (Buspar) 10 mg PRN TID PRN PO ANXIETY; Start 04/12/20 at 09:30; Stop 04/12/20 at 09:25; Status DC Sodium Chloride ([place] Saline Nasal) 1 sarah PRN DAILY PRN NS NASAL CONGESTION Last administered on 04/12/20at 09:42; Start 04/12/20 at 09:30 Buspirone HCl (Buspar) 10 mg TID PO Last administered on 04/14/20at 08:43; Start 04/12/20 at 09:30 Alprazolam (Xanax) 0.5 mg BID PO Last administered on 04/13/20at 20:49; Start 04/12/20 at 13:00 Famotidine (Pepcid) 20 mg BID PO Last administered on 04/14/20at 08:43; Start 04/12/20 at 21:00 Benzonatate (Tessalon Perle) 100 mg 1X ONCE PO Last administered on 04/13/20at 02:53; Start 04/13/20 at 03:00; Stop 04/13/20 at 03:01; Status DC Guaifenesin/ Codeine Phosphate (Robitussin Ac) 5 ml PRN Q6HRS PRN PO COUGH; Start 04/13/20 at 12:00; Status Cancel Lorazepam (Ativan Inj) 2 mg PRN Q2HR PRN IVP ANXIETY / AGITATION- MILD/MOD Last administered on 04/14/20at 01:08; Start 04/14/20 at 00:45 Lorazepam (Ativan Inj) 4 mg PRN Q4HRS PRN IVP ANXIETY / AGITATION- SEVERE; Start 04/14/20 at 01:15 Dexmedetomidine HCl 400 mcg/ Sodium Chloride 100 ml @ 0 mls/hr CONT PRN IV PER PROTOCOL; Start 04/14/20 at 06:00 Sodium Chloride 500 ml @ 500 mls/hr 1X PRN PRN IV SEE COMMENTS; Start 04/14/20 at 06:00 Atropine Sulfate (ATROPINE 0.5mg SYRINGE) 0.5 mg PRN Q5MIN PRN IV SEE COMMENTS; Start 04/14/20 at 06:00 Norepinephrine Bitartrate 8 mg/ Dextrose 258 ml @ 6.676 mls/ hr CONT PRN IV PER PROTOCOL Last administered on 04/14/20at 06:14; Start 04/14/20 at 06:00 Methylprednisolone Sodium Succinate (SOLU-Medrol 40MG VIAL) 40 mg Q8HRS IV Last administered on 04/14/20at 08:44; Start 04/14/20 at 08:30 Active Scripts Active Codeine-Guaifen 10-100 mg/5 ml (Guaifenesin/Codeine Phosphate) 120 Ml Liquid 5 Ml PO PRN Q6HRS PRN MDD 20 Milliliter(s) 6 Days Prednisone 50 Mg Tablet 1 Tab PO DAILY Zithromax (Azithromycin) 250 Mg Tablet 1 Pkg PO UD Ibuprofen 800 Mg Tablet 800 Mg PO PRN Q6HRS PRN Meclizine Hcl 25 Mg Tablet 1 Tab PO TID Zithromax (Azithromycin) 250 Mg Tablet 1 Pkg PO UD Tamiflu (Oseltamivir Phosphate) 75 Mg Capsule 1 Cap PO BID Reported Claritin (Loratadine) 10 Mg Tablet 10 Mg PO DAILY Vitals/I & O Vital Sign - Last 24 Hours 04/13/20 04/13/20 04/13/20 04/13/20 11:59 14:50 19:00 20:00 Temp 99.0 98.7 97.9 99.0 98.7 97.9 Pulse 84 92 83 Resp 24 36 31 B/P (MAP) 119/63 (81) 139/70 (93) 128/67 (87) Pulse Ox 91 86 85 O2 Delivery NonRebreather Mask NonRebreather Mask NonRebreather Mask Nasal Cannula O2 Flow Rate 15.0 14.0 04/13/20 04/14/20 04/14/20 04/14/20 23:51 00:35 01:06 03:00 Temp 98.2 98.1 98.2 98.1 Pulse 80 96 Resp 36 33 B/P (MAP) 125/100 (108) 114/66 (82) Pulse Ox 84 87 92 95 O2 Delivery NonRebreather Mask NonRebreather Mask BiPAP/CPAP BiPAP/CPAP O2 Flow Rate 15.0 15.0 04/14/20 04/14/20 04/14/20 04/14/20 03:24 04:00 04:00 05:00 Pulse 67 70 Resp 30 33 B/P (MAP) 80/52 (61) 82/53 (63) Pulse Ox 94 96 98 O2 Delivery BiPAP/CPAP BiPAP/CPAP Bi-pap BiPAP/CPAP 04/14/20 04/14/20 04/14/20 04/14/20 06:00 08:00 08:00 08:36 Temp 98.6 98.6 Pulse 66 74 Resp 31 40 B/P (MAP) 119/61 (80) 103/61 (75) Pulse Ox 98 92 99 O2 Delivery BiPAP/CPAP BiPAP/CPAP Bi-pap BiPAP/CPAP 04/14/20 04/14/20 04/14/20 09:00 09:05 10:00 Pulse 80 82 Resp 38 44 B/P (MAP) 111/65 (80) 110/54 (72) Pulse Ox 92 94 96 O2 Delivery BiPAP/CPAP BiPAP/CPAP Intake and Output 04/13/20 04/13/20 04/14/20 15:00 23:00 07:00 Intake Total 200 ml 100 ml Output Total 3000 ml 750 ml 400 ml Balance -3000 ml -550 ml -300 ml Justicifation of Admission Dx: Justifications for Admission: Justification of Admission Dx: Yes RADHA GARCIA MD Apr 14, 2020 10:52
[2020-04-14] MEDS: ONDANSETRON PF 4 MG/2 ML VIAL. IV PRN ×2 (11:06→20:33)
[2020-04-14] MEDS: ALPRAZolam 0.5 MG TABLET PO SCH ×2 (11:06→20:34)
[2020-04-14] MEDS: cefTRIAXone IV Push 1 GM VIAL. IVP SCH (14:06)
[2020-04-14] MEDS ORDERED: REMDESIVIR LOAD in IV NORMAL SALINE 250ML TV IV ONE (17:00)
[2020-04-14] MEDS: IV NORMAL SALINE 1000ML BAG 1,000 ML IV SCH (17:13)
[2020-04-14 18:27] LABS: BASO % 0 % (0-3); EOS % 0 % (0-3); HEMATOCRIT 35.6 % (36.0-47.0); HEMOGLOBIN 12.3 g/dL (12.0-15.5); LYMPH # 0.7 x10^3/uL (1.0-4.8); LYMPH % 5 % (24-48); MEAN CORPUSCULAR HEMOGLOBIN 32 pg (25-35); MEAN CORPUSCULAR HGB CONC 35 g/dL (31-37); MEAN CORPUSCULAR VOLUME 92 fL (79-100); MONO # 0.1 x10^3/uL (0.0-1.1); MONO % 1 % (0-9); NEUT # 11.8 x10^3/uL (1.8-7.7); NEUT % 93 % (31-73); PLATELET COUNT 296 x10^3/uL (140-400); RED BLOOD COUNT 3.87 x10^6/uL (3.50-5.40); RED CELL DISTRIBUTION WIDTH 13.8 % (11.5-14.5); WHITE BLOOD COUNT 12.6 x10^3/uL (4.0-11.0)
[2020-04-14 18:44] LABS: ALBUMIN 2.1 g/dL (3.4-5.0); ALBUMIN/GLOBULIN RATIO 0.5 (1.0-1.7); CALCIUM 7.9 mg/dL (8.5-10.1); CREATININE 0.5 mg/dL (0.6-1.0); GFR 132.2; POTASSIUM 3.9 mmol/L (3.5-5.1); TOTAL BILIRUBIN 0.4 mg/dL (0.2-1.0); TOTAL PROTEIN 6.2 g/dL (6.4-8.2)
--- NOTE | 2020-04-14 19:07 | CONS ---
DATE OF CONSULTATION: 04/14/2020 REFERRING PHYSICIAN: Dr. Joseph REASON FOR CONSULTATION: Remdesivir for COVID-19 infection. HISTORY OF PRESENT ILLNESS: A 49-year-old female who presented to [facility] on 04/05/2020 with complaints of shortness of breath, which was worsening with fever, loss of taste, nausea, fatigue, dizziness and generalized pain. History obtained from staff and medical records as the patient is currently on BiPAP. The patient's family members also had similar symptoms. The patient's white count was 8.8, platelets of 241. CTA showed no evidence of PE, bilateral patchy ground-glass opacities compatible with viral pneumonia. CPK was elevated at 54,000, which peaked to 90,000 with AST of 366, ALT of 177. Normal troponin. BNP of 127, creatinine of 0.7. The patient was admitted to ICU, was started on Vapotherm, IV dexamethasone and Lovenox. The patient is currently on BiPAP, remains afebrile, currently on ceftriaxone, methylprednisolone, enoxaparin. Family is requesting for further treatment. Yesterday, her AST is down to 106, ALT at 138, alkaline phosphatase of 123. CK of 4427. Influenza screen on admission was negative. UA showed large blood, otherwise negative. Blood culture 04/06 remain negative. Chest x-ray shows moderate bilateral infiltrate could be pulmonary edema or ARDS or pneumonia and appears mildly worse. PAST MEDICAL HISTORY: Hypertension and hyperlipidemia. PAST SURGICAL HISTORY: Hysterectomy. FAMILY HISTORY: Noncontributory. SOCIAL HISTORY: Nonsmoker, no alcohol. . ALLERGIES: No known drug allergies. CURRENT MEDICATIONS: Reviewed in [facility]. PHYSICAL EXAMINATION: VITAL SIGNS: Temperature 99.7, pulse 87, respiratory rate 33, blood pressure 116/82, oxygen saturation 99% on BiPAP. GENERAL: Alert, awake female, on BiPAP. HEENT: Normocephalic, atraumatic. NECK: Supple, no JVD. LUNGS: Decreased breath sound at bases. No rhonchi. ABDOMEN: Soft, nontender, nondistended, no rebound, no guarding. EXTREMITIES: No edema, no cyanosis. DERMATOLOGIC: Warm, dry. No generalized rash. NEUROLOGIC: Alert, awake, moves all 4 extremities. PSYCHIATRIC: Calm and cooperative. LABORATORY DATA: WBC 14.3, hemoglobin 13.1, hematocrit 38.2, platelets 339. Sodium 136, potassium 3.9, chloride 101, bicarbonate 23, BUN 12, creatinine 0.6, glucose 146, total bilirubin 0.4, AST 106, ALT 138, alkaline phosphatase 123. CK 4427, albumin 2.3. UA, large blood, otherwise negative. Influenza screen negative. INR 1.0. D-dimer was 0.70. Repeat is 0.44. IMAGING: Chest x-ray as above. CTA chest as above. IMPRESSION: 1. COVID-19 infection. 2. COVID-19 pneumonia. 3. Acute hypoxic respiratory failure. 4. Abnormal liver function tests. 5. Fatty liver with hepatic steatosis. 6. Rhabdomyolysis. 7. Hypertension/hyperlipidemia 8. Fever on admission. RECOMMENDATIONS: 1. Continue supportive care. 2. Start remdesivir. Discussed with pharmacy. 3. Follow up labs and cultures. 4. Continue ceftriaxone for now. 5. Continue steroids 0per Pulmonary. 6. Maintain aspiration precaution. Thank you for allowing me to participate in this patient's care. If you have any questions, do not hesitate to contact me. Discussed with nursing staff. OLE GARRETT MD DR: RADHA/carlos JOB#: [id number] / [id number]
[2020-04-14] MEDS: guaiFENesin/CODEINE 100mg/10mg 5 ML LIQUID PO PRN (20:33)
[2020-04-14] MEDS: INSULIN GLARGINE SYRINGE. SQ SCH (22:05)
[2020-04-15] VITALS (22 sets, daily range): BP systolic 87–123; BP diastolic 54–76
[2020-04-15] MEDS: IV NORMAL SALINE 1000ML BAG 1,000 ML IV SCH ×2 (00:36→16:42)
[2020-04-15] MEDS: ONDANSETRON PF 4 MG/2 ML VIAL. IV PRN ×3 (04:39→19:52)
[2020-04-15] MEDS: guaiFENesin DM 200MG/20MG 10 ML SYRUP PO PRN ×2 (04:58→20:24)
[2020-04-15] MEDS: methylPREDNISolone SOD SUCC PF 40 MG/ML VIAL. IV SCH ×3 (06:11→21:49)
--- NOTE | 2020-04-15 07:56 | PDOC ---
Infectious Disease Note Subjective Subjective Patient is feeling okay ROS ROS No nausea vomiting diarrhea chest pain Vital Sign Vital Signs Vital Signs Date Time Temp Pulse Resp B/P (MAP) Pulse Ox O2 Delivery O2 Flow Rate FiO2 04/15/20 05:19 97/60 (72) BiPAP/CPAP 04/15/20 05:00 100 04/15/20 05:00 97.5 82 36 97.5 Physical Exam PHYSICAL EXAM GENERAL: Alert, awake female, on BiPAP. HEENT: Normocephalic, atraumatic. NECK: Supple, no JVD. LUNGS: Decreased breath sound at bases. No rhonchi. ABDOMEN: Soft, nontender, nondistended, no rebound, no guarding. EXTREMITIES: No edema, no cyanosis. DERMATOLOGIC: Warm, dry. No generalized rash. NEUROLOGIC: Alert, awake, moves all 4 extremities. PSYCHIATRIC: Calm and cooperative. Labs Lab Laboratory Tests Test 04/14/20 08:48 04/14/20 09:00 04/14/20 13:11 04/14/20 17:15 Glucose (Fingerstick) 103 mg/dL (70-99) 175 mg/dL (70-99) 188 mg/dL (70-99) O2 Saturation 86 % (92-99) Arterial Blood pH 7.45 (7.35-7.45) Arterial Blood pCO2 at Patient Temp 35 mmHg (35-46) Arterial Blood pO2 at Patient Temp 52 mmHg (75-108) Arterial Blood HCO3 24 mmol/L (21-28) Arterial Blood Base Excess 0 mmol/L (-3-3) FiO2 90% Test 04/14/20 18:00 04/14/20 21:53 White Blood Count 12.6 x10^3/uL (4.0-11.0) Red Blood Count 3.87 x10^6/uL (3.50-5.40) Hemoglobin 12.3 g/dL (12.0-15.5) Hematocrit 35.6 % (36.0-47.0) Mean Corpuscular Volume 92 fL (79-100) Mean Corpuscular Hemoglobin 32 pg (25-35) Mean Corpuscular Hemoglobin Concent 35 g/dL (31-37) Red Cell Distribution Width 13.8 % (11.5-14.5) Platelet Count 296 x10^3/uL (140-400) Neutrophils (%) (Auto) 93 % (31-73) Lymphocytes (%) (Auto) 5 % (24-48) Monocytes (%) (Auto) 1 % (0-9) Eosinophils (%) (Auto) 0 % (0-3) Basophils (%) (Auto) 0 % (0-3) Neutrophils # (Auto) 11.8 x10^3/uL (1.8-7.7) Lymphocytes # (Auto) 0.7 x10^3/uL (1.0-4.8) Monocytes # (Auto) 0.1 x10^3/uL (0.0-1.1) Eosinophils # (Auto) 0.0 x10^3/uL (0.0-0.7) Basophils # (Auto) 0.0 x10^3/uL (0.0-0.2) Sodium Level 139 mmol/L (136-145) Potassium Level 3.9 mmol/L (3.5-5.1) Chloride Level 103 mmol/L (98-107) Carbon Dioxide Level 25 mmol/L (21-32) Anion Gap 11 (6-14) Blood Urea Nitrogen 12 mg/dL (7-20) Creatinine 0.5 mg/dL (0.6-1.0) Estimated GFR (Cockcroft-Gault) 132.2 BUN/Creatinine Ratio 24 (6-20) Glucose Level 183 mg/dL (70-99) Calcium Level 7.9 mg/dL (8.5-10.1) Total Bilirubin 0.4 mg/dL (0.2-1.0) Aspartate Amino Transf (AST/SGOT) 64 U/L (15-37) Alanine Aminotransferase (ALT/SGPT) 105 U/L (14-59) Alkaline Phosphatase 107 U/L (46-116) Total Protein 6.2 g/dL (6.4-8.2) Albumin 2.1 g/dL (3.4-5.0) Albumin/Globulin Ratio 0.5 (1.0-1.7) Glucose (Fingerstick) 173 mg/dL (70-99) Micro Microbiology 04/06/20 Blood Culture - Final, Complete NO GROWTH AFTER 5 DAYS Objective Assessment 1. COVID-19 infection. 2. COVID-19 pneumonia. 3. Acute hypoxic respiratory failure. 4. Abnormal liver function tests. 5. Fatty liver with hepatic steatosis. 6. Rhabdomyolysis. 7. Hypertension/hyperlipidemia 8. Fever on admission. Plan Plan of Care RECOMMENDATIONS: 1. Continue supportive care. 2. Start remdesivir. Discussed with pharmacy. 3. Follow up labs and cultures. 4. Continue ceftriaxone for now. 5. Continue steroids 0per Pulmonary. 6. Maintain aspiration precaution. CEZAR GARRETT MD Apr 15, 2020 07:56
[2020-04-15] MEDS: INSULIN LISPRO 300 UNITS/3 ML VIAL. SQ SCH ×3 (08:00→17:00)
[2020-04-15] MEDS: ENOXAPARIN 40 MG/0.4 ML SYRINGE. SQ SCH ×2 (08:32→20:25)
[2020-04-15] MEDS: ZINC SULFATE 220 MG CAPSULE. PO SCH (08:32)
[2020-04-15] MEDS: LACTOBACILLUS RHAMNOSUS GG 1 CAPSULE. PO SCH ×2 (08:32→20:25)
[2020-04-15] MEDS: FAMOTIDINE 20 MG TABLET. PO SCH ×2 (08:32→20:25)
[2020-04-15] MEDS: ALPRAZolam 0.5 MG TABLET PO SCH ×2 (08:32→20:25)
[2020-04-15] MEDS: busPIRone 10 MG TABLET. PO SCH ×3 (08:32→20:26)
--- NOTE | 2020-04-15 09:41 | PDOC ---
Date of Service: DATE: 04/15/20 TIME: 09:38 Objective: Objective: D/w nurse - c/o nausea, gets Zofran, ate an egg this morning - no vomiting. Vital Signs: Vital Signs Date Time Temp Pulse Resp B/P (MAP) Pulse Ox O2 Delivery O2 Flow Rate FiO2 04/15/20 05:19 97/60 (72) BiPAP/CPAP 04/15/20 05:00 100 04/15/20 05:00 97.5 82 36 97.5 Labs: Laboratory Tests Test 04/14/20 13:11 04/14/20 17:15 04/14/20 18:00 04/14/20 21:53 Glucose (Fingerstick) 175 mg/dL 188 mg/dL 173 mg/dL White Blood Count 12.6 x10^3/uL Red Blood Count 3.87 x10^6/uL Hemoglobin 12.3 g/dL Hematocrit 35.6 % Mean Corpuscular Volume 92 fL Mean Corpuscular Hemoglobin 32 pg Mean Corpuscular Hemoglobin Concent 35 g/dL Red Cell Distribution Width 13.8 % Platelet Count 296 x10^3/uL Neutrophils (%) (Auto) 93 % Lymphocytes (%) (Auto) 5 % Monocytes (%) (Auto) 1 % Eosinophils (%) (Auto) 0 % Basophils (%) (Auto) 0 % Neutrophils # (Auto) 11.8 x10^3/uL Lymphocytes # (Auto) 0.7 x10^3/uL Monocytes # (Auto) 0.1 x10^3/uL Eosinophils # (Auto) 0.0 x10^3/uL Basophils # (Auto) 0.0 x10^3/uL Sodium Level 139 mmol/L Potassium Level 3.9 mmol/L Chloride Level 103 mmol/L Carbon Dioxide Level 25 mmol/L Anion Gap 11 Blood Urea Nitrogen 12 mg/dL Creatinine 0.5 mg/dL Estimated GFR (Cockcroft-Gault) 132.2 BUN/Creatinine Ratio 24 Glucose Level 183 mg/dL Calcium Level 7.9 mg/dL Total Bilirubin 0.4 mg/dL Aspartate Amino Transf (AST/SGOT) 64 U/L Alanine Aminotransferase (ALT/SGPT) 105 U/L Alkaline Phosphatase 107 U/L Total Protein 6.2 g/dL Albumin 2.1 g/dL Albumin/Globulin Ratio 0.5 Test 04/15/20 08:37 Glucose (Fingerstick) 138 mg/dL Cur Imaging: CXR 04/14 Impression: Moderate bilateral infiltrates could be pulmonary edema or ARDS or pneumonia and appears mildly worse. PE: GEN: in COVID isolation - visual exam done LUNGS: BiPAP HEART: RR ABD: non-distended NEURO/PSYCH: eyes closed A/P: COVID-19 infection, resp failure/pneumonia - back in ICU on BiPAP Nausea - tolerates some diet, getting Zofran and Pepcid Elevated AST and ALT - still improving Fatty liver -- Continue support per GI. Can change acid-beater room helper to IV if indicated. Justicifation of Admission Dx: Justifications for Admission: Justification of Admission Dx: Yes ALLISON CHAMORRO Apr 15, 2020 09:41
[2020-04-15 09:42] LABS: BASE EXCESS ABG 0 mmol/L (-3-3); HCO3 ABG 24 mmol/L (21-28); PCO2 ABG 37 mmHg (35-46); PO2 ABG 56 mmHg (75-108); SAT O2 ABG 88 % (92-99)
[2020-04-15 09:44] LABS: FIO2 ABG 80
--- NOTE | 2020-04-15 10:11 | PDOC ---
[employer] PROGRESS NOTE Date of Service DOS: DATE: 04/15/20 TIME: 09:53 Chief Complaint Chief Complaint IMPRESSION Acute respiratory failure with hypoxia -likely due to COVID-19 pneumonia Increased multifocal pulmonary opacities Bilateral patchy groundglass opacities as described, compatible with viral pneumonia Moderate bilateral infiltrates could be pulmonary edema or ARDS or pneumonia and appears mildly worse.04-14 Pneumonia due to 2019 novel coronavirus Rhabdomyolysis -will hydrate aggressively Hypokalemia Transaminitis High Cholesterol Hypertension Seasonal allergies Fatty liver - will monitor transaminases, Hyperglycemia anxiety PLAN FEN - regular diet PPX - lovenox FULL CODE Dispo - inpatient for above ICU BED consult nephrology CTA of chest reviewed negative for pulmonary embolism antibiotics, iv Rocephin begin buspar 10 mg po tid iv fluid support CPK [id number] 04-11 [id number] 04-12 [id number] 04-13 31 MIN CC TIME History of Present Illness History of Present Illness Ms Olson is a 49-year-old female w/ PMHx High Cholesterol, Hypertension, seasonal allergies, fatty liver who presented 04/02/2020 for Covid-like symptoms and returns with the same. Patient reports symptoms have worsened including fever, shortness of air, loss of taste, nausea, fatigue, dizziness, and bilateral lower extremity pain. Denies any vomiting or diarrhea. Reports family members now with similar symptoms. Reports her spouse had some symptoms prior to her. Her SARS-CoV-2 PCR test from 04/02/2020 returned positive. Other labs significant for WBC 8.8, Hb 14.1, platelets 241, D-dimer 0.70, NA 135 , K3.5, BUN 6, CR 0.7, glucose 111, AST 366, ALT 177, CK 54,211. Rapid influenza negative EKG Sinus tachycardia at 119bpm, NO ST elevation, QRS 82ms, QT/QTc 308/434ms, baseline artifact noted. Febrile to 101 F CTPA with no PE but Bilateral patchy groundglass opacities as described, compatible with viral pneumonia. She was hypoxic to 82% on normal air and required 6L NCO2 to improve her O2 status. Admitted for further care IV fluid hydration provided. Symptomatic treatment provided with dexamethasone. Empiric antibiotic initiated. 04/15/2020 Patient seen in COVID-19 ICU. Breathing BiPAP, FiO2 100%. Continue steroids, antibiotics, and remdesivir. LFTs improving. Unfortunately rhabdomyolysis and transaminitis are high risk for remdesivir therapy, will continue to monitor LFTs and CK. 04/14/2020 Patient seen and examined She is still on 100% nonrebreather Appears quite ill Discussed with RN Discussed with pharmacy Chart reviewed Vitals/I&O Vitals/I&O: Vital Signs Date Time Temp Pulse Resp B/P (MAP) Pulse Ox O2 Delivery O2 Flow Rate FiO2 04/15/20 09:30 97 BiPAP/CPAP 04/15/20 05:19 97/60 (72) 04/15/20 05:00 97.5 82 36 97.5 I & O 04/14/20 04/14/20 04/15/20 14:59 22:59 06:59 Intake Total 50 ml 2425 ml 100 ml Output Total 925 ml 1625 ml 1000 ml Balance -875 ml 800 ml -900 ml Physical Exam Physical Exam: GENERAL: Alert, awake female, on BiPAP. HEENT: Normocephalic, atraumatic. NECK: Supple, no JVD. LUNGS: Decreased breath sound at bases. No rhonchi. ABDOMEN: Soft, nontender, nondistended, no rebound, no guarding. EXTREMITIES: No edema, no cyanosis. DERMATOLOGIC: Warm, dry. No generalized rash. NEUROLOGIC: Alert, awake, moves all 4 extremities. PSYCHIATRIC: Calm and cooperative. General: Alert, Oriented X3, Cooperative, No acute distress Heart: Regular rate Abdomen: Normal bowel sounds, Soft, No tenderness, No hepatosplenomegaly, No masses Extremities: No clubbing, No cyanosis, No edema, Normal pulses, No tenderness/swelling Skin: No rashes, No breakdown, No significant lesion Labs Labs: Laboratory Tests Test 04/14/20 13:11 04/14/20 17:15 04/14/20 18:00 04/14/20 21:53 Glucose (Fingerstick) 175 mg/dL (70-99) 188 mg/dL (70-99) 173 mg/dL (70-99) White Blood Count 12.6 x10^3/uL (4.0-11.0) Red Blood Count 3.87 x10^6/uL (3.50-5.40) Hemoglobin 12.3 g/dL (12.0-15.5) Hematocrit 35.6 % (36.0-47.0) Mean Corpuscular Volume 92 fL (79-100) Mean Corpuscular Hemoglobin 32 pg (25-35) Mean Corpuscular Hemoglobin Concent 35 g/dL (31-37) Red Cell Distribution Width 13.8 % (11.5-14.5) Platelet Count 296 x10^3/uL (140-400) Neutrophils (%) (Auto) 93 % (31-73) Lymphocytes (%) (Auto) 5 % (24-48) Monocytes (%) (Auto) 1 % (0-9) Eosinophils (%) (Auto) 0 % (0-3) Basophils (%) (Auto) 0 % (0-3) Neutrophils # (Auto) 11.8 x10^3/uL (1.8-7.7) Lymphocytes # (Auto) 0.7 x10^3/uL (1.0-4.8) Monocytes # (Auto) 0.1 x10^3/uL (0.0-1.1) Eosinophils # (Auto) 0.0 x10^3/uL (0.0-0.7) Basophils # (Auto) 0.0 x10^3/uL (0.0-0.2) Sodium Level 139 mmol/L (136-145) Potassium Level 3.9 mmol/L (3.5-5.1) Chloride Level 103 mmol/L (98-107) Carbon Dioxide Level 25 mmol/L (21-32) Anion Gap 11 (6-14) Blood Urea Nitrogen 12 mg/dL (7-20) Creatinine 0.5 mg/dL (0.6-1.0) Estimated GFR (Cockcroft-Gault) 132.2 BUN/Creatinine Ratio 24 (6-20) Glucose Level 183 mg/dL (70-99) Calcium Level 7.9 mg/dL (8.5-10.1) Total Bilirubin 0.4 mg/dL (0.2-1.0) Aspartate Amino Transf (AST/SGOT) 64 U/L (15-37) Alanine Aminotransferase (ALT/SGPT) 105 U/L (14-59) Alkaline Phosphatase 107 U/L (46-116) Total Protein 6.2 g/dL (6.4-8.2) Albumin 2.1 g/dL (3.4-5.0) Albumin/Globulin Ratio 0.5 (1.0-1.7) Test 04/15/20 08:37 04/15/20 09:30 Glucose (Fingerstick) 138 mg/dL (70-99) O2 Saturation 88 % (92-99) Arterial Blood pH 7.43 (7.35-7.45) Arterial Blood pCO2 at Patient Temp 37 mmHg (35-46) Arterial Blood pO2 at Patient Temp 56 mmHg (75-108) Arterial Blood HCO3 24 mmol/L (21-28) Arterial Blood Base Excess 0 mmol/L (-3-3) FiO2 80 Review of Systems Review of Systems: Denies fever, denies chest pain, denies abdominal pain. Assessment and Plan Assessmemt and Plan Problems Medical Problems: (1) Hypoxia Status: Acute (2) Pneumonia due to 2019 novel coronavirus Status: Acute (3) Respiratory failure Status: Acute (4) Rhabdomyolysis Status: Acute Comment Review of Relevant I have reviewed the following items eddie (where applicable) has been applied. Medications: Current Medications Medications (Trade) Dose Ordered Sig/Lizbeth Route PRN Reason Start Time Stop Time Status Last Admin Dose Admin Remdesivir 200 mg/ Sodium Chloride 210 ml @ 210 mls/hr 1X ONCE IV 04/14/20 17:00 04/14/20 17:59 DC 04/14/20 17:12 Justifications for Admission Other Justification ELISA LOYA MD Apr 15, 2020 10:11
--- NOTE | 2020-04-15 10:44 | PDOC ---
PULMONARY PROGRESS NOTES DATE: 04/15/20 TIME: 10:39 Subjective Patient remains on BiPAP Afebrile overnight Low-dose Levophed No overnight concerns from nursing Vitals Vital Signs Date Time Temp Pulse Resp B/P (MAP) Pulse Ox O2 Delivery O2 Flow Rate FiO2 04/15/20 09:30 97 BiPAP/CPAP 04/15/20 09:00 62 24 110/64 (79) 40.0 04/15/20 07:00 97.3 97.3 Comments Patient seen during , visual exam performed rrr bipap has accessory muscle use/distress No obvious rash or edema Labs Laboratory Tests Test 04/13/20 17:26 04/13/20 21:45 04/14/20 00:14 04/14/20 00:26 Glucose (Fingerstick) 153 mg/dL (70-99) 149 mg/dL (70-99) 112 mg/dL (70-99) O2 Saturation 80 % (92-99) Arterial Blood pH 7.44 (7.35-7.45) Arterial Blood pCO2 at Patient Temp 38 mmHg (35-46) Arterial Blood pO2 at Patient Temp 44 mmHg (75-108) Arterial Blood HCO3 25 mmol/L (21-28) Arterial Blood Base Excess 1 mmol/L (-3-3) FiO2 100 Test 04/14/20 08:48 04/14/20 09:00 04/14/20 13:11 04/14/20 17:15 Glucose (Fingerstick) 103 mg/dL (70-99) 175 mg/dL (70-99) 188 mg/dL (70-99) O2 Saturation 86 % (92-99) Arterial Blood pH 7.45 (7.35-7.45) Arterial Blood pCO2 at Patient Temp 35 mmHg (35-46) Arterial Blood pO2 at Patient Temp 52 mmHg (75-108) Arterial Blood HCO3 24 mmol/L (21-28) Arterial Blood Base Excess 0 mmol/L (-3-3) FiO2 90% Test 04/14/20 18:00 04/14/20 21:53 04/15/20 08:37 04/15/20 09:30 White Blood Count 12.6 x10^3/uL (4.0-11.0) Red Blood Count 3.87 x10^6/uL (3.50-5.40) Hemoglobin 12.3 g/dL (12.0-15.5) Hematocrit 35.6 % (36.0-47.0) Mean Corpuscular Volume 92 fL (79-100) Mean Corpuscular Hemoglobin 32 pg (25-35) Mean Corpuscular Hemoglobin Concent 35 g/dL (31-37) Red Cell Distribution Width 13.8 % (11.5-14.5) Platelet Count 296 x10^3/uL (140-400) Neutrophils (%) (Auto) 93 % (31-73) Lymphocytes (%) (Auto) 5 % (24-48) Monocytes (%) (Auto) 1 % (0-9) Eosinophils (%) (Auto) 0 % (0-3) Basophils (%) (Auto) 0 % (0-3) Neutrophils # (Auto) 11.8 x10^3/uL (1.8-7.7) Lymphocytes # (Auto) 0.7 x10^3/uL (1.0-4.8) Monocytes # (Auto) 0.1 x10^3/uL (0.0-1.1) Eosinophils # (Auto) 0.0 x10^3/uL (0.0-0.7) Basophils # (Auto) 0.0 x10^3/uL (0.0-0.2) Sodium Level 139 mmol/L (136-145) Potassium Level 3.9 mmol/L (3.5-5.1) Chloride Level 103 mmol/L (98-107) Carbon Dioxide Level 25 mmol/L (21-32) Anion Gap 11 (6-14) Blood Urea Nitrogen 12 mg/dL (7-20) Creatinine 0.5 mg/dL (0.6-1.0) Estimated GFR (Cockcroft-Gault) 132.2 BUN/Creatinine Ratio 24 (6-20) Glucose Level 183 mg/dL (70-99) Calcium Level 7.9 mg/dL (8.5-10.1) Total Bilirubin 0.4 mg/dL (0.2-1.0) Aspartate Amino Transf (AST/SGOT) 64 U/L (15-37) Alanine Aminotransferase (ALT/SGPT) 105 U/L (14-59) Alkaline Phosphatase 107 U/L (46-116) Total Protein 6.2 g/dL (6.4-8.2) Albumin 2.1 g/dL (3.4-5.0) Albumin/Globulin Ratio 0.5 (1.0-1.7) Glucose (Fingerstick) 173 mg/dL (70-99) 138 mg/dL (70-99) O2 Saturation 88 % (92-99) Arterial Blood pH 7.43 (7.35-7.45) Arterial Blood pCO2 at Patient Temp 37 mmHg (35-46) Arterial Blood pO2 at Patient Temp 56 mmHg (75-108) Arterial Blood HCO3 24 mmol/L (21-28) Arterial Blood Base Excess 0 mmol/L (-3-3) FiO2 80 Laboratory Tests Test 04/14/20 13:11 04/14/20 17:15 04/14/20 18:00 04/14/20 21:53 Glucose (Fingerstick) 175 mg/dL (70-99) 188 mg/dL (70-99) 173 mg/dL (70-99) White Blood Count 12.6 x10^3/uL (4.0-11.0) Red Blood Count 3.87 x10^6/uL (3.50-5.40) Hemoglobin 12.3 g/dL (12.0-15.5) Hematocrit 35.6 % (36.0-47.0) Mean Corpuscular Volume 92 fL (79-100) Mean Corpuscular Hemoglobin 32 pg (25-35) Mean Corpuscular Hemoglobin Concent 35 g/dL (31-37) Red Cell Distribution Width 13.8 % (11.5-14.5) Platelet Count 296 x10^3/uL (140-400) Neutrophils (%) (Auto) 93 % (31-73) Lymphocytes (%) (Auto) 5 % (24-48) Monocytes (%) (Auto) 1 % (0-9) Eosinophils (%) (Auto) 0 % (0-3) Basophils (%) (Auto) 0 % (0-3) Neutrophils # (Auto) 11.8 x10^3/uL (1.8-7.7) Lymphocytes # (Auto) 0.7 x10^3/uL (1.0-4.8) Monocytes # (Auto) 0.1 x10^3/uL (0.0-1.1) Eosinophils # (Auto) 0.0 x10^3/uL (0.0-0.7) Basophils # (Auto) 0.0 x10^3/uL (0.0-0.2) Sodium Level 139 mmol/L (136-145) Potassium Level 3.9 mmol/L (3.5-5.1) Chloride Level 103 mmol/L (98-107) Carbon Dioxide Level 25 mmol/L (21-32) Anion Gap 11 (6-14) Blood Urea Nitrogen 12 mg/dL (7-20) Creatinine 0.5 mg/dL (0.6-1.0) Estimated GFR (Cockcroft-Gault) 132.2 BUN/Creatinine Ratio 24 (6-20) Glucose Level 183 mg/dL (70-99) Calcium Level 7.9 mg/dL (8.5-10.1) Total Bilirubin 0.4 mg/dL (0.2-1.0) Aspartate Amino Transf (AST/SGOT) 64 U/L (15-37) Alanine Aminotransferase (ALT/SGPT) 105 U/L (14-59) Alkaline Phosphatase 107 U/L (46-116) Total Protein 6.2 g/dL (6.4-8.2) Albumin 2.1 g/dL (3.4-5.0) Albumin/Globulin Ratio 0.5 (1.0-1.7) Test 04/15/20 08:37 04/15/20 09:30 Glucose (Fingerstick) 138 mg/dL (70-99) O2 Saturation 88 % (92-99) Arterial Blood pH 7.43 (7.35-7.45) Arterial Blood pCO2 at Patient Temp 37 mmHg (35-46) Arterial Blood pO2 at Patient Temp 56 mmHg (75-108) Arterial Blood HCO3 24 mmol/L (21-28) Arterial Blood Base Excess 0 mmol/L (-3-3) FiO2 80 Medications Active Scripts Medications Dose Route/Sig Max Daily Dose Days Date Category Claritin (Loratadine) 10 Mg Tablet 10 Mg PO DAILY 04/06/20 Reported Codeine-Guaifen 10-100 mg/5 ml (Guaifenesin/Codeine Phosphate) 120 Ml Liquid 5 Ml PO PRN Q6HRS PRN MDD 20 Milliliter(s) 6 04/02/20 Rx Prednisone 50 Mg Tablet 1 Tab PO DAILY 04/02/20 Rx Zithromax (Azithromycin) 250 Mg Tablet 1 Pkg PO UD 04/02/20 Rx Ibuprofen 800 Mg Tablet 800 Mg PO PRN Q6HRS PRN 07/27/18 Rx Meclizine Hcl 25 Mg Tablet 1 Tab PO TID 07/27/18 Rx Zithromax (Azithromycin) 250 Mg Tablet 1 Pkg PO UD 07/27/18 Rx Tamiflu (Oseltamivir Phosphate) 75 Mg Capsule 1 Cap PO BID 07/27/18 Rx Comments CTA chest IMPRESSION: No evidence of main or lobar pulmonary embolus on significantly limited evaluation. Bilateral patchy groundglass opacities as described, compatible with viral pneumonia. CXR 04/14/20 Impression: Moderate bilateral infiltrates could be pulmonary edema or ARDS or pneumonia and appears mildly worse. Impression . IMPRESSION: 1. Acute hypoxic respiratory failure secondary to COVID-19 pneumonia. r/o bacterial pneumonia 2. Abnormal CT chest with bilateral patchy interstitial infiltrates compatible with COVID-19 pneumonia. 3. Underlying obesity. ?conor 4. History of hypertension. 5. encephalopathy Plan . RECOMMENDATIONS: Continue supplemental oxygen to keep oxygen saturations greater than 92%, continue BiPAP therapy at 80% at this time monitor respiratory status closely as the patient may require intubation Continue IV steroids with slow taper Continue remdesivir for full course Follow chest x-ray/ABG, reviewed no changes at this time CTA of chest reviewed negative for pulmonary embolism Follow GI recommendations Follow infectious disease recommendations in regards to antibiotics, currently on Rocephin Follow Cultures- NGTD Consult dietitian for nutritional support recommendations DVT/GI prophylaxis: lovenox/pepcid Discussed with RN and RT critically ill cct 30 min no overlap Pt. CODE FULL PALAK GRIGGS MD Apr 15, 2020 10:44
[2020-04-15] MEDS: cefTRIAXone IV Push 1 GM VIAL. IVP SCH (12:20)
[2020-04-15] MEDS: ACETAMINOPHEN 325 MG TABLET. PO PRN (13:17)
[2020-04-15] MEDS: guaiFENesin/CODEINE 100mg/10mg 5 ML LIQUID PO PRN (13:26)
--- NOTE | 2020-04-15 15:05 | PDOC ---
Renal-Progress Notes Subjective Notes Notes NOTHING NEW History of Present Illness Hx of present illness STABLE Vitals Vitals Vital Signs Date Time Temp Pulse Resp B/P (MAP) Pulse Ox O2 Delivery O2 Flow Rate FiO2 04/15/20 13:00 74 24 103/62 (76) 95 Nasal Cannula 15.0 04/15/20 11:00 97.5 97.5 Weight Weight [ ] I.O. Intake and Output Intake and Output 04/15/20 07:00 Intake Total 2575 ml Output Total 3550 ml Balance -975 ml Intake Oral 1300 ml IV Total 1275 ml Output Urine Total 3550 ml Labs Labs Laboratory Tests Test 04/14/20 17:15 04/14/20 18:00 04/14/20 21:53 04/15/20 08:37 Glucose (Fingerstick) 188 mg/dL (70-99) 173 mg/dL (70-99) 138 mg/dL (70-99) White Blood Count 12.6 x10^3/uL (4.0-11.0) Red Blood Count 3.87 x10^6/uL (3.50-5.40) Hemoglobin 12.3 g/dL (12.0-15.5) Hematocrit 35.6 % (36.0-47.0) Mean Corpuscular Volume 92 fL (79-100) Mean Corpuscular Hemoglobin 32 pg (25-35) Mean Corpuscular Hemoglobin Concent 35 g/dL (31-37) Red Cell Distribution Width 13.8 % (11.5-14.5) Platelet Count 296 x10^3/uL (140-400) Neutrophils (%) (Auto) 93 % (31-73) Lymphocytes (%) (Auto) 5 % (24-48) Monocytes (%) (Auto) 1 % (0-9) Eosinophils (%) (Auto) 0 % (0-3) Basophils (%) (Auto) 0 % (0-3) Neutrophils # (Auto) 11.8 x10^3/uL (1.8-7.7) Lymphocytes # (Auto) 0.7 x10^3/uL (1.0-4.8) Monocytes # (Auto) 0.1 x10^3/uL (0.0-1.1) Eosinophils # (Auto) 0.0 x10^3/uL (0.0-0.7) Basophils # (Auto) 0.0 x10^3/uL (0.0-0.2) Sodium Level 139 mmol/L (136-145) Potassium Level 3.9 mmol/L (3.5-5.1) Chloride Level 103 mmol/L (98-107) Carbon Dioxide Level 25 mmol/L (21-32) Anion Gap 11 (6-14) Blood Urea Nitrogen 12 mg/dL (7-20) Creatinine 0.5 mg/dL (0.6-1.0) Estimated GFR (Cockcroft-Gault) 132.2 BUN/Creatinine Ratio 24 (6-20) Glucose Level 183 mg/dL (70-99) Calcium Level 7.9 mg/dL (8.5-10.1) Total Bilirubin 0.4 mg/dL (0.2-1.0) Aspartate Amino Transf (AST/SGOT) 64 U/L (15-37) Alanine Aminotransferase (ALT/SGPT) 105 U/L (14-59) Alkaline Phosphatase 107 U/L (46-116) Total Protein 6.2 g/dL (6.4-8.2) Albumin 2.1 g/dL (3.4-5.0) Albumin/Globulin Ratio 0.5 (1.0-1.7) Test 04/15/20 09:30 04/15/20 10:25 04/15/20 13:10 O2 Saturation 88 % (92-99) Arterial Blood pH 7.43 (7.35-7.45) Arterial Blood pCO2 at Patient Temp 37 mmHg (35-46) Arterial Blood pO2 at Patient Temp 56 mmHg (75-108) Arterial Blood HCO3 24 mmol/L (21-28) Arterial Blood Base Excess 0 mmol/L (-3-3) FiO2 80 Creatine Kinase 453 U/L (26-192) Glucose (Fingerstick) 141 mg/dL (70-99) Micro Micro Microbiology 04/06/20 Blood Culture - Final, Complete NO GROWTH AFTER 5 DAYS Review of Systems Constitutional: yes: other (UNABLE TO OBTAIN) Physical Exam General Appearance: no apparent distress Skin: warm Respiratory: decreased breath sounds Heart: S1S2 Abdomen: soft, bowel sounds present Genitourinary: bladder flat Extremities: pulses present Neurology: confused Assessment Assessment IMP RHABDOMYOLYSIS-CK DOWN TO 4427 FROM 21129 ACUTE RESP FAILURE COVID 19 PNEUMONIA PLAN SUPPORTIVE CARE ONGOING WILL SIGN OFF NO SIGN OF RAQUEL PLEASE CALL IF NEEDED LYRIC BALTAZAR MD Apr 15, 2020 15:05
[2020-04-15] MEDS: REMDESIVIR 100mg in NORMAL SALINE 250ML X 4 DAYS IV SCH (16:44)
[2020-04-15] MEDS: ZOLPIDEM 5 MG TABLET. PO PRN (20:25)
[2020-04-15] MEDS: INSULIN GLARGINE SYRINGE. SQ SCH (21:55)
[2020-04-16] VITALS (24 sets, daily range): BP systolic 85–121; BP diastolic 47–76
[2020-04-16] MEDS: MORPHINE SULFATE 2 MG/ML VIAL. IV PRN (01:40)
[2020-04-16] MEDS: guaiFENesin DM 200MG/20MG 10 ML SYRUP PO PRN (04:55)
[2020-04-16] MEDS: methylPREDNISolone SOD SUCC PF 40 MG/ML VIAL. IV SCH ×3 (06:21→20:50)
[2020-04-16] MEDS: IV NORMAL SALINE 1000ML BAG 1,000 ML IV SCH ×2 (06:41→23:21)
[2020-04-16] MEDS: ONDANSETRON PF 4 MG/2 ML VIAL. IV PRN (07:33)
--- NOTE | 2020-04-16 07:54 | PDOC ---
Infectious Disease Note Subjective Subjective Patient is feeling okay , on bipap ROS ROS no n/v/d/ Vital Sign Vital Signs Vital Signs Date Time Temp Pulse Resp B/P (MAP) Pulse Ox O2 Delivery O2 Flow Rate FiO2 04/16/20 06:00 58 23 89/55 (66) 100 BiPAP/CPAP 04/16/20 04:00 98.7 98.7 04/15/20 16:10 15.0 Physical Exam PHYSICAL EXAM GENERAL: Alert, awake female, on BiPAP. HEENT: Normocephalic, atraumatic. NECK: Supple, no JVD. LUNGS: Decreased breath sound at bases. No rhonchi. ABDOMEN: Soft, nontender, nondistended, no rebound, no guarding. EXTREMITIES: No edema, no cyanosis. DERMATOLOGIC: Warm, dry. No generalized rash. NEUROLOGIC: Alert, awake, moves all 4 extremities. PSYCHIATRIC: Calm and cooperative. Labs Lab Laboratory Tests Test 04/15/20 08:37 04/15/20 09:30 04/15/20 10:25 04/15/20 13:10 Glucose (Fingerstick) 138 mg/dL (70-99) 141 mg/dL (70-99) O2 Saturation 88 % (92-99) Arterial Blood pH 7.43 (7.35-7.45) Arterial Blood pCO2 at Patient Temp 37 mmHg (35-46) Arterial Blood pO2 at Patient Temp 56 mmHg (75-108) Arterial Blood HCO3 24 mmol/L (21-28) Arterial Blood Base Excess 0 mmol/L (-3-3) FiO2 80 Creatine Kinase 453 U/L (26-192) Test 04/15/20 17:18 04/15/20 21:52 Glucose (Fingerstick) 166 mg/dL (70-99) 115 mg/dL (70-99) Micro Microbiology 04/06/20 Blood Culture - Final, Complete NO GROWTH AFTER 5 DAYS Objective Assessment 1. COVID-19 infection. 2. COVID-19 pneumonia. 3. Acute hypoxic respiratory failure. 4. Abnormal liver function tests. 5. Fatty liver with hepatic steatosis. 6. Rhabdomyolysis. 7. Hypertension/hyperlipidemia 8. Fever on admission. Plan Plan of Care RECOMMENDATIONS: 1. Continue supportive care. 2. Start remdesivir. Discussed with pharmacy. 3. Follow up labs and cultures. 4. Continue ceftriaxone for now. 5. Continue steroids 0per Pulmonary. 6. Maintain aspiration precaution. CEZAR GARRETT MD Apr 16, 2020 07:54
[2020-04-16 07:55] LABS: BASO % 0 % (0-3); EOS % 0 % (0-3); HEMOGLOBIN 13.2 g/dL (12.0-15.5); LYMPH # 0.9 x10^3/uL (1.0-4.8); LYMPH % 6 % (24-48); MEAN CORPUSCULAR HEMOGLOBIN 32 pg (25-35); MEAN CORPUSCULAR HGB CONC 34 g/dL (31-37); MEAN CORPUSCULAR VOLUME 93 fL (79-100); MONO # 0.2 x10^3/uL (0.0-1.1); MONO % 1 % (0-9); NEUT # 14.2 x10^3/uL (1.8-7.7); NEUT % 93 % (31-73); PLATELET COUNT 315 x10^3/uL (140-400); RED BLOOD COUNT 4.18 x10^6/uL (3.50-5.40); RED CELL DISTRIBUTION WIDTH 13.9 % (11.5-14.5); WHITE BLOOD COUNT 15.2 x10^3/uL (4.0-11.0)
--- NOTE | 2020-04-16 07:59 | PDOC ---
[employer] PROGRESS NOTE Date of Service DOS: DATE: 04/16/20 TIME: 07:57 Chief Complaint Chief Complaint IMPRESSION Acute respiratory failure with hypoxia -likely due to COVID-19 pneumonia Increased multifocal pulmonary opacities Bilateral patchy groundglass opacities as described, compatible with viral pneumonia Moderate bilateral infiltrates could be pulmonary edema or ARDS or pneumonia and appears mildly worse.04-14 Pneumonia due to 2019 novel coronavirus Rhabdomyolysis -will hydrate aggressively Hypokalemia Transaminitis High Cholesterol Hypertension Seasonal allergies Fatty liver - will monitor transaminases, Hyperglycemia anxiety PLAN FEN - regular diet PPX - lovenox FULL CODE Dispo - inpatient for above ICU BED consult nephrology CTA of chest reviewed negative for pulmonary embolism antibiotics, iv Rocephin begin buspar 10 mg po tid iv fluid support CPK [id number] 04-11 [id number] 04-12 [id number] 04-13 31 MIN CC TIME History of Present Illness History of Present Illness Ms Olson is a 49-year-old female w/ PMHx High Cholesterol, Hypertension, seasonal allergies, fatty liver who presented 04/02/2020 for Covid-like symptoms and returns with the same. Patient reports symptoms have worsened including fever, shortness of air, loss of taste, nausea, fatigue, dizziness, and bilateral lower extremity pain. Denies any vomiting or diarrhea. Reports family members now with similar symptoms. Reports her spouse had some symptoms prior to her. Her SARS-CoV-2 PCR test from 04/02/2020 returned positive. Other labs significant for WBC 8.8, Hb 14.1, platelets 241, D-dimer 0.70, NA 135 , K3.5, BUN 6, CR 0.7, glucose 111, AST 366, ALT 177, CK 54,211. Rapid influenza negative EKG Sinus tachycardia at 119bpm, NO ST elevation, QRS 82ms, QT/QTc 308/434ms, baseline artifact noted. Febrile to 101 F CTPA with no PE but Bilateral patchy groundglass opacities as described, compatible with viral pneumonia. She was hypoxic to 82% on normal air and required 6L NCO2 to improve her O2 status. Admitted for further care IV fluid hydration provided. Symptomatic treatment provided with dexamethasone. Empiric antibiotic initiated. 04/16/2020 Patient seen and evaluated in COVID-19 ICU. No acute events overnight. Afebrile, tachypneic. Still breathing on BiPAP at FiO2 80%. CK improving. Discussed with RN. 04/15/2020 [facility]. Breathing BiPAP, FiO2 100%. Continue steroids, antibiotics, and remdesivir. LFTs improving. Unfortunately rhabdomyolysis and transaminitis are high risk for remdesivir therapy, will continue to monitor LFTs and CK. 04/14/2020 Patient seen and examined She is still on 100% nonrebreather Appears quite ill Discussed with RN Discussed with pharmacy Chart reviewed Vitals/I&O Vitals/I&O: Vital Signs Date Time Temp Pulse Resp B/P (MAP) Pulse Ox O2 Delivery O2 Flow Rate FiO2 04/16/20 06:00 58 23 89/55 (66) 100 BiPAP/CPAP 04/16/20 04:00 98.7 98.7 04/15/20 16:10 15.0 I & O 04/15/20 04/15/20 04/16/20 14:59 22:59 06:59 Intake Total 990 ml 1160 ml 1510 ml Output Total 1000 ml 1050 ml 1270 ml Balance -10 ml 110 ml 240 ml Physical Exam Physical Exam: GENERAL: Alert, awake female, on BiPAP. HEENT: Normocephalic, atraumatic. NECK: Supple, no JVD. LUNGS: Decreased breath sound at bases. No rhonchi. ABDOMEN: Soft, nontender, nondistended, no rebound, no guarding. EXTREMITIES: No edema, no cyanosis. DERMATOLOGIC: Warm, dry. No generalized rash. NEUROLOGIC: Alert, awake, moves all 4 extremities. PSYCHIATRIC: Calm and cooperative. General: Alert, Oriented X3, Cooperative, No acute distress Heart: Regular rate Abdomen: Normal bowel sounds, Soft, No tenderness, No hepatosplenomegaly, No masses Extremities: No clubbing, No cyanosis, No edema, Normal pulses, No tenderness/swelling Skin: No rashes, No breakdown, No significant lesion Labs Labs: Laboratory Tests Test 04/15/20 08:37 04/15/20 09:30 04/15/20 10:25 04/15/20 13:10 Glucose (Fingerstick) 138 mg/dL (70-99) 141 mg/dL (70-99) O2 Saturation 88 % (92-99) Arterial Blood pH 7.43 (7.35-7.45) Arterial Blood pCO2 at Patient Temp 37 mmHg (35-46) Arterial Blood pO2 at Patient Temp 56 mmHg (75-108) Arterial Blood HCO3 24 mmol/L (21-28) Arterial Blood Base Excess 0 mmol/L (-3-3) FiO2 80 Creatine Kinase 453 U/L (26-192) Test 04/15/20 17:18 04/15/20 21:52 Glucose (Fingerstick) 166 mg/dL (70-99) 115 mg/dL (70-99) Assessment and Plan Assessmemt and Plan Problems Medical Problems: (1) Hypoxia Status: Acute (2) Pneumonia due to 2019 novel coronavirus Status: Acute (3) Respiratory failure Status: Acute (4) Rhabdomyolysis Status: Acute Comment Review of Relevant I have reviewed the following items eddie (where applicable) has been applied. Medications: Current Medications Medications (Trade) Dose Ordered Sig/Lizbeth Route PRN Reason Start Time Stop Time Status Last Admin Dose Admin Remdesivir 100 mg/ Sodium Chloride 230 ml @ 460 mls/hr Q24H IV 04/15/20 17:00 04/18/20 17:29 04/15/20 16:44 Justifications for Admission Other Justification ELISA LOYA MD Apr 16, 2020 07:59
[2020-04-16] MEDS: INSULIN LISPRO 300 UNITS/3 ML VIAL. SQ SCH ×3 (08:00→17:00)
[2020-04-16 08:06] LABS: CALCIUM 8.1 mg/dL (8.5-10.1); CREATININE 0.6 mg/dL (0.6-1.0); GFR 107.2; POTASSIUM 4.2 mmol/L (3.5-5.1)
[2020-04-16] MEDS: busPIRone 10 MG TABLET. PO SCH ×3 (08:09→20:49)
[2020-04-16] MEDS: ALPRAZolam 0.5 MG TABLET PO SCH ×2 (08:09→20:49)
[2020-04-16] MEDS: ENOXAPARIN 40 MG/0.4 ML SYRINGE. SQ SCH ×2 (08:09→20:49)
[2020-04-16] MEDS: ZINC SULFATE 220 MG CAPSULE. PO SCH (08:09)
[2020-04-16] MEDS: FAMOTIDINE 20 MG TABLET. PO SCH ×2 (08:09→20:49)
[2020-04-16] MEDS: LACTOBACILLUS RHAMNOSUS GG 1 CAPSULE. PO SCH ×2 (08:09→20:49)
[2020-04-16 08:12] LABS: ALBUMIN 2.4 g/dL (3.4-5.0); DIRECT BILIRUBIN 0.1 mg/dL (0.0-0.2); TOTAL BILIRUBIN 0.4 mg/dL (0.2-1.0); TOTAL PROTEIN 6.8 g/dL (6.4-8.2)
[2020-04-16 08:25] LABS: BASE EXCESS ABG 0 mmol/L (-3-3); HCO3 ABG 25 mmol/L (21-28); PCO2 ABG 42 mmHg (35-46); PO2 ABG 51 mmHg (75-108); SAT O2 ABG 84 % (92-99)
[2020-04-16 08:29] LABS: FIO2 ABG 80% BIPAP
[2020-04-16 08:40] LABS: MAGNESIUM 2.6 mg/dL (1.8-2.4)
[2020-04-16] MEDS: DEXMEDETOMIDINE 400 MCG in IV NORMAL SALINE 100ML 96 ML IV PRN (09:20)
--- NOTE | 2020-04-16 09:30 | NUR ---
This RN spent about 30 minutes in pt's room this am talking to pt via intepreter phone. Patient voiced concern that the nurses were not answering her call light quick enough. This RN explained to pt that us nurses may be in another patients room taking care of them when she calls. I also explained the amount and time it takes to put on PPE. I explained that we get into her room as quick as we can safely. I also updated pt on her condition and her bipap settings. Pt requested to be given anxiety medication so Xanax PO and Ativan IVP were given. Dr. Hunt called her son and updated him on the increase in oxygen demand and possible intubation if she were to get any worse.
--- NOTE | 2020-04-16 10:29 | PDOC ---
Date of Service: DATE: 04/16/20 TIME: 10:26 Objective: Objective: D/w nurse - no c/o nausea today - used senior planning manager and pt c/o "cough." Not eating much due to pulm status. Has stooled. Vital Signs: Vital Signs Date Time Temp Pulse Resp B/P (MAP) Pulse Ox O2 Delivery O2 Flow Rate FiO2 04/16/20 10:00 50 22 86/55 (65) 100 BiPAP/CPAP 04/16/20 08:00 98.5 98.5 04/15/20 16:10 15.0 Labs: Laboratory Tests Test 04/15/20 13:10 04/15/20 17:18 04/15/20 21:52 04/16/20 07:34 Glucose (Fingerstick) 141 mg/dL 166 mg/dL 115 mg/dL White Blood Count 15.2 x10^3/uL Red Blood Count 4.18 x10^6/uL Hemoglobin 13.2 g/dL Hematocrit 39.0 % Mean Corpuscular Volume 93 fL Mean Corpuscular Hemoglobin 32 pg Mean Corpuscular Hemoglobin Concent 34 g/dL Red Cell Distribution Width 13.9 % Platelet Count 315 x10^3/uL Neutrophils (%) (Auto) 93 % Lymphocytes (%) (Auto) 6 % Monocytes (%) (Auto) 1 % Eosinophils (%) (Auto) 0 % Basophils (%) (Auto) 0 % Neutrophils # (Auto) 14.2 x10^3/uL Lymphocytes # (Auto) 0.9 x10^3/uL Monocytes # (Auto) 0.2 x10^3/uL Eosinophils # (Auto) 0.0 x10^3/uL Basophils # (Auto) 0.0 x10^3/uL D-Dimer (Mary) 2.75 ug/mlFEU Sodium Level 135 mmol/L Potassium Level 4.2 mmol/L Chloride Level 102 mmol/L Carbon Dioxide Level 27 mmol/L Anion Gap 6 Blood Urea Nitrogen 14 mg/dL Creatinine 0.6 mg/dL Estimated GFR (Cockcroft-Gault) 107.2 Glucose Level 126 mg/dL Calcium Level 8.1 mg/dL Magnesium Level 2.6 mg/dL Ferritin 487 ng/mL Total Bilirubin 0.4 mg/dL Direct Bilirubin 0.1 mg/dL Aspartate Amino Transf (AST/SGOT) 74 U/L Alanine Aminotransferase (ALT/SGPT) 109 U/L Alkaline Phosphatase 92 U/L Lactate Dehydrogenase 594 U/L Creatine Kinase 388 U/L UO-Inw-P-Type Natriuretic Peptide 66 pg/mL Total Protein 6.8 g/dL Albumin 2.4 g/dL Test 04/16/20 08:14 04/16/20 08:15 Glucose (Fingerstick) 141 mg/dL O2 Saturation 84 % Arterial Blood pH 7.40 Arterial Blood pCO2 at Patient Temp 42 mmHg Arterial Blood pO2 at Patient Temp 51 mmHg Arterial Blood HCO3 25 mmol/L Arterial Blood Base Excess 0 mmol/L FiO2 80% bipap PE: GEN: in COVID isolation - visual exam done LUNGS: RT present w/ BiPAP HEART: mildly bradycardic ABD: non-distended NEURO/PSYCH: A & O 3 A/P: COVID-19 infection, resp failure/pneumonia Nausea - better? Elevated AST and ALT - better overall Fatty liver -- Continue same per GI. Justicifation of Admission Dx: Justifications for Admission: Justification of Admission Dx: Yes ALLISON CHAMORRO Apr 16, 2020 10:29
--- NOTE | 2020-04-16 10:37 | PDOC ---
PULMONARY PROGRESS NOTES DATE: 04/16/20 TIME: 10:35 Subjective Patient remains on BiPAP, now on 100%FIO2 Afebrile overnight Low-dose Levophed No overnight concerns from nursing Vitals Vital Signs Date Time Temp Pulse Resp B/P (MAP) Pulse Ox O2 Delivery O2 Flow Rate FiO2 04/16/20 10:00 50 22 86/55 (65) 100 BiPAP/CPAP 04/16/20 08:00 98.5 98.5 04/15/20 16:10 15.0 Comments Patient seen during COVID- pandemic, visual exam performed rrr bipap has accessory muscle use/distress No obvious rash or edema Labs Laboratory Tests Test 04/14/20 13:11 04/14/20 17:15 04/14/20 18:00 04/14/20 21:53 Glucose (Fingerstick) 175 mg/dL (70-99) 188 mg/dL (70-99) 173 mg/dL (70-99) White Blood Count 12.6 x10^3/uL (4.0-11.0) Red Blood Count 3.87 x10^6/uL (3.50-5.40) Hemoglobin 12.3 g/dL (12.0-15.5) Hematocrit 35.6 % (36.0-47.0) Mean Corpuscular Volume 92 fL (79-100) Mean Corpuscular Hemoglobin 32 pg (25-35) Mean Corpuscular Hemoglobin Concent 35 g/dL (31-37) Red Cell Distribution Width 13.8 % (11.5-14.5) Platelet Count 296 x10^3/uL (140-400) Neutrophils (%) (Auto) 93 % (31-73) Lymphocytes (%) (Auto) 5 % (24-48) Monocytes (%) (Auto) 1 % (0-9) Eosinophils (%) (Auto) 0 % (0-3) Basophils (%) (Auto) 0 % (0-3) Neutrophils # (Auto) 11.8 x10^3/uL (1.8-7.7) Lymphocytes # (Auto) 0.7 x10^3/uL (1.0-4.8) Monocytes # (Auto) 0.1 x10^3/uL (0.0-1.1) Eosinophils # (Auto) 0.0 x10^3/uL (0.0-0.7) Basophils # (Auto) 0.0 x10^3/uL (0.0-0.2) Sodium Level 139 mmol/L (136-145) Potassium Level 3.9 mmol/L (3.5-5.1) Chloride Level 103 mmol/L (98-107) Carbon Dioxide Level 25 mmol/L (21-32) Anion Gap 11 (6-14) Blood Urea Nitrogen 12 mg/dL (7-20) Creatinine 0.5 mg/dL (0.6-1.0) Estimated GFR (Cockcroft-Gault) 132.2 BUN/Creatinine Ratio 24 (6-20) Glucose Level 183 mg/dL (70-99) Calcium Level 7.9 mg/dL (8.5-10.1) Total Bilirubin 0.4 mg/dL (0.2-1.0) Aspartate Amino Transf (AST/SGOT) 64 U/L (15-37) Alanine Aminotransferase (ALT/SGPT) 105 U/L (14-59) Alkaline Phosphatase 107 U/L (46-116) Total Protein 6.2 g/dL (6.4-8.2) Albumin 2.1 g/dL (3.4-5.0) Albumin/Globulin Ratio 0.5 (1.0-1.7) Test 04/15/20 08:37 04/15/20 09:30 04/15/20 10:25 04/15/20 13:10 Glucose (Fingerstick) 138 mg/dL (70-99) 141 mg/dL (70-99) O2 Saturation 88 % (92-99) Arterial Blood pH 7.43 (7.35-7.45) Arterial Blood pCO2 at Patient Temp 37 mmHg (35-46) Arterial Blood pO2 at Patient Temp 56 mmHg (75-108) Arterial Blood HCO3 24 mmol/L (21-28) Arterial Blood Base Excess 0 mmol/L (-3-3) FiO2 80 Creatine Kinase 453 U/L (26-192) Test 04/15/20 17:18 04/15/20 21:52 04/16/20 07:34 04/16/20 08:14 Glucose (Fingerstick) 166 mg/dL (70-99) 115 mg/dL (70-99) 141 mg/dL (70-99) White Blood Count 15.2 x10^3/uL (4.0-11.0) Red Blood Count 4.18 x10^6/uL (3.50-5.40) Hemoglobin 13.2 g/dL (12.0-15.5) Hematocrit 39.0 % (36.0-47.0) Mean Corpuscular Volume 93 fL (79-100) Mean Corpuscular Hemoglobin 32 pg (25-35) Mean Corpuscular Hemoglobin Concent 34 g/dL (31-37) Red Cell Distribution Width 13.9 % (11.5-14.5) Platelet Count 315 x10^3/uL (140-400) Neutrophils (%) (Auto) 93 % (31-73) Lymphocytes (%) (Auto) 6 % (24-48) Monocytes (%) (Auto) 1 % (0-9) Eosinophils (%) (Auto) 0 % (0-3) Basophils (%) (Auto) 0 % (0-3) Neutrophils # (Auto) 14.2 x10^3/uL (1.8-7.7) Lymphocytes # (Auto) 0.9 x10^3/uL (1.0-4.8) Monocytes # (Auto) 0.2 x10^3/uL (0.0-1.1) Eosinophils # (Auto) 0.0 x10^3/uL (0.0-0.7) Basophils # (Auto) 0.0 x10^3/uL (0.0-0.2) D-Dimer (Mary) 2.75 ug/mlFEU (0.00-0.50) Sodium Level 135 mmol/L (136-145) Potassium Level 4.2 mmol/L (3.5-5.1) Chloride Level 102 mmol/L (98-107) Carbon Dioxide Level 27 mmol/L (21-32) Anion Gap 6 (6-14) Blood Urea Nitrogen 14 mg/dL (7-20) Creatinine 0.6 mg/dL (0.6-1.0) Estimated GFR (Cockcroft-Gault) 107.2 Glucose Level 126 mg/dL (70-99) Calcium Level 8.1 mg/dL (8.5-10.1) Magnesium Level 2.6 mg/dL (1.8-2.4) Ferritin 487 ng/mL (8-252) Total Bilirubin 0.4 mg/dL (0.2-1.0) Direct Bilirubin 0.1 mg/dL (0.0-0.2) Aspartate Amino Transf (AST/SGOT) 74 U/L (15-37) Alanine Aminotransferase (ALT/SGPT) 109 U/L (14-59) Alkaline Phosphatase 92 U/L (46-116) Lactate Dehydrogenase 594 U/L (81-234) Creatine Kinase 388 U/L (26-192) MN-Rcb-S-Type Natriuretic Peptide 66 pg/mL (0-124) Total Protein 6.8 g/dL (6.4-8.2) Albumin 2.4 g/dL (3.4-5.0) Test 04/16/20 08:15 O2 Saturation 84 % (92-99) Arterial Blood pH 7.40 (7.35-7.45) Arterial Blood pCO2 at Patient Temp 42 mmHg (35-46) Arterial Blood pO2 at Patient Temp 51 mmHg (75-108) Arterial Blood HCO3 25 mmol/L (21-28) Arterial Blood Base Excess 0 mmol/L (-3-3) FiO2 80% bipap Laboratory Tests Test 04/15/20 13:10 04/15/20 17:18 04/15/20 21:52 04/16/20 07:34 Glucose (Fingerstick) 141 mg/dL (70-99) 166 mg/dL (70-99) 115 mg/dL (70-99) White Blood Count 15.2 x10^3/uL (4.0-11.0) Red Blood Count 4.18 x10^6/uL (3.50-5.40) Hemoglobin 13.2 g/dL (12.0-15.5) Hematocrit 39.0 % (36.0-47.0) Mean Corpuscular Volume 93 fL (79-100) Mean Corpuscular Hemoglobin 32 pg (25-35) Mean Corpuscular Hemoglobin Concent 34 g/dL (31-37) Red Cell Distribution Width 13.9 % (11.5-14.5) Platelet Count 315 x10^3/uL (140-400) Neutrophils (%) (Auto) 93 % (31-73) Lymphocytes (%) (Auto) 6 % (24-48) Monocytes (%) (Auto) 1 % (0-9) Eosinophils (%) (Auto) 0 % (0-3) Basophils (%) (Auto) 0 % (0-3) Neutrophils # (Auto) 14.2 x10^3/uL (1.8-7.7) Lymphocytes # (Auto) 0.9 x10^3/uL (1.0-4.8) Monocytes # (Auto) 0.2 x10^3/uL (0.0-1.1) Eosinophils # (Auto) 0.0 x10^3/uL (0.0-0.7) Basophils # (Auto) 0.0 x10^3/uL (0.0-0.2) D-Dimer (Mary) 2.75 ug/mlFEU (0.00-0.50) Sodium Level 135 mmol/L (136-145) Potassium Level 4.2 mmol/L (3.5-5.1) Chloride Level 102 mmol/L (98-107) Carbon Dioxide Level 27 mmol/L (21-32) Anion Gap 6 (6-14) Blood Urea Nitrogen 14 mg/dL (7-20) Creatinine 0.6 mg/dL (0.6-1.0) Estimated GFR (Cockcroft-Gault) 107.2 Glucose Level 126 mg/dL (70-99) Calcium Level 8.1 mg/dL (8.5-10.1) Magnesium Level 2.6 mg/dL (1.8-2.4) Ferritin 487 ng/mL (8-252) Total Bilirubin 0.4 mg/dL (0.2-1.0) Direct Bilirubin 0.1 mg/dL (0.0-0.2) Aspartate Amino Transf (AST/SGOT) 74 U/L (15-37) Alanine Aminotransferase (ALT/SGPT) 109 U/L (14-59) Alkaline Phosphatase 92 U/L (46-116) Lactate Dehydrogenase 594 U/L (81-234) Creatine Kinase 388 U/L (26-192) UR-Jjv-S-Type Natriuretic Peptide 66 pg/mL (0-124) Total Protein 6.8 g/dL (6.4-8.2) Albumin 2.4 g/dL (3.4-5.0) Test 04/16/20 08:14 04/16/20 08:15 Glucose (Fingerstick) 141 mg/dL (70-99) O2 Saturation 84 % (92-99) Arterial Blood pH 7.40 (7.35-7.45) Arterial Blood pCO2 at Patient Temp 42 mmHg (35-46) Arterial Blood pO2 at Patient Temp 51 mmHg (75-108) Arterial Blood HCO3 25 mmol/L (21-28) Arterial Blood Base Excess 0 mmol/L (-3-3) FiO2 80% bipap Medications Active Scripts Medications Dose Route/Sig Max Daily Dose Days Date Category Claritin (Loratadine) 10 Mg Tablet 10 Mg PO DAILY 04/06/20 Reported Codeine-Guaifen 10-100 mg/5 ml (Guaifenesin/Codeine Phosphate) 120 Ml Liquid 5 Ml PO PRN Q6HRS PRN MDD 20 Milliliter(s) 6 04/02/20 Rx Prednisone 50 Mg Tablet 1 Tab PO DAILY 04/02/20 Rx Zithromax (Azithromycin) 250 Mg Tablet 1 Pkg PO UD 04/02/20 Rx Ibuprofen 800 Mg Tablet 800 Mg PO PRN Q6HRS PRN 07/27/18 Rx Meclizine Hcl 25 Mg Tablet 1 Tab PO TID 07/27/18 Rx Zithromax (Azithromycin) 250 Mg Tablet 1 Pkg PO UD 07/27/18 Rx Tamiflu (Oseltamivir Phosphate) 75 Mg Capsule 1 Cap PO BID 07/27/18 Rx Comments CTA chest IMPRESSION: No evidence of main or lobar pulmonary embolus on significantly limited evaluation. Bilateral patchy groundglass opacities as described, compatible with viral pneumonia. CXR 04/14/20 Impression: Moderate bilateral infiltrates could be pulmonary edema or ARDS or pneumonia and appears mildly worse. Impression . IMPRESSION: 1. Acute hypoxic respiratory failure secondary to COVID-19 pneumonia. r/o bact erial pneumonia 2. Abnormal CT chest with bilateral patchy interstitial infiltrates compatible with COVID-19 pneumonia. 3. Underlying obesity. ?conor 4. History of hypertension. 5. encephalopathy Plan . RECOMMENDATIONS: Continue supplemental oxygen to keep oxygen saturations greater than 92%, continue BiPAP therapy at 100% at this time monitor respiratory status closely as the patient may require intubation Continue IV steroids with slow taper remdesivir for full course Follow chest x-ray/ABG, reviewed no changes at this time CTA of chest reviewed negative for pulmonary embolism Follow GI recommendations Follow infectious disease recommendations in regards to antibiotics, currently on Rocephin Follow Cultures- NGTD Consult dietitian for nutritional support recommendations DVT/GI prophylaxis: lovenox/pepcid Discussed with RN and RT critically ill cct 30 min no overlap Pt. CODE FULL D/W SON. explained prognosis. wants full code PALAK GRIGGS MD Apr 16, 2020 10:37
--- NOTE | 2020-04-16 12:40 | NUR ---
SS following up with discharge planning. SS reviewed pt chart and discussed with pt RN. Pt transferred back to ICU. Pt is currently on the BIPAP at 100%. COVID19 positive. Pt on IV Rocephin. Not stable. SS will continue to follow for discharge planning.
[2020-04-16] MEDS: cefTRIAXone IV Push 1 GM VIAL. IVP SCH (13:13)
[2020-04-16] MEDS: REMDESIVIR 100mg in NORMAL SALINE 250ML X 4 DAYS IV SCH (17:38)
[2020-04-16] MEDS: INSULIN GLARGINE SYRINGE. SQ SCH (20:50)
[2020-04-16] MEDS: guaiFENesin/CODEINE 100mg/10mg 5 ML LIQUID PO PRN (22:50)
[2020-04-17] VITALS (24 sets, daily range): BP systolic 78–142; BP diastolic 47–85
[2020-04-17] MEDS: DEXMEDETOMIDINE 400 MCG in IV NORMAL SALINE 100ML 96 ML IV PRN ×3 (00:20→20:45)
[2020-04-17] MEDS: methylPREDNISolone SOD SUCC PF 40 MG/ML VIAL. IV SCH ×3 (05:46→21:44)
[2020-04-17 07:43] LABS: BASO % 0 % (0-3); EOS % 0 % (0-3); HEMATOCRIT 38.3 % (36.0-47.0); HEMOGLOBIN 13.4 g/dL (12.0-15.5); LYMPH # 0.6 x10^3/uL (1.0-4.8); LYMPH % 7 % (24-48); MEAN CORPUSCULAR HEMOGLOBIN 32 pg (25-35); MEAN CORPUSCULAR HGB CONC 35 g/dL (31-37); MEAN CORPUSCULAR VOLUME 93 fL (79-100); MONO # 0.2 x10^3/uL (0.0-1.1); MONO % 2 % (0-9); NEUT # 8.5 x10^3/uL (1.8-7.7); NEUT % 91 % (31-73); PLATELET COUNT 247 x10^3/uL (140-400); RED BLOOD COUNT 4.13 x10^6/uL (3.50-5.40); RED CELL DISTRIBUTION WIDTH 14.2 % (11.5-14.5); WHITE BLOOD COUNT 9.3 x10^3/uL (4.0-11.0)
[2020-04-17] MEDS: INSULIN LISPRO 300 UNITS/3 ML VIAL. SQ SCH ×3 (08:00→17:00)
[2020-04-17 08:12] LABS: CALCIUM 8.3 mg/dL (8.5-10.1); CREATININE 0.4 mg/dL (0.6-1.0); GFR 171.1; POTASSIUM 4.2 mmol/L (3.5-5.1)
--- NOTE | 2020-04-17 08:32 | PDOC ---
Infectious Disease Note Subjective Subjective Patient is feeling okay , on bipap ROS ROS no n/v/d/ Vital Sign Vital Signs Vital Signs Date Time Temp Pulse Resp B/P (MAP) Pulse Ox O2 Delivery O2 Flow Rate FiO2 04/17/20 07:41 100 BiPAP/CPAP 04/17/20 06:00 38 26 117/68 (84) 04/17/20 05:00 99.1 99.1 Physical Exam PHYSICAL EXAM GENERAL: Alert, awake female, on BiPAP. HEENT: Normocephalic, atraumatic. NECK: Supple, no JVD. LUNGS: Decreased breath sound at bases. No rhonchi. ABDOMEN: Soft, nontender, nondistended, no rebound, no guarding. EXTREMITIES: No edema, no cyanosis. DERMATOLOGIC: Warm, dry. No generalized rash. NEUROLOGIC: Alert, awake, moves all 4 extremities. PSYCHIATRIC: Calm and cooperative. Labs Lab Laboratory Tests Test 04/16/20 11:38 04/16/20 17:40 04/17/20 07:05 Glucose (Fingerstick) 142 mg/dL (70-99) 140 mg/dL (70-99) White Blood Count 9.3 x10^3/uL (4.0-11.0) Red Blood Count 4.13 x10^6/uL (3.50-5.40) Hemoglobin 13.4 g/dL (12.0-15.5) Hematocrit 38.3 % (36.0-47.0) Mean Corpuscular Volume 93 fL (79-100) Mean Corpuscular Hemoglobin 32 pg (25-35) Mean Corpuscular Hemoglobin Concent 35 g/dL (31-37) Red Cell Distribution Width 14.2 % (11.5-14.5) Platelet Count 247 x10^3/uL (140-400) Neutrophils (%) (Auto) 91 % (31-73) Lymphocytes (%) (Auto) 7 % (24-48) Monocytes (%) (Auto) 2 % (0-9) Eosinophils (%) (Auto) 0 % (0-3) Basophils (%) (Auto) 0 % (0-3) Neutrophils # (Auto) 8.5 x10^3/uL (1.8-7.7) Lymphocytes # (Auto) 0.6 x10^3/uL (1.0-4.8) Monocytes # (Auto) 0.2 x10^3/uL (0.0-1.1) Eosinophils # (Auto) 0.0 x10^3/uL (0.0-0.7) Basophils # (Auto) 0.0 x10^3/uL (0.0-0.2) Sodium Level 138 mmol/L (136-145) Potassium Level 4.2 mmol/L (3.5-5.1) Chloride Level 105 mmol/L (98-107) Carbon Dioxide Level 25 mmol/L (21-32) Anion Gap 8 (6-14) Blood Urea Nitrogen 18 mg/dL (7-20) Creatinine 0.4 mg/dL (0.6-1.0) Estimated GFR (Cockcroft-Gault) 171.1 Glucose Level 145 mg/dL (70-99) Calcium Level 8.3 mg/dL (8.5-10.1) Micro Microbiology 04/06/20 Blood Culture - Final, Complete NO GROWTH AFTER 5 DAYS Objective Assessment 1. COVID-19 infection. 2. COVID-19 pneumonia. 3. Acute hypoxic respiratory failure. 4. Abnormal liver function tests. 5. Fatty liver with hepatic steatosis. 6. Rhabdomyolysis. 7. Hypertension/hyperlipidemia 8. Fever on admission. Plan Plan of Care RECOMMENDATIONS: 1. Continue supportive care. 2. Start remdesivir. Discussed with pharmacy. 3. Follow up labs and cultures. 4. Continue ceftriaxone for now. 5. Continue steroids 0per Pulmonary. 6. Maintain aspiration precaution. CEZAR GARRETT MD Apr 17, 2020 08:32
[2020-04-17] MEDS: LACTOBACILLUS RHAMNOSUS GG 1 CAPSULE. PO SCH ×2 (09:00→20:46)
[2020-04-17] MEDS: FAMOTIDINE 20 MG TABLET. PO SCH ×2 (09:06→20:44)
[2020-04-17] MEDS: ZINC SULFATE 220 MG CAPSULE. PO SCH (09:06)
[2020-04-17] MEDS: ALPRAZolam 0.5 MG TABLET PO SCH ×2 (09:06→20:44)
[2020-04-17] MEDS: busPIRone 10 MG TABLET. PO SCH ×3 (09:06→20:44)
[2020-04-17] MEDS: ENOXAPARIN 40 MG/0.4 ML SYRINGE. SQ SCH ×2 (09:06→20:44)
[2020-04-17 09:11] LABS: BASE EXCESS ABG -1 mmol/L (-3-3); HCO3 ABG 24 mmol/L (21-28); PCO2 ABG 40 mmHg (35-46); PO2 ABG 69 mmHg (75-108)
[2020-04-17 09:12] LABS: FIO2 ABG 100/BIPAP
--- NOTE | 2020-04-17 09:35 | PDOC ---
Date of Service: DATE: 04/17/20 TIME: 09:33 Objective: Objective: D/w nurse - no GI concerns, has a cough. Vital Signs: Vital Signs Date Time Temp Pulse Resp B/P (MAP) Pulse Ox O2 Delivery O2 Flow Rate FiO2 04/17/20 09:00 38 26 110/70 (83) 99 BiPAP/CPAP 04/17/20 07:00 97.3 97.3 Labs: Laboratory Tests Test 04/16/20 11:38 04/16/20 17:40 04/17/20 07:05 04/17/20 08:00 Glucose (Fingerstick) 142 mg/dL 140 mg/dL White Blood Count 9.3 x10^3/uL Red Blood Count 4.13 x10^6/uL Hemoglobin 13.4 g/dL Hematocrit 38.3 % Mean Corpuscular Volume 93 fL Mean Corpuscular Hemoglobin 32 pg Mean Corpuscular Hemoglobin Concent 35 g/dL Red Cell Distribution Width 14.2 % Platelet Count 247 x10^3/uL Neutrophils (%) (Auto) 91 % Lymphocytes (%) (Auto) 7 % Monocytes (%) (Auto) 2 % Eosinophils (%) (Auto) 0 % Basophils (%) (Auto) 0 % Neutrophils # (Auto) 8.5 x10^3/uL Lymphocytes # (Auto) 0.6 x10^3/uL Monocytes # (Auto) 0.2 x10^3/uL Eosinophils # (Auto) 0.0 x10^3/uL Basophils # (Auto) 0.0 x10^3/uL Sodium Level 138 mmol/L Potassium Level 4.2 mmol/L Chloride Level 105 mmol/L Carbon Dioxide Level 25 mmol/L Anion Gap 8 Blood Urea Nitrogen 18 mg/dL Creatinine 0.4 mg/dL Estimated GFR (Cockcroft-Gault) 171.1 Glucose Level 145 mg/dL Calcium Level 8.3 mg/dL O2 Saturation Pending Arterial Blood pH 7.40 Arterial Blood pCO2 at Patient Temp 40 mmHg Arterial Blood pO2 at Patient Temp 69 mmHg Arterial Blood HCO3 24 mmol/L Arterial Blood Base Excess -1 mmol/L FiO2 100/bipap PE: GEN: in COVID isolation, visual exam done LUNGS: venti mask HEART: RR ABD: not distended NEURO/PSYCH: resting/eyes closed A/P: COVID-19 infection, resp failure/pneumonia Elevated AST and ALT - better overall Fatty liver -- Stable from GI standpoint. Justicifation of Admission Dx: Justifications for Admission: Justification of Admission Dx: Yes ALLISON CHAMORRO Apr 17, 2020 09:35
[2020-04-17] MEDS ORDERED: ALBUMIN HUMAN 5% 500 ML IV ONE (10:15)
--- NOTE | 2020-04-17 11:15 | PDOC ---
PULMONARY PROGRESS NOTES DATE: 04/17/20 TIME: 11:14 Subjective Patient wore BiPAP 100% overnight, currently on 15 L high flow nasal cannula and 50% Ventimask Afebrile overnight Hypotensive, currently off Levophed No overnight concerns from nursing Vitals Vital Signs Date Time Temp Pulse Resp B/P (MAP) Pulse Ox O2 Delivery O2 Flow Rate FiO2 04/17/20 10:44 48 28 94/52 (66) 100 venti mask and hf nc 04/17/20 07:00 97.3 97.3 Comments Patient seen during COVID- pandemic, visual exam performed rrr bipap has accessory muscle use/distress No obvious rash or edema Labs Laboratory Tests Test 04/15/20 13:10 04/15/20 17:18 04/15/20 21:52 04/16/20 07:34 Glucose (Fingerstick) 141 mg/dL (70-99) 166 mg/dL (70-99) 115 mg/dL (70-99) White Blood Count 15.2 x10^3/uL (4.0-11.0) Red Blood Count 4.18 x10^6/uL (3.50-5.40) Hemoglobin 13.2 g/dL (12.0-15.5) Hematocrit 39.0 % (36.0-47.0) Mean Corpuscular Volume 93 fL (79-100) Mean Corpuscular Hemoglobin 32 pg (25-35) Mean Corpuscular Hemoglobin Concent 34 g/dL (31-37) Red Cell Distribution Width 13.9 % (11.5-14.5) Platelet Count 315 x10^3/uL (140-400) Neutrophils (%) (Auto) 93 % (31-73) Lymphocytes (%) (Auto) 6 % (24-48) Monocytes (%) (Auto) 1 % (0-9) Eosinophils (%) (Auto) 0 % (0-3) Basophils (%) (Auto) 0 % (0-3) Neutrophils # (Auto) 14.2 x10^3/uL (1.8-7.7) Lymphocytes # (Auto) 0.9 x10^3/uL (1.0-4.8) Monocytes # (Auto) 0.2 x10^3/uL (0.0-1.1) Eosinophils # (Auto) 0.0 x10^3/uL (0.0-0.7) Basophils # (Auto) 0.0 x10^3/uL (0.0-0.2) D-Dimer (Mary) 2.75 ug/mlFEU (0.00-0.50) Sodium Level 135 mmol/L (136-145) Potassium Level 4.2 mmol/L (3.5-5.1) Chloride Level 102 mmol/L (98-107) Carbon Dioxide Level 27 mmol/L (21-32) Anion Gap 6 (6-14) Blood Urea Nitrogen 14 mg/dL (7-20) Creatinine 0.6 mg/dL (0.6-1.0) Estimated GFR (Cockcroft-Gault) 107.2 Glucose Level 126 mg/dL (70-99) Calcium Level 8.1 mg/dL (8.5-10.1) Magnesium Level 2.6 mg/dL (1.8-2.4) Ferritin 487 ng/mL (8-252) Total Bilirubin 0.4 mg/dL (0.2-1.0) Direct Bilirubin 0.1 mg/dL (0.0-0.2) Aspartate Amino Transf (AST/SGOT) 74 U/L (15-37) Alanine Aminotransferase (ALT/SGPT) 109 U/L (14-59) Alkaline Phosphatase 92 U/L (46-116) Lactate Dehydrogenase 594 U/L (81-234) Creatine Kinase 388 U/L (26-192) HK-Mrd-L-Type Natriuretic Peptide 66 pg/mL (0-124) Total Protein 6.8 g/dL (6.4-8.2) Albumin 2.4 g/dL (3.4-5.0) Test 04/16/20 08:14 04/16/20 08:15 04/16/20 11:38 04/16/20 17:40 Glucose (Fingerstick) 141 mg/dL (70-99) 142 mg/dL (70-99) 140 mg/dL (70-99) O2 Saturation 84 % (92-99) Arterial Blood pH 7.40 (7.35-7.45) Arterial Blood pCO2 at Patient Temp 42 mmHg (35-46) Arterial Blood pO2 at Patient Temp 51 mmHg (75-108) Arterial Blood HCO3 25 mmol/L (21-28) Arterial Blood Base Excess 0 mmol/L (-3-3) FiO2 80% bipap Test 04/17/20 07:05 04/17/20 08:00 White Blood Count 9.3 x10^3/uL (4.0-11.0) Red Blood Count 4.13 x10^6/uL (3.50-5.40) Hemoglobin 13.4 g/dL (12.0-15.5) Hematocrit 38.3 % (36.0-47.0) Mean Corpuscular Volume 93 fL (79-100) Mean Corpuscular Hemoglobin 32 pg (25-35) Mean Corpuscular Hemoglobin Concent 35 g/dL (31-37) Red Cell Distribution Width 14.2 % (11.5-14.5) Platelet Count 247 x10^3/uL (140-400) Neutrophils (%) (Auto) 91 % (31-73) Lymphocytes (%) (Auto) 7 % (24-48) Monocytes (%) (Auto) 2 % (0-9) Eosinophils (%) (Auto) 0 % (0-3) Basophils (%) (Auto) 0 % (0-3) Neutrophils # (Auto) 8.5 x10^3/uL (1.8-7.7) Lymphocytes # (Auto) 0.6 x10^3/uL (1.0-4.8) Monocytes # (Auto) 0.2 x10^3/uL (0.0-1.1) Eosinophils # (Auto) 0.0 x10^3/uL (0.0-0.7) Basophils # (Auto) 0.0 x10^3/uL (0.0-0.2) Sodium Level 138 mmol/L (136-145) Potassium Level 4.2 mmol/L (3.5-5.1) Chloride Level 105 mmol/L (98-107) Carbon Dioxide Level 25 mmol/L (21-32) Anion Gap 8 (6-14) Blood Urea Nitrogen 18 mg/dL (7-20) Creatinine 0.4 mg/dL (0.6-1.0) Estimated GFR (Cockcroft-Gault) 171.1 Glucose Level 145 mg/dL (70-99) Calcium Level 8.3 mg/dL (8.5-10.1) Arterial Blood pH 7.40 (7.35-7.45) Arterial Blood pCO2 at Patient Temp 40 mmHg (35-46) Arterial Blood pO2 at Patient Temp 69 mmHg (75-108) Arterial Blood HCO3 24 mmol/L (21-28) Arterial Blood Base Excess -1 mmol/L (-3-3) FiO2 100/bipap Laboratory Tests Test 04/16/20 11:38 04/16/20 17:40 04/17/20 07:05 04/17/20 08:00 Glucose (Fingerstick) 142 mg/dL (70-99) 140 mg/dL (70-99) White Blood Count 9.3 x10^3/uL (4.0-11.0) Red Blood Count 4.13 x10^6/uL (3.50-5.40) Hemoglobin 13.4 g/dL (12.0-15.5) Hematocrit 38.3 % (36.0-47.0) Mean Corpuscular Volume 93 fL (79-100) Mean Corpuscular Hemoglobin 32 pg (25-35) Mean Corpuscular Hemoglobin Concent 35 g/dL (31-37) Red Cell Distribution Width 14.2 % (11.5-14.5) Platelet Count 247 x10^3/uL (140-400) Neutrophils (%) (Auto) 91 % (31-73) Lymphocytes (%) (Auto) 7 % (24-48) Monocytes (%) (Auto) 2 % (0-9) Eosinophils (%) (Auto) 0 % (0-3) Basophils (%) (Auto) 0 % (0-3) Neutrophils # (Auto) 8.5 x10^3/uL (1.8-7.7) Lymphocytes # (Auto) 0.6 x10^3/uL (1.0-4.8) Monocytes # (Auto) 0.2 x10^3/uL (0.0-1.1) Eosinophils # (Auto) 0.0 x10^3/uL (0.0-0.7) Basophils # (Auto) 0.0 x10^3/uL (0.0-0.2) Sodium Level 138 mmol/L (136-145) Potassium Level 4.2 mmol/L (3.5-5.1) Chloride Level 105 mmol/L (98-107) Carbon Dioxide Level 25 mmol/L (21-32) Anion Gap 8 (6-14) Blood Urea Nitrogen 18 mg/dL (7-20) Creatinine 0.4 mg/dL (0.6-1.0) Estimated GFR (Cockcroft-Gault) 171.1 Glucose Level 145 mg/dL (70-99) Calcium Level 8.3 mg/dL (8.5-10.1) Arterial Blood pH 7.40 (7.35-7.45) Arterial Blood pCO2 at Patient Temp 40 mmHg (35-46) Arterial Blood pO2 at Patient Temp 69 mmHg (75-108) Arterial Blood HCO3 24 mmol/L (21-28) Arterial Blood Base Excess -1 mmol/L (-3-3) FiO2 100/bipap Medications Active Scripts Medications Dose Route/Sig Max Daily Dose Days Date Category Claritin (Loratadine) 10 Mg Tablet 10 Mg PO DAILY 04/06/20 Reported Codeine-Guaifen 10-100 mg/5 ml (Guaifenesin/Codeine Phosphate) 120 Ml Liquid 5 Ml PO PRN Q6HRS PRN MDD 20 Milliliter(s) 6 04/02/20 Rx Prednisone 50 Mg Tablet 1 Tab PO DAILY 04/02/20 Rx Zithromax (Azithromycin) 250 Mg Tablet 1 Pkg PO UD 04/02/20 Rx Ibuprofen 800 Mg Tablet 800 Mg PO PRN Q6HRS PRN 07/27/18 Rx Meclizine Hcl 25 Mg Tablet 1 Tab PO TID 07/27/18 Rx Zithromax (Azithromycin) 250 Mg Tablet 1 Pkg PO UD 07/27/18 Rx Tamiflu (Oseltamivir Phosphate) 75 Mg Capsule 1 Cap PO BID 07/27/18 Rx Comments CTA chest IMPRESSION: No evidence of main or lobar pulmonary embolus on significantly limited evaluation. Bilateral patchy groundglass opacities as described, compatible with viral pneumonia. CXR 04/14/20 Impression: Moderate bilateral infiltrates could be pulmonary edema or ARDS or pneumonia and appears mildly worse. Impression . IMPRESSION: 1. Acute hypoxic respiratory failure secondary to COVID-19 pneumonia. r/o bacterial pneumonia 2. Abnormal CT chest with bilateral patchy interstitial infiltrates compatible with COVID-19 pneumonia. 3. Underlying obesity. ?conor 4. History of hypertension. 5. encephalopathy Plan . RECOMMENDATIONS: Continue supplemental oxygen to keep oxygen saturations greater than 92%, continue BiPAP PRN Continue IV steroids with slow taper remdesivir for full course Follow chest x-ray/ABG, reviewed no changes at this time CTA of chest reviewed negative for pulmonary embolism Follow GI recommendations Continue vasopressors to keep MAP greater than 65, will give one-time dose of albumin as well today Follow infectious disease recommendations in regards to antibiotics Follow Cultures- NGTD DVT/GI prophylaxis: lovenox/pepcid Discussed with RN and RT critically ill cct 30 min no overlap Pt. CODE FULL PALAK GRIGGS MD Apr 17, 2020 11:15
[2020-04-17] MEDS: cefTRIAXone IV Push 1 GM VIAL. IVP SCH (13:12)
--- NOTE | 2020-04-17 13:20 | NUR ---
Have reviewed and agree with documentation completed by global marketing intern
--- NOTE | 2020-04-17 15:58 | PDOC ---
[facility] [facility] PROGRESS NOTE Date of Service DOS: DATE: 04/17/20 TIME: 15:56 Chief Complaint Chief Complaint IMPRESSION Acute respiratory failure with hypoxia -likely due to COVID-19 pneumonia Increased multifocal pulmonary opacities Bilateral patchy groundglass opacities as described, compatible with viral pneumonia Moderate bilateral infiltrates could be pulmonary edema or ARDS or pneumonia and appears mildly worse.04-14 Pneumonia due to 2019 novel coronavirus Rhabdomyolysis -will hydrate aggressively Hypokalemia Transaminitis High Cholesterol Hypertension Seasonal allergies Fatty liver - will monitor transaminases, Hyperglycemia anxiety PLAN FEN - regular diet PPX - lovenox FULL CODE Dispo - inpatient for above ICU BED consult nephrology CTA of chest reviewed negative for pulmonary embolism antibiotics, iv Rocephin begin buspar 10 mg po tid iv fluid support CPK [id number] 04-11 [id number] 04-12 [id number] 04-13 31 MIN CC TIME History of Present Illness History of Present Illness Ms Olson is a 49-year-old female w/ PMHx High Cholesterol, Hypertension, seasonal allergies, fatty liver who presented 04/02/2020 for Covid-like symptoms and returns with the same. Patient reports symptoms have worsened including fever, shortness of air, loss of taste, nausea, fatigue, dizziness, and bilateral lower extremity pain. Denies any vomiting or diarrhea. Reports family members now with similar symptoms. Reports her spouse had some symptoms prior to her. Her SARS-CoV-2 PCR test from 04/02/2020 returned positive. Other labs significant for WBC 8.8, Hb 14.1, platelets 241, D-dimer 0.70, NA 135 , K3.5, BUN 6, CR 0.7, glucose 111, AST 366, ALT 177, CK 54,211. Rapid influenza negative EKG Sinus tachycardia at 119bpm, NO ST elevation, QRS 82ms, QT/QTc 308/434ms, baseline artifact noted. Febrile to 101 F CTPA with no PE but Bilateral patchy groundglass opacities as described, compatible with viral pneumonia. She was hypoxic to 82% on normal air and required 6L NCO2 to improve her O2 status. Admitted for further care IV fluid hydration provided. Symptomatic treatment provided with dexamethasone. Empiric antibiotic initiated. 04/17/2020 Patient seen and evaluated COVID-19 ICU. Reportedly no acute events overnight. Afebrile, tachypneic, breathing on high flow nasal cannula. Discussed with RN. 04/16/2020 Patient seen and evaluated in [facility]- ICU. No acute events overnight. Afebrile, tachypneic. Still breathing on BiPAP at FiO2 80%. CK improving. Discussed with RN. 04/15/2020 Patient seen in [facility]- ICU. Breathing BiPAP, FiO2 100%. Continue steroids, antibiotics, and remdesivir. LFTs improving. Unfortunately rhabdomyolysis and transaminitis are high risk for remdesivir therapy, will continue to monitor LFTs and CK. 04/14/2020 Patient seen and examined She is still on 100% nonrebreather Appears quite ill Discussed with RN Discussed with pharmacy Chart reviewed Vitals/I&O Vitals/I&O: Vital Signs Date Time Temp Pulse Resp B/P (MAP) Pulse Ox O2 Delivery O2 Flow Rate FiO2 04/17/20 13:00 55 36 107/65 (79) 100 venti mask and hf nc 04/17/20 07:00 97.3 97.3 I & O 04/16/20 04/16/20 04/17/20 14:59 22:59 06:59 Intake Total 802 ml 1250 ml Output Total 1160 ml 855 ml 1750 ml Balance -1160 ml -53 ml -500 ml Physical Exam Physical Exam: GENERAL: Alert, awake female, on BiPAP. HEENT: Normocephalic, atraumatic. NECK: Supple, no JVD. LUNGS: Decreased breath sound at bases. No rhonchi. ABDOMEN: Soft, nontender, nondistended, no rebound, no guarding. EXTREMITIES: No edema, no cyanosis. DERMATOLOGIC: Warm, dry. No generalized rash. NEUROLOGIC: Alert, awake, moves all 4 extremities. PSYCHIATRIC: Calm and cooperative. General: Alert, Oriented X3, Cooperative, No acute distress Heart: Regular rate Abdomen: Normal bowel sounds, Soft, No tenderness, No hepatosplenomegaly, No masses Extremities: No clubbing, No cyanosis, No edema, Normal pulses, No tenderness/swelling Skin: No rashes, No breakdown, No significant lesion Labs Labs: Laboratory Tests Test 04/16/20 17:40 04/17/20 07:05 04/17/20 08:00 04/17/20 11:46 Glucose (Fingerstick) 140 mg/dL (70-99) 128 mg/dL (70-99) White Blood Count 9.3 x10^3/uL (4.0-11.0) Red Blood Count 4.13 x10^6/uL (3.50-5.40) Hemoglobin 13.4 g/dL (12.0-15.5) Hematocrit 38.3 % (36.0-47.0) Mean Corpuscular Volume 93 fL (79-100) Mean Corpuscular Hemoglobin 32 pg (25-35) Mean Corpuscular Hemoglobin Concent 35 g/dL (31-37) Red Cell Distribution Width 14.2 % (11.5-14.5) Platelet Count 247 x10^3/uL (140-400) Neutrophils (%) (Auto) 91 % (31-73) Lymphocytes (%) (Auto) 7 % (24-48) Monocytes (%) (Auto) 2 % (0-9) Eosinophils (%) (Auto) 0 % (0-3) Basophils (%) (Auto) 0 % (0-3) Neutrophils # (Auto) 8.5 x10^3/uL (1.8-7.7) Lymphocytes # (Auto) 0.6 x10^3/uL (1.0-4.8) Monocytes # (Auto) 0.2 x10^3/uL (0.0-1.1) Eosinophils # (Auto) 0.0 x10^3/uL (0.0-0.7) Basophils # (Auto) 0.0 x10^3/uL (0.0-0.2) Sodium Level 138 mmol/L (136-145) Potassium Level 4.2 mmol/L (3.5-5.1) Chloride Level 105 mmol/L (98-107) Carbon Dioxide Level 25 mmol/L (21-32) Anion Gap 8 (6-14) Blood Urea Nitrogen 18 mg/dL (7-20) Creatinine 0.4 mg/dL (0.6-1.0) Estimated GFR (Cockcroft-Gault) 171.1 Glucose Level 145 mg/dL (70-99) Calcium Level 8.3 mg/dL (8.5-10.1) Arterial Blood pH 7.40 (7.35-7.45) Arterial Blood pCO2 at Patient Temp 40 mmHg (35-46) Arterial Blood pO2 at Patient Temp 69 mmHg (75-108) Arterial Blood HCO3 24 mmol/L (21-28) Arterial Blood Base Excess -1 mmol/L (-3-3) FiO2 100/bipap Assessment and Plan Assessmemt and Plan Problems Medical Problems: (1) Hypoxia Status: Acute (2) Pneumonia due to 2019 novel coronavirus Status: Acute (3) Respiratory failure Status: Acute (4) Rhabdomyolysis Status: Acute Comment Review of Relevant I have reviewed the following items eddie (where applicable) has been applied. Medications: Current Medications Medications (Trade) Dose Ordered Sig/Lizbeth Route PRN Reason Start Time Stop Time Status Last Admin Dose Admin Albumin Human 500 ml @ 125 mls/hr 1X ONCE IV 04/17/20 10:15 04/17/20 14:14 DC 04/17/20 10:19 Justifications for Admission Other Justification ELISA LOYA MD Apr 17, 2020 15:58
--- NOTE | 2020-04-17 16:00 | NUR ---
SS following up with discharge planning. SS reviewed pt chart and discussed with pt RN. Pt is currently on venti mask and high flow nasal canula. COVID19 positive. Pt on IV Remdesivir and IV Rocephin. Not stable. SS will continue to follow for discharge planning.
[2020-04-17] MEDS: IV NORMAL SALINE 1000ML BAG 1,000 ML IV SCH (16:01)
[2020-04-17] MEDS: REMDESIVIR 100mg in NORMAL SALINE 250ML X 4 DAYS IV SCH (16:51)
[2020-04-17] MEDS: ZOLPIDEM 5 MG TABLET. PO PRN (20:44)
[2020-04-17] MEDS: INSULIN GLARGINE SYRINGE. SQ SCH (20:45)
[2020-04-18] VITALS (24 sets, daily range): BP systolic 87–142; BP diastolic 49–85
--- NOTE | 2020-04-18 05:05 | RAD ---
CHEST AP ONLY History: Reason: covid pna 114 / Spl. Instructions: / History: Comparison: April 14, 2020 Findings: Multifocal pulmonary opacities, decreased compared to prior. No pleural effusion. No pneumothorax. Unchanged heart size. Impression: 1. Decrease multifocal pulmonary opacities. Electronically signed by: Geovanny Eddy DO (04/18/2020 5:02 AM) [facility]
[2020-04-18] MEDS: methylPREDNISolone SOD SUCC PF 40 MG/ML VIAL. IV SCH ×3 (06:30→21:02)
[2020-04-18] MEDS: DEXMEDETOMIDINE 400 MCG in IV NORMAL SALINE 100ML 96 ML IV PRN ×3 (06:30→21:04)
--- NOTE | 2020-04-18 07:51 | PDOC ---
Infectious Disease Note Subjective Subjective Patient is feeling okay , on bipap ROS ROS No nausea vomiting diarrhea or fever Vital Sign Vital Signs Vital Signs Date Time Temp Pulse Resp B/P (MAP) Pulse Ox O2 Delivery O2 Flow Rate FiO2 04/18/20 06:00 41 22 127/72 (90) 100 BiPAP/CPAP 04/18/20 04:00 97.8 97.8 04/17/20 20:00 15.0 Physical Exam PHYSICAL EXAM GENERAL: Alert, awake female, on BiPAP. HEENT: Normocephalic, atraumatic. NECK: Supple, no JVD. LUNGS: Decreased breath sound at bases. No rhonchi. ABDOMEN: Soft, nontender, nondistended, no rebound, no guarding. EXTREMITIES: No edema, no cyanosis. DERMATOLOGIC: Warm, dry. No generalized rash. NEUROLOGIC: Alert, awake, moves all 4 extremities. PSYCHIATRIC: Calm and cooperative. Labs Lab Laboratory Tests Test 04/17/20 08:00 04/17/20 11:46 04/17/20 17:18 O2 Saturation % (92-99) Arterial Blood pH 7.40 (7.35-7.45) Arterial Blood pCO2 at Patient Temp 40 mmHg (35-46) Arterial Blood pO2 at Patient Temp 69 mmHg (75-108) Arterial Blood HCO3 24 mmol/L (21-28) Arterial Blood Base Excess -1 mmol/L (-3-3) FiO2 100/bipap Glucose (Fingerstick) 128 mg/dL (70-99) 117 mg/dL (70-99) Micro Microbiology 04/06/20 Blood Culture - Final, Complete NO GROWTH AFTER 5 DAYS Objective Assessment 1. COVID-19 infection. 2. COVID-19 pneumonia. 3. Acute hypoxic respiratory failure. 4. Abnormal liver function tests. 5. Fatty liver with hepatic steatosis. 6. Rhabdomyolysis. 7. Hypertension/hyperlipidemia 8. Fever on admission. Plan Plan of Care RECOMMENDATIONS: 1. Continue supportive care. 2. Start remdesivir. Discussed with pharmacy. 3. Follow up labs and cultures. 4. Continue ceftriaxone for now. 5. Continue steroids 0per Pulmonary. 6. Maintain aspiration precaution. CEZAR GARRETT MD Apr 18, 2020 07:51
[2020-04-18 07:52] LABS: BASO % 0 % (0-3); EOS % 0 % (0-3); HEMATOCRIT 36.1 % (36.0-47.0); HEMOGLOBIN 12.6 g/dL (12.0-15.5); LYMPH # 0.8 x10^3/uL (1.0-4.8); LYMPH % 8 % (24-48); MEAN CORPUSCULAR HEMOGLOBIN 32 pg (25-35); MEAN CORPUSCULAR HGB CONC 35 g/dL (31-37); MEAN CORPUSCULAR VOLUME 92 fL (79-100); MONO # 0.3 x10^3/uL (0.0-1.1); MONO % 3 % (0-9); NEUT # 9.1 x10^3/uL (1.8-7.7); NEUT % 89 % (31-73); PLATELET COUNT 236 x10^3/uL (140-400); RED BLOOD COUNT 3.92 x10^6/uL (3.50-5.40); RED CELL DISTRIBUTION WIDTH 14.1 % (11.5-14.5); WHITE BLOOD COUNT 10.2 x10^3/uL (4.0-11.0)
[2020-04-18] MEDS: INSULIN LISPRO 300 UNITS/3 ML VIAL. SQ SCH ×3 (08:00→17:00)
[2020-04-18 08:35] LABS: CALCIUM 8.1 mg/dL (8.5-10.1); CREATININE 0.4 mg/dL (0.6-1.0); GFR 171.1; POTASSIUM 4.1 mmol/L (3.5-5.1)
[2020-04-18] MEDS: busPIRone 10 MG TABLET. PO SCH ×3 (09:10→21:02)
[2020-04-18] MEDS: LACTOBACILLUS RHAMNOSUS GG 1 CAPSULE. PO SCH ×2 (09:10→21:02)
[2020-04-18] MEDS: ZINC SULFATE 220 MG CAPSULE. PO SCH (09:10)
[2020-04-18] MEDS: FAMOTIDINE 20 MG TABLET. PO SCH ×2 (09:10→21:02)
[2020-04-18] MEDS: ALPRAZolam 0.5 MG TABLET PO SCH ×2 (09:10→21:02)
[2020-04-18] MEDS: ENOXAPARIN 40 MG/0.4 ML SYRINGE. SQ SCH ×2 (09:11→21:02)
--- NOTE | 2020-04-18 10:36 | PDOC ---
Date of Service: DATE: 04/18/20 TIME: 10:26 Objective: Objective: D/w nurse - threw her meal tray on the floor yesterday. Vital Signs: Vital Signs Date Time Temp Pulse Resp B/P (MAP) Pulse Ox O2 Delivery O2 Flow Rate FiO2 04/18/20 08:00 99 BiPAP/CPAP 04/18/20 06:00 41 22 127/72 (90) 04/18/20 04:00 97.8 97.8 04/17/20 20:00 15.0 Labs: Laboratory Tests Test 04/17/20 11:46 04/17/20 17:18 04/18/20 07:18 Glucose (Fingerstick) 128 mg/dL 117 mg/dL White Blood Count 10.2 x10^3/uL Red Blood Count 3.92 x10^6/uL Hemoglobin 12.6 g/dL Hematocrit 36.1 % Mean Corpuscular Volume 92 fL Mean Corpuscular Hemoglobin 32 pg Mean Corpuscular Hemoglobin Concent 35 g/dL Red Cell Distribution Width 14.1 % Platelet Count 236 x10^3/uL Neutrophils (%) (Auto) 89 % Lymphocytes (%) (Auto) 8 % Monocytes (%) (Auto) 3 % Eosinophils (%) (Auto) 0 % Basophils (%) (Auto) 0 % Neutrophils # (Auto) 9.1 x10^3/uL Lymphocytes # (Auto) 0.8 x10^3/uL Monocytes # (Auto) 0.3 x10^3/uL Eosinophils # (Auto) 0.0 x10^3/uL Basophils # (Auto) 0.0 x10^3/uL Sodium Level 138 mmol/L Potassium Level 4.1 mmol/L Chloride Level 104 mmol/L Carbon Dioxide Level 26 mmol/L Anion Gap 8 Blood Urea Nitrogen 20 mg/dL Creatinine 0.4 mg/dL Estimated GFR (Cockcroft-Gault) 171.1 Glucose Level 106 mg/dL Calcium Level 8.1 mg/dL Imaging: CXR 04/18 Impression: 1. Decrease multifocal pulmonary opacities. PE: GEN: visual exam done - COVID isolation LUNGS: on NC HEART: RRR ABD: non-distended NEURO/PSYCH: sleeping A/P: COVID-19 infection, resp failure/pneumonia Elevated AST and ALT - better, checked 04/16 -- Diet as able, can recheck LFTs tomorrow. Justicifation of Admission Dx: Justifications for Admission: Justification of Admission Dx: Yes ALLISON CHAMORRO Apr 18, 2020 10:36
--- NOTE | 2020-04-18 10:55 | PDOC ---
PULMONARY PROGRESS NOTES DATE: 04/18/20 TIME: 10:52 Subjective Patient wore BiPAP 100% overnight, currently on 15 L high flow nasal cannula Afebrile overnight off Levophed No overnight concerns from nursing Vitals Vital Signs Date Time Temp Pulse Resp B/P (MAP) Pulse Ox O2 Delivery O2 Flow Rate FiO2 04/18/20 08:00 99 BiPAP/CPAP 04/18/20 08:00 97.6 50 35 134/83 (100) 15.0 97.6 Comments Patient seen during COVID- pandemic, visual exam performed rrr bipap has accessory muscle use/distress No obvious rash or edema Labs Laboratory Tests Test 04/16/20 11:38 04/16/20 17:40 04/17/20 07:05 04/17/20 08:00 Glucose (Fingerstick) 142 mg/dL (70-99) 140 mg/dL (70-99) White Blood Count 9.3 x10^3/uL (4.0-11.0) Red Blood Count 4.13 x10^6/uL (3.50-5.40) Hemoglobin 13.4 g/dL (12.0-15.5) Hematocrit 38.3 % (36.0-47.0) Mean Corpuscular Volume 93 fL (79-100) Mean Corpuscular Hemoglobin 32 pg (25-35) Mean Corpuscular Hemoglobin Concent 35 g/dL (31-37) Red Cell Distribution Width 14.2 % (11.5-14.5) Platelet Count 247 x10^3/uL (140-400) Neutrophils (%) (Auto) 91 % (31-73) Lymphocytes (%) (Auto) 7 % (24-48) Monocytes (%) (Auto) 2 % (0-9) Eosinophils (%) (Auto) 0 % (0-3) Basophils (%) (Auto) 0 % (0-3) Neutrophils # (Auto) 8.5 x10^3/uL (1.8-7.7) Lymphocytes # (Auto) 0.6 x10^3/uL (1.0-4.8) Monocytes # (Auto) 0.2 x10^3/uL (0.0-1.1) Eosinophils # (Auto) 0.0 x10^3/uL (0.0-0.7) Basophils # (Auto) 0.0 x10^3/uL (0.0-0.2) Sodium Level 138 mmol/L (136-145) Potassium Level 4.2 mmol/L (3.5-5.1) Chloride Level 105 mmol/L (98-107) Carbon Dioxide Level 25 mmol/L (21-32) Anion Gap 8 (6-14) Blood Urea Nitrogen 18 mg/dL (7-20) Creatinine 0.4 mg/dL (0.6-1.0) Estimated GFR (Cockcroft-Gault) 171.1 Glucose Level 145 mg/dL (70-99) Calcium Level 8.3 mg/dL (8.5-10.1) O2 Saturation % (92-99) Arterial Blood pH 7.40 (7.35-7.45) Arterial Blood pCO2 at Patient Temp 40 mmHg (35-46) Arterial Blood pO2 at Patient Temp 69 mmHg (75-108) Arterial Blood HCO3 24 mmol/L (21-28) Arterial Blood Base Excess -1 mmol/L (-3-3) FiO2 100/bipap Test 04/17/20 11:46 04/17/20 17:18 04/18/20 07:18 Glucose (Fingerstick) 128 mg/dL (70-99) 117 mg/dL (70-99) White Blood Count 10.2 x10^3/uL (4.0-11.0) Red Blood Count 3.92 x10^6/uL (3.50-5.40) Hemoglobin 12.6 g/dL (12.0-15.5) Hematocrit 36.1 % (36.0-47.0) Mean Corpuscular Volume 92 fL (79-100) Mean Corpuscular Hemoglobin 32 pg (25-35) Mean Corpuscular Hemoglobin Concent 35 g/dL (31-37) Red Cell Distribution Width 14.1 % (11.5-14.5) Platelet Count 236 x10^3/uL (140-400) Neutrophils (%) (Auto) 89 % (31-73) Lymphocytes (%) (Auto) 8 % (24-48) Monocytes (%) (Auto) 3 % (0-9) Eosinophils (%) (Auto) 0 % (0-3) Basophils (%) (Auto) 0 % (0-3) Neutrophils # (Auto) 9.1 x10^3/uL (1.8-7.7) Lymphocytes # (Auto) 0.8 x10^3/uL (1.0-4.8) Monocytes # (Auto) 0.3 x10^3/uL (0.0-1.1) Eosinophils # (Auto) 0.0 x10^3/uL (0.0-0.7) Basophils # (Auto) 0.0 x10^3/uL (0.0-0.2) Sodium Level 138 mmol/L (136-145) Potassium Level 4.1 mmol/L (3.5-5.1) Chloride Level 104 mmol/L (98-107) Carbon Dioxide Level 26 mmol/L (21-32) Anion Gap 8 (6-14) Blood Urea Nitrogen 20 mg/dL (7-20) Creatinine 0.4 mg/dL (0.6-1.0) Estimated GFR (Cockcroft-Gault) 171.1 Glucose Level 106 mg/dL (70-99) Calcium Level 8.1 mg/dL (8.5-10.1) Laboratory Tests Test 04/17/20 11:46 04/17/20 17:18 04/18/20 07:18 Glucose (Fingerstick) 128 mg/dL (70-99) 117 mg/dL (70-99) White Blood Count 10.2 x10^3/uL (4.0-11.0) Red Blood Count 3.92 x10^6/uL (3.50-5.40) Hemoglobin 12.6 g/dL (12.0-15.5) Hematocrit 36.1 % (36.0-47.0) Mean Corpuscular Volume 92 fL (79-100) Mean Corpuscular Hemoglobin 32 pg (25-35) Mean Corpuscular Hemoglobin Concent 35 g/dL (31-37) Red Cell Distribution Width 14.1 % (11.5-14.5) Platelet Count 236 x10^3/uL (140-400) Neutrophils (%) (Auto) 89 % (31-73) Lymphocytes (%) (Auto) 8 % (24-48) Monocytes (%) (Auto) 3 % (0-9) Eosinophils (%) (Auto) 0 % (0-3) Basophils (%) (Auto) 0 % (0-3) Neutrophils # (Auto) 9.1 x10^3/uL (1.8-7.7) Lymphocytes # (Auto) 0.8 x10^3/uL (1.0-4.8) Monocytes # (Auto) 0.3 x10^3/uL (0.0-1.1) Eosinophils # (Auto) 0.0 x10^3/uL (0.0-0.7) Basophils # (Auto) 0.0 x10^3/uL (0.0-0.2) Sodium Level 138 mmol/L (136-145) Potassium Level 4.1 mmol/L (3.5-5.1) Chloride Level 104 mmol/L (98-107) Carbon Dioxide Level 26 mmol/L (21-32) Anion Gap 8 (6-14) Blood Urea Nitrogen 20 mg/dL (7-20) Creatinine 0.4 mg/dL (0.6-1.0) Estimated GFR (Cockcroft-Gault) 171.1 Glucose Level 106 mg/dL (70-99) Calcium Level 8.1 mg/dL (8.5-10.1) Medications Active Scripts Medications Dose Route/Sig Max Daily Dose Days Date Category Claritin (Loratadine) 10 Mg Tablet 10 Mg PO DAILY 04/06/20 Reported Codeine-Guaifen 10-100 mg/5 ml (Guaifenesin/Codeine Phosphate) 120 Ml Liquid 5 Ml PO PRN Q6HRS PRN MDD 20 Milliliter(s) 6 04/02/20 Rx Prednisone 50 Mg Tablet 1 Tab PO DAILY 04/02/20 Rx Zithromax (Azithromycin) 250 Mg Tablet 1 Pkg PO UD 04/02/20 Rx Ibuprofen 800 Mg Tablet 800 Mg PO PRN Q6HRS PRN 07/27/18 Rx Meclizine Hcl 25 Mg Tablet 1 Tab PO TID 07/27/18 Rx Zithromax (Azithromycin) 250 Mg Tablet 1 Pkg PO UD 07/27/18 Rx Tamiflu (Oseltamivir Phosphate) 75 Mg Capsule 1 Cap PO BID 07/27/18 Rx Comments CTA chest IMPRESSION: No evidence of main or lobar pulmonary embolus on significantly limited evaluation. Bilateral patchy groundglass opacities as described, compatible with viral pneumonia. CXR 04/18/20 Impression: improving infiltrates Impression . IMPRESSION: 1. Acute hypoxic respiratory failure secondary to COVID-19 pneumonia. r/o bacterial pneumonia 2. Abnormal CT chest with bilateral patchy interstitial infiltrates compatible with COVID-19 pneumonia. 3. Underlying obesity. ?conor 4. History of hypertension. 5. encephalopathy, improving Plan . RECOMMENDATIONS: Continue supplemental oxygen to keep oxygen saturations greater than 92%, continue BiPAP PRN Continue IV steroids with slow taper s/p remdesivir full course Follow chest x-ray 04/18, mild improvement. CTA of chest reviewed negative for pulmonary embolism Follow GI recommendations Continue vasopressors to keep MAP greater than 65, will give one-time dose of albumin as well today Follow infectious disease recommendations in regards to antibiotics Follow Cultures- NGTD DVT/GI prophylaxis: lovenox/pepcid Discussed with RN and RT critically ill cct 30 min no overlap Pt. CODE FULL PALAK GRIGGS MD Apr 18, 2020 10:55
[2020-04-18 11:10] LABS: % LYMPHS 10 % (24-48); % MONOS 4 % (0-10); % SEGS 86 % (35-66); PLT ESTIMATE ADEQUATE (ADEQUATE)
--- NOTE | 2020-04-18 13:14 | PDOC ---
[employer] PROGRESS NOTE Date of Service DOS: DATE: 04/18/20 TIME: 13:11 Chief Complaint Chief Complaint IMPRESSION Acute respiratory failure with hypoxia -likely due to COVID-19 pneumonia Increased multifocal pulmonary opacities Bilateral patchy groundglass opacities as described, compatible with viral pneumonia Moderate bilateral infiltrates could be pulmonary edema or ARDS or pneumonia and appears mildly worse.04-14 Pneumonia due to 2019 novel coronavirus Rhabdomyolysis -will hydrate aggressively Hypokalemia Transaminitis High Cholesterol Hypertension Seasonal allergies Fatty liver - will monitor transaminases, Hyperglycemia anxiety PLAN FEN - regular diet PPX - lovenox FULL CODE Dispo - inpatient for above ICU BED consult nephrology CTA of chest reviewed negative for pulmonary embolism antibiotics, iv Rocephin begin buspar 10 mg po tid iv fluid support CPK [id number] 04-11 [id number] 04-12 [id number] 04-13 31 MIN CC TIME History of Present Illness History of Present Illness Ms Olson is a 49-year-old female w/ PMHx High Cholesterol, Hypertension, seasonal allergies, fatty liver who presented 04/02/2020 for Covid-like symptoms and returns with the same. Patient reports symptoms have worsened including fever, shortness of air, loss of taste, nausea, fatigue, dizziness, and bilateral lower extremity pain. Denies any vomiting or diarrhea. Reports family members now with similar symptoms. Reports her spouse had some symptoms prior to her. Her SARS-CoV-2 PCR test from 04/02/2020 returned positive. Other labs significant for WBC 8.8, Hb 14.1, platelets 241, D-dimer 0.70, NA 13 5, K3.5, BUN 6, CR 0.7, glucose 111, AST 366, ALT 177, CK 54,211. Rapid influenza negative EKG Sinus tachycardia at 119bpm, NO ST elevation, QRS 82ms, QT/QTc 308/434ms, baseline artifact noted. Febrile to 101 F CTPA with no PE but Bilateral patchy groundglass opacities as described, compatible with viral pneumonia. She was hypoxic to 82% on normal air and required 6L NCO2 to improve her O2 status. Admitted for further care IV fluid hydration provided. Symptomatic treatment provided with dexamethasone. Empiric antibiotic initiated. 04/18/2020 Patient seen and evaluated in Covid ICU. She is having some worsening respiratory distress. Currently breathing on BiPAP, FiO2 100%, respiratory rate 22. Concerned she may require intubation. Continue Rocephin, Precedex. Remdesivir last dose today. 04/17/2020 Patient seen and evaluated [place] [address] ICU. Reportedly no acute events overnight. Afebrile, tachypneic, breathing on high flow nasal cannula. Discussed with RN. 04/16/2020 Patient seen and evaluated in [place] [address] ICU. No acute events overnight. Afebrile, tachypneic. Still breathing on BiPAP at FiO2 80%. CK improving. Discussed with RN. 04/15/2020 Patient seen in [place] [address] ICU. Breathing BiPAP, FiO2 100%. Continue steroids, antibiotics, and remdesivir. LFTs improving. Unfortunately rhabdomyolysis and transaminitis are high risk for remdesivir therapy, will continue to monitor LF Ts and CK. 04/14/2020 Patient seen and examined She is still on 100% nonrebreather Appears quite ill Discussed with RN Discussed with pharmacy Chart reviewed Vitals/I&O Vitals/I&O: Vital Signs Date Time Temp Pulse Resp B/P (MAP) Pulse Ox O2 Delivery O2 Flow Rate FiO2 04/18/20 11:00 43 17 120/71 (87) 96 High Flow Nasal Cannula 15.0 04/18/20 08:00 97.6 97.6 I & O 04/17/20 04/17/20 04/18/20 15:00 23:00 07:00 Intake Total 1454 ml 200 ml Output Total 1500 ml 1500 ml 990 ml Balance -1500 ml -46 ml -790 ml Physical Exam General: Alert, Cooperative, mild distress Heart: Regular rate Lungs: Other (Increased work of breathing, tachypnea) Abdomen: No masses, Other (Nondistended) Extremities: No clubbing, No cyanosis Skin: No rashes, No breakdown Labs Labs: Laboratory Tests Test 04/17/20 17:18 04/18/20 07:18 04/18/20 11:59 Glucose (Fingerstick) 117 mg/dL (70-99) 128 mg/dL (70-99) White Blood Count 10.2 x10^3/uL (4.0-11.0) Red Blood Count 3.92 x10^6/uL (3.50-5.40) Hemoglobin 12.6 g/dL (12.0-15.5) Hematocrit 36.1 % (36.0-47.0) Mean Corpuscular Volume 92 fL (79-100) Mean Corpuscular Hemoglobin 32 pg (25-35) Mean Corpuscular Hemoglobin Concent 35 g/dL (31-37) Red Cell Distribution Width 14.1 % (11.5-14.5) Platelet Count 236 x10^3/uL (140-400) Neutrophils (%) (Auto) 89 % (31-73) Lymphocytes (%) (Auto) 8 % (24-48) Monocytes (%) (Auto) 3 % (0-9) Eosinophils (%) (Auto) 0 % (0-3) Basophils (%) (Auto) 0 % (0-3) Neutrophils # (Auto) 9.1 x10^3/uL (1.8-7.7) Lymphocytes # (Auto) 0.8 x10^3/uL (1.0-4.8) Monocytes # (Auto) 0.3 x10^3/uL (0.0-1.1) Eosinophils # (Auto) 0.0 x10^3/uL (0.0-0.7) Basophils # (Auto) 0.0 x10^3/uL (0.0-0.2) Segmented Neutrophils % 86 % (35-66) Lymphocytes % 10 % (24-48) Monocytes % 4 % (0-10) Platelet Estimate Adequate (ADEQUATE) Sodium Level 138 mmol/L (136-145) Potassium Level 4.1 mmol/L (3.5-5.1) Chloride Level 104 mmol/L (98-107) Carbon Dioxide Level 26 mmol/L (21-32) Anion Gap 8 (6-14) Blood Urea Nitrogen 20 mg/dL (7-20) Creatinine 0.4 mg/dL (0.6-1.0) Estimated GFR (Cockcroft-Gault) 171.1 Glucose Level 106 mg/dL (70-99) Calcium Level 8.1 mg/dL (8.5-10.1) Review of Systems Review of Systems: Unable to obtain due to clinical condition Assessment and Plan Assessmemt and Plan Problems Medical Problems: (1) Hypoxia Status: Acute (2) Pneumonia due to 2019 novel coronavirus Status: Acute (3) Respiratory failure Status: Acute (4) Rhabdomyolysis Status: Acute Comment Review of Relevant I have reviewed the following items eddie (where applicable) has been applied. Justifications for Admission Other Justification ELISA LOYA MD Apr 18, 2020 13:14
[2020-04-18 13:29] LABS: MAGNESIUM 2.6 mg/dL (1.8-2.4)
--- NOTE | 2020-04-18 16:19 | NUR ---
SS following up with discharge planning. SS reviewed pt chart and discussed with pt RN. Pt is currently on high flow nasal canula. COVID19 positive. Not stable. SS will continue to follow for discharge planning.
[2020-04-18] MEDS: REMDESIVIR 100mg in NORMAL SALINE 250ML X 4 DAYS IV SCH (16:45)
[2020-04-18] MEDS: guaiFENesin DM 200MG/20MG 10 ML SYRUP PO PRN ×2 (17:50→21:03)
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
[2020-04-18] MEDS: ZOLPIDEM 5 MG TABLET. PO PRN (21:02)
[2020-04-18] MEDS: IV NORMAL SALINE 1000ML BAG 1,000 ML IV SCH (21:03)
[2020-04-18] MEDS: INSULIN GLARGINE SYRINGE. SQ SCH (21:48)
[2020-04-19] VITALS (24 sets, daily range): BP systolic 85–120; BP diastolic 5–84
[2020-04-19] MEDS: guaiFENesin/CODEINE 100mg/10mg 5 ML LIQUID PO PRN ×4 (02:04→22:38)
[2020-04-19 05:20] LABS: BASO % 0 % (0-3); EOS % 0 % (0-3); HEMATOCRIT 36.6 % (36.0-47.0); HEMOGLOBIN 12.6 g/dL (12.0-15.5); LYMPH # 0.6 x10^3/uL (1.0-4.8); LYMPH % 8 % (24-48); MEAN CORPUSCULAR HEMOGLOBIN 32 pg (25-35); MEAN CORPUSCULAR HGB CONC 35 g/dL (31-37); MEAN CORPUSCULAR VOLUME 93 fL (79-100); MONO # 0.2 x10^3/uL (0.0-1.1); MONO % 3 % (0-9); NEUT # 7.3 x10^3/uL (1.8-7.7); NEUT % 89 % (31-73); PLATELET COUNT 232 x10^3/uL (140-400); RED BLOOD COUNT 3.96 x10^6/uL (3.50-5.40); RED CELL DISTRIBUTION WIDTH 13.6 % (11.5-14.5); WHITE BLOOD COUNT 8.1 x10^3/uL (4.0-11.0)
[2020-04-19] MEDS: methylPREDNISolone SOD SUCC PF 40 MG/ML VIAL. IV SCH (05:37)
[2020-04-19 05:50] LABS: CALCIUM 7.9 mg/dL (8.5-10.1); CREATININE 0.5 mg/dL (0.6-1.0); GFR 132.2
[2020-04-19 05:54] LABS: ALBUMIN 2.6 g/dL (3.4-5.0); DIRECT BILIRUBIN 0.1 mg/dL (0.0-0.2); TOTAL BILIRUBIN 0.4 mg/dL (0.2-1.0); TOTAL PROTEIN 5.9 g/dL (6.4-8.2)
[2020-04-19] MEDS: INSULIN LISPRO 300 UNITS/3 ML VIAL. SQ SCH ×3 (08:00→16:57)
--- NOTE | 2020-04-19 08:14 | PDOC ---
Infectious Disease Note Subjective Subjective Patient is feeling okay , on bipap Vital Sign Vital Signs Vital Signs Date Time Temp Pulse Resp B/P (MAP) Pulse Ox O2 Delivery O2 Flow Rate FiO2 04/19/20 06:00 57 22 90/56 (67) 99 High Flow Nasal Cannula 15.0 04/19/20 04:00 98.7 98.7 Physical Exam PHYSICAL EXAM GENERAL: Alert, awake female, on BiPAP. HEENT: Normocephalic, atraumatic. NECK: Supple, no JVD. LUNGS: Decreased breath sound at bases. No rhonchi. ABDOMEN: Soft, nontender, nondistended, no rebound, no guarding. EXTREMITIES: No edema, no cyanosis. DERMATOLOGIC: Warm, dry. No generalized rash. NEUROLOGIC: Alert, awake, moves all 4 extremities. PSYCHIATRIC: Calm and cooperative. Labs Lab Laboratory Tests Test 04/18/20 11:59 04/18/20 17:18 04/18/20 21:46 04/19/20 05:00 Glucose (Fingerstick) 128 mg/dL (70-99) 118 mg/dL (70-99) 144 mg/dL (70-99) White Blood Count 8.1 x10^3/uL (4.0-11.0) Red Blood Count 3.96 x10^6/uL (3.50-5.40) Hemoglobin 12.6 g/dL (12.0-15.5) Hematocrit 36.6 % (36.0-47.0) Mean Corpuscular Volume 93 fL (79-100) Mean Corpuscular Hemoglobin 32 pg (25-35) Mean Corpuscular Hemoglobin Concent 35 g/dL (31-37) Red Cell Distribution Width 13.6 % (11.5-14.5) Platelet Count 232 x10^3/uL (140-400) Neutrophils (%) (Auto) 89 % (31-73) Lymphocytes (%) (Auto) 8 % (24-48) Monocytes (%) (Auto) 3 % (0-9) Eosinophils (%) (Auto) 0 % (0-3) Basophils (%) (Auto) 0 % (0-3) Neutrophils # (Auto) 7.3 x10^3/uL (1.8-7.7) Lymphocytes # (Auto) 0.6 x10^3/uL (1.0-4.8) Monocytes # (Auto) 0.2 x10^3/uL (0.0-1.1) Eosinophils # (Auto) 0.0 x10^3/uL (0.0-0.7) Basophils # (Auto) 0.0 x10^3/uL (0.0-0.2) Sodium Level 137 mmol/L (136-145) Potassium Level 4.0 mmol/L (3.5-5.1) Chloride Level 103 mmol/L (98-107) Carbon Dioxide Level 25 mmol/L (21-32) Anion Gap 9 (6-14) Blood Urea Nitrogen 15 mg/dL (7-20) Creatinine 0.5 mg/dL (0.6-1.0) Estimated GFR (Cockcroft-Gault) 132.2 Glucose Level 130 mg/dL (70-99) Calcium Level 7.9 mg/dL (8.5-10.1) Total Bilirubin 0.4 mg/dL (0.2-1.0) Direct Bilirubin 0.1 mg/dL (0.0-0.2) Aspartate Amino Transf (AST/SGOT) 28 U/L (15-37) Alanine Aminotransferase (ALT/SGPT) 54 U/L (14-59) Alkaline Phosphatase 70 U/L (46-116) Total Protein 5.9 g/dL (6.4-8.2) Albumin 2.6 g/dL (3.4-5.0) Test 04/19/20 07:45 Glucose (Fingerstick) 118 mg/dL (70-99) Micro Microbiology 04/06/20 Blood Culture - Final, Complete NO GROWTH AFTER 5 DAYS Objective Assessment 1. COVID-19 infection. 2. COVID-19 pneumonia. 3. Acute hypoxic respiratory failure. 4. Abnormal liver function tests. 5. Fatty liver with hepatic steatosis. 6. Rhabdomyolysis. 7. Hypertension/hyperlipidemia 8. Fever on admission. Plan Plan of Care RECOMMENDATIONS: 1. Continue supportive care. 2. remdesivir. given 3. Follow up labs and cultures. 4. off antibiotics 5. Continue steroids 0per Pulmonary. 6. Maintain aspiration precaution. CEZAR GARRETT MD Apr 19, 2020 08:14
--- NOTE | 2020-04-19 08:23 | PDOC ---
[employer] PROGRESS NOTE Date of Service DOS: DATE: 04/19/20 TIME: 08:13 Chief Complaint Chief Complaint IMPRESSION Acute respiratory failure with hypoxia -likely due to COVID-19 pneumonia Increased multifocal pulmonary opacities Bilateral patchy groundglass opacities as described, compatible with viral pneumonia Moderate bilateral infiltrates could be pulmonary edema or ARDS or pneumonia and appears mildly worse.04-14 Pneumonia due to 2019 novel coronavirus Rhabdomyolysis -will hydrate aggressively Hypokalemia Transaminitis High Cholesterol Hypertension Seasonal allergies Fatty liver - will monitor transaminases, Hyperglycemia anxiety PLAN FEN - regular diet PPX - lovenox FULL CODE Dispo - inpatient for above ICU BED consult nephrology CTA of chest reviewed negative for pulmonary embolism antibiotics, iv Rocephin begin buspar 10 mg po tid iv fluid support CPK [id number] 04-11 [id number] 04-12 [id number] 04-13 31 MIN CC TIME History of Present Illness History of Present Illness Ms Olson is a 49-year-old female w/ PMHx High Cholesterol, Hypertension, seasonal allergies, fatty liver who presented 04/02/2020 for Covid-like symptoms and returns with the same. Patient reports symptoms have worsened including fever, shortness of air, loss of taste, nausea, fatigue, dizziness, and bilateral lower extremity pain. Denies any vomiting or diarrhea. Reports family members now with similar symptoms. Reports her spouse had some symptoms prior to her. Her SARS-CoV-2 PCR test from 04/02/2020 returned positive. Other labs significant for WBC 8.8, Hb 14.1, platelets 241, D-dimer 0.70, NA 13 5, K3.5, BUN 6, CR 0.7, glucose 111, AST 366, ALT 177, CK 54,211. Rapid influenza negative EKG Sinus tachycardia at 119bpm, NO ST elevation, QRS 82ms, QT/QTc 308/434ms, baseline artifact noted. Febrile to 101 F CTPA with no PE but Bilateral patchy groundglass opacities as described, compatible with viral pneumonia. She was hypoxic to 82% on normal air and required 6L NCO2 to improve her O2 status. Admitted for further care IV fluid hydration provided. Symptomatic treatment provided with dexamethasone. Empiric antibiotic initiated. 04/19/2020 Patient seen in COVID-19 ICU. Breathing on high flow nasal cannula 15 L. Tachypneic, afebrile. Discussed with RN, no acute overnight. Continue steroids, Levophed, and Precedex. 04/18/2020 Patient seen and evaluated in [facility] ICU. She is having some worsening respiratory distress. Currently breathing on BiPAP, FiO2 100%, respiratory rate 22. Concerned she may require intubation. Continue Rocephin, Precedex. Remdesivir last dose today. 04/17/2020 Patient seen and evaluated [facility]- ICU. Reportedly no acute events overnight. Afebrile, tachypneic, breathing on high flow nasal cannula. Discussed with RN. 04/16/2020 Patient seen and evaluated in [facility]- ICU. No acute events overnight. Afebrile, tachypneic. Still breathing on BiPAP at FiO2 80%. CK improving. Discussed with RN. 04/15/2020 Patient seen in [place] [address] ICU. Breathing BiPAP, FiO2 100%. Continue steroids, antibiotics, and remdesivir. LFTs improving. Unfortunately rhabdomyolysis and transaminitis are high risk for remdesivir therapy, will continue to monitor LFTs and CK. 04/14/2020 Patient seen and examined She is still on 100% nonrebreather Appears quite ill Discussed with RN Discussed with pharmacy Chart reviewed Vitals/I&O Vitals/I&O: Vital Signs Date Time Temp Pulse Resp B/P (MAP) Pulse Ox O2 Delivery O2 Flow Rate FiO2 04/19/20 06:00 57 22 90/56 (67) 99 High Flow Nasal Cannula 15.0 04/19/20 04:00 98.7 98.7 I & O 04/18/20 04/18/20 04/19/20 15:00 23:00 07:00 Intake Total 680 ml 1045 ml 779 ml Output Total 1300 ml 1300 ml 2050 ml Balance -620 ml -255 ml -1271 ml Physical Exam General: Alert, Cooperative, mild distress Heart: Regular rate Lungs: Other (Increased work of breathing, tachypnea) Abdomen: No masses, Other (Nondistended) Extremities: No clubbing, No cyanosis Skin: No rashes, No breakdown Labs Labs: Laboratory Tests Test 04/18/20 11:59 04/18/20 17:18 04/18/20 21:46 04/19/20 05:00 Glucose (Fingerstick) 128 mg/dL (70-99) 118 mg/dL (70-99) 144 mg/dL (70-99) White Blood Count 8.1 x10^3/uL (4.0-11.0) Red Blood Count 3.96 x10^6/uL (3.50-5.40) Hemoglobin 12.6 g/dL (12.0-15.5) Hematocrit 36.6 % (36.0-47.0) Mean Corpuscular Volume 93 fL (79-100) Mean Corpuscular Hemoglobin 32 pg (25-35) Mean Corpuscular Hemoglobin Concent 35 g/dL (31-37) Red Cell Distribution Width 13.6 % (11.5-14.5) Platelet Count 232 x10^3/uL (140-400) Neutrophils (%) (Auto) 89 % (31-73) Lymphocytes (%) (Auto) 8 % (24-48) Monocytes (%) (Auto) 3 % (0-9) Eosinophils (%) (Auto) 0 % (0-3) Basophils (%) (Auto) 0 % (0-3) Neutrophils # (Auto) 7.3 x10^3/uL (1.8-7.7) Lymphocytes # (Auto) 0.6 x10^3/uL (1.0-4.8) Monocytes # (Auto) 0.2 x10^3/uL (0.0-1.1) Eosinophils # (Auto) 0.0 x10^3/uL (0.0-0.7) Basophils # (Auto) 0.0 x10^3/uL (0.0-0.2) Sodium Level 137 mmol/L (136-145) Potassium Level 4.0 mmol/L (3.5-5.1) Chloride Level 103 mmol/L (98-107) Carbon Dioxide Level 25 mmol/L (21-32) Anion Gap 9 (6-14) Blood Urea Nitrogen 15 mg/dL (7-20) Creatinine 0.5 mg/dL (0.6-1.0) Estimated GFR (Cockcroft-Gault) 132.2 Glucose Level 130 mg/dL (70-99) Calcium Level 7.9 mg/dL (8.5-10.1) Total Bilirubin 0.4 mg/dL (0.2-1.0) Direct Bilirubin 0.1 mg/dL (0.0-0.2) Aspartate Amino Transf (AST/SGOT) 28 U/L (15-37) Alanine Aminotransferase (ALT/SGPT) 54 U/L (14-59) Alkaline Phosphatase 70 U/L (46-116) Total Protein 5.9 g/dL (6.4-8.2) Albumin 2.6 g/dL (3.4-5.0) Test 04/19/20 07:45 Glucose (Fingerstick) 118 mg/dL (70-99) Assessment and Plan Assessmemt and Plan Problems Medical Problems: (1) Hypoxia Status: Acute (2) Pneumonia due to 2019 novel coronavirus Status: Acute (3) Respiratory failure Status: Acute (4) Rhabdomyolysis Status: Acute Comment Review of Relevant I have reviewed the following items eddie (where applicable) has been applied. Justifications for Admission Other Justification ELISA LOYA MD Apr 19, 2020 08:23
[2020-04-19] MEDS: LACTOBACILLUS RHAMNOSUS GG 1 CAPSULE. PO SCH ×2 (09:18→19:30)
[2020-04-19] MEDS: busPIRone 10 MG TABLET. PO SCH ×3 (09:19→19:28)
[2020-04-19] MEDS: FAMOTIDINE 20 MG TABLET. PO SCH ×2 (09:19→19:29)
[2020-04-19] MEDS: ENOXAPARIN 40 MG/0.4 ML SYRINGE. SQ SCH ×2 (09:19→19:28)
[2020-04-19] MEDS: IV NORMAL SALINE 1000ML BAG 1,000 ML IV SCH ×2 (09:19→22:41)
[2020-04-19] MEDS: ALPRAZolam 0.5 MG TABLET PO SCH ×2 (09:19→19:28)
[2020-04-19] MEDS: ZINC SULFATE 220 MG CAPSULE. PO SCH (09:19)
--- NOTE | 2020-04-19 10:54 | PDOC ---
PULMONARY PROGRESS NOTES DATE: 04/19/20 TIME: 10:53 Subjective On BiPAP 100% Afebrile overnight No overnight concerns from nursing Vitals Vital Signs Date Time Temp Pulse Resp B/P (MAP) Pulse Ox O2 Delivery O2 Flow Rate FiO2 04/19/20 10:00 54 34 104/65 (78) 99 BiPAP/CPAP 15.0 04/19/20 08:00 98.9 98.9 Comments Patient seen during pandemic, visual exam performed rrr bipap has accessory muscle use/distress No obvious rash or edema Lungs: Other (Increased work of breathing, tachypnea) Labs Laboratory Tests Test 04/17/20 11:46 04/17/20 17:18 04/18/20 07:18 04/18/20 11:59 Glucose (Fingerstick) 128 mg/dL (70-99) 117 mg/dL (70-99) 128 mg/dL (70-99) White Blood Count 10.2 x10^3/uL (4.0-11.0) Red Blood Count 3.92 x10^6/uL (3.50-5.40) Hemoglobin 12.6 g/dL (12.0-15.5) Hematocrit 36.1 % (36.0-47.0) Mean Corpuscular Volume 92 fL (79-100) Mean Corpuscular Hemoglobin 32 pg (25-35) Mean Corpuscular Hemoglobin Concent 35 g/dL (31-37) Red Cell Distribution Width 14.1 % (11.5-14.5) Platelet Count 236 x10^3/uL (140-400) Neutrophils (%) (Auto) 89 % (31-73) Lymphocytes (%) (Auto) 8 % (24-48) Monocytes (%) (Auto) 3 % (0-9) Eosinophils (%) (Auto) 0 % (0-3) Basophils (%) (Auto) 0 % (0-3) Neutrophils # (Auto) 9.1 x10^3/uL (1.8-7.7) Lymphocytes # (Auto) 0.8 x10^3/uL (1.0-4.8) Monocytes # (Auto) 0.3 x10^3/uL (0.0-1.1) Eosinophils # (Auto) 0.0 x10^3/uL (0.0-0.7) Basophils # (Auto) 0.0 x10^3/uL (0.0-0.2) Segmented Neutrophils % 86 % (35-66) Lymphocytes % 10 % (24-48) Monocytes % 4 % (0-10) Platelet Estimate Adequate (ADEQUATE) D-Dimer (Mary) 1.75 ug/mlFEU (0.00-0.50) Sodium Level 138 mmol/L (136-145) Potassium Level 4.1 mmol/L (3.5-5.1) Chloride Level 104 mmol/L (98-107) Carbon Dioxide Level 26 mmol/L (21-32) Anion Gap 8 (6-14) Blood Urea Nitrogen 20 mg/dL (7-20) Creatinine 0.4 mg/dL (0.6-1.0) Estimated GFR (Cockcroft-Gault) 171.1 Glucose Level 106 mg/dL (70-99) Calcium Level 8.1 mg/dL (8.5-10.1) Magnesium Level 2.6 mg/dL (1.8-2.4) Ferritin 422 ng/mL (8-252) Lactate Dehydrogenase 497 U/L (81-234) Creatine Kinase 184 U/L (26-192) PE-Gpf-N-Type Natriuretic Peptide 202 pg/mL (0-124) Test 04/18/20 17:18 04/18/20 21:46 04/19/20 05:00 04/19/20 07:45 Glucose (Fingerstick) 118 mg/dL (70-99) 144 mg/dL (70-99) 118 mg/dL (70-99) White Blood Count 8.1 x10^3/uL (4.0-11.0) Red Blood Count 3.96 x10^6/uL (3.50-5.40) Hemoglobin 12.6 g/dL (12.0-15.5) Hematocrit 36.6 % (36.0-47.0) Mean Corpuscular Volume 93 fL (79-100) Mean Corpuscular Hemoglobin 32 pg (25-35) Mean Corpuscular Hemoglobin Concent 35 g/dL (31-37) Red Cell Distribution Width 13.6 % (11.5-14.5) Platelet Count 232 x10^3/uL (140-400) Neutrophils (%) (Auto) 89 % (31-73) Lymphocytes (%) (Auto) 8 % (24-48) Monocytes (%) (Auto) 3 % (0-9) Eosinophils (%) (Auto) 0 % (0-3) Basophils (%) (Auto) 0 % (0-3) Neutrophils # (Auto) 7.3 x10^3/uL (1.8-7.7) Lymphocytes # (Auto) 0.6 x10^3/uL (1.0-4.8) Monocytes # (Auto) 0.2 x10^3/uL (0.0-1.1) Eosinophils # (Auto) 0.0 x10^3/uL (0.0-0.7) Basophils # (Auto) 0.0 x10^3/uL (0.0-0.2) Sodium Level 137 mmol/L (136-145) Potassium Level 4.0 mmol/L (3.5-5.1) Chloride Level 103 mmol/L (98-107) Carbon Dioxide Level 25 mmol/L (21-32) Anion Gap 9 (6-14) Blood Urea Nitrogen 15 mg/dL (7-20) Creatinine 0.5 mg/dL (0.6-1.0) Estimated GFR (Cockcroft-Gault) 132.2 Glucose Level 130 mg/dL (70-99) Calcium Level 7.9 mg/dL (8.5-10.1) Total Bilirubin 0.4 mg/dL (0.2-1.0) Direct Bilirubin 0.1 mg/dL (0.0-0.2) Aspartate Amino Transf (AST/SGOT) 28 U/L (15-37) Alanine Aminotransferase (ALT/SGPT) 54 U/L (14-59) Alkaline Phosphatase 70 U/L (46-116) Total Protein 5.9 g/dL (6.4-8.2) Albumin 2.6 g/dL (3.4-5.0) Laboratory Tests Test 04/18/20 11:59 04/18/20 17:18 04/18/20 21:46 04/19/20 05:00 Glucose (Fingerstick) 128 mg/dL (70-99) 118 mg/dL (70-99) 144 mg/dL (70-99) White Blood Count 8.1 x10^3/uL (4.0-11.0) Red Blood Count 3.96 x10^6/uL (3.50-5.40) Hemoglobin 12.6 g/dL (12.0-15.5) Hematocrit 36.6 % (36.0-47.0) Mean Corpuscular Volume 93 fL (79-100) Mean Corpuscular Hemoglobin 32 pg (25-35) Mean Corpuscular Hemoglobin Concent 35 g/dL (31-37) Red Cell Distribution Width 13.6 % (11.5-14.5) Platelet Count 232 x10^3/uL (140-400) Neutrophils (%) (Auto) 89 % (31-73) Lymphocytes (%) (Auto) 8 % (24-48) Monocytes (%) (Auto) 3 % (0-9) Eosinophils (%) (Auto) 0 % (0-3) Basophils (%) (Auto) 0 % (0-3) Neutrophils # (Auto) 7.3 x10^3/uL (1.8-7.7) Lymphocytes # (Auto) 0.6 x10^3/uL (1.0-4.8) Monocytes # (Auto) 0.2 x10^3/uL (0.0-1.1) Eosinophils # (Auto) 0.0 x10^3/uL (0.0-0.7) Basophils # (Auto) 0.0 x10^3/uL (0.0-0.2) Sodium Level 137 mmol/L (136-145) Potassium Level 4.0 mmol/L (3.5-5.1) Chloride Level 103 mmol/L (98-107) Carbon Dioxide Level 25 mmol/L (21-32) Anion Gap 9 (6-14) Blood Urea Nitrogen 15 mg/dL (7-20) Creatinine 0.5 mg/dL (0.6-1.0) Estimated GFR (Cockcroft-Gault) 132.2 Glucose Level 130 mg/dL (70-99) Calcium Level 7.9 mg/dL (8.5-10.1) Total Bilirubin 0.4 mg/dL (0.2-1.0) Direct Bilirubin 0.1 mg/dL (0.0-0.2) Aspartate Amino Transf (AST/SGOT) 28 U/L (15-37) Alanine Aminotransferase (ALT/SGPT) 54 U/L (14-59) Alkaline Phosphatase 70 U/L (46-116) Total Protein 5.9 g/dL (6.4-8.2) Albumin 2.6 g/dL (3.4-5.0) Test 04/19/20 07:45 Glucose (Fingerstick) 118 mg/dL (70-99) Medications Active Scripts Medications Dose Route/Sig Max Daily Dose Days Date Category Claritin (Loratadine) 10 Mg Tablet 10 Mg PO DAILY 04/06/20 Reported Codeine-Guaifen 10-100 mg/5 ml (Guaifenesin/Codeine Phosphate) 120 Ml Liquid 5 Ml PO PRN Q6HRS PRN MDD 20 Milliliter(s) 6 04/02/20 Rx Prednisone 50 Mg Tablet 1 Tab PO DAILY 04/02/20 Rx Zithromax (Azithromycin) 250 Mg Tablet 1 Pkg PO UD 04/02/20 Rx Ibuprofen 800 Mg Tablet 800 Mg PO PRN Q6HRS PRN 07/27/18 Rx Meclizine Hcl 25 Mg Tablet 1 Tab PO TID 07/27/18 Rx Zithromax (Azithromycin) 250 Mg Tablet 1 Pkg PO UD 07/27/18 Rx Tamiflu (Oseltamivir Phosphate) 75 Mg Capsule 1 Cap PO BID 07/27/18 Rx Comments CTA chest IMPRESSION: No evidence of main or lobar pulmonary embolus on significantly limited evaluation. Bilateral patchy groundglass opacities as described, compatible with viral pneumonia. CXR 04/18/20 Impression: improving infiltrates Impression . IMPRESSION: 1. Acute hypoxic respiratory failure secondary to COVID-19 pneumonia. r/o bacterial pneumonia 2. Abnormal CT chest with bilateral patchy interstitial infiltrates compatible with COVID-19 pneumonia. 3. Underlying obesity. ?conor 4. History of hypertension. 5. encephalopathy, improving Plan . RECOMMENDATIONS: Continue supplemental oxygen to keep oxygen saturations greater than 92%, continue BiPAP 100 % Continue IV steroids with slow taper s/p remdesivir full course Follow chest x-ray 04/18, mild improvement. CTA of chest reviewed negative for pulmonary embolism Follow GI recommendations Follow infectious disease recommendations in regards to antibiotics, currently off antibiotics DVT/GI prophylaxis: lovenox/pepcid Discussed with RN and RT critically ill cct 30 min no overlap Pt. CODE FULL PALAK GRIGGS MD Apr 19, 2020 10:54
[2020-04-19] MEDS: guaiFENesin DM 200MG/20MG 10 ML SYRUP PO PRN ×2 (11:23→19:28)
--- NOTE | 2020-04-19 11:58 | PDOC ---
Date of Service: DATE: 04/19/20 TIME: 11:55 Objective: Objective: Nurse on the phone providing update to family. Vital Signs: Vital Signs Date Time Temp Pulse Resp B/P (MAP) Pulse Ox O2 Delivery O2 Flow Rate FiO2 04/19/20 11:44 97 BiPAP/CPAP 04/19/20 10:00 54 34 104/65 (78) 15.0 04/19/20 08:00 98.9 98.9 Labs: Laboratory Tests Test 04/18/20 11:59 04/18/20 17:18 04/18/20 21:46 04/19/20 05:00 Glucose (Fingerstick) 128 mg/dL 118 mg/dL 144 mg/dL White Blood Count 8.1 x10^3/uL Red Blood Count 3.96 x10^6/uL Hemoglobin 12.6 g/dL Hematocrit 36.6 % Mean Corpuscular Volume 93 fL Mean Corpuscular Hemoglobin 32 pg Mean Corpuscular Hemoglobin Concent 35 g/dL Red Cell Distribution Width 13.6 % Platelet Count 232 x10^3/uL Neutrophils (%) (Auto) 89 % Lymphocytes (%) (Auto) 8 % Monocytes (%) (Auto) 3 % Eosinophils (%) (Auto) 0 % Basophils (%) (Auto) 0 % Neutrophils # (Auto) 7.3 x10^3/uL Lymphocytes # (Auto) 0.6 x10^3/uL Monocytes # (Auto) 0.2 x10^3/uL Eosinophils # (Auto) 0.0 x10^3/uL Basophils # (Auto) 0.0 x10^3/uL Sodium Level 137 mmol/L Potassium Level 4.0 mmol/L Chloride Level 103 mmol/L Carbon Dioxide Level 25 mmol/L Anion Gap 9 Blood Urea Nitrogen 15 mg/dL Creatinine 0.5 mg/dL Estimated GFR (Cockcroft-Gault) 132.2 Glucose Level 130 mg/dL Calcium Level 7.9 mg/dL Total Bilirubin 0.4 mg/dL Direct Bilirubin 0.1 mg/dL Aspartate Amino Transf (AST/SGOT) 28 U/L Alanine Aminotransferase (ALT/SGPT) 54 U/L Alkaline Phosphatase 70 U/L Total Protein 5.9 g/dL Albumin 2.6 g/dL Test 04/19/20 07:45 04/19/20 11:27 Glucose (Fingerstick) 118 mg/dL 128 mg/dL PE: GEN: visual exam done, in COVID isolation LUNGS: BiPAP HEART: RR ABD: non-distended NEURO/PSYCH: resting A/P: COVID-19 infection, resp failure/pneumonia Elevated LFTs - now normal -- Continue support. Justicifation of Admission Dx: Justifications for Admission: Justification of Admission Dx: Yes ALLISON CHAMORRO Apr 19, 2020 11:57
[2020-04-19] MEDS: DEXMEDETOMIDINE 400 MCG in IV NORMAL SALINE 100ML 96 ML IV PRN (13:39)
--- NOTE | 2020-04-19 15:05 | NUR ---
Have reviewed and agree with documentation completed by environmental intern
--- NOTE | 2020-04-19 16:08 | NUR ---
SS following up with discharge planning. SS reviewed pt chart and discussed with pt RN. Per RN, pt has been between BIPAP and high flow oxygen. COVID19 positive. Not stable. DNR. SS will continue to follow for discharge planning.
[2020-04-19] MEDS: ACETAMINOPHEN 325 MG TABLET. PO PRN (19:35)
[2020-04-19] MEDS: ZOLPIDEM 5 MG TABLET. PO PRN (22:38)
[2020-04-19] MEDS: INSULIN GLARGINE SYRINGE. SQ SCH (22:39)
[2020-04-20] VITALS (24 sets, daily range): BP systolic 74–103; BP diastolic 49–68
[2020-04-20] MEDS: guaiFENesin DM 200MG/20MG 10 ML SYRUP PO PRN ×3 (02:31→21:21)
[2020-04-20] MEDS: MORPHINE SULFATE 2 MG/ML VIAL. IV PRN (02:31)
[2020-04-20 05:39] LABS: CALCIUM 7.9 mg/dL (8.5-10.1); CREATININE 0.4 mg/dL (0.6-1.0); GFR 171.1; POTASSIUM 3.7 mmol/L (3.5-5.1)
[2020-04-20 05:47] LABS: BASO % 0 % (0-3); EOS # 0.4 x10^3/uL (0.0-0.7); EOS % 4 % (0-3); HEMATOCRIT 38.1 % (36.0-47.0); HEMOGLOBIN 13.1 g/dL (12.0-15.5); LYMPH # 1.8 x10^3/uL (1.0-4.8); LYMPH % 19 % (24-48); MEAN CORPUSCULAR HEMOGLOBIN 32 pg (25-35); MEAN CORPUSCULAR HGB CONC 34 g/dL (31-37); MEAN CORPUSCULAR VOLUME 93 fL (79-100); MONO # 0.3 x10^3/uL (0.0-1.1); MONO % 3 % (0-9); NEUT # 7.3 x10^3/uL (1.8-7.7); NEUT % 75 % (31-73); PLATELET COUNT 231 x10^3/uL (140-400); RED BLOOD COUNT 4.09 x10^6/uL (3.50-5.40); RED CELL DISTRIBUTION WIDTH 14.1 % (11.5-14.5); WHITE BLOOD COUNT 9.8 x10^3/uL (4.0-11.0)
[2020-04-20 05:56] LABS: MAGNESIUM 2.5 mg/dL (1.8-2.4)
[2020-04-20] MEDS: guaiFENesin/CODEINE 100mg/10mg 5 ML LIQUID PO PRN ×3 (07:01→18:57)
[2020-04-20] MEDS: ONDANSETRON PF 4 MG/2 ML VIAL. IV PRN (07:54)
[2020-04-20] MEDS: INSULIN LISPRO 300 UNITS/3 ML VIAL. SQ SCH ×3 (08:00→17:00)
--- NOTE | 2020-04-20 09:19 | PDOC ---
PULMONARY PROGRESS NOTES DATE: 04/20/20 TIME: 09:18 Subjective on nrb mask 15 lpm has nausea Afebrile overnight No overnight concerns from nursing Vitals Vital Signs Date Time Temp Pulse Resp B/P (MAP) Pulse Ox O2 Delivery O2 Flow Rate FiO2 04/20/20 07:15 98.4 77 26 90/58 (69) 99 Nasal Cannula 15.0 98.4 Comments Patient seen during COVID- pandemic, visual exam performed alert on 02 rrr has accessory muscle use/distress No obvious rash or edema Labs Laboratory Tests Test 04/18/20 11:59 04/18/20 17:18 04/18/20 21:46 04/19/20 05:00 Glucose (Fingerstick) 128 mg/dL (70-99) 118 mg/dL (70-99) 144 mg/dL (70-99) White Blood Count 8.1 x10^3/uL (4.0-11.0) Red Blood Count 3.96 x10^6/uL (3.50-5.40) Hemoglobin 12.6 g/dL (12.0-15.5) Hematocrit 36.6 % (36.0-47.0) Mean Corpuscular Volume 93 fL (79-100) Mean Corpuscular Hemoglobin 32 pg (25-35) Mean Corpuscular Hemoglobin Concent 35 g/dL (31-37) Red Cell Distribution Width 13.6 % (11.5-14.5) Platelet Count 232 x10^3/uL (140-400) Neutrophils (%) (Auto) 89 % (31-73) Lymphocytes (%) (Auto) 8 % (24-48) Monocytes (%) (Auto) 3 % (0-9) Eosinophils (%) (Auto) 0 % (0-3) Basophils (%) (Auto) 0 % (0-3) Neutrophils # (Auto) 7.3 x10^3/uL (1.8-7.7) Lymphocytes # (Auto) 0.6 x10^3/uL (1.0-4.8) Monocytes # (Auto) 0.2 x10^3/uL (0.0-1.1) Eosinophils # (Auto) 0.0 x10^3/uL (0.0-0.7) Basophils # (Auto) 0.0 x10^3/uL (0.0-0.2) Sodium Level 137 mmol/L (136-145) Potassium Level 4.0 mmol/L (3.5-5.1) Chloride Level 103 mmol/L (98-107) Carbon Dioxide Level 25 mmol/L (21-32) Anion Gap 9 (6-14) Blood Urea Nitrogen 15 mg/dL (7-20) Creatinine 0.5 mg/dL (0.6-1.0) Estimated GFR (Cockcroft-Gault) 132.2 Glucose Level 130 mg/dL (70-99) Calcium Level 7.9 mg/dL (8.5-10.1) Total Bilirubin 0.4 mg/dL (0.2-1.0) Direct Bilirubin 0.1 mg/dL (0.0-0.2) Aspartate Amino Transf (AST/SGOT) 28 U/L (15-37) Alanine Aminotransferase (ALT/SGPT) 54 U/L (14-59) Alkaline Phosphatase 70 U/L (46-116) Total Protein 5.9 g/dL (6.4-8.2) Albumin 2.6 g/dL (3.4-5.0) Test 04/19/20 07:45 04/19/20 11:27 04/19/20 16:55 04/19/20 20:56 Glucose (Fingerstick) 118 mg/dL (70-99) 128 mg/dL (70-99) 106 mg/dL (70-99) 119 mg/dL (70-99) Test 04/20/20 05:00 White Blood Count 9.8 x10^3/uL (4.0-11.0) Red Blood Count 4.09 x10^6/uL (3.50-5.40) Hemoglobin 13.1 g/dL (12.0-15.5) Hematocrit 38.1 % (36.0-47.0) Mean Corpuscular Volume 93 fL (79-100) Mean Corpuscular Hemoglobin 32 pg (25-35) Mean Corpuscular Hemoglobin Concent 34 g/dL (31-37) Red Cell Distribution Width 14.1 % (11.5-14.5) Platelet Count 231 x10^3/uL (140-400) Neutrophils (%) (Auto) 75 % (31-73) Lymphocytes (%) (Auto) 19 % (24-48) Monocytes (%) (Auto) 3 % (0-9) Eosinophils (%) (Auto) 4 % (0-3) Basophils (%) (Auto) 0 % (0-3) Neutrophils # (Auto) 7.3 x10^3/uL (1.8-7.7) Lymphocytes # (Auto) 1.8 x10^3/uL (1.0-4.8) Monocytes # (Auto) 0.3 x10^3/uL (0.0-1.1) Eosinophils # (Auto) 0.4 x10^3/uL (0.0-0.7) Basophils # (Auto) 0.0 x10^3/uL (0.0-0.2) D-Dimer (Mary) 1.10 ug/mlFEU (0.00-0.50) Sodium Level 137 mmol/L (136-145) Potassium Level 3.7 mmol/L (3.5-5.1) Chloride Level 104 mmol/L (98-107) Carbon Dioxide Level 27 mmol/L (21-32) Anion Gap 6 (6-14) Blood Urea Nitrogen 15 mg/dL (7-20) Creatinine 0.4 mg/dL (0.6-1.0) Estimated GFR (Cockcroft-Gault) 171.1 Glucose Level 88 mg/dL (70-99) Calcium Level 7.9 mg/dL (8.5-10.1) Magnesium Level 2.5 mg/dL (1.8-2.4) Ferritin 464 ng/mL (8-252) Lactate Dehydrogenase 411 U/L (81-234) Creatine Kinase 147 U/L (26-192) TP-Lrk-P-Type Natriuretic Peptide 67 pg/mL (0-124) Laboratory Tests Test 04/19/20 11:27 04/19/20 16:55 04/19/20 20:56 04/20/20 05:00 Glucose (Fingerstick) 128 mg/dL (70-99) 106 mg/dL (70-99) 119 mg/dL (70-99) White Blood Count 9.8 x10^3/uL (4.0-11.0) Red Blood Count 4.09 x10^6/uL (3.50-5.40) Hemoglobin 13.1 g/dL (12.0-15.5) Hematocrit 38.1 % (36.0-47.0) Mean Corpuscular Volume 93 fL (79-100) Mean Corpuscular Hemoglobin 32 pg (25-35) Mean Corpuscular Hemoglobin Concent 34 g/dL (31-37) Red Cell Distribution Width 14.1 % (11.5-14.5) Platelet Count 231 x10^3/uL (140-400) Neutrophils (%) (Auto) 75 % (31-73) Lymphocytes (%) (Auto) 19 % (24-48) Monocytes (%) (Auto) 3 % (0-9) Eosinophils (%) (Auto) 4 % (0-3) Basophils (%) (Auto) 0 % (0-3) Neutrophils # (Auto) 7.3 x10^3/uL (1.8-7.7) Lymphocytes # (Auto) 1.8 x10^3/uL (1.0-4.8) Monocytes # (Auto) 0.3 x10^3/uL (0.0-1.1) Eosinophils # (Auto) 0.4 x10^3/uL (0.0-0.7) Basophils # (Auto) 0.0 x10^3/uL (0.0-0.2) D-Dimer (Mary) 1.10 ug/mlFEU (0.00-0.50) Sodium Level 137 mmol/L (136-145) Potassium Level 3.7 mmol/L (3.5-5.1) Chloride Level 104 mmol/L (98-107) Carbon Dioxide Level 27 mmol/L (21-32) Anion Gap 6 (6-14) Blood Urea Nitrogen 15 mg/dL (7-20) Creatinine 0.4 mg/dL (0.6-1.0) Estimated GFR (Cockcroft-Gault) 171.1 Glucose Level 88 mg/dL (70-99) Calcium Level 7.9 mg/dL (8.5-10.1) Magnesium Level 2.5 mg/dL (1.8-2.4) Ferritin 464 ng/mL (8-252) Lactate Dehydrogenase 411 U/L (81-234) Creatine Kinase 147 U/L (26-192) YQ-Sga-N-Type Natriuretic Peptide 67 pg/mL (0-124) Medications Active Scripts Medications Dose Route/Sig Max Daily Dose Days Date Category Claritin (Loratadine) 10 Mg Tablet 10 Mg PO DAILY 04/06/20 Reported Codeine-Guaifen 10-100 mg/5 ml (Guaifenesin/Codeine Phosphate) 120 Ml Liquid 5 Ml PO PRN Q6HRS PRN MDD 20 Milliliter(s) 6 04/02/20 Rx Prednisone 50 Mg Tablet 1 Tab PO DAILY 04/02/20 Rx Zithromax (Azithromycin) 250 Mg Tablet 1 Pkg PO UD 04/02/20 Rx Ibuprofen 800 Mg Tablet 800 Mg PO PRN Q6HRS PRN 07/27/18 Rx Meclizine Hcl 25 Mg Tablet 1 Tab PO TID 07/27/18 Rx Zithromax (Azithromycin) 250 Mg Tablet 1 Pkg PO UD 07/27/18 Rx Tamiflu (Oseltamivir Phosphate) 75 Mg Capsule 1 Cap PO BID 07/27/18 Rx Comments CTA chest IMPRESSION: No evidence of main or lobar pulmonary embolus on significantly limited evaluation. Bilateral patchy groundglass opacities as described, compatible with viral pneumonia. CXR 04/18/20 Impression: improving infiltrates Impression . IMPRESSION: 1. Acute hypoxic respiratory failure secondary to COVID-19 pneumonia. r/o bacterial pneumonia 2. Abnormal CT chest with bilateral patchy interstitial infiltrates compatible with COVID-19 pneumonia. 3. Underlying obesity. ?conor 4. History of hypertension. 5. encephalopathy, improving Plan . RECOMMENDATIONS: Continue supplemental oxygen to keep oxygen saturations greater than 92%, 02 titration as tolerated bipap prn Continue IV steroids with slow taper s/p remdesivir full course Follow chest x-ray 04/18, mild improvement. CTA of chest reviewed negative for pulmonary embolism Follow GI recommendations Follow infectious disease recommendations in regards to antibiotics, currently off antibiotics DVT/GI prophylaxis: lovenox/pepcid Discussed with RN and RT Pt. CODE FULL JOHN RAZA MD Apr 20, 2020 09:19
[2020-04-20] MEDS: ENOXAPARIN 40 MG/0.4 ML SYRINGE. SQ SCH ×2 (10:58→21:11)
[2020-04-20] MEDS: ALPRAZolam 0.5 MG TABLET PO SCH ×2 (10:58→21:11)
[2020-04-20] MEDS: ZINC SULFATE 220 MG CAPSULE. PO SCH (10:58)
[2020-04-20] MEDS: methylPREDNISolone SOD SUCC PF 40 MG/ML VIAL. IV SCH (10:58)
[2020-04-20] MEDS: LACTOBACILLUS RHAMNOSUS GG 1 CAPSULE. PO SCH ×2 (10:58→21:11)
[2020-04-20] MEDS: BENZOCAINE/MENTHOL LOZENGE. PO PRN ×2 (10:59→15:15)
[2020-04-20] MEDS: busPIRone 10 MG TABLET. PO SCH ×3 (10:59→21:11)
[2020-04-20] MEDS: IV NORMAL SALINE 1000ML BAG 1,000 ML IV SCH (10:59)
[2020-04-20] MEDS: FAMOTIDINE 20 MG TABLET. PO SCH ×2 (10:59→21:11)
--- NOTE | 2020-04-20 13:04 | PDOC ---
[employer] PROGRESS NOTE Date of Service DOS: DATE: 04/20/20 TIME: 13:01 Chief Complaint Chief Complaint IMPRESSION Acute respiratory failure with hypoxia -likely due to COVID-19 pneumonia Increased multifocal pulmonary opacities Bilateral patchy groundglass opacities as described, compatible with viral pneumonia Moderate bilateral infiltrates could be pulmonary edema or ARDS or pneumonia and appears mildly worse.04-14 Pneumonia due to 2019 novel coronavirus Rhabdomyolysis -will hydrate aggressively Hypokalemia Transaminitis High Cholesterol Hypertension Seasonal allergies Fatty liver - will monitor transaminases, Hyperglycemia anxiety PLAN FEN - regular diet PPX - lovenox FULL CODE Dispo - inpatient for above ICU BED consult nephrology CTA of chest reviewed negative for pulmonary embolism antibiotics, iv Rocephin begin buspar 10 mg po tid iv fluid support CPK [id number] 04-11 [id number] 04-12 [id number] 04-13 31 MIN CC TIME History of Present Illness History of Present Illness Ms Olson is a 49-year-old female w/ PMHx High Cholesterol, Hypertension, seasonal allergies, fatty liver who presented 04/02/2020 for Covid-like symptoms and returns with the same. Patient reports symptoms have worsened including fever, shortness of air, loss of taste, nausea, fatigue, dizziness, and bilateral lower extremity pain. Denies any vomiting or diarrhea. Reports family members now with similar symptoms. Reports her spouse had some symptoms prior to her. Her SARS-CoV-2 PCR test from 04/02/2020 returned positive. Other labs significant for WBC 8.8, Hb 14.1, platelets 241, D-dimer 0.70, NA 13 5, K3.5, BUN 6, CR 0.7, glucose 111, AST 366, ALT 177, CK 54,211. Rapid influenza negative EKG Sinus tachycardia at 119bpm, NO ST elevation, QRS 82ms, QT/QTc 308/434ms, baseline artifact noted. Febrile to 101 F CTPA with no PE but Bilateral patchy groundglass opacities as described, compatible with viral pneumonia. She was hypoxic to 82% on normal air and required 6L NCO2 to improve her O2 status. Admitted for further care IV fluid hydration provided. Symptomatic treatment provided with dexamethasone. Empiric antibiotic initiated. 04/20/2020 Afebrile, wheezing on 15 L nasal cannula. Complains of some sore throat perioral blisters. Continue with supportive care, IV Solu-Medrol. Discussed with RN. 04/19/2020 Patient seen in [place] [address] ICU. Breathing on high flow nasal cannula 15 L. Tachypneic, afebrile. Discussed with RN, no acute overnight. Continue steroids, Levophed, and Precedex. 04/18/2020 Patient seen and evaluated in [facility] ICU. She is having some worsening respiratory distress. Currently breathing on BiPAP, FiO2 100%, respiratory rate 22. Concerned she may require intubation. Continue Rocephin, Precedex. Remdesivir last dose today. 04/17/2020 Patient seen and evaluated [place] [address] ICU. Reportedly no acute events overnight. Afebrile, tachypneic, breathing on high flow nasal cannula. Discussed with RN. 04/16/2020 Patient seen and evaluated in [place] [address] ICU. No acute events overnight. Afebrile, tachypneic. Still breathing on BiPAP at FiO2 80%. CK improving. Discussed with RN. 04/15/2020 Patient seen in [place] [address] ICU. Breathing BiPAP, FiO2 100%. Continue steroids, antibiotics, and remdesivir. LFTs improving. Unfortunately rhabdomyolysis and transaminitis are high risk for remdesivir therapy, will continue to monitor LFTs and CK. 04/14/2020 Patient seen and examined She is still on 100% nonrebreather Appears quite ill Discussed with RN Discussed with pharmacy Chart reviewed Vitals/I&O Vitals/I&O: Vital Signs Date Time Temp Pulse Resp B/P (MAP) Pulse Ox O2 Delivery O2 Flow Rate FiO2 04/20/20 12:21 98.9 64 22 86/58 (67) 91 Nasal Cannula 15.0 98.9 I & O 04/19/20 04/19/20 04/20/20 15:00 23:00 07:00 Intake Total 800 ml 1237 ml 400 ml Output Total 2175 ml 1150 ml 1900 ml Balance -1375 ml 87 ml -1500 ml Physical Exam Physical Exam: GENERAL: Alert, awake female, on BiPAP. HEENT: Normocephalic, atraumatic. NECK: Supple, no JVD. LUNGS: Decreased breath sound at bases. No rhonchi. ABDOMEN: Soft, nontender, nondistended, no rebound, no guarding. EXTREMITIES: No edema, no cyanosis. DERMATOLOGIC: Warm, dry. No generalized rash. NEUROLOGIC: Alert, awake, moves all 4 extremities. PSYCHIATRIC: Calm and cooperative. General: Alert, Cooperative, mild distress Heart: Regular rate Lungs: Other (Increased work of breathing, tachypnea) Abdomen: No masses, Other (Nondistended) Extremities: No clubbing, No cyanosis Skin: No rashes, No breakdown Labs Labs: Laboratory Tests Test 04/19/20 16:55 04/19/20 20:56 04/20/20 05:00 04/20/20 09:49 Glucose (Fingerstick) 106 mg/dL (70-99) 119 mg/dL (70-99) 86 mg/dL (70-99) White Blood Count 9.8 x10^3/uL (4.0-11.0) Red Blood Count 4.09 x10^6/uL (3.50-5.40) Hemoglobin 13.1 g/dL (12.0-15.5) Hematocrit 38.1 % (36.0-47.0) Mean Corpuscular Volume 93 fL (79-100) Mean Corpuscular Hemoglobin 32 pg (25-35) Mean Corpuscular Hemoglobin Concent 34 g/dL (31-37) Red Cell Distribution Width 14.1 % (11.5-14.5) Platelet Count 231 x10^3/uL (140-400) Neutrophils (%) (Auto) 75 % (31-73) Lymphocytes (%) (Auto) 19 % (24-48) Monocytes (%) (Auto) 3 % (0-9) Eosinophils (%) (Auto) 4 % (0-3) Basophils (%) (Auto) 0 % (0-3) Neutrophils # (Auto) 7.3 x10^3/uL (1.8-7.7) Lymphocytes # (Auto) 1.8 x10^3/uL (1.0-4.8) Monocytes # (Auto) 0.3 x10^3/uL (0.0-1.1) Eosinophils # (Auto) 0.4 x10^3/uL (0.0-0.7) Basophils # (Auto) 0.0 x10^3/uL (0.0-0.2) D-Dimer (Mary) 1.10 ug/mlFEU (0.00-0.50) Sodium Level 137 mmol/L (136-145) Potassium Level 3.7 mmol/L (3.5-5.1) Chloride Level 104 mmol/L (98-107) Carbon Dioxide Level 27 mmol/L (21-32) Anion Gap 6 (6-14) Blood Urea Nitrogen 15 mg/dL (7-20) Creatinine 0.4 mg/dL (0.6-1.0) Estimated GFR (Cockcroft-Gault) 171.1 Glucose Level 88 mg/dL (70-99) Calcium Level 7.9 mg/dL (8.5-10.1) Magnesium Level 2.5 mg/dL (1.8-2.4) Ferritin 464 ng/mL (8-252) Lactate Dehydrogenase 411 U/L (81-234) Creatine Kinase 147 U/L (26-192) OL-Pit-Y-Type Natriuretic Peptide 67 pg/mL (0-124) Test 04/20/20 12:29 Glucose (Fingerstick) 107 mg/dL (70-99) Review of Systems Review of Systems: Shortness of breath, sore throat. Denies fevers. Assessment and Plan Assessmemt and Plan Problems Medical Problems: (1) Hypoxia Status: Acute (2) Pneumonia due to 2019 novel coronavirus Status: Acute (3) Respiratory failure Status: Acute (4) Rhabdomyolysis Status: Acute Comment Review of Relevant I have reviewed the following items eddie (where applicable) has been applied. Medications: Current Medications Medications (Trade) Dose Ordered Sig/Lizbeth Route PRN Reason Start Time Stop Time Status Last Admin Dose Admin Methylprednisolone Sodium Succinate (SOLU-Medrol 40MG VIAL) 40 mg DAILY IV 04/20/20 09:00 04/20/20 10:58 Justifications for Admission Other Justification ELISA LOYA MD Apr 20, 2020 13:04
[2020-04-20] MEDS ORDERED: LIDO:MAALOX:BENADRYL 1:1:1 180 ML BOTTLE. PO PRN (13:15)
[2020-04-20] MEDS: LIDO:MAALOX:BENADRYL 1:1:1 180 ML BOTTLE. PO PRN (13:45)
[2020-04-20] MEDS: ZOLPIDEM 5 MG TABLET. PO PRN (21:11)
[2020-04-20] MEDS: INSULIN GLARGINE SYRINGE. SQ SCH (21:12)
[2020-04-21] VITALS (17 sets, daily range): BP systolic 84–133; BP diastolic 54–93
[2020-04-21] MEDS: LIDO:MAALOX:BENADRYL 1:1:1 180 ML BOTTLE. PO PRN (01:03)
[2020-04-21] MEDS: BENZOCAINE/MENTHOL LOZENGE. PO PRN ×6 (01:05→19:56)
[2020-04-21] MEDS: guaiFENesin/CODEINE 100mg/10mg 5 ML LIQUID PO PRN ×2 (01:54→16:29)
[2020-04-21] MEDS: ONDANSETRON PF 4 MG/2 ML VIAL. IV PRN ×2 (03:14→18:11)
[2020-04-21] MEDS: guaiFENesin DM 200MG/20MG 10 ML SYRUP PO PRN ×4 (03:23→21:47)
[2020-04-21] MEDS: IV NORMAL SALINE 1000ML BAG 1,000 ML IV SCH (03:24)
--- NOTE | 2020-04-21 06:12 | PDOC ---
PULMONARY PROGRESS NOTES DATE: 04/21/20 TIME: 06:11 Subjective on 02 8lpm off precedex Afebrile overnight Vitals Vital Signs Date Time Temp Pulse Resp B/P (MAP) Pulse Ox O2 Delivery O2 Flow Rate FiO2 04/21/20 05:00 70 19 101/56 (71) 100 Nasal Cannula 10.0 04/21/20 04:00 97.2 97.2 Comments Patient seen during COVID- pandemic, visual exam performed alert on rrr has accessory muscle use/distress No obvious rash or edema Labs Laboratory Tests Test 04/19/20 07:45 04/19/20 11:27 04/19/20 16:55 04/19/20 20:56 Glucose (Fingerstick) 118 mg/dL (70-99) 128 mg/dL (70-99) 106 mg/dL (70-99) 119 mg/dL (70-99) Test 04/20/20 05:00 04/20/20 09:49 04/20/20 12:29 04/20/20 16:54 White Blood Count 9.8 x10^3/uL (4.0-11.0) Red Blood Count 4.09 x10^6/uL (3.50-5.40) Hemoglobin 13.1 g/dL (12.0-15.5) Hematocrit 38.1 % (36.0-47.0) Mean Corpuscular Volume 93 fL (79-100) Mean Corpuscular Hemoglobin 32 pg (25-35) Mean Corpuscular Hemoglobin Concent 34 g/dL (31-37) Red Cell Distribution Width 14.1 % (11.5-14.5) Platelet Count 231 x10^3/uL (140-400) Neutrophils (%) (Auto) 75 % (31-73) Lymphocytes (%) (Auto) 19 % (24-48) Monocytes (%) (Auto) 3 % (0-9) Eosinophils (%) (Auto) 4 % (0-3) Basophils (%) (Auto) 0 % (0-3) Neutrophils # (Auto) 7.3 x10^3/uL (1.8-7.7) Lymphocytes # (Auto) 1.8 x10^3/uL (1.0-4.8) Monocytes # (Auto) 0.3 x10^3/uL (0.0-1.1) Eosinophils # (Auto) 0.4 x10^3/uL (0.0-0.7) Basophils # (Auto) 0.0 x10^3/uL (0.0-0.2) D-Dimer (Mary) 1.10 ug/mlFEU (0.00-0.50) Sodium Level 137 mmol/L (136-145) Potassium Level 3.7 mmol/L (3.5-5.1) Chloride Level 104 mmol/L (98-107) Carbon Dioxide Level 27 mmol/L (21-32) Anion Gap 6 (6-14) Blood Urea Nitrogen 15 mg/dL (7-20) Creatinine 0.4 mg/dL (0.6-1.0) Estimated GFR (Cockcroft-Gault) 171.1 Glucose Level 88 mg/dL (70-99) Calcium Level 7.9 mg/dL (8.5-10.1) Magnesium Level 2.5 mg/dL (1.8-2.4) Ferritin 464 ng/mL (8-252) Lactate Dehydrogenase 411 U/L (81-234) Creatine Kinase 147 U/L (26-192) RF-Qvh-P-Type Natriuretic Peptide 67 pg/mL (0-124) Glucose (Fingerstick) 86 mg/dL (70-99) 107 mg/dL (70-99) 154 mg/dL (70-99) Laboratory Tests Test 04/20/20 09:49 04/20/20 12:29 04/20/20 16:54 Glucose (Fingerstick) 86 mg/dL (70-99) 107 mg/dL (70-99) 154 mg/dL (70-99) Medications Active Scripts Medications Dose Route/Sig Max Daily Dose Days Date Category Claritin (Loratadine) 10 Mg Tablet 10 Mg PO DAILY 04/06/20 Reported Codeine-Guaifen 10-100 mg/5 ml (Guaifenesin/Codeine Phosphate) 120 Ml Liquid 5 Ml PO PRN Q6HRS PRN MDD 20 Milliliter(s) 6 04/02/20 Rx Prednisone 50 Mg Tablet 1 Tab PO DAILY 04/02/20 Rx Zithromax (Azithromycin) 250 Mg Tablet 1 Pkg PO UD 04/02/20 Rx Ibuprofen 800 Mg Tablet 800 Mg PO PRN Q6HRS PRN 3/20/19 Rx Meclizine Hcl 25 Mg Tablet 1 Tab PO TID 07/27/18 Rx Zithromax (Azithromycin) 250 Mg Tablet 1 Pkg PO UD 07/27/18 Rx Tamiflu (Oseltamivir Phosphate) 75 Mg Capsule 1 Cap PO BID 07/27/18 Rx Comments CTA chest IMPRESSION: No evidence of main or lobar pulmonary embolus on significantly limited evaluation. Bilateral patchy groundglass opacities as described, compatible with viral pneumonia. CXR 04/18/20 Impression: improving infiltrates Impression . IMPRESSION: 1. Acute hypoxic respiratory failure secondary to COVID-19 pneumonia. r/o bacterial pneumonia 2. Abnormal CT chest with bilateral patchy interstitial infiltrates compatible with COVID-19 pneumonia. 3. Underlying obesity. ?conor 4. History of hypertension. 5. encephalopathy, improving Plan . RECOMMENDATIONS: Continue supplemental oxygen to keep oxygen saturations greater than 92%, 02 titration as tolerated bipap prn Continue IV steroids with slow taper s/p remdesivir full course Follow chest x-ray 04/18, mild improvement. CTA of chest reviewed negative for pulmonary embolism Follow GI recommendations Follow infectious disease recommendations in regards to antibiotics, currently off antibiotics DVT/GI prophylaxis: lovenox/pepcid Discussed with RN and RT Pt. CODE FULL JOHN RAZA MD Apr 21, 2020 06:12
[2020-04-21] MEDS: INSULIN LISPRO 300 UNITS/3 ML VIAL. SQ SCH ×3 (08:00→17:00)
[2020-04-21] MEDS: MORPHINE SULFATE 2 MG/ML VIAL. IV PRN (08:05)
[2020-04-21] MEDS: ENOXAPARIN 40 MG/0.4 ML SYRINGE. SQ SCH ×2 (08:05→21:47)
[2020-04-21] MEDS: ALPRAZolam 0.5 MG TABLET PO SCH ×2 (08:05→21:47)
[2020-04-21] MEDS: ZINC SULFATE 220 MG CAPSULE. PO SCH (08:06)
[2020-04-21] MEDS: LACTOBACILLUS RHAMNOSUS GG 1 CAPSULE. PO SCH ×2 (08:06→21:47)
[2020-04-21] MEDS: busPIRone 10 MG TABLET. PO SCH ×3 (08:06→21:47)
[2020-04-21] MEDS: FAMOTIDINE 20 MG TABLET. PO SCH ×2 (08:06→21:47)
[2020-04-21] MEDS: methylPREDNISolone SOD SUCC PF 40 MG/ML VIAL. IV SCH (08:07)
--- NOTE | 2020-04-21 09:18 | PDOC ---
[facility] [facility] PROGRESS NOTE Date of Service DOS: DATE: 04/21/20 TIME: 09:17 Chief Complaint Chief Complaint IMPRESSION Acute respiratory failure with hypoxia -likely due to COVID-19 pneumonia Increased multifocal pulmonary opacities Bilateral patchy groundglass opacities as described, compatible with viral pneumonia Moderate bilateral infiltrates could be pulmonary edema or ARDS or pneumonia and appears mildly worse.04-14 Pneumonia due to 2019 novel coronavirus Rhabdomyolysis -will hydrate aggressively Hypokalemia Transaminitis High Cholesterol Hypertension Seasonal allergies Fatty liver - will monitor transaminases, Hyperglycemia anxiety PLAN FEN - regular diet PPX - lovenox FULL CODE Dispo - inpatient for above ICU BED consult nephrology CTA of chest reviewed negative for pulmonary embolism antibiotics, iv Rocephin begin buspar 10 mg po tid iv fluid support CPK [id number] 04-11 [id number] 04-12 [id number] 04-13 31 MIN CC TIME History of Present Illness History of Present Illness Ms Olson is a 49-year-old female w/ PMHx High Cholesterol, Hypertension, seasonal allergies, fatty liver who presented 04/02/2020 for Covid-like symptoms and returns with the same. Patient reports symptoms have worsened including fever, shortness of air, loss of taste, nausea, fatigue, dizziness, and bilateral lower extremity pain. Denies any vomiting or diarrhea. Reports family members now with similar symptoms. Reports her spouse had some symptoms prior to her. Her SARS-CoV-2 PCR test from 04/02/2020 returned positive. Other labs significant for WBC 8.8, Hb 14.1, platelets 241, D-dimer 0.70, NA 13 5, K3.5, BUN 6, CR 0.7, glucose 111, AST 366, ALT 177, CK 54,211. Rapid influenza negative EKG Sinus tachycardia at 119bpm, NO ST elevation, QRS 82ms, QT/QTc 308/434ms, baseline artifact noted. Febrile to 101 F CTPA with no PE but Bilateral patchy groundglass opacities as described, compatible with viral pneumonia. She was hypoxic to 82% on normal air and required 6L NCO2 to improve her O2 status. Admitted for further care IV fluid hydration provided. Symptomatic treatment provided with dexamethasone. Empiric antibiotic initiated. 04/21/2020 Patient seen and evaluated. Breathing 8 L high flow nasal cannula, afebrile. Continue steroids and supportive care. 04/20/2020 Afebrile, wheezing on 15 L nasal cannula. Complains of some sore throat perioral blisters. Continue with supportive care, IV Solu-Medrol. Discussed with RN. 04/19/2020 Patient seen in [place] [address] ICU. Breathing on high flow nasal cannula 15 L. Tachypneic, afebrile. Discussed with RN, no acute overnight. Continue steroids, Levophed, and Precedex. 04/18/2020 Patient seen and evaluated in [facility] ICU. She is having some worsening respiratory distress. Currently breathing on BiPAP, FiO2 100%, respiratory rate 22. Concerned she may require intubation. Continue Rocephin, Precedex. Remdes ivir last dose today. 04/17/2020 Patient seen and evaluated [place] [address] ICU. Reportedly no acute events overnight. Afebrile, tachypneic, breathing on high flow nasal cannula. Discussed with RN. 04/16/2020 Patient seen and evaluated in [place] [address] ICU. No acute events overnight. Afebrile, tachypneic. Still breathing on BiPAP at FiO2 80%. CK improving. Discussed with RN. 04/15/2020 Patient seen in [place] [address] ICU. Breathing BiPAP, FiO2 100%. Continue steroids, antibiotics, and remdesivir. LFTs improving. Unfortunately rhabdomyolysis and transaminitis are high risk for remdesivir therapy, will continue to monitor LFTs and CK. 04/14/2020 Patient seen and examined She is still on 100% nonrebreather Appears quite ill Discussed with RN Discussed with pharmacy Chart reviewed Vitals/I&O Vitals/I&O: Vital Signs Date Time Temp Pulse Resp B/P (MAP) Pulse Ox O2 Delivery O2 Flow Rate FiO2 04/21/20 08:41 96 High Flow Nasal Cannula 8.0 04/21/20 08:05 26 04/21/20 07:00 92 107/62 (77) 04/21/20 04:00 97.2 97.2 I & O 04/20/20 04/20/20 04/21/20 15:00 23:00 07:00 Intake Total 3644.3 ml Output Total 1200 ml 1800 ml 1450 ml Balance -1200 ml -1800 ml 2194.3 ml Physical Exam Physical Exam: GENERAL: Alert, awake female, on BiPAP. HEENT: Normocephalic, atraumatic. NECK: Supple, no JVD. LUNGS: Decreased breath sound at bases. No rhonchi. ABDOMEN: Soft, nontender, nondistended, no rebound, no guarding. EXTREMITIES: No edema, no cyanosis. DERMATOLOGIC: Warm, dry. No generalized rash. NEUROLOGIC: Alert, awake, moves all 4 extremities. PSYCHIATRIC: Calm and cooperative. General: Alert, Cooperative, mild distress Heart: Regular rate Abdomen: No masses, Other (Nondistended) Extremities: No clubbing, No cyanosis Skin: No rashes, No breakdown Labs Labs: Laboratory Tests Test 04/20/20 09:49 04/20/20 12:29 04/20/20 16:54 Glucose (Fingerstick) 86 mg/dL (70-99) 107 mg/dL (70-99) 154 mg/dL (70-99) Assessment and Plan Assessmemt and Plan Problems Medical Problems: (1) Hypoxia Status: Acute (2) Pneumonia due to 2019 novel coronavirus Status: Acute (3) Respiratory failure Status: Acute (4) Rhabdomyolysis Status: Acute Comment Review of Relevant I have reviewed the following items eddie (where applicable) has been applied. Medications: Current Medications Medications (Trade) Dose Ordered Sig/Lizbeth Route PRN Reason Start Time Stop Time Status Last Admin Dose Admin Multi-Ingredient Mouthwash/Gargle (Magic Mouthwash) 10 ml PRN QID PRN PO MOUTH PAIN 04/20/20 13:18 04/21/20 01:03 Justifications for Admission Other Justification ELISA LOYA MD Apr 21, 2020 09:18
--- NOTE | 2020-04-21 11:24 | PDOC ---
Infectious Disease Note Subjective Subjective Patient is feeling better on NC ROS ROS no n/v/d/ Vital Sign Vital Signs Vital Signs Date Time Temp Pulse Resp B/P (MAP) Pulse Ox O2 Delivery O2 Flow Rate FiO2 04/21/20 10:00 90 16 101/65 (77) 99 Nasal Cannula 8.0 04/21/20 08:00 99.1 99.1 Physical Exam PHYSICAL EXAM GENERAL: Alert, awake female, HEENT: Normocephalic, atraumatic. NECK: Supple, no JVD. LUNGS: Decreased breath sound at bases. No rhonchi. ABDOMEN: Soft, nontender, nondistended, no rebound, no guarding. EXTREMITIES: No edema, no cyanosis. DERMATOLOGIC: Warm, dry. No generalized rash. NEUROLOGIC: Alert, awake, moves all 4 extremities. PSYCHIATRIC: Calm and cooperative. Labs Lab Laboratory Tests Test 04/20/20 12:29 04/20/20 16:54 Glucose (Fingerstick) 107 mg/dL (70-99) 154 mg/dL (70-99) Micro Microbiology 04/06/20 Blood Culture - Final, Complete NO GROWTH AFTER 5 DAYS Objective Assessment 1. COVID-19 infection. 2. COVID-19 pneumonia. 3. Acute hypoxic respiratory failure. 4. Abnormal liver function tests. 5. Fatty liver with hepatic steatosis. 6. Rhabdomyolysis. 7. Hypertension/hyperlipidemia 8. Fever on admission. Plan Plan of Care RECOMMENDATIONS: 1. Continue supportive care. 2. remdesivir. given 3. Follow up labs and cultures. 4. off antibiotics 5. Continue steroids 0per Pulmonary. 6. Maintain aspiration precaution. CEZAR GARRETT MD Apr 21, 2020 11:24
[2020-04-21] MEDS ORDERED: SODIUM CHLORIDE 0.65% NASAL SPRAY 45ML BOTTLE. NS PRN (18:45)
[2020-04-21] MEDS: ZOLPIDEM 5 MG TABLET. PO PRN (21:47)
[2020-04-21] MEDS: INSULIN GLARGINE SYRINGE. SQ SCH (21:51)
[2020-04-22] VITALS (8 sets, daily range): BP systolic 105–159; BP diastolic 66–93
[2020-04-22] MEDS: IV NORMAL SALINE 1000ML BAG 1,000 ML IV SCH ×2 (01:02→12:41)
[2020-04-22] MEDS: LIDO:MAALOX:BENADRYL 1:1:1 180 ML BOTTLE. PO PRN ×3 (01:07→11:44)
[2020-04-22] MEDS: BENZOCAINE/MENTHOL LOZENGE. PO PRN ×4 (05:43→19:55)
[2020-04-22] MEDS: guaiFENesin/CODEINE 100mg/10mg 5 ML LIQUID PO PRN ×3 (05:43→19:55)
--- NOTE | 2020-04-22 07:38 | PDOC ---
Infectious Disease Note Subjective Subjective Patient is feeling better on 4 L NC ROS ROS No nausea vomiting diarrhea Vital Sign Vital Signs Vital Signs Date Time Temp Pulse Resp B/P (MAP) Pulse Ox O2 Delivery O2 Flow Rate FiO2 04/22/20 04:00 98.6 77 22 112/71 (85) 100 Nasal Cannula 4.0 98.6 Physical Exam PHYSICAL EXAM GENERAL: Alert, awake female, HEENT: Normocephalic, atraumatic. NECK: Supple, no JVD. LUNGS: Decreased breath sound at bases. No rhonchi. ABDOMEN: Soft, nontender, nondistended, no rebound, no guarding. EXTREMITIES: No edema, no cyanosis. DERMATOLOGIC: Warm, dry. No generalized rash. NEUROLOGIC: Alert, awake, moves all 4 extremities. PSYCHIATRIC: Calm and cooperative. Labs Micro Microbiology 04/06/20 Blood Culture - Final, Complete NO GROWTH AFTER 5 DAYS Objective Assessment 1. COVID-19 infection. 2. COVID-19 pneumonia. 3. Acute hypoxic respiratory failure. 4. Abnormal liver function tests. 5. Fatty liver with hepatic steatosis. 6. Rhabdomyolysis. 7. Hypertension/hyperlipidemia 8. Fever on admission. Plan Plan of Care RECOMMENDATIONS: 1. Continue supportive care. 2. remdesivir. given 3. Follow up labs and cultures. 4. off antibiotics 5. Continue steroids 0per Pulmonary. 6. Maintain aspiration precaution. CEZAR GARRETT MD Apr 22, 2020 07:38
[2020-04-22] MEDS: INSULIN LISPRO 300 UNITS/3 ML VIAL. SQ SCH ×3 (08:00→17:43)
--- NOTE | 2020-04-22 08:39 | PDOC ---
PULMONARY PROGRESS NOTE Diagnosis PROBLEM LIST Problems Medical Problems: (1) Hypoxia Status: Acute (2) Pneumonia due to 2019 novel coronavirus Status: Acute (3) Respiratory failure Status: Acute (4) Rhabdomyolysis Status: Acute Objective Vital Signs Date Time Temp Pulse Resp B/P (MAP) Pulse Ox O2 Delivery O2 Flow Rate FiO2 04/22/20 04:00 98.6 77 22 112/71 (85) 100 Nasal Cannula 4.0 98.6 Intake and Output 04/22/20 07:00 Intake Total 2087 ml Output Total 3500 ml Balance -1413 ml Intake Oral 1840 ml IV Total 247 ml Output Urine Total 3500 ml VITALS/I&O Vital Sign - Last 24 Hours 04/21/20 04/21/20 04/21/20 04/21/20 08:41 09:00 10:00 11:00 Pulse 100 90 77 Resp 30 16 22 B/P (MAP) 102/71 (81) 101/65 (77) 87/60 (69) Pulse Ox 96 96 99 100 O2 Delivery High Flow Nasal Cannula Nasal Cannula Nasal Cannula Nasal Cannula O2 Flow Rate 8.0 8.0 8.0 8.0 04/21/20 04/21/20 04/21/20 04/21/20 11:32 12:00 12:00 13:00 Temp 99.3 99.3 Pulse 98 104 Resp 22 30 26 B/P (MAP) 109/69 (82) 125/80 (95) Pulse Ox 100 96 96 O2 Delivery Nasal Cannula Nasal Cannula Nasal Cannula Nasal Cannula O2 Flow Rate 8.0 4.0 8.0 4.0 04/21/20 04/21/20 04/21/20 04/21/20 13:24 14:00 15:00 16:08 Temp 99.3 99.3 Pulse 104 114 Resp 24 26 B/P (MAP) 111/88 (96) 133/93 (106) Pulse Ox 94 96 94 97 O2 Delivery Nasal Cannula Nasal Cannula Nasal Cannula Nasal Cannula O2 Flow Rate 2.0 4.0 5.0 4.0 04/21/20 04/21/20 04/22/20 04/22/20 20:00 20:00 00:00 04:00 Temp 98.8 98.9 98.6 98.8 98.9 98.6 Pulse 100 90 77 Resp 32 29 22 B/P (MAP) 116/81 (93) 125/90 (102) 112/71 (85) Pulse Ox 97 99 100 O2 Delivery Nasal Cannula Nasal Cannula Nasal Cannula Nasal Cannula O2 Flow Rate 4.0 4.0 4.0 4.0 Intake and Output 04/21/20 04/21/20 04/22/20 15:00 23:00 07:00 Intake Total 1000 ml 240 ml 847 ml Output Total 2000 ml 1500 ml Balance -1000 ml 240 ml -653 ml Review of Relevant I have reviewed the following items eddie (where applicable) has been applied. Labs Laboratory Tests Test 04/20/20 09:49 04/20/20 12:29 04/20/20 16:54 Glucose (Fingerstick) 86 mg/dL (70-99) 107 mg/dL (70-99) 154 mg/dL (70-99) Microbiology 04/06/20 Blood Culture - Final, Complete NO GROWTH AFTER 5 DAYS Medications Current Medications Iohexol (Omnipaque 350 Mg/ml) 100 ml 1X ONCE IV Last administered on 04/05/20at 00:14; Start 04/05/20 at 23:45; Stop 04/05/20 at 23:46; Status DC Info (CONTRAST GIVEN -- Rx MONITORING) 1 each PRN DAILY PRN MC SEE COMMENTS; Start 04/05/20 at 23:45; Stop 04/07/20 at 23:44; Status DC Sodium Chloride 1,000 ml @ 1,000 mls/hr 1X ONCE IV Last administered on 04/06/20at 01:17; Start 04/06/20 at 01:00; Stop 04/06/20 at 01:59; Status DC Dexamethasone Sodium Phosphate (Decadron) 10 mg 1X ONCE IVP Last administered on 04/06/20at 01:16; Start 04/06/20 at 01:00; Stop 04/06/20 at 01:02; Status DC Azithromycin 500 mg/Sodium Chloride 250 ml @ 250 mls/hr 1X ONCE IV Last administered on 04/06/20at 01:16; Start 04/06/20 at 01:00; Stop 04/06/20 at 01:59; Status DC Ondansetron HCl (Zofran) 4 mg PRN Q8HRS PRN IV NAUSEA/VOMITING; Start 04/06/20 at 01:30; Stop 04/06/20 at 17:17; Status DC Acetaminophen (Tylenol) 650 mg PRN Q4HRS PRN PO FEVER > 100.3'F Last administered on 04/06/20 02:44; Start 04/06/20 at 01:30; Stop 04/06/20 at 17:17; Status DC Sodium Chloride 1,000 ml @ 100 mls/hr 1X ONCE IV Last administered on 04/06/20at 02:37; Start 04/06/20 at 01:30; Stop 04/06/20 at 11:29; Status DC Sodium Chloride 1,000 ml @ 60 mls/hr [id number] IV Last administered on 04/22/20at 01:02; Start 04/06/20 at 09:30 Ondansetron HCl (Zofran) 4 mg PRN Q4HRS PRN IV NAUSEA/VOMITING Last administered on 04/21/20at 18:11; Start 04/06/20 at 17:15 Acetaminophen (Tylenol) 650 mg PRN Q6HRS PRN PO FEVER > 100.3'F Last administered on 04/19/20at 19:35; Start 04/06/20 at 17:15 Guaifenesin (Robitussin Dm) 10 ml PRN Q6HRS PRN PO COUGH, 1ST CHOICE Last administered on 04/21/20 21:47; Start 04/06/20 at 17:15 Dexamethasone Sodium Phosphate (Decadron) 6 mg 1X ONCE IVP Last administered on 04/06/20at 17:34; Start 04/06/20 at 17:30; Stop 04/06/20 at 17:31; Status DC Enoxaparin Sodium (Lovenox 40mg Syringe) 40 mg Q24H SQ Last administered on 04/07/20at 17:39; Start 04/06/20 at 18:00; Stop 04/08/20 at 08:52; Status DC Zinc Sulfate (Orazinc) 220 mg DAILY PO Last administered on 04/21/20at 08:06; Start 04/06/20 at 17:00 Zolpidem Tartrate (Ambien) 5 mg PRN QHS PRN PO INSOMNIA Last administered on 04/21/20at 21:47; Start 04/06/20 at 17:15 Morphine Sulfate (Morphine Sulfate) 2 mg PRN Q2HR PRN IV PAIN Last administered on 04/21/20 08:05; Start 04/06/20 at 17:15 Amino Acids/ Glycerin/ Electrolytes 1,000 ml @ 80 mls/hr [id number] IV Last administered on 04/07/20at 06:44; Start 04/06/20 at 17:30; Stop 04/09/20 at 16:21; Status DC Furosemide (Lasix) 60 mg 1X ONCE IVP Last administered on 04/07/20at 06:44; Start 04/07/20 at 06:45; Stop 04/07/20 at 06:46; Status DC Insulin Glargine (Lantus Syringe) 5 unit QHS SQ Last administered on 04/21/20at 21:51; Start 04/07/20 at 21:00 Insulin Human Lispro (HumaLOG) 0-7 UNITS TIDWMEALS SQ Last administered on 04/21/20 17:00; Start 04/07/20 at 08:00 Dextrose (Dextrose 50%-Water Syringe) 12.5 gm PRN Q15MIN PRN IV SEE COMMENTS; Start 04/07/20 at 07:45 Dexamethasone Sodium Phosphate (Decadron) 6 mg DAILY IVP Last administered on 04/13/20at 08:38; Start 04/07/20 at 13:00; Stop 04/14/20 at 08:28; Status DC Ceftriaxone Sodium (Rocephin) 1 gm Q24H IVP Last administered on 04/17/20at 13:12; Start 04/07/20 at 13:00; Stop 04/18/20 at 10:49; Status DC Sterile Water (WATER for RESP) 1,000 ml CONT PRN INH VIA VAPOTHERM DEVICE Last administered on 04/11/20at 04:04; Start 04/07/20 at 13:00 Enoxaparin Sodium (Lovenox 40mg Syringe) 40 mg BID SQ Last administered on 04/21/20at 21:47; Start 04/08/20 at 09:00 Guaifenesin/ Codeine Phosphate (Robitussin Ac) 10 ml PRN Q4HRS PRN PO COUGH, 2ND CHOICE Last administered on 04/10/20at 14:22; Start 04/09/20 at 00:30; Stop 04/10/20 at 16:28; Status DC Famotidine (Pepcid Vial) 20 mg BID IVP Last administered on 04/12/20at 08:25; Start 04/09/20 at 10:00; Stop 04/12/20 at 12:18; Status DC Polyethylene Glycol (miraLAX PACKET) 17 gm DAILY PO Last administered on 04/10/20at 07:59; Start 04/09/20 at 10:00; Stop 04/12/20 at 12:18; Status DC Polyethylene Glycol (miraLAX PACKET) 17 gm PRN DAILY PRN PO CONSTIPATION, 1ST CHOICE; Start 04/09/20 at 10:00 Bisacodyl (Dulcolax Tab) 5 mg PRN DAILY PRN PO CONSTIPATION, 2ND CHOICE Last administered on 04/09/20at 11:31; Start 04/09/20 at 10:00 Guaifenesin/ Codeine Phosphate (Robitussin Ac) 5 ml PRN Q6HRS PRN PO COUGH, 2ND CHOICE Last administered on 04/22/20at 05:43; Start 04/10/20 at 09:45 Lactobacillus Rhamnosus (Culturelle) 1 cap BID PO Last administered on 04/21/20at 21:47; Start 04/10/20 at 21:00 Throat Lozenges (Cepacol Sore Throat Lozenge) 1 jeffrey PRN Q2HRS PRN PO SORE THROAT Last administered on 04/22/20at 05:43; Start 04/10/20 at 14:30 Buspirone HCl (Buspar) 10 mg PRN TID PRN PO ANXIETY; Start 04/12/20 at 09:30; Stop 04/12/20 at 09:25; Status DC Sodium Chloride (Beverly Saline Nasal) 1 sarah PRN DAILY PRN NS NASAL CONGESTION Last administered on 04/12/20at 09:42; Start 04/12/20 at 09:30; Stop 04/21/20 at 19:12; Status DC Buspirone HCl (Buspar) 10 mg TID PO Last administered on 04/21/20 21:47; Start 04/12/20 at 09:30 Alprazolam (Xanax) 0.5 mg BID PO Last administered on 04/21/20 21:47; Start 04/12/20 at 13:00 Famotidine (Pepcid) 20 mg BID PO Last administered on 12/13/20at 21:47; Start 04/12/20 at 21:00 Benzonatate (Tessalon Perle) 100 mg 1X ONCE PO Last administered on 04/13/20at 02:53; Start 04/13/20 at 03:00; Stop 04/13/20 at 03:01; Status DC Guaifenesin/ Codeine Phosphate (Robitussin Ac) 5 ml PRN Q6HRS PRN PO COUGH; Start 04/13/20 at 12:00; Status Cancel Lorazepam (Ativan Inj) 2 mg PRN Q2HR PRN IVP ANXIETY / AGITATION- MILD/MOD Last administered on 04/21/20at 22:35; Start 04/14/20 at 00:45 Lorazepam (Ativan Inj) 4 mg PRN Q4HRS PRN IVP ANXIETY / AGITATION- SEVERE Last administered on 04/21/20at 10:21; Start 04/14/20 at 01:15 Dexmedetomidine HCl 400 mcg/ Sodium Chloride 100 ml @ 0 mls/hr CONT PRN IV PER PROTOCOL Last administered on 04/19/20at 13:39; Start 04/14/20 at 06:00 Sodium Chloride 500 ml @ 500 mls/hr 1X PRN PRN IV SEE COMMENTS; Start 04/14/20 at 06:00 Atropine Sulfate (ATROPINE 0.5mg SYRINGE) 0.5 mg PRN Q5MIN PRN IV SEE COMMENTS; Start 04/14/20 at 06:00 Norepinephrine Bitartrate 8 mg/ Dextrose 258 ml @ 6.676 mls/ hr CONT PRN IV PER PROTOCOL Last administered on 04/14/20at 06:14; Start 04/14/20 at 06:00 Methylprednisolone Sodium Succinate (SOLU-Medrol 40MG VIAL) 40 mg Q8HRS IV Last administered on 04/19/20at 05:37; Start 04/14/20 at 08:30; Stop 04/19/20 at 10:53; Status DC Remdesivir 200 mg/ Sodium Chloride 210 ml @ 210 mls/hr 1X ONCE IV Last administered on 04/14/20at 17:12; Start 04/14/20 at 17:00; Stop 04/14/20 at 17:59; Status DC Remdesivir 100 mg/ Sodium Chloride 230 ml @ 460 mls/hr Q24H IV Last administered on 04/18/20at 16:45; Start 04/15/20 at 17:00; Stop 04/18/20 at 17:29; Status DC Albumin Human 500 ml @ 125 mls/hr 1X ONCE IV Last administered on 04/17/20at 10:19; Start 04/17/20 at 10:15; Stop 04/17/20 at 14:14; Status DC Methylprednisolone Sodium Succinate (SOLU-Medrol 40MG VIAL) 40 mg DAILY IV Last administered on 04/21/20at 08:07; Start 04/20/20 at 09:00 Multi-Ingredient Mouthwash/Gargle (Magic Mouthwash) 10 ml PRN QID PRN PO MOUTH PAIN; Start 04/20/20 at 13:15; Stop 04/20/20 at 13:18; Status DC Multi-Ingredient Mouthwash/Gargle (Magic Mouthwash) 10 ml PRN QID PRN PO MOUTH PAIN Last administered on 04/22/20at 05:43; Start 04/20/20 at 13:18 Sodium Chloride (Saline Mist Nasal) 1 sarah PRN Q1HR PRN NS NASAL CONGESTION; Start 04/21/20 at 18:45 Active Scripts Active Codeine-Guaifen 10-100 mg/5 ml (Guaifenesin/Codeine Phosphate) 120 Ml Liquid 5 Ml PO PRN Q6HRS PRN MDD 20 Milliliter(s) 6 Days Prednisone 50 Mg Tablet 1 Tab PO DAILY Zithromax (Azithromycin) 250 Mg Tablet 1 Pkg PO UD Ibuprofen 800 Mg Tablet 800 Mg PO PRN Q6HRS PRN Meclizine Hcl 25 Mg Tablet 1 Tab PO TID Zithromax (Azithromycin) 250 Mg Tablet 1 Pkg PO UD Tamiflu (Oseltamivir Phosphate) 75 Mg Capsule 1 Cap PO BID Reported Claritin (Loratadine) 10 Mg Tablet 10 Mg PO DAILY Justicifation of Admission Dx: Justifications for Admission: Justification of Admission Dx: Yes TYRONE COWAN MD Apr 22, 2020 08:39
[2020-04-22] MEDS: LACTOBACILLUS RHAMNOSUS GG 1 CAPSULE. PO SCH ×2 (08:51→19:55)
[2020-04-22] MEDS: ZINC SULFATE 220 MG CAPSULE. PO SCH (08:51)
[2020-04-22] MEDS: ALPRAZolam 0.5 MG TABLET PO SCH ×2 (08:51→19:55)
[2020-04-22] MEDS: FAMOTIDINE 20 MG TABLET. PO SCH ×2 (08:51→19:55)
[2020-04-22] MEDS: busPIRone 10 MG TABLET. PO SCH ×3 (08:51→19:55)
[2020-04-22] MEDS: methylPREDNISolone SOD SUCC PF 40 MG/ML VIAL. IV SCH (08:52)
[2020-04-22] MEDS: ENOXAPARIN 40 MG/0.4 ML SYRINGE. SQ SCH ×2 (08:52→19:55)
--- NOTE | 2020-04-22 09:29 | PDOC ---
Date of Service: DATE: 04/22/20 TIME: 09:24 Objective: Objective: No GI concerns per nurse. Stool charted 04/10. 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 Has Miralax and Dulcolax ordered if needed. Justicifation of Admission Dx: Justifications for Admission: Justification of Admission Dx: Yes ALLISON CHAMORRO Apr 22, 2020 09:29
[2020-04-22] MEDS: ACETAMINOPHEN 325 MG TABLET. PO PRN ×2 (10:23→10:31)
[2020-04-22 10:51] LABS: BASO % 0 % (0-3); EOS # 0.4 x10^3/uL (0.0-0.7); EOS % 4 % (0-3); HEMATOCRIT 43.3 % (36.0-47.0); HEMOGLOBIN 14.9 g/dL (12.0-15.5); LYMPH # 1.2 x10^3/uL (1.0-4.8); LYMPH % 11 % (24-48); MEAN CORPUSCULAR HEMOGLOBIN 33 pg (25-35); MEAN CORPUSCULAR HGB CONC 35 g/dL (31-37); MEAN CORPUSCULAR VOLUME 94 fL (79-100); MONO # 0.3 x10^3/uL (0.0-1.1); MONO % 3 % (0-9); NEUT # 8.7 x10^3/uL (1.8-7.7); NEUT % 82 % (31-73); PLATELET COUNT 269 x10^3/uL (140-400); RED CELL DISTRIBUTION WIDTH 14.5 % (11.5-14.5); WHITE BLOOD COUNT 10.7 x10^3/uL (4.0-11.0)
[2020-04-22 11:11] LABS: CALCIUM 8.3 mg/dL (8.5-10.1); CREATININE 0.8 mg/dL (0.6-1.0); GFR 76.9; POTASSIUM 3.4 mmol/L (3.5-5.1)
[2020-04-22] MEDS: POLYETHYLENE GLYCOL 3350 17 GM PACKET. PO PRN (11:45)
[2020-04-22] MEDS: BISACODYL 5 MG TABLET.DR. PO PRN (11:45)
--- NOTE | 2020-04-22 11:53 | PDOC ---
PULMONARY PROGRESS NOTES DATE: 04/22/20 TIME: 11:51 Subjective Patient remains on 4 L nasal cannula Reports she is feeling better today Low-grade fever overnight No other concerns from nursing Vitals Vital Signs Date Time Temp Pulse Resp B/P (MAP) Pulse Ox O2 Delivery O2 Flow Rate FiO2 04/22/20 08:00 Nasal Cannula 4.0 04/22/20 08:00 99.1 92 30 129/93 (105) 97 99.1 Comments Patient seen during ID- pandemic, visual exam performed alert on rrr has accessory muscle use/distress No obvious rash or edema Labs Laboratory Tests Test 04/20/20 12:29 04/20/20 16:54 04/22/20 09:36 04/22/20 10:21 Glucose (Fingerstick) 107 mg/dL (70-99) 154 mg/dL (70-99) White Blood Count 10.7 x10^3/uL (4.0-11.0) Red Blood Count 4.60 x10^6/uL (3.50-5.40) Hemoglobin 14.9 g/dL (12.0-15.5) Hematocrit 43.3 % (36.0-47.0) Mean Corpuscular Volume 94 fL (79-100) Mean Corpuscular Hemoglobin 33 pg (25-35) Mean Corpuscular Hemoglobin Concent 35 g/dL (31-37) Red Cell Distribution Width 14.5 % (11.5-14.5) Platelet Count 269 x10^3/uL (140-400) Neutrophils (%) (Auto) 82 % (31-73) Lymphocytes (%) (Auto) 11 % (24-48) Monocytes (%) (Auto) 3 % (0-9) Eosinophils (%) (Auto) 4 % (0-3) Basophils (%) (Auto) 0 % (0-3) Neutrophils # (Auto) 8.7 x10^3/uL (1.8-7.7) Lymphocytes # (Auto) 1.2 x10^3/uL (1.0-4.8) Monocytes # (Auto) 0.3 x10^3/uL (0.0-1.1) Eosinophils # (Auto) 0.4 x10^3/uL (0.0-0.7) Basophils # (Auto) 0.0 x10^3/uL (0.0-0.2) Sodium Level 137 mmol/L (136-145) Potassium Level 3.4 mmol/L (3.5-5.1) Chloride Level 99 mmol/L (98-107) Carbon Dioxide Level 28 mmol/L (21-32) Anion Gap 10 (6-14) Blood Urea Nitrogen 12 mg/dL (7-20) Creatinine 0.8 mg/dL (0.6-1.0) Estimated GFR (Cockcroft-Gault) 76.9 Glucose Level 187 mg/dL (70-99) Calcium Level 8.3 mg/dL (8.5-10.1) Laboratory Tests Test 04/22/20 09:36 04/22/20 10:21 White Blood Count 10.7 x10^3/uL (4.0-11.0) Red Blood Count 4.60 x10^6/uL (3.50-5.40) Hemoglobin 14.9 g/dL (12.0-15.5) Hematocrit 43.3 % (36.0-47.0) Mean Corpuscular Volume 94 fL (79-100) Mean Corpuscular Hemoglobin 33 pg (25-35) Mean Corpuscular Hemoglobin Concent 35 g/dL (31-37) Red Cell Distribution Width 14.5 % (11.5-14.5) Platelet Count 269 x10^3/uL (140-400) Neutrophils (%) (Auto) 82 % (31-73) Lymphocytes (%) (Auto) 11 % (24-48) Monocytes (%) (Auto) 3 % (0-9) Eosinophils (%) (Auto) 4 % (0-3) Basophils (%) (Auto) 0 % (0-3) Neutrophils # (Auto) 8.7 x10^3/uL (1.8-7.7) Lymphocytes # (Auto) 1.2 x10^3/uL (1.0-4.8) Monocytes # (Auto) 0.3 x10^3/uL (0.0-1.1) Eosinophils # (Auto) 0.4 x10^3/uL (0.0-0.7) Basophils # (Auto) 0.0 x10^3/uL (0.0-0.2) Sodium Level 137 mmol/L (136-145) Potassium Level 3.4 mmol/L (3.5-5.1) Chloride Level 99 mmol/L (98-107) Carbon Dioxide Level 28 mmol/L (21-32) Anion Gap 10 (6-14) Blood Urea Nitrogen 12 mg/dL (7-20) Creatinine 0.8 mg/dL (0.6-1.0) Estimated GFR (Cockcroft-Gault) 76.9 Glucose Level 187 mg/dL (70-99) Calcium Level 8.3 mg/dL (8.5-10.1) Medications Active Scripts Medications Dose Route/Sig Max Daily Dose Days Date Category Claritin (Loratadine) 10 Mg Tablet 10 Mg PO DAILY 04/06/20 Reported Codeine-Guaifen 10-100 mg/5 ml (Guaifenesin/Codeine Phosphate) 120 Ml Liquid 5 Ml PO PRN Q6HRS PRN MDD 20 Milliliter(s) 6 04/02/20 Rx Prednisone 50 Mg Tablet 1 Tab PO DAILY 04/02/20 Rx Zithromax (Azithromycin) 250 Mg Tablet 1 Pkg PO UD 04/02/20 Rx Ibuprofen 800 Mg Tablet 800 Mg PO PRN Q6HRS PRN 07/27/18 Rx Meclizine Hcl 25 Mg Tablet 1 Tab PO TID 07/27/18 Rx Zithromax (Azithromycin) 250 Mg Tablet 1 Pkg PO UD 07/27/18 Rx Tamiflu (Oseltamivir Phosphate) 75 Mg Capsule 1 Cap PO BID 07/27/18 Rx Comments CTA chest IMPRESSION: No evidence of main or lobar pulmonary embolus on significantly limited evaluation. Bilateral patchy groundglass opacities as described, compatible with viral pneumonia. CXR 04/18/20 Impression: improving infiltrates Impression . IMPRESSION: 1. Acute hypoxic respiratory failure secondary to COVID-19 pneumonia. r/o bacterial pneumonia 2. Abnormal CT chest with bilateral patchy interstitial infiltrates compatible with COVID-19 pneumonia. 3. Underlying obesity. ?conor 4. History of hypertension. 5. encephalopathy, improving Plan . RECOMMENDATIONS: Continue supplemental oxygen to keep oxygen saturations greater than 92%, currently on 4 L nasal cannula, titrate as possible Steroids with taper, patient will need full 10-day course, 10-day course is completed on 04/24/2020 s/p remdesivir full course Follow chest x-ray 04/18, mild improvement. CTA of chest reviewed negative for pulmonary embolism Follow infectious disease recommendations in regards to antibiotics, currently off antibiotics Social work for DC planning DVT/GI prophylaxis: lovenox/pepcid Discussed with RN Pt. CODE FULL Patient can transfer out of the intensive care unit today if okay with other consultants TYRONE COWAN MD Apr 22, 2020 11:52
--- NOTE | 2020-04-22 12:43 | NUR ---
patient transfer to room 260. Telephone report given to Gregg Nunez. Patient belongings with patient at time of transfer.
--- NOTE | 2020-04-22 12:55 | PDOC ---
[employer] PROGRESS NOTE Date of Service DOS: DATE: 04/22/20 TIME: 12:53 Chief Complaint Chief Complaint IMPRESSION Acute respiratory failure with hypoxia -likely due to COVID-19 pneumonia Increased multifocal pulmonary opacities Bilateral patchy groundglass opacities as described, compatible with viral pneumonia Moderate bilateral infiltrates could be pulmonary edema or ARDS or pneumonia and appears mildly worse.04-14 Pneumonia due to 2019 novel coronavirus Rhabdomyolysis -will hydrate aggressively Hypokalemia Transaminitis High Cholesterol Hypertension Seasonal allergies Fatty liver - will monitor transaminases, Hyperglycemia anxiety PLAN FEN - regular diet PPX - lovenox FULL CODE Dispo - inpatient for above ICU BED consult nephrology CTA of chest reviewed negative for pulmonary embolism antibiotics, iv Rocephin begin buspar 10 mg po tid iv fluid support CPK [id number] 04-11 [id number] 04-12 [id number] 04-13 History of Present Illness History of Present Illness 04/22/2020 No acute events overnight. Patient seen and examined bedside. Patient is now saturating well on 4 L nasal cannula.> 50% time spent in patient chart, labs, and imaging review and in discussion with RN and SW. Patient will be transferred to telemetry floor today. A total of 35 minutes of critical care time was spent in reviewing chart, labs, and images. Discussed with RN and SW. Ms Olson is a 49-year-old female w/ PMHx High Cholesterol, Hypertension, seasonal allergies, fatty liver who presented 04/02/2020 for Covid-like symptoms and returns with the same. Patient reports symptoms have worsened including fe magdiel, shortness of air, loss of taste, nausea, fatigue, dizziness, and bilateral lower extremity pain. Denies any vomiting or diarrhea. Reports family members now with similar symptoms. Reports her spouse had some symptoms prior to her. Her SARS-CoV-2 PCR test from 04/02/2020 returned positive. Other labs significant for WBC 8.8, Hb 14.1, platelets 241, D-dimer 0.70, NA 135, K3.5, BUN 6, CR 0.7, glucose 111, AST 366, ALT 177, CK 54,211. Rapid influenza negative EKG Sinus tachycardia at 119bpm, NO ST elevation, QRS 82ms, QT/QTc 308/434ms, baseline artifact noted. Febrile to 101 F CTPA with no PE but Bilateral patchy groundglass opacities as described, compatible with viral pneumonia. She was hypoxic to 82% on normal air and required 6L NCO2 to improve her O2 status. Admitted for further care IV fluid hydration provided. Symptomatic treatment provided with dexamethasone. Empiric antibiotic initiated. 04/21/2020 Patient seen and evaluated. Breathing 8 L high flow nasal cannula, afebrile. Continue steroids and supportive care. 04/20/2020 Afebrile, wheezing on 15 L nasal cannula. Complains of some sore throat perioral blisters. Continue with supportive care, IV Solu-Medrol. Discussed with RN. 04/19/2020 Patient seen in [place] [address] ICU. Breathing on high flow nasal cannula 15 L. Tachypneic, afebrile. Discussed with RN, no acute overnight. Continue steroids, Levophed, and Precedex. 04/18/2020 Patient seen and evaluated in [facility] ICU. She is having some worsening respiratory distress. Currently breathing on BiPAP, FiO2 100%, respiratory rate 22. Concerned she may require intubation. Continue Rocephin, Precedex. Remdesivir last dose today. 04/17/2020 Patient seen and evaluated [facility]- ICU. Reportedly no acute events overnight. Afebrile, tachypneic, breathing on high flow nasal cannula. Discussed with RN. 04/16/2020 Patient seen and evaluated in [facility]- ICU. No acute events overnight. Afebrile, tachypneic. Still breathing on BiPAP at FiO2 80%. CK improving. Discussed with RN. 04/15/2020 Patient seen in [place] [address] ICU. Breathing BiPAP, FiO2 100%. Continue steroids, antibiotics, and remdesivir. LFTs improving. Unfortunately rhabdomyolysis and transaminitis are high risk for remdesivir therapy, will continue to monitor LFTs and CK. 04/14/2020 Patient seen and examined She is still on 100% nonrebreather Appears quite ill Discussed with RN Discussed with pharmacy Chart reviewed Vitals/I&O Vitals/I&O: Vital Signs Date Time Temp Pulse Resp B/P (MAP) Pulse Ox O2 Delivery O2 Flow Rate FiO2 04/22/20 12:28 98.2 98 24 105/75 (85) 94 Nasal Cannula 4.0 98.2 I & O0 04/21/20 04/21/20 04/22/20 15:00 23:00 07:00 Intake Total 1000 ml 240 ml 847 ml Output Total 2000 ml 1500 ml Balance -1000 ml 240 ml -653 ml Physical Exam Physical Exam: GENERAL: Alert, awake female, HEENT: Normocephalic, atraumatic. NECK: Supple, no JVD. LUNGS: Decreased breath sound at bases. No rhonchi. ABDOMEN: Soft, nontender, nondistended, no rebound, no guarding. EXTREMITIES: No edema, no cyanosis. DERMATOLOGIC: Warm, dry. No generalized rash. NEUROLOGIC: Alert, awake, moves all 4 extremities. PSYCHIATRIC: Calm and cooperative. General: Alert, Cooperative, mild distress Heart: Regular rate Abdomen: No masses, Other (Nondistended) Extremities: No clubbing, No cyanosis Skin: No rashes, No breakdown Labs Labs: Laboratory Tests Test 04/22/20 09:36 04/22/20 10:21 White Blood Count 10.7 x10^3/uL (4.0-11.0) Red Blood Count 4.60 x10^6/uL (3.50-5.40) Hemoglobin 14.9 g/dL (12.0-15.5) Hematocrit 43.3 % (36.0-47.0) Mean Corpuscular Volume 94 fL (79-100) Mean Corpuscular Hemoglobin 33 pg (25-35) Mean Corpuscular Hemoglobin Concent 35 g/dL (31-37) Red Cell Distribution Width 14.5 % (11.5-14.5) Platelet Count 269 x10^3/uL (140-400) Neutrophils (%) (Auto) 82 % (31-73) Lymphocytes (%) (Auto) 11 % (24-48) Monocytes (%) (Auto) 3 % (0-9) Eosinophils (%) (Auto) 4 % (0-3) Basophils (%) (Auto) 0 % (0-3) Neutrophils # (Auto) 8.7 x10^3/uL (1.8-7.7) Lymphocytes # (Auto) 1.2 x10^3/uL (1.0-4.8) Monocytes # (Auto) 0.3 x10^3/uL (0.0-1.1) Eosinophils # (Auto) 0.4 x10^3/uL (0.0-0.7) Basophils # (Auto) 0.0 x10^3/uL (0.0-0.2) Sodium Level 137 mmol/L (136-145) Potassium Level 3.4 mmol/L (3.5-5.1) Chloride Level 99 mmol/L (98-107) Carbon Dioxide Level 28 mmol/L (21-32) Anion Gap 10 (6-14) Blood Urea Nitrogen 12 mg/dL (7-20) Creatinine 0.8 mg/dL (0.6-1.0) Estimated GFR (Cockcroft-Gault) 76.9 Glucose Level 187 mg/dL (70-99) Calcium Level 8.3 mg/dL (8.5-10.1) Assessment and Plan Assessmemt and Plan Problems Medical Problems: (1) Hypoxia Status: Acute (2) Pneumonia due to 2019 novel coronavirus Status: Acute (3) Respiratory failure Status: Acute (4) Rhabdomyolysis Status: Acute Comment Review of Relevant I have reviewed the following items eddie (where applicable) has been applied. Justifications for Admission Other Justification JUAN ANTONIO RUSHING MD Apr 22, 2020 12:55
--- NOTE | 2020-04-22 13:13 | NUR ---
SS following up with discharge planning. SS reviewed pt chart and discussed with pt RN. Pt is currently requiring oxygen at 4 liters. COVID19 positive. PT recommending acute rehabilitation. Pt requesting to return to home with family at discharge. Pt transferred to room 260 today. PT/OT being re-ordered. SS will continue to follow for discharge planning.
[2020-04-22] MEDS: ZOLPIDEM 5 MG TABLET. PO PRN (19:55)
[2020-04-22] MEDS: ONDANSETRON PF 4 MG/2 ML VIAL. IV PRN (21:56)
[2020-04-22] MEDS: INSULIN GLARGINE SYRINGE. SQ SCH (21:57)
[2020-04-23] MEDS: MORPHINE SULFATE 2 MG/ML VIAL. IV PRN ×2 (01:12→20:26)
[2020-04-23] MEDS: guaiFENesin DM 200MG/20MG 10 ML SYRUP PO PRN ×2 (01:31→14:54)
[2020-04-23] MEDS: BENZOCAINE/MENTHOL LOZENGE. PO PRN (01:31)
[2020-04-23 03:24] VITALS: BP 126/78
[2020-04-23] MEDS: IV NORMAL SALINE 1000ML BAG 1,000 ML IV SCH ×2 (05:21→22:01)
[2020-04-23 07:00] VITALS: BP 129/86
[2020-04-23] MEDS: INSULIN LISPRO 300 UNITS/3 ML VIAL. SQ SCH ×3 (08:00→17:14)
--- NOTE | 2020-04-23 08:41 | PDOC ---
PULMONARY PROGRESS NOTES DATE: 04/23/20 TIME: 08:40 Subjective Patient on 5 L nasal cannula continues to clinically improve No other concerns from nursing Vitals Vital Signs Date Time Temp Pulse Resp B/P (MAP) Pulse Ox O2 Delivery O2 Flow Rate FiO2 04/23/20 03:24 98.2 96 18 126/78 (94) 94 Nasal Cannula 4.0 98.2 Comments Patient seen during ID- pandemic, visual exam performed alert on 02 rrr has accessory muscle use/distress No obvious rash or edema Labs Laboratory Tests Test 04/21/20 14:28 04/21/20 17:39 04/22/20 08:57 04/22/20 09:36 Glucose (Fingerstick) 172 mg/dL (70-99) 185 mg/dL (70-99) 97 mg/dL (70-99) White Blood Count 10.7 x10^3/uL (4.0-11.0) Red Blood Count 4.60 x10^6/uL (3.50-5.40) Hemoglobin 14.9 g/dL (12.0-15.5) Hematocrit 43.3 % (36.0-47.0) Mean Corpuscular Volume 94 fL (79-100) Mean Corpuscular Hemoglobin 33 pg (25-35) Mean Corpuscular Hemoglobin Concent 35 g/dL (31-37) Red Cell Distribution Width 14.5 % (11.5-14.5) Platelet Count 269 x10^3/uL (140-400) Neutrophils (%) (Auto) 82 % (31-73) Lymphocytes (%) (Auto) 11 % (24-48) Monocytes (%) (Auto) 3 % (0-9) Eosinophils (%) (Auto) 4 % (0-3) Basophils (%) (Auto) 0 % (0-3) Neutrophils # (Auto) 8.7 x10^3/uL (1.8-7.7) Lymphocytes # (Auto) 1.2 x10^3/uL (1.0-4.8) Monocytes # (Auto) 0.3 x10^3/uL (0.0-1.1) Eosinophils # (Auto) 0.4 x10^3/uL (0.0-0.7) Basophils # (Auto) 0.0 x10^3/uL (0.0-0.2) Test 04/22/20 10:21 04/22/20 11:49 04/22/20 16:31 04/22/20 20:58 Sodium Level 137 mmol/L (136-145) Potassium Level 3.4 mmol/L (3.5-5.1) Chloride Level 99 mmol/L (98-107) Carbon Dioxide Level 28 mmol/L (21-32) Anion Gap 10 (6-14) Blood Urea Nitrogen 12 mg/dL (7-20) Creatinine 0.8 mg/dL (0.6-1.0) Estimated GFR (Cockcroft-Gault) 76.9 Glucose Level 187 mg/dL (70-99) Calcium Level 8.3 mg/dL (8.5-10.1) Glucose (Fingerstick) 231 mg/dL (70-99) 195 mg/dL (70-99) 178 mg/dL (70-99) Test 04/23/20 08:05 Glucose (Fingerstick) 117 mg/dL (70-99) Laboratory Tests Test 04/22/20 08:57 04/22/20 09:36 04/22/20 10:21 04/22/20 11:49 Glucose (Fingerstick) 97 mg/dL (70-99) 231 mg/dL (70-99) White Blood Count 10.7 x10^3/uL (4.0-11.0) Red Blood Count 4.60 x10^6/uL (3.50-5.40) Hemoglobin 14.9 g/dL (12.0-15.5) Hematocrit 43.3 % (36.0-47.0) Mean Corpuscular Volume 94 fL (79-100) Mean Corpuscular Hemoglobin 33 pg (25-35) Mean Corpuscular Hemoglobin Concent 35 g/dL (31-37) Red Cell Distribution Width 14.5 % (11.5-14.5) Platelet Count 269 x10^3/uL (140-400) Neutrophils (%) (Auto) 82 % (31-73) Lymphocytes (%) (Auto) 11 % (24-48) Monocytes (%) (Auto) 3 % (0-9) Eosinophils (%) (Auto) 4 % (0-3) Basophils (%) (Auto) 0 % (0-3) Neutrophils # (Auto) 8.7 x10^3/uL (1.8-7.7) Lymphocytes # (Auto) 1.2 x10^3/uL (1.0-4.8) Monocytes # (Auto) 0.3 x10^3/uL (0.0-1.1) Eosinophils # (Auto) 0.4 x10^3/uL (0.0-0.7) Basophils # (Auto) 0.0 x10^3/uL (0.0-0.2) Sodium Level 137 mmol/L (136-145) Potassium Level 3.4 mmol/L (3.5-5.1) Chloride Level 99 mmol/L (98-107) Carbon Dioxide Level 28 mmol/L (21-32) Anion Gap 10 (6-14) Blood Urea Nitrogen 12 mg/dL (7-20) Creatinine 0.8 mg/dL (0.6-1.0) Estimated GFR (Cockcroft-Gault) 76.9 Glucose Level 187 mg/dL (70-99) Calcium Level 8.3 mg/dL (8.5-10.1) Test 04/22/20 16:31 04/22/20 20:58 04/23/20 08:05 Glucose (Fingerstick) 195 mg/dL (70-99) 178 mg/dL (70-99) 117 mg/dL (70-99) Medications Active Scripts Medications Dose Route/Sig Max Daily Dose Days Date Category Claritin (Loratadine) 10 Mg Tablet 10 Mg PO DAILY 04/06/20 Reported Codeine-Guaifen 10-100 mg/5 ml (Guaifenesin/Codeine Phosphate) 120 Ml Liquid 5 Ml PO PRN Q6HRS PRN MDD 20 Milliliter(s) 6 04/02/20 Rx Prednisone 50 Mg Tablet 1 Tab PO DAILY 04/02/20 Rx Zithromax (Azithromycin) 250 Mg Tablet 1 Pkg PO UD 04/02/20 Rx Ibuprofen 800 Mg Tablet 800 Mg PO PRN Q6HRS PRN 07/27/18 Rx Meclizine Hcl 25 Mg Tablet 1 Tab PO TID 07/27/18 Rx Zithromax (Azithromycin) 250 Mg Tablet 1 Pkg PO UD 07/27/18 Rx Tamiflu (Oseltamivir Phosphate) 75 Mg Capsule 1 Cap PO BID 07/27/18 Rx Comments CTA chest IMPRESSION: No evidence of main or lobar pulmonary embolus on significantly limited evaluation. Bilateral patchy groundglass opacities as described, compatible with viral pneumonia. CXR 04/18/20 Impression: improving infiltrates Impression . IMPRESSION: 1. Acute hypoxic respiratory failure secondary to COVID-19 pneumonia. r/o bacterial pneumonia 2. Abnormal CT chest with bilateral patchy interstitial infiltrates compatible with COVID-19 pneumonia. 3. Underlying obesity. ?conor 4. History of hypertension. 5. encephalopathy, improving Plan . RECOMMENDATIONS: Continue supplemental oxygen to keep oxygen saturations greater than 92%, currently on 5 L nasal cannula, titrate as possible 6 min walk on Discharge Steroids with taper, patient will need full 10-day course, 10-day course is completed on 04/24/2020 s/p remdesivir full course Follow chest x-ray 04/18, mild improvement. CTA of chest reviewed negative for pulmonary embolism Follow infectious disease recommendations in regards to antibiotics, currently off antibiotics Social work for DC planning DVT/GI prophylaxis: lovenox/pepcid Discussed with RN Pt. CODE FULL TYRONE COWAN MD Apr 23, 2020 08:41
[2020-04-23] MEDS: ALPRAZolam 0.5 MG TABLET PO SCH ×2 (08:52→20:25)
[2020-04-23] MEDS: LACTOBACILLUS RHAMNOSUS GG 1 CAPSULE. PO SCH ×2 (08:52→20:25)
[2020-04-23] MEDS: busPIRone 10 MG TABLET. PO SCH ×3 (08:52→20:25)
[2020-04-23] MEDS: ZINC SULFATE 220 MG CAPSULE. PO SCH (08:52)
[2020-04-23] MEDS: FAMOTIDINE 20 MG TABLET. PO SCH ×2 (08:52→20:25)
[2020-04-23] MEDS: POLYETHYLENE GLYCOL 3350 17 GM PACKET. PO PRN (08:52)
[2020-04-23] MEDS: ENOXAPARIN 40 MG/0.4 ML SYRINGE. SQ SCH ×2 (08:53→20:25)
[2020-04-23] MEDS: methylPREDNISolone SOD SUCC PF 40 MG/ML VIAL. IV SCH (08:53)
--- NOTE | 2020-04-23 09:21 | PDOC ---
Infectious Disease Note Subjective Subjective Patient is feeling better on 4 L NC ROS ROS no n/v/d/ Vital Sign Vital Signs Vital Signs Date Time Temp Pulse Resp B/P (MAP) Pulse Ox O2 Delivery O2 Flow Rate FiO2 04/23/20 07:00 98.6 97 20 129/86 (100) 97 Nasal Cannula 4.0 98.6 Physical Exam PHYSICAL EXAM GENERAL: Alert, awake female, HEENT: Normocephalic, atraumatic. NECK: Supple, no JVD. LUNGS: Decreased breath sound at bases. No rhonchi. ABDOMEN: Soft, nontender, nondistended, no rebound, no guarding. EXTREMITIES: No edema, no cyanosis. DERMATOLOGIC: Warm, dry. No generalized rash. NEUROLOGIC: Alert, awake, moves all 4 extremities. PSYCHIATRIC: Calm and cooperative. Labs Lab Laboratory Tests Test 04/22/20 09:36 04/22/20 10:21 04/22/20 11:49 04/22/20 16:31 White Blood Count 10.7 x10^3/uL (4.0-11.0) Red Blood Count 4.60 x10^6/uL (3.50-5.40) Hemoglobin 14.9 g/dL (12.0-15.5) Hematocrit 43.3 % (36.0-47.0) Mean Corpuscular Volume 94 fL (79-100) Mean Corpuscular Hemoglobin 33 pg (25-35) Mean Corpuscular Hemoglobin Concent 35 g/dL (31-37) Red Cell Distribution Width 14.5 % (11.5-14.5) Platelet Count 269 x10^3/uL (140-400) Neutrophils (%) (Auto) 82 % (31-73) Lymphocytes (%) (Auto) 11 % (24-48) Monocytes (%) (Auto) 3 % (0-9) Eosinophils (%) (Auto) 4 % (0-3) Basophils (%) (Auto) 0 % (0-3) Neutrophils # (Auto) 8.7 x10^3/uL (1.8-7.7) Lymphocytes # (Auto) 1.2 x10^3/uL (1.0-4.8) Monocytes # (Auto) 0.3 x10^3/uL (0.0-1.1) Eosinophils # (Auto) 0.4 x10^3/uL (0.0-0.7) Basophils # (Auto) 0.0 x10^3/uL (0.0-0.2) Sodium Level 137 mmol/L (136-145) Potassium Level 3.4 mmol/L (3.5-5.1) Chloride Level 99 mmol/L (98-107) Carbon Dioxide Level 28 mmol/L (21-32) Anion Gap 10 (6-14) Blood Urea Nitrogen 12 mg/dL (7-20) Creatinine 0.8 mg/dL (0.6-1.0) Estimated GFR (Cockcroft-Gault) 76.9 Glucose Level 187 mg/dL (70-99) Calcium Level 8.3 mg/dL (8.5-10.1) Glucose (Fingerstick) 231 mg/dL (70-99) 195 mg/dL (70-99) Test 04/22/20 20:58 04/23/20 08:05 Glucose (Fingerstick) 178 mg/dL (70-99) 117 mg/dL (70-99) Micro Microbiology 04/06/20 Blood Culture - Final, Complete NO GROWTH AFTER 5 DAYS Objective Assessment 1. COVID-19 infection. 2. COVID-19 pneumonia. 3. Acute hypoxic respiratory failure. 4. Abnormal liver function tests. 5. Fatty liver with hepatic steatosis. 6. Rhabdomyolysis. 7. Hypertension/hyperlipidemia 8. Fever on admission. Plan Plan of Care RECOMMENDATIONS: 1. Continue supportive care. 2. remdesivir. given 3. Follow up labs and cultures. 4. off antibiotics 5. Continue steroids per Pulmonary. 6. Maintain aspiration precaution. d/c shelley will s/o , call if questions CEZAR GARRETT MD Apr 23, 2020 09:21
[2020-04-23] MEDS: guaiFENesin/CODEINE 100mg/10mg 5 ML LIQUID PO PRN ×2 (09:32→22:39)
--- NOTE | 2020-04-23 10:22 | PDOC ---
Date of Service: DATE: 04/23/20 TIME: 10:19 Objective: Objective: D/w nurse - has mouth sores so doesn't want to eat much. Took Miralax. Reviewed meds - has magic mouthwash. Vital Signs: Vital Signs Date Time Temp Pulse Resp B/P (MAP) Pulse Ox O2 Delivery O2 Flow Rate FiO2 04/23/20 07:00 98.6 97 20 129/86 (100) 97 Nasal Cannula 4.0 98.6 Labs: Laboratory Tests Test 04/22/20 10:21 04/22/20 11:49 04/22/20 16:31 04/22/20 20:58 Sodium Level 137 mmol/L Potassium Level 3.4 mmol/L Chloride Level 99 mmol/L Carbon Dioxide Level 28 mmol/L Anion Gap 10 Blood Urea Nitrogen 12 mg/dL Creatinine 0.8 mg/dL Estimated GFR (Cockcroft-Gault) 76.9 Glucose Level 187 mg/dL Calcium Level 8.3 mg/dL Glucose (Fingerstick) 231 mg/dL 195 mg/dL 178 mg/dL Test 04/23/20 08:05 Glucose (Fingerstick) 117 mg/dL PE: GEN: in COVID isolation/visual exam LUNGS: NC 4L HEART: RR per monitor ABD: non-distended NEURO/PSYCH: awake - speaks Uzbek A/P: COVID-19 resp failure -- Continue support per GI. Justicifation of Admission Dx: Justifications for Admission: Justification of Admission Dx: Yes ALLISON CHAMORRO Apr 23, 2020 10:22
[2020-04-23 11:00] VITALS: BP 89/58
--- NOTE | 2020-04-23 12:41 | NUR ---
SS following up with discharge planning. SS reviewed pt chart and discussed with pt RN. Pt is currently requiring oxygen at four liters. COVID19 positive. PT/OT ordered. Pt wanting to return to home when medically ready. Per RN, pt is very weak. Pt will need six minute walk if returning to home. Per physician, not ready. SS will continue to follow for discharge planning.
--- NOTE | 2020-04-23 14:21 | PDOC ---
[employer] PROGRESS NOTE Date of Service DOS: DATE: 04/23/20 TIME: 14:20 Chief Complaint Chief Complaint IMPRESSION Acute respiratory failure with hypoxia -likely due to COVID-19 pneumonia Increased multifocal pulmonary opacities Bilateral patchy groundglass opacities as described, compatible with viral pneumonia Moderate bilateral infiltrates could be pulmonary edema or ARDS or pneumonia and appears mildly worse.04-14 Pneumonia due to 2019 novel coronavirus Rhabdomyolysis -will hydrate aggressively Hypokalemia Transaminitis High Cholesterol Hypertension Seasonal allergies Fatty liver - will monitor transaminases, Hyperglycemia anxiety PLAN Pending 6-minute walk FEN - regular diet PPX - lovenox FULL CODE Dispo - inpatient for above ICU BED consult nephrology CTA of chest reviewed negative for pulmonary embolism antibiotics, iv Rocephin begin buspar 10 mg po tid iv fluid support CPK [id number] 04-11 [id number] 04-12 [id number] 04-13 History of Present Illness History of Present Illness 04/23/2020 No acute events overnight. Patient is saturating well on 4 L nasal cannula. Complains of mouth sores and cough every time she tries to exert herself. Patient's chart, labs, images were reviewed and discussed with RN 04/22/2020 No acute events overnight. Patient seen and examined bedside. Patient is now saturating well on 4 L nasal cannula.> 50% time spent in patient chart, labs, and imaging review and in discussion with RN and SW. Patient will be transferred to telemetry floor today. A total of 35 minutes of critical care time was spent in reviewing chart, labs, and images. Discussed with RN and SW. Ms Olson is a 49-year-old female w/ PMHx High Cholesterol, Hypertension, seasonal allergies, fatty liver who presented 04/02/2020 for Covid-like symptoms and returns with the same. Patient reports symptoms have worsened including fever, shortness of air, loss of taste, nausea, fatigue, dizziness, and bilateral lower extremity pain. Denies any vomiting or diarrhea. Reports family members now with similar symptoms. Reports her spouse had some symptoms prior to her. Her SARS-CoV-2 PCR test from 04/02/2020 returned positive. Other labs significant for WBC 8.8, Hb 14.1, platelets 241, D-dimer 0.70, NA 135, K3.5, BUN 6, CR 0.7, glucose 111, AST 366, ALT 177, CK 54,211. Rapid influenza negative EKG Sinus tachycardia at 119bpm, NO ST elevation, QRS 82ms, QT/QTc 308/434ms, baseline artifact noted. Febrile to 101 F CTPA with no PE but Bilateral patchy groundglass opacities as described, compatible with viral pneumonia. She was hypoxic to 82% on normal air and required 6L NCO2 to improve her O2 status. Admitted for further care IV fluid hydration provided. Symptomatic treatment provided with dexamethasone. Empiric antibiotic initiated. 04/21/2020 Patient seen and evaluated. Breathing 8 L high flow nasal cannula, afebrile. Continue steroids and supportive care. 04/20/2020 Afebrile, wheezing on 15 L nasal cannula. Complains of some sore throat perioral blisters. Continue with supportive care, IV Solu-Medrol. Discussed with RN. 04/19/2020 Patient seen in [facility]- ICU. Breathing on high flow nasal cannula 15 L. Tachypneic, afebrile. Discussed with RN, no acute overnight. Continue steroids, Levophed, and Precedex. 04/18/2020 Patient seen and evaluated in [facility] ICU. She is having some worsening respiratory distress. Currently breathing on BiPAP, FiO2 100%, respiratory rate 22. Concerned she may require intubation. Continue Rocephin, Precedex. Remdesivir last dose today. 04/17/2020 Patient seen and evaluated [facility]- ICU. Reportedly no acute events overnight. Afebrile, tachypneic, breathing on high flow nasal cannula. Discussed with RN. 04/16/2020 Patient seen and evaluated in [facility]- ICU. No acute events overnight. Afebrile, tachypneic. Still breathing on BiPAP at FiO2 80%. CK improving. Discussed with RN. 04/15/2020 Patient seen in [facility]- ICU. Breathing BiPAP, FiO2 100%. Continue steroids, antibiotics, and remdesivir. LFTs improving. Unfortunately rhabdomyolysis and transaminitis are high risk for remdesivir therapy, will continue to monitor LFTs and CK. 04/14/2020 Patient seen and examined She is still on 100% nonrebreather Appears quite ill Discussed with RN Discussed with pharmacy Chart reviewed Vitals/I&O Vitals/I&O: Vital Signs Date Time Temp Pulse Resp B/P (MAP) Pulse Ox O2 Delivery O2 Flow Rate FiO2 04/23/20 11:00 97.0 105 24 89/58 (68) 89 Nasal Cannula 4.0 97.0 I & O 04/22/20 04/22/20 04/23/20 15:00 23:00 07:00 Intake Total 360 ml 500 ml 600 ml Output Total 625 ml 550 ml 550 ml Balance -265 ml -50 ml 50 ml Physical Exam Physical Exam: GENERAL: Alert, awake female, HEENT: Normocephalic, atraumatic. NECK: Supple, no JVD. LUNGS: Decreased breath sound at bases. No rhonchi. ABDOMEN: Soft, nontender, nondistended, no rebound, no guarding. EXTREMITIES: No edema, no cyanosis. DERMATOLOGIC: Warm, dry. No generalized rash. NEUROLOGIC: Alert, awake, moves all 4 extremities. PSYCHIATRIC: Calm and cooperative. General: Alert, Cooperative, mild distress Heart: Regular rate Abdomen: No masses, Other (Nondistended) Extremities: No clubbing, No cyanosis Skin: No rashes, No breakdown Labs Labs: Laboratory Tests Test 04/22/20 16:31 04/22/20 20:58 04/23/20 08:05 04/23/20 11:42 Glucose (Fingerstick) 195 mg/dL (70-99) 178 mg/dL (70-99) 117 mg/dL (70-99) 219 mg/dL (70-99) Assessment and Plan Assessmemt and Plan Problems Medical Problems: (1) Hypoxia Status: Acute (2) Pneumonia due to 2019 novel coronavirus Status: Acute (3) Respiratory failure Status: Acute (4) Rhabdomyolysis Status: Acute Comment Review of Relevant I have reviewed the following items eddie (where applicable) has been applied. Justifications for Admission Other Justification JUAN ANTONIO RUSHING MD Apr 23, 2020 14:21
[2020-04-23 15:00] VITALS: BP 122/77
[2020-04-23 19:48] VITALS: BP 134/95
[2020-04-23] MEDS: INSULIN GLARGINE SYRINGE. SQ SCH (20:54)
[2020-04-23 22:38] VITALS: BP 126/75
[2020-04-23] MEDS: LIDO:MAALOX:BENADRYL 1:1:1 180 ML BOTTLE. PO PRN (22:40)
[2020-04-24 02:22] VITALS: BP 132/71
[2020-04-24] MEDS: guaiFENesin/CODEINE 100mg/10mg 5 ML LIQUID PO PRN ×2 (04:52→12:04)
[2020-04-24 07:00] VITALS: BP 115/77
[2020-04-24] MEDS: INSULIN LISPRO 300 UNITS/3 ML VIAL. SQ SCH ×2 (08:00→12:08)
--- NOTE | 2020-04-24 08:19 | PDOC ---
PULMONARY PROGRESS NOTES DATE: 04/24/20 TIME: 08:19 Subjective Patient on 5 L nasal cannula Afebrile, denies shortness of breath or cough No other concerns from nursing Vitals Vital Signs Date Time Temp Pulse Resp B/P (MAP) Pulse Ox O2 Delivery O2 Flow Rate FiO2 04/24/20 02:22 98.0 99 27 132/71 (91) 95 Nasal Cannula 4.0 98.0 Comments Patient seen during pandemic, visual exam performed alert on 02 rrr has accessory muscle use/distress No obvious rash or edema Lungs: Clear Cardiovascular: S1, S2 Labs Laboratory Tests Test 04/22/20 08:57 04/22/20 09:36 04/22/20 10:21 04/22/20 11:49 Glucose (Fingerstick) 97 mg/dL (70-99) 231 mg/dL (70-99) White Blood Count 10.7 x10^3/uL (4.0-11.0) Red Blood Count 4.60 x10^6/uL (3.50-5.40) Hemoglobin 14.9 g/dL (12.0-15.5) Hematocrit 43.3 % (36.0-47.0) Mean Corpuscular Volume 94 fL (79-100) Mean Corpuscular Hemoglobin 33 pg (25-35) Mean Corpuscular Hemoglobin Concent 35 g/dL (31-37) Red Cell Distribution Width 14.5 % (11.5-14.5) Platelet Count 269 x10^3/uL (140-400) Neutrophils (%) (Auto) 82 % (31-73) Lymphocytes (%) (Auto) 11 % (24-48) Monocytes (%) (Auto) 3 % (0-9) Eosinophils (%) (Auto) 4 % (0-3) Basophils (%) (Auto) 0 % (0-3) Neutrophils # (Auto) 8.7 x10^3/uL (1.8-7.7) Lymphocytes # (Auto) 1.2 x10^3/uL (1.0-4.8) Monocytes # (Auto) 0.3 x10^3/uL (0.0-1.1) Eosinophils # (Auto) 0.4 x10^3/uL (0.0-0.7) Basophils # (Auto) 0.0 x10^3/uL (0.0-0.2) Sodium Level 137 mmol/L (136-145) Potassium Level 3.4 mmol/L (3.5-5.1) Chloride Level 99 mmol/L (98-107) Carbon Dioxide Level 28 mmol/L (21-32) Anion Gap 10 (6-14) Blood Urea Nitrogen 12 mg/dL (7-20) Creatinine 0.8 mg/dL (0.6-1.0) Estimated GFR (Cockcroft-Gault) 76.9 Glucose Level 187 mg/dL (70-99) Calcium Level 8.3 mg/dL (8.5-10.1) Test 04/22/20 16:31 04/22/20 20:58 04/23/20 08:05 04/23/20 11:42 Glucose (Fingerstick) 195 mg/dL (70-99) 178 mg/dL (70-99) 117 mg/dL (70-99) 219 mg/dL (70-99) Test 04/23/20 16:39 04/23/20 19:55 04/23/20 20:30 04/24/20 07:50 Glucose (Fingerstick) 179 mg/dL (70-99) 163 mg/dL (70-99) 168 mg/dL (70-99) 100 mg/dL (70-99) Laboratory Tests Test 04/23/20 11:42 04/23/20 16:39 04/23/20 19:55 04/23/20 20:30 Glucose (Fingerstick) 219 mg/dL (70-99) 179 mg/dL (70-99) 163 mg/dL (70-99) 168 mg/dL (70-99) Test 04/24/20 07:50 Glucose (Fingerstick) 100 mg/dL (70-99) Medications Active Scripts Medications Dose Route/Sig Max Daily Dose Days Date Category Claritin (Loratadine) 10 Mg Tablet 10 Mg PO DAILY 04/06/20 Reported Codeine-Guaifen 10-100 mg/5 ml (Guaifenesin/Codeine Phosphate) 120 Ml Liquid 5 Ml PO PRN Q6HRS PRN MDD 20 Milliliter(s) 6 04/02/20 Rx Prednisone 50 Mg Tablet 1 Tab PO DAILY 04/02/20 Rx Zithromax (Azithromycin) 250 Mg Tablet 1 Pkg PO UD 04/02/20 Rx Ibuprofen 800 Mg Tablet 800 Mg PO PRN Q6HRS PRN 07/27/18 Rx Meclizine Hcl 25 Mg Tablet 1 Tab PO TID 07/27/18 Rx Zithromax (Azithromycin) 250 Mg Tablet 1 Pkg PO UD 07/27/18 Rx Tamiflu (Oseltamivir Phosphate) 75 Mg Capsule 1 Cap PO BID 07/27/18 Rx Comments CTA chest IMPRESSION: No evidence of main or lobar pulmonary embolus on significantly limited evaluation. Bilateral patchy groundglass opacities as described, compatible with viral pneumonia. CXR 04/18/20 Impression: improving infiltrates Impression . IMPRESSION: 1. Acute hypoxic respiratory failure secondary to COVID-19 pneumonia. r/o bacterial pneumonia 2. Abnormal CT chest with bilateral patchy interstitial infiltrates compatible with COVID-19 pneumonia. 3. Underlying obesity. ?conor 4. History of hypertension. 5. encephalopathy, improving Plan . RECOMMENDATIONS: Continue supplemental oxygen to keep oxygen saturations greater than 92%, currently on 5 L nasal cannula, titrate as possible 6 min walk on Discharge --- prescription left for home oxygen DC steroids patient is completed full 10-day course s/p remdesivir full course Follow chest x-ray 04/18, mild improvement. CTA of chest reviewed negative for pulmonary embolism Follow infectious disease recommendations in regards to antibiotics, currently off antibiotics DVT/GI prophylaxis: lovenox/pepcid Discussed with RN Pt. CODE FULL Patient can discharge home today from our standpoint on home oxygen, follow-up appointment scheduled for May [id number] Please call with any questions or concerns thank you TYRONE COWAN MD Apr 24, 2020 08:19
[2020-04-24] MEDS: guaiFENesin DM 200MG/20MG 10 ML SYRUP PO PRN ×2 (08:53→14:51)
[2020-04-24] MEDS: ZINC SULFATE 220 MG CAPSULE. PO SCH (08:53)
[2020-04-24] MEDS: FAMOTIDINE 20 MG TABLET. PO SCH (08:53)
[2020-04-24] MEDS: ALPRAZolam 0.5 MG TABLET PO SCH (08:53)
[2020-04-24] MEDS: busPIRone 10 MG TABLET. PO SCH ×2 (08:54→14:51)
[2020-04-24] MEDS: LACTOBACILLUS RHAMNOSUS GG 1 CAPSULE. PO SCH (08:54)
[2020-04-24] MEDS: methylPREDNISolone SOD SUCC PF 40 MG/ML VIAL. IV SCH (08:54)
[2020-04-24] MEDS: ENOXAPARIN 40 MG/0.4 ML SYRINGE. SQ SCH (08:55)
--- NOTE | 2020-04-24 09:26 | PDOC ---
Date of Service: DATE: 04/24/20 TIME: 09:24 Objective: Objective: D/w nurse - no change. Vital Signs: Vital Signs Date Time Temp Pulse Resp B/P (MAP) Pulse Ox O2 Delivery O2 Flow Rate FiO2 04/24/20 07:00 98.0 88 26 115/77 (90) 98 Nasal Cannula 6.0 98.0 Labs: Laboratory Tests Test 04/23/20 11:42 04/23/20 16:39 04/23/20 19:55 04/23/20 20:30 Glucose (Fingerstick) 219 mg/dL 179 mg/dL 163 mg/dL 168 mg/dL Test 04/24/20 07:50 Glucose (Fingerstick) 100 mg/dL PE: GEN: in COVID isolation LUNGS: NC, some tachypnea HEART: borderline tachycardic on monitor ABD: non-distended NEURO/PSYCH: awake, German speaking A/P: COVID-19 resp failure -- Continue support. Justicifation of Admission Dx: Justifications for Admission: Justification of Admission Dx: Yes ALLISON CHAMORRO Apr 24, 2020 09:26
[2020-04-24 11:28] VITALS: BP 120/87
[2020-04-24] MEDS ORDERED: SERT25TA PO (12:13)
--- NOTE | 2020-04-24 12:15 | DISCH ---
DISCHARGE INSTRUCTIONS Condition on Discharge Condition on Discharge: Stable (Xanax has been provided for at least 5 days please make an appointment soon as possible with your psychiatrist. You also need to start taking sertraline for your anxiety you need to follow closely with her psychiatrist. Please allow at least 2 months for this medication to be effective.) Activity After Discharge Activity Instructions for Disc: Resume previous activity Driving Instructions after Dis: Do not drive today Diet after Discharge Diet after Discharge: Regular Checks after Discharge DC Comment: CBC, CMP Follow-Up Follow up with: PCP within 2 weeks of discharge Follow Up With: Psychiatrist regarding your anxiety JUAN ANTONIO RUSHING MD Apr 24, 2020 12:15
--- NOTE | 2020-04-24 12:54 | NUR ---
SS following up with discharge planning. SS reviewed pt chart and discussed with pt RN. Pt is currently requiring oxygen. COVID19 positive. PT/OT recommended acute rehabilitation. SS contacted pt's son, Felipe, and discussed discharge planning and acute rehabilitation. Pt and pt's son declined acute rehabilitation. Pt's son notified SS that pt will discharge to home with family. Discharge order on the chart for home with self care. Six minute walk ordered for oxygen needs. SS will continue to follow for discharge planning.
[2020-04-24] MEDS: IV NORMAL SALINE 1000ML BAG 1,000 ML IV SCH (14:41)
[2020-04-24] MEDS: ACETAMINOPHEN 325 MG TABLET. PO PRN (14:51)
[2020-04-24 15:14] VITALS: BP 117/84
--- NOTE | 2020-04-24 15:50 | NUR ---
SS following up with discharge planning. Script for oxygen received. SS phoned and faxed script and clinical to [facility], ; fax [phone]. SS spoke with Liane at [facility] and oxygen was approved. Oxygen tank provided to pt's RN for home.
--- NOTE | 2020-04-26 22:15 | PDOC3 ---
[facility]-Discharge Summary Date of Admission: Date of Admission: Apr 06, 2020 Date of Discharge: Date of Discharge: Apr 24, 2020 Discharge Diagnosis: Discharge Diagnosis: Acute respiratory failure with hypoxia -likely due to COVID-19 pneumonia Increased multifocal pulmonary opacities Bilateral patchy groundglass opacities as described, compatible with viral pneumonia Moderate bilateral infiltrates could be pulmonary edema or ARDS or pneumonia and appears mildly worse.04-14 Pneumonia due to 2019 novel coronavirus Rhabdomyolysis -will hydrate aggressively Hypokalemia Transaminitis High Cholesterol Hypertension Seasonal allergies Fatty liver - will monitor transaminases, Hyperglycemia anxiety Hospital Course: Hospital Course: 04/23/2020 No acute events overnight. Patient is saturating well on 4 L nasal cannula. Complains of mouth sores and cough every time she tries to exert herself. Patient's chart, labs, images were reviewed and discussed with RN 04/22/2020 No acute events overnight. Patient seen and examined bedside. Patient is now saturating well on 4 L nasal cannula.> 50% time spent in patient chart, labs, and imaging review and in discussion with RN and SW. Patient will be transferred to telemetry floor today. A total of 35 minutes of critical care time was spent in reviewing chart, labs, and images. Discussed with RN and SW. Ms Olson is a 49-year-old female w/ PMHx High Cholesterol, Hypertension, seasonal allergies, fatty liver who presented 04/02/2020 for Covid-like symptoms and returns with the same. Patient reports symptoms have worsened including fever, shortness of air, loss of taste, nausea, fatigue, dizziness, and bilateral lower extremity pain. Denies any vomiting or diarrhea. Reports family members now with similar symptoms. Reports her spouse had some symptoms prior to her. Her SARS-CoV-2 PCR test from 04/02/2020 returned positive. Other labs significant for WBC 8.8, Hb 14.1, platelets 241, D-dimer 0.70, NA 135, K3.5, BUN 6, CR 0.7, glucose 111, AST 366, ALT 177, CK 54,211. Rapid influenza negative EKG Sinus tachycardia at 119bpm, NO ST elevation, QRS 82ms, QT/QTc 308/434ms, baseline artifact noted. Febrile to 101 F CTPA with no PE but Bilateral patchy groundglass opacities as described, compatible with viral pneumonia. She was hypoxic to 82% on normal air and required 6L NCO2 to improve her O2 status. Admitted for further care IV fluid hydration provided. Symptomatic treatment provided with dexamethasone. Empiric antibiotic initiated. 04/21/2020 Patient seen and evaluated. Breathing 8 L high flow nasal cannula, afebrile. Continue steroids and supportive care. 04/20/2020 Afebrile, wheezing on 15 L nasal cannula. Complains of some sore throat perioral blisters. Continue with supportive care, IV Solu-Medrol. Discussed with RN. 04/19/2020 Patient seen in [place] [id number] ICU. Breathing on high flow nasal cannula 15 L. Tachypneic, afebrile. Discussed with RN, no acute overnight. Continue steroids, Levophed, and Precedex. 04/18/2020 Patient seen and evaluated in [facility] ICU. She is having some worsening respiratory distress. Currently breathing on BiPAP, FiO2 100%, respiratory rate 22. Concerned she may require intubation. Continue Rocephin, Precedex. Remdesivir last dose today. 04/17/2020 Patient seen and evaluated [place] [address] ICU. Reportedly no acute events overnight. Afebrile, tachypneic, breathing on high flow nasal cannula. Discussed with RN. 04/16/2020 Patient seen and evaluated in [facility]- ICU. No acute events overnight. Afebrile, tachypneic. Still breathing on BiPAP at FiO2 80%. CK improving. Discussed with RN. 04/15/2020 Patient seen in [place] [address] ICU. Breathing BiPAP, FiO2 100%. Continue steroids, antibiotics, and remdesivir. LFTs improving. Unfortunately rhabdomyolysis and transaminitis are high risk for remdesivir therapy, will continue to monitor LFTs and CK. 04/14/2020 Patient seen and examined She is still on 100% nonrebreather Appears quite ill Discussed with RN Discussed with pharmacy Chart reviewed Disposition: Disposition/Orders: D/C to Home Activity: Activity: Resume previous activity Diet: Diet: Regular Medications: Home Meds Reported Medications Multivits-Min/Iron/FA/Lutein (Centrum Silver Women Tablet) 1 Each Tablet, 1 EACH PO DAILY for HEALTH, TAB 04/26/20 Aspirin (ASPIRIN EC) 81 Mg Tablet.dr, 1 TAB PO DAILY for HEALTH, #30 TAB 3 Refills 04/26/20 Ondansetron (ONDANSETRON ODT) 4 Mg Tab.rapdis, 1 TAB PO PRN Q6-8HRS for NAUSEA, #30 TAB 04/26/20 Codeine Phosphate/Guaifenesin (Guaifen-Codeine 200-20 mg/10Ml) 10 Ml Liquid, 5 ML PO QIDPRN PRN for COUGH, #100 LIQUID 04/26/20 Lorazepam (ATIVAN) 0.5 Mg Tablet, 0.5 MG PO QIDPRN PRN for ANXIETY / AGITATION, #20 TAB 04/26/20 Olanzapine (OLANZAPINE) 5 Mg Tablet, 1 TAB PO QHS for SLEEP, #30 TAB 2 Refills 04/26/20 Levofloxacin (LEVOFLOXACIN) 500 Mg Tablet, 1 TAB PO DAILY for PNEUMONIA, #7 TAB 04/26/20 Loratadine (CLARITIN) 10 Mg Tablet, 10 MG PO DAILY for seasonal allergies, TAB 04/06/20 Discontinued Scripts Guaifenesin/Codeine Phosphate (Codeine-Guaifen 10-100 mg/5 ml) 120 Ml Liquid, 5 ML PO PRN Q6HRS PRN for cough and congestion MDD 20 Milliliter(s) for 6 Days, #120 ML 0 Refills Prov:MUTPABLOAJOSEPH DE ALCOHOLIZER 04/02/20 Prednisone (PREDNISONE) 50 Mg Tablet, 1 TAB PO DAILY, #4 TAB Prov:MUTUNGA,JOSEPH DE ALCOHOLIZER 04/02/20 Azithromycin (ZITHROMAX) 250 Mg Tablet, 1 PKG PO UD, #1 PKG Prov:MUTPABLOAJOSEPH DE ALCOHOLIZER 04/02/20 Ibuprofen (IBUPROFEN) 800 Mg Tablet, 800 MG PO PRN Q6HRS PRN for INFLAMMATION, #10 TAB Prov:MUTPABLOAJOSEPH DE ALCOHOLIZER 07/27/18 Meclizine Hcl (MECLIZINE HCL) 25 Mg Tablet, 1 TAB PO TID, #20 TAB Prov:MUTUNGA,JOSEPH DE ALCOHOLIZER 07/27/18 Azithromycin (ZITHROMAX) 250 Mg Tablet, 1 PKG PO UD, #1 PKG Prov:MUTPABLOAJOSEPH DE ALCOHOLIZER 07/27/18 Oseltamivir Phosphate (TAMIFLU) 75 Mg Capsule, 1 CAP PO BID, #10 CAP Prov:MUTPABLOA,JOSEPH DE ALCOHOLIZER 07/27/18 Scheduled Aspirin (Aspirin Ec), 1 TAB PO DAILY, (Reported) Levofloxacin (Levofloxacin), 1 TAB PO DAILY, (Reported) Loratadine (Claritin), 10 MG PO DAILY, (Reported) Multivits-Min/Iron/FA/Lutein (Centrum Silver Women Tablet), 1 EACH PO DAILY, (Reported) Olanzapine (Olanzapine), 1 TAB PO QHS, (Reported) Ondansetron (Ondansetron Odt), 1 TAB PO PRN Q6-8HRS, (Reported) Scheduled PRN Codeine Phosphate/Guaifenesin (Guaifen-Codeine 200-20 mg/10Ml), 5 ML PO QIDPRN PRN for COUGH, (Reported) Lorazepam (Ativan), 0.5 MG PO QIDPRN PRN for ANXIETY / AGITATION, (Reported) Discontinued Medications Azithromycin (Zithromax), 1 PKG PO UD Azithromycin (Zithromax), 1 PKG PO UD Guaifenesin/Codeine Phosphate (Codeine-Guaifen 10-100 mg/5 ml), 5 ML PO PRN Q6HRS PRN for cough and congestion Ibuprofen (Ibuprofen), 800 MG PO PRN Q6HRS PRN for INFLAMMATION Meclizine Hcl (Meclizine Hcl), 1 TAB PO TID Oseltamivir Phosphate (Tamiflu), 1 CAP PO BID Prednisone (Prednisone), 1 TAB PO DAILY Total Time: Total Time: Total time spent was 55 minutes in preparing scripts, discharge planning with SW and RN, and preparing this discharge summary. Patient seen and examined on day of discharge. Justicifation of Admission Dx: Justifications for Admission: Justification of Admission Dx: Yes JUAN ANTONIO RUSHING MD Apr 26, 2020 22:15
== END 2020-04-24 16:02 | disposition home or self-care (01) | DRG 177 ==
LOC: ER 21:48 → 6 SOUTH 04-06 01:48 → 1 WEST ICU 04-07 13:51 → 6 SOUTH 04-12 11:35 → 1 WEST ICU 04-14 03:00 → 2 SOUTH 04-22 12:18
PROVIDERS: ADMIT Internal Medicine; ATTEND Internal Medicine
PROC: XW033E5 Introduction of Remdesivir Anti-infective into Peripheral Vein, Percutaneous Approach, New Technology Group 5 (ICD-10-PCS; principal; 2020-04-14)
PROC: 5A09457 Assistance with Respiratory Ventilation, 24-96 Consecutive Hours, Continuous Positive Airway Pressure (ICD-10-PCS; 2020-04-14)
PROC: 5A09357 Assistance with Respiratory Ventilation, Less than 24 Consecutive Hours, Continuous Positive Airway Pressure (ICD-10-PCS; 2020-04-17)
PROC: 5A09357 Assistance with Respiratory Ventilation, Less than 24 Consecutive Hours, Continuous Positive Airway Pressure (ICD-10-PCS; 2020-04-19)
DX: U07.1 COVID-19 (principal); J96.01 Acute respiratory failure with hypoxia; J12.89 Other viral pneumonia; G93.40 Encephalopathy, unspecified; M62.82 Rhabdomyolysis; E66.9 Obesity, unspecified; E78.00 Pure hypercholesterolemia, unspecified; E78.5 Hyperlipidemia, unspecified; E87.6 Hypokalemia; F41.9 Anxiety disorder, unspecified; G47.33 Obstructive sleep apnea (adult) (pediatric); I10 Essential (primary) hypertension; E11.65 Type 2 diabetes mellitus with hyperglycemia; J30.2 Other seasonal allergic rhinitis; K59.00 Constipation, unspecified; K76.0 Fatty (change of) liver, not elsewhere classified; Z68.33 Body mass index [BMI] 33.0-33.9, adult; Z82.49 Family history of ischemic heart disease and other diseases of the circulatory system; Z83.3 Family history of diabetes mellitus; Z90.710 Acquired absence of both cervix and uterus
CPT/HCPCS: 36415; 36600; 71045; 71275; 80048; 80053; 80069; 80076; 81001; 82550; 82553; 82728; 82805; 82962; 83036; 83605; 83615; 83735; 83880; 84443; 84484; 84550; 85007; 85025; 85379; 85610; 85730; 87040; 87804; 93005; 94618; 94640; 94660; 94760; 96365; 96375; J0456; J0696; J1100; J1650; J1815; J1940; J2060; J2270; J2405; J2920; J3490; J7030; J7050; J7060; P9045; Q9967; 97110-GP; 97116-GP; 97530-GO; 97530-GP; 97535-GO; 99291-25; G0378

== ENCOUNTER 2020-04-25 13:13 | Inpatient (IN) | payer BC ==
[~2020-04-25] VITALS: Ht 162.6 cm; Wt 63.0 kg
[~2020-04-25 13:13] MED LIST changes: +LORA10TA68 PO; +SERT25TA PO
[2020-04-25] MEDS ORDERED: VANCOMYCIN PER PHARMACY MC ONE (14:30)
[2020-04-25] MEDS ORDERED: FAMOTIDINE 20 MG/2 ML VIAL IVP ONE (14:30)
[2020-04-25] MEDS ORDERED: IV NORMAL SALINE 1000ML BAG 1,650 ML IV SCH (14:30)
[2020-04-25] MEDS ORDERED: PIPERACILLIN/TAZOBACTAM 4.5 GM in IV NORMAL SALINE 100ML 100 ML IV ONE (14:30)
[2020-04-25] MEDS ORDERED: DEXAMETHASONE SOD PHOS 20 MG/5 ML VIAL. IV ONE (14:30)
[2020-04-25] MEDS ORDERED: diphenhydrAMINE 50 MG/ML VIAL IVP ONE (14:30)
[2020-04-25 14:32] LABS: BASO % 0 % (0-3); EOS % 0 % (0-3); HEMATOCRIT 40.2 % (36.0-47.0); HEMOGLOBIN 14.1 g/dL (12.0-15.5); LYMPH # 1.2 x10^3/uL (1.0-4.8); LYMPH % 11 % (24-48); MEAN CORPUSCULAR HEMOGLOBIN 33 pg (25-35); MEAN CORPUSCULAR HGB CONC 35 g/dL (31-37); MEAN CORPUSCULAR VOLUME 94 fL (79-100); MONO # 0.7 x10^3/uL (0.0-1.1); MONO % 6 % (0-9); NEUT % 82 % (31-73); PLATELET COUNT 235 x10^3/uL (140-400); RED BLOOD COUNT 4.29 x10^6/uL (3.50-5.40); RED CELL DISTRIBUTION WIDTH 14.6 % (11.5-14.5)
[2020-04-25] MEDS ORDERED: ONDANSETRON PF 4 MG/2 ML VIAL. ONE (14:40)
[2020-04-25] MEDS ORDERED: VANCOMYCIN 1.5 GM in IV NORMAL SALINE 500ML BAG 500 ML IV ONE (14:45)
[2020-04-25] MEDS ORDERED: ONDANSETRON PF 4 MG/2 ML VIAL. IVP ONE ×2 (14:45→17:30)
[2020-04-25] MEDS: IV NORMAL SALINE 1000ML BAG 1,000 ML IV SCH ×3 (14:48→22:05)
[2020-04-25 14:51] LABS: CALCIUM 8.8 mg/dL (8.5-10.1); CREATININE 0.5 mg/dL (0.6-1.0); GFR 132.2; POTASSIUM 3.7 mmol/L (3.5-5.1)
[2020-04-25 14:53] LABS: ALBUMIN 3.5 g/dL (3.4-5.0); ALBUMIN/GLOBULIN RATIO 0.9 (1.0-1.7); TOTAL PROTEIN 7.3 g/dL (6.4-8.2)
--- NOTE | 2020-04-25 15:03 | RAD ---
EXAM: Chest, single view. HISTORY: Shortness of air. COMPARISON: 04/18/2020 FINDINGS: A frontal view of the chest is obtained. There is stable diffuse mixed interstitial and stephanie eolar infiltrate with relative sparing of the lung apices. No pleural effusion or pneumothorax is see n. The heart is stable in size. IMPRESSION: Stable diffuse infiltrate. Electronically signed by: Fatou Brandon MD (04/25/2020 3:01 PM) [facility]
[2020-04-25] MEDS ORDERED: IV NORMAL SALINE 1000ML BAG 1,000 ML IV ONE (15:45)
[2020-04-25] MEDS ORDERED: PIPERACILLIN/TAZOBACTAM 3.375 GM in IV NORMAL SALINE 50ML 50 ML IV ONE (15:45)
--- NOTE | 2020-04-25 18:06 | PDOC1 ---
History and Physical Date of Service: DOS: DATE: 04/25/20 TIME: 17:57 Chief Complaint: Chief Complain: Shortness of breath and anxiety History of Present Illness: HPI: History obtained from the son over the phone and translating for the patient and also discussion with the ED physician. Patient is a 49-year-old R[place]andan-speaking female with past medical history of anxiety and recent admission for Covid pneumonia and treated with steroids and remdesivir while in the ICU presents to the ED for anxiety and dyspnea since this morning. Patient was discharged with home oxygen and was started on sertraline for her generalized anxiety disorder. Patient desats to the mid 80s while in the ED she is placed on 6 L nasal cannula oxygen and her saturation improved to 96%. Patient states that she has allergic reaction to sertraline and that her chest was burning and she became more anxious after taking the pil l. She only wants to take Xanax which that starts helps with her anxiety. Denies fevers, chest pain, abdominal pain, diarrhea, dysuria or headaches. Upon discharge from last admission, patient's family refused rehab and was adamant about taking the patient home and taking care of her. However, they do agree with rehab which was discussed with the son last time and they think that this was a good choice but did not listen to the physicians at the time. Son is agreeable to reconsider rehab placement when discharge is ready. Past Medical/Surgical History: PMH/PSH: Past Medical History Cardiovascular: HTN, Hyperlipidemia Past Surgical History Past Surgical History: Hysterectomy Allergies: Allergies: Coded Allergies: No Known Drug Allergies (Unverified , 07/27/18) Family History: Family History: Family History Family History: Diabetes, High Cholestrol, Hypertension Social History: Social History: Social History Smoke: No ALCOHOL: none Drugs: None Current Medications: Current Medications Current Medications Sodium Chloride 1,650 ml @ 1,650 mls/hr Q1H IV ; Start 04/25/20 at 14:30; Status Cancel Piperacillin Sod/ Tazobactam Sod 4.5 gm/Sodium Chloride 100 ml @ 200 mls/hr 1X ONCE IV Last administered on 04/25/20at 15:57; Start 04/25/20 at 14:30; Stop 04/25/20 at 14:59; Status DC Vancomycin HCl (Vanco Per Pharmacy) 1 each 1X ONCE [facility] ; Start 04/25/20 at 14:30; Stop 04/25/20 at 14:31; Status DC Dexamethasone Sodium Phosphate (Decadron) 10 mg 1X ONCE IV Last administered on 04/25/20at 14:46; Start 04/25/20 at 14:30; Stop 04/25/20 at 14:31; Status DC Famotidine (Pepcid Vial) 20 mg 1X ONCE IVP Last administered on 04/25/20at 14:48; Start 04/25/20 at 14:30; Stop 04/25/20 at 14:31; Status DC Diphenhydramine HCl (Benadryl) 25 mg 1X ONCE IVP Last administered on 04/25/20at 14:47; Start 04/25/20 at 14:30; Stop 04/25/20 at 14:31; Status DC Sodium Chloride 1,000 ml @ 1,650 mls/hr Q37M IV Last administered on 04/25/20 at 14:48; Start 04/25/20 at 14:30; Stop 04/25/20 at 15:30; Status DC Vancomycin HCl 1.5 gm/Sodium Chloride 500 ml @ 250 mls/hr 1X ONCE IV Last administered on 04/25/20at 16:30; Start 04/25/20 at 14:45; Stop 04/25/20 at 16:44; Status DC Ondansetron HCl (Zofran) 4 mg 1X ONCE IVP Last administered on 04/25/20at 14:45; Start 04/25/20 at 14:45; Stop 04/25/20 at 14:46; Status DC Ondansetron HCl (Zofran) 4 mg STK-MED ONCE .ROUTE ; Start 04/25/20 at 14:40; Stop 04/25/20 at 14:41; Status DC Piperacillin Sod/ Tazobactam Sod 3.375 gm/Sodium Chloride 50 ml @ 100 mls/hr 1X ONCE IV ; Start 04/25/20 at 15:45; Stop 04/25/20 at 16:14; Status DC Sodium Chloride 1,000 ml @ 1,000 mls/hr 1X ONCE IV ; Start 04/25/20 at 15:45; Stop 04/25/20 at 16:44; Status DC Ondansetron HCl (Zofran) 4 mg 1X ONCE IVP Last administered on 04/25/20at 17:39; Start 04/25/20 at 17:30; Stop 04/25/20 at 17:31; Status DC Active Scripts Active Zoloft (Sertraline Hcl) 25 Mg Tablet 1 Tab PO DAILY Reported Claritin (Loratadine) 10 Mg Tablet 10 Mg PO DAILY ROS: Review of Systems Review of System REVIEW OF SYSTEMS: GENERAL: Denies weakness SKIN: No bruising, hair changes or rashes. EYES: No blurred, double or loss of vision. NOSE AND THROAT: No history of nosebleeds, hoarseness or sore throat. HEART: No history of palpitations, chest pain or shortness of breath on exertion. LUNGS: Denies cough, hemoptysis, wheezing or shortness of breath. GASTROINTESTINAL: Denies changes in appetite, nausea, vomiting, diarrhea or constipation. GENITOURINARY: No history of frequency, urgency, hesitancy or nocturia. NEUROLOGIC: Denies history of numbness, tingling, or tremor. PSYCHIATRIC: No history of panic, anxiety or depression. ENDOCRINE: No history of heat or cold intolerance, polyuria or polydipsia. EXTREMITIES: Denies joint pain, pain on walking or stiffness. Physical Exam: Vital Signs: Vital Signs Date Time Temp Pulse Resp B/P (MAP) Pulse Ox O2 Delivery O2 Flow Rate FiO2 04/25/20 15:54 118 26 163/87 (112) 90 Nasal Cannula 6.0 04/25/20 13:28 98.7 98.7 Physcial Exam: GEN: No apparent distress. Alert and oriented HEENT: Normal cephalic, atraumatic, external auditory canals are patent EYES: Extraocular muscles are intact, pupil are equally round and reactive to light and accommodation MUSCULOSKELETAL: Well developed , well nourished, good range of motion ENDOCRINE: No thyromegaly was palpated LYMPHATICS: No cervical chain or axillary nodes were noted HEMATOPOIETIC: No bruising NECK: Supple, no JVD, no thyromegaly was noted LUNGS: Clear to auscultation in all lung moody without rhonchi or wheezing HEART: RRR, S!, S2 present. Peripheral pulses intact, no obvious murmurs noted ABDOMEN: Soft, nontender. Positive bowel sounds, no organomegaly, normal bowel sounds EXTREMITIES: Without clubbing, cyanosis, or edema. Pedal pulses intact. Negative Homans sign NEUROLOGIC: Normal speech and tone. A&O x 3, moves all extremities, no obvious focal deficits PSYCHIATRIC: Normal affect, normal mood. Stable SKIN: No ulcerations or rashes, good skin turgor, no jaundice VASCULAR: Good capillary refill, neurovascular bundle appears to be intact Labs: Labs: Laboratory Tests Test 04/25/20 13:40 White Blood Count 11.0 x10^3/uL (4.0-11.0) Red Blood Count 4.29 x10^6/uL (3.50-5.40) Hemoglobin 14.1 g/dL (12.0-15.5) Hematocrit 40.2 % (36.0-47.0) Mean Corpuscular Volume 94 fL (79-100) Mean Corpuscular Hemoglobin 33 pg (25-35) Mean Corpuscular Hemoglobin Concent 35 g/dL (31-37) Red Cell Distribution Width 14.6 % (11.5-14.5) Platelet Count 235 x10^3/uL (140-400) Neutrophils (%) (Auto) 82 % (31-73) Lymphocytes (%) (Auto) 11 % (24-48) Monocytes (%) (Auto) 6 % (0-9) Eosinophils (%) (Auto) 0 % (0-3) Basophils (%) (Auto) 0 % (0-3) Neutrophils # (Auto) 9.0 x10^3/uL (1.8-7.7) Lymphocytes # (Auto) 1.2 x10^3/uL (1.0-4.8) Monocytes # (Auto) 0.7 x10^3/uL (0.0-1.1) Eosinophils # (Auto) 0.0 x10^3/uL (0.0-0.7) Basophils # (Auto) 0.0 x10^3/uL (0.0-0.2) Sodium Level 124 mmol/L (136-145) Potassium Level 3.7 mmol/L (3.5-5.1) Chloride Level 88 mmol/L (98-107) Carbon Dioxide Level 26 mmol/L (21-32) Anion Gap 10 (6-14) Blood Urea Nitrogen 10 mg/dL (7-20) Creatinine 0.5 mg/dL (0.6-1.0) Estimated GFR (Cockcroft-Gault) 132.2 BUN/Creatinine Ratio 20 (6-20) Glucose Level 197 mg/dL (70-99) Lactic Acid Level 2.3 mmol/L (0.4-2.0) Calcium Level 8.8 mg/dL (8.5-10.1) Total Bilirubin 1.0 mg/dL (0.2-1.0) Aspartate Amino Transf (AST/SGOT) 32 U/L (15-37) Alanine Aminotransferase (ALT/SGPT) 60 U/L (14-59) Alkaline Phosphatase 102 U/L (46-116) Creatine Kinase 165 U/L (26-192) Creatine Kinase MB (Mass) 13.2 ng/mL (0.0-3.6) Creatine Kinase MB Relative Index 8.0 % (0-4) Total Protein 7.3 g/dL (6.4-8.2) Albumin 3.5 g/dL (3.4-5.0) Albumin/Globulin Ratio 0.9 (1.0-1.7) Procalcitonin 0.15 ng/mL (0.00-0.10) Laboratory Tests Test 04/25/20 13:40 White Blood Count 11.0 x10^3/uL (4.0-11.0) Red Blood Count 4.29 x10^6/uL (3.50-5.40) Hemoglobin 14.1 g/dL (12.0-15.5) Hematocrit 40.2 % (36.0-47.0) Mean Corpuscular Volume 94 fL (79-100) Mean Corpuscular Hemoglobin 33 pg (25-35) Mean Corpuscular Hemoglobin Concent 35 g/dL (31-37) Red Cell Distribution Width 14.6 % (11.5-14.5) Platelet Count 235 x10^3/uL (140-400) Neutrophils (%) (Auto) 82 % (31-73) Lymphocytes (%) (Auto) 11 % (24-48) Monocytes (%) (Auto) 6 % (0-9) Eosinophils (%) (Auto) 0 % (0-3) Basophils (%) (Auto) 0 % (0-3) Neutrophils # (Auto) 9.0 x10^3/uL (1.8-7.7) Lymphocytes # (Auto) 1.2 x10^3/uL (1.0-4.8) Monocytes # (Auto) 0.7 x10^3/uL (0.0-1.1) Eosinophils # (Auto) 0.0 x10^3/uL (0.0-0.7) Basophils # (Auto) 0.0 x10^3/uL (0.0-0.2) Sodium Level 124 mmol/L (136-145) Potassium Level 3.7 mmol/L (3.5-5.1) Chloride Level 88 mmol/L (98-107) Carbon Dioxide Level 26 mmol/L (21-32) Anion Gap 10 (6-14) Blood Urea Nitrogen 10 mg/dL (7-20) Creatinine 0.5 mg/dL (0.6-1.0) Estimated GFR (Cockcroft-Gault) 132.2 BUN/Creatinine Ratio 20 (6-20) Glucose Level 197 mg/dL (70-99) Lactic Acid Level 2.3 mmol/L (0.4-2.0) Calcium Level 8.8 mg/dL (8.5-10.1) Total Bilirubin 1.0 mg/dL (0.2-1.0) Aspartate Amino Transf (AST/SGOT) 32 U/L (15-37) Alanine Aminotransferase (ALT/SGPT) 60 U/L (14-59) Alkaline Phosphatase 102 U/L (46-116) Creatine Kinase 165 U/L (26-192) Creatine Kinase MB (Mass) 13.2 ng/mL (0.0-3.6) Creatine Kinase MB Relative Index 8.0 % (0-4) Total Protein 7.3 g/dL (6.4-8.2) Albumin 3.5 g/dL (3.4-5.0) Albumin/Globulin Ratio 0.9 (1.0-1.7) Procalcitonin 0.15 ng/mL (0.00-0.10) Images: Images Chest x-ray shows stable diffuse infiltrate Assessment/Plan Assessment/Plan Acute hypoxic respiratory distress Acute electrolyte derangementhyponatremia, hypochloremia suggestive of volume depletion Acute anxiety episode Generalized anxiety disorder Lactic acidemia Admit to medicine for further management O2 supplementation to maintain O2 saturation greater than 92% Psychiatry consult Ativan as needed for anxiety Continue IV fluids Lovenox for DVT prophylaxis ADA diet Full code Discussed with RN and SW Disposition pending psych consult, family is agreeable to for the patient to consider rehab at this time Surrogate decision maker is the son and/or daughter Justifications for Admission Other Justification JUAN ANTONIO RUSHING MD Apr 25, 2020 18:05
[2020-04-25] MEDS ORDERED: ONDANSETRON PF 4 MG/2 ML VIAL. IVP PRN (18:15)
[2020-04-25] MEDS ORDERED: DOCUSATE SODIUM 100 MG CAPSULE. PO PRN (18:15)
[2020-04-25] MEDS ORDERED: DEXTROSE 50% 25 GM / 50ML DISP.SYRIN. IV PRN (18:15)
[2020-04-25] MEDS ORDERED: SENNOSIDES 8.6 MG TABLET PO PRN (18:15)
[2020-04-25] MEDS: LORazepam 0.5 MG TABLET PO PRN (18:38)
[2020-04-25] MEDS: ACETAMINOPHEN 325 MG TABLET. PO PRN (18:38)
--- NOTE | 2020-04-25 18:54 | PHYS DOC ---
Past Medical History Past Medical History: High Cholesterol, Hypertension Additional Past Medical Histor: seasonal allergies, fatty liver (JOSEPH RICHARD APRN) Past Surgical History: Hysterectomy (JOSEPH RICHARD APRN) Smoking Status: Never Smoker Alcohol Use: None Drug Use: None (JOSEPH RICHARD APRN) General Adult EDM: Chief Complaint: DYSPNEA/RESPIRATOY DISTRESS HPI: HPI: Patient is a 49 year old [place] Korean-speaking female with diabetes type 2, hypertension, high cholesterol, anxiety, recently diagnosed with COVID-19 and treated in the hospital and discharged home who presents to the ED today complaining of shortness of breath and anxiety since this morning. Patient is [place] Korean-speaking, interpretation was provided by the son on the phone. The son states patient was discharged to home on sertraline for anxiety. He continues to state since patient was put on sertraline her anxiety levels has gotten worse. Son states patient prefers Xanax. Son also states patient has continued to have shortness of breath despite being discharged home on oxygen. O2 sats are usually in the 80s if she is not on oxygen. She is currently on 6 L satting at 96%. (JSOEPH RICHARD APRN) Review of Systems: Review of Systems: Constitutional: Denies fever or chills. [] Eyes: Denies change in visual acuity. [] HENT: Denies nasal congestion or sore throat. [] Respiratory: Reports shortness of breath] Cardiovascular: Denies chest pain or edema. [] GI: Denies abdominal pain, nausea, vomiting, bloody stools or diarrhea. [] : Denies dysuria. [] Musculoskeletal: Denies back pain or joint pain. [] Integument: Denies rash. [] Neurologic: Denies headache, focal weakness or sensory changes. [] Psychiatric: Reports anxiety (JOSEPH RICHARD APRN) Heart Score: Risk Factors: Risk Factors: DM, Current or recent (<one month) smoker, HTN, HLP, family history of CAD, obesity. Risk Scores: Score 0 - 3: 2.5% MACE over next 6 weeks - Discharge Home Score 4 - 6: 20.3% MACE over next 6 weeks - Admit for Clinical Observation Score 7 - 10: 72.7% MACE over next 6 weeks - Early Invasive Strategies (JOSEPH RICHARD APRN) Current Medications: Current Medications Medications (Trade) Dose Ordered Sig/Lizbeth Start Time Stop Time Status Last Admin Dose Admin Acetaminophen (Tylenol) 650 mg PRN Q4HRS PRN 04/25/20 18:15 04/25/20 18:38 650 MG Dexamethasone Sodium Phosphate (Decadron) 10 mg 1X ONCE 04/25/20 14:30 04/25/20 14:31 DC 04/25/20 14:46 10 MG Dextrose (Dextrose 50%-Water Syringe) 12.5 gm PRN Q15MIN PRN 04/25/20 18:15 Diphenhydramine HCl (Benadryl) 25 mg 1X ONCE 04/25/20 14:30 04/25/20 14:31 DC 04/25/20 14:47 25 MG Docusate Sodium (Colace) 100 mg PRN DAILY PRN 04/25/20 18:15 Enoxaparin Sodium (Lovenox 40mg Syringe) 40 mg Q24H 04/26/20 09:00 Famotidine (Pepcid Vial) 20 mg 1X ONCE 04/25/20 14:30 04/25/20 14:31 DC 04/25/20 14:48 20 MG Insulin Human Lispro (HumaLOG) 0-7 UNITS TIDWMEALS 04/26/20 08:00 Lidocaine HCl (Viscous Lidocaine) 15 ml Q8HRS 04/25/20 22:00 Lorazepam (Ativan) 0.5 mg PRN Q4HRS PRN 04/25/20 18:15 04/25/20 18:38 0.5 MG Ondansetron HCl (Zofran) 4 mg PRN Q6HRS PRN 04/25/20 18:15 Piperacillin Sod/ Tazobactam Sod 3.375 gm/Sodium Chloride 50 ml @ 100 mls/hr 1X ONCE 04/25/20 15:45 04/25/20 16:14 DC Piperacillin Sod/ Tazobactam Sod 4.5 gm/Sodium Chloride 100 ml @ 200 mls/hr 1X ONCE 04/25/20 14:30 04/25/20 14:59 DC 04/25/20 15:57 200 MLS/HR Sennosides (Senna) 17.2 mg PRN BID PRN 04/25/20 18:15 Sertraline HCl (Zoloft) 25 mg QHS 04/25/20 21:00 Sodium Chloride 1,000 ml @ 100 mls/hr Q10H 04/25/20 18:15 Vancomycin HCl (Vanco Per Pharmacy) 1 each 1X ONCE 04/25/20 14:30 04/25/20 14:31 DC Vancomycin HCl 1.5 gm/Sodium Chloride 500 ml @ 250 mls/hr 1X ONCE 04/25/20 14:45 04/25/20 16:44 DC 04/25/20 16:30 250 MLS/HR (MUTUNGA,JOSEPH UTILIZATION REVIEW COORDINATOR) Allergies: Allergies: Allergies Coded Allergies Type Severity Reaction Last Updated Verified No Known Drug Allergies 07/27/18 No (MUTUNGA,JOSEPH UTILIZATION REVIEW COORDINATOR) Physical Exam: PE: Constitutional: Well developed, well nourished, no acute distress, non-toxic appearance. [] HENT: Normocephalic, atraumatic, bilateral external ears normal, oropharynx moist, no oral exudates, nose normal. [] Eyes: PERRLA, EOMI, conjunctiva normal, no discharge. [] Neck: Normal range of motion, no tenderness, supple, no stridor. [] Cardiovascular:Heart rate regular rhythm, no murmur [] Lungs & Thorax: Decreased breath sounds to posterior lung bases. Currently on oxygen 6 L. Abdomen: Bowel sounds normal, soft, no tenderness, no masses, no pulsatile masses. [] Skin: Warm, dry, no erythema, no rash. [] Back: No tenderness, no CVA tenderness. [] Extremities: No tenderness, no cyanosis, no clubbing, ROM intact, no edema. [] Neurologic: Alert and oriented X 3, normal motor function, normal sensory function, no focal deficits noted. [] Psychologic: Flat affect, depressed mood (MUTUNGA,JOSEPH UTILIZATION REVIEW COORDINATOR) Current Patient Data: Labs: Laboratory Tests Test 04/25/20 13:40 White Blood Count 11.0 x10^3/uL (4.0-11.0) Red Blood Count 4.29 x10^6/uL (3.50-5.40) Hemoglobin 14.1 g/dL (12.0-15.5) Hematocrit 40.2 % (36.0-47.0) Mean Corpuscular Volume 94 fL (79-100) Mean Corpuscular Hemoglobin 33 pg (25-35) Mean Corpuscular Hemoglobin Concent 35 g/dL (31-37) Red Cell Distribution Width 14.6 % (11.5-14.5) H Platelet Count 235 x10^3/uL (140-400) Neutrophils (%) (Auto) 82 % (31-73) H Lymphocytes (%) (Auto) 11 % (24-48) L Monocytes (%) (Auto) 6 % (0-9) Eosinophils (%) (Auto) 0 % (0-3) Basophils (%) (Auto) 0 % (0-3) Neutrophils # (Auto) 9.0 x10^3/uL (1.8-7.7) H Lymphocytes # (Auto) 1.2 x10^3/uL (1.0-4.8) Monocytes # (Auto) 0.7 x10^3/uL (0.0-1.1) Eosinophils # (Auto) 0.0 x10^3/uL (0.0-0.7) Basophils # (Auto) 0.0 x10^3/uL (0.0-0.2) Sodium Level 124 mmol/L (136-145) L Potassium Level 3.7 mmol/L (3.5-5.1) Chloride Level 88 mmol/L (98-107) L Carbon Dioxide Level 26 mmol/L (21-32) Anion Gap 10 (6-14) Blood Urea Nitrogen 10 mg/dL (7-20) Creatinine 0.5 mg/dL (0.6-1.0) L Estimated GFR (Cockcroft-Gault) 132.2 BUN/Creatinine Ratio 20 (6-20) Glucose Level 197 mg/dL (70-99) H Lactic Acid Level 2.3 mmol/L (0.4-2.0) H Calcium Level 8.8 mg/dL (8.5-10.1) Total Bilirubin 1.0 mg/dL (0.2-1.0) Aspartate Amino Transferase (AST) 32 U/L (15-37) Alanine Aminotransferase (ALT) 60 U/L (14-59) H Alkaline Phosphatase 102 U/L (46-116) Creatine Kinase 165 U/L (26-192) Creatine Kinase MB (Mass) 13.2 ng/mL (0.0-3.6) H Creatine Kinase MB Relative Index 8.0 % (0-4) H Total Protein 7.3 g/dL (6.4-8.2) Albumin 3.5 g/dL (3.4-5.0) Albumin/Globulin Ratio 0.9 (1.0-1.7) L Procalcitonin 0.15 ng/mL (0.00-0.10) H Laboratory Tests 04/25/20 13:40 Laboratory Tests 04/25/20 13:40 Vital Signs: Vital Signs Date Time Temp Pulse Resp B/P (MAP) Pulse Ox O2 Delivery O2 Flow Rate FiO2 04/25/20 15:54 118 26 163/87 (112) 90 Nasal Cannula 6.0 04/25/20 13:28 98.7 98.7 (JOSEPH RICHARD APRN) EKG: EK interpreted by Dr. Munoz sinus tachycardia HR 109 no STEMI[] (JOSEPH RICHARD APRN) Radiology/Procedures: Radiology/Procedures: []PROCEDURE: PORTABLE CHEST 1V EXAM: Chest, single view. HISTORY: Shortness of air. COMPARISON: 04/18/2020 FINDINGS: A frontal view of the chest is obtained. There is stable diffuse mixed interstitial and alveolar infiltrate with relative sparing of the lung apices. No pleural effusion or pneumothorax is seen. The heart is stable in size. IMPRESSION: Stable diffuse infiltrate. Electronically signed by: Fatou Hewitt MD (04/25/2020 3:01 PM) [facility] DICTATED and SIGNED BY: FATOU HEWITT MD DATE: 04/25/20 [id number] 0 (JOSEPH RICHARD APRN) Course & Med Decision Making: Course & Med Decision Making Pertinent Labs and Imaging studies reviewed. (See chart for details) This is a 49-year-old female patient positive for Covid presenting to the ED today complaining of anxiety as well as shortness of breath. Patient was recently discharged from the hospital after being treated for Covid, she received remdesivir as well as dexamethasone during her admission. She was sent home on oxygen as well as sertraline. She states the sertraline is making her anxiety worse. Information was obtained from the son. Patient is on oxygen 6 L satting at 96%. Temperature 98.7, heart rate 113, respiration 26, blood pressure 117/84. Chest x-ray noted for diffuse infiltrates that are stable. CBC with no acute findings, CMP with sodium of 124. Lactic 2.3, Spoke with Dr. Morris who accepted patient for admission (JOSEPH RICHARD APRN) Rick Disclaimer: Rick Disclaimer: This electronic medical record was generated, in whole or in part, using a voice recognition dictation system. (JOSEPH RICHARD APRN) Departure Departure Impression: Primary Impression: Respiratory failure Qualified Codes: J96.01 - Acute respiratory failure with hypoxia Additional Impressions: Hyponatremia Anxiety Pneumonia of both lower lobes Qualified Codes: J18.9 - Pneumonia, unspecified organism Disposition: ADMITTED INPT THIS HOSP Condition: STABLE Referrals: UNKNOWN PCP NAME (PCP) Attending Signature Attending Signature I have reviewed the PA/CITY PLANNING TEACHER's note and plan of care. I was available for consultation as needed during the patient's visit in the emergency department. I agree with the clinical impression, plan, and disposition. (GUI MUNOZ DO) JOSEPH RICHARD APRN Apr 25, 2020 18:53 GUI MUNOZ DO Apr 26, 2020 07:03
[2020-04-25] MEDS ORDERED: ONDANSETRON PF 4 MG/2 ML VIAL. IV PRN (19:30)
[2020-04-25] MEDS ORDERED: SERTRALINE 25 MG TABLET. PO SCH (21:00)
--- NOTE | 2020-04-25 21:26 | PDOC1 ---
History & Psych Evaluation Date of Service: DOS: DATE: 04/25/20 TIME: 21:13 Source: Source: Caregiver, Chart review, Patient Identification: Identification 49-year-old speaking female with anxiety and COVID positive Chief Complaint: Chief Complaint Anxiety, sad mood History of Present Illness: HPI: She is a 49-year-old female admitted with respiratory distress following COVID infection. She was recently discharged, previously admitted with positive COVID. Readmitted due to respiratory distress. She was discharged on Zoloft for anxiety, however reportedly she did not tolerate. When discussed, she appears sad and worried. States, she is very nervous and sad about her current situation. States, recently her cousin has due to COVID infection. States, in addition to herself she is worried about her family and children as she lives with them. States, she is having chest discomfort, breathlessness, and nervousness. Often she cries with sad mood. Denies suicidal or homicidal thoughts. Denies auditory or visual hallucinations. Denies previous diagnosis of depression or anxiety. No history of bipolar mood disorder reported. Sleep is fragmented and nonrestorative. She is requesting medication for her anxiety and insomnia. Past Psychiatric History: History of anxiety. Denies history of psychiatric hospital admission. Denies history of suicidality Past Medical History: See medical chart for details Family History: Psychiatric family history is not known to the patient. Social History: Social History: She is , lives with her and three children. Denies history of substance use or excessive alcohol abuse. She is a Serbian-speaking Current Medications: Current Medications Current Medications Medications (Trade) Dose Ordered Sig/Lizbeth Start Time Stop Time Status Last Admin Dose Admin Acetaminophen (Tylenol) 650 mg PRN Q4HRS PRN 04/25/20 18:15 04/25/20 18:38 650 MG Dexamethasone Sodium Phosphate (Decadron) 10 mg 1X ONCE 04/25/20 14:30 04/25/20 14:31 DC 04/25/20 14:46 10 MG Dextrose (Dextrose 50%-Water Syringe) 12.5 gm PRN Q15MIN PRN 04/25/20 18:15 Diphenhydramine HCl (Benadryl) 25 mg 1X ONCE 04/25/20 14:30 04/25/20 14:31 DC 04/25/20 14:47 25 MG Docusate Sodium (Colace) 100 mg PRN DAILY PRN 04/25/20 18:15 Enoxaparin Sodium (Lovenox 40mg Syringe) 40 mg Q24H 04/26/20 09:00 Famotidine (Pepcid Vial) 20 mg 1X ONCE 04/25/20 14:30 04/25/20 14:31 DC 04/25/20 14:48 20 MG Insulin Human Lispro (HumaLOG) 0-7 UNITS TIDWMEALS 04/26/20 08:00 Lidocaine HCl (Viscous Lidocaine) 15 ml Q8HRS 04/25/20 22:00 Lorazepam (Ativan) 0.5 mg PRN Q4HRS PRN 04/25/20 18:15 04/25/20 18:38 0.5 MG Ondansetron HCl (Zofran) 4 mg PRN Q8HRS PRN 04/25/20 19:30 04/26/20 19:29 Piperacillin Sod/ Tazobactam Sod 3.375 gm/Sodium Chloride 50 ml @ 100 mls/hr 1X ONCE 04/25/20 15:45 04/25/20 16:14 DC 04/25/20 15:45 100 MLS/HR Piperacillin Sod/ Tazobactam Sod 4.5 gm/Sodium Chloride 100 ml @ 200 mls/hr 1X ONCE 04/25/20 14:30 04/25/20 14:59 DC 04/25/20 15:57 200 MLS/HR Sennosides (Senna) 17.2 mg PRN BID PRN 04/25/20 18:15 Sertraline HCl (Zoloft) 25 mg QHS 04/25/20 21:00 Sodium Chloride 1,000 ml @ 100 mls/hr Q10H 04/25/20 18:15 Vancomycin HCl (Vanco Per Pharmacy) 1 each 1X ONCE 04/25/20 14:30 04/25/20 14:31 DC Vancomycin HCl 1.5 gm/Sodium Chloride 500 ml @ 250 mls/hr 1X ONCE 04/25/20 14:45 04/25/20 16:44 DC 04/25/20 16:30 250 MLS/HR Allergies: Allergies: Coded Allergies: No Known Drug Allergies (Unverified , 07/27/18) Mental Status Examination: Mental Status Examination female appears her stated age Appears nervous and anxious but cooperative Oriented and alert Thought processes goal-directed Denies suicidal or homicidal thoughts Denies auditory visual hallucinations No abnormal perception noted. Mood is anxious Affect is dysthymic Insight is fair Judgment is fair Impulse control is fair Attention span and concentration fair Recent and remote memory intact ROS: 14 point review of system is otherwise negative except for stated above Physical Exam: Refer to Physician's note. ALUMINUM BOAT ASSEMBLY SUPERVISOR: No focal deficit MSK: No EPS, TDK, or abnormal involuntary movements Vitals: Vitals Vital Signs Date Time Temp Pulse Resp B/P (MAP) Pulse Ox O2 Delivery O2 Flow Rate FiO2 04/25/20 18:24 114 24 164/92 (116) 93 Nasal Cannula 6.0 04/25/20 13:28 98.7 98.7 Labs: Labs Laboratory Tests Test 04/25/20 13:40 04/25/20 19:55 White Blood Count 11.0 x10^3/uL (4.0-11.0) Red Blood Count 4.29 x10^6/uL (3.50-5.40) Hemoglobin 14.1 g/dL (12.0-15.5) Hematocrit 40.2 % (36.0-47.0) Mean Corpuscular Volume 94 fL (79-100) Mean Corpuscular Hemoglobin 33 pg (25-35) Mean Corpuscular Hemoglobin Concent 35 g/dL (31-37) Red Cell Distribution Width 14.6 % (11.5-14.5) Platelet Count 235 x10^3/uL (140-400) Neutrophils (%) (Auto) 82 % (31-73) Lymphocytes (%) (Auto) 11 % (24-48) Monocytes (%) (Auto) 6 % (0-9) Eosinophils (%) (Auto) 0 % (0-3) Basophils (%) (Auto) 0 % (0-3) Neutrophils # (Auto) 9.0 x10^3/uL (1.8-7.7) Lymphocytes # (Auto) 1.2 x10^3/uL (1.0-4.8) Monocytes # (Auto) 0.7 x10^3/uL (0.0-1.1) Eosinophils # (Auto) 0.0 x10^3/uL (0.0-0.7) Basophils # (Auto) 0.0 x10^3/uL (0.0-0.2) Sodium Level 124 mmol/L (136-145) Potassium Level 3.7 mmol/L (3.5-5.1) Chloride Level 88 mmol/L (98-107) Carbon Dioxide Level 26 mmol/L (21-32) Anion Gap 10 (6-14) Blood Urea Nitrogen 10 mg/dL (7-20) Creatinine 0.5 mg/dL (0.6-1.0) Estimated GFR (Cockcroft-Gault) 132.2 BUN/Creatinine Ratio 20 (6-20) Glucose Level 197 mg/dL (70-99) Lactic Acid Level 2.3 mmol/L (0.4-2.0) 1.2 mmol/L (0.4-2.0) Calcium Level 8.8 mg/dL (8.5-10.1) Total Bilirubin 1.0 mg/dL (0.2-1.0) Aspartate Amino Transf (AST/SGOT) 32 U/L (15-37) Alanine Aminotransferase (ALT/SGPT) 60 U/L (14-59) Alkaline Phosphatase 102 U/L (46-116) Creatine Kinase 165 U/L (26-192) Creatine Kinase MB (Mass) 13.2 ng/mL (0.0-3.6) Creatine Kinase MB Relative Index 8.0 % (0-4) Total Protein 7.3 g/dL (6.4-8.2) Albumin 3.5 g/dL (3.4-5.0) Albumin/Globulin Ratio 0.9 (1.0-1.7) Procalcitonin 0.15 ng/mL (0.00-0.10) Laboratory Tests Test 04/25/20 13:40 04/25/20 19:55 White Blood Count 11.0 x10^3/uL (4.0-11.0) Red Blood Count 4.29 x10^6/uL (3.50-5.40) Hemoglobin 14.1 g/dL (12.0-15.5) Hematocrit 40.2 % (36.0-47.0) Mean Corpuscular Volume 94 fL (79-100) Mean Corpuscular Hemoglobin 33 pg (25-35) Mean Corpuscular Hemoglobin Concent 35 g/dL (31-37) Red Cell Distribution Width 14.6 % (11.5-14.5) Platelet Count 235 x10^3/uL (140-400) Neutrophils (%) (Auto) 82 % (31-73) Lymphocytes (%) (Auto) 11 % (24-48) Monocytes (%) (Auto) 6 % (0-9) Eosinophils (%) (Auto) 0 % (0-3) Basophils (%) (Auto) 0 % (0-3) Neutrophils # (Auto) 9.0 x10^3/uL (1.8-7.7) Lymphocytes # (Auto) 1.2 x10^3/uL (1.0-4.8) Monocytes # (Auto) 0.7 x10^3/uL (0.0-1.1) Eosinophils # (Auto) 0.0 x10^3/uL (0.0-0.7) Basophils # (Auto) 0.0 x10^3/uL (0.0-0.2) Sodium Level 124 mmol/L (136-145) Potassium Level 3.7 mmol/L (3.5-5.1) Chloride Level 88 mmol/L (98-107) Carbon Dioxide Level 26 mmol/L (21-32) Anion Gap 10 (6-14) Blood Urea Nitrogen 10 mg/dL (7-20) Creatinine 0.5 mg/dL (0.6-1.0) Estimated GFR (Cockcroft-Gault) 132.2 BUN/Creatinine Ratio 20 (6-20) Glucose Level 197 mg/dL (70-99) Lactic Acid Level 2.3 mmol/L (0.4-2.0) 1.2 mmol/L (0.4-2.0) Calcium Level 8.8 mg/dL (8.5-10.1) Total Bilirubin 1.0 mg/dL (0.2-1.0) Aspartate Amino Transf (AST/SGOT) 32 U/L (15-37) Alanine Aminotransferase (ALT/SGPT) 60 U/L (14-59) Alkaline Phosphatase 102 U/L (46-116) Creatine Kinase 165 U/L (26-192) Creatine Kinase MB (Mass) 13.2 ng/mL (0.0-3.6) Creatine Kinase MB Relative Index 8.0 % (0-4) Total Protein 7.3 g/dL (6.4-8.2) Albumin 3.5 g/dL (3.4-5.0) Albumin/Globulin Ratio 0.9 (1.0-1.7) Procalcitonin 0.15 ng/mL (0.00-0.10) Diagnosis: Diagnosis: Unspecified anxiety, rule out anxiety due to general medical condition Unspecified depression, rule out depression due to general medical condition Assessment: 49-year-old female with COVID infection struggling with depressed mood and anxiety. She was expecting benzodiazepines however with given respiratory distress, benzodiazepine may complicate her respiratory distress. Recommending to add Zyprexa 5 mg at bedtime for anxiety and insomnia temporarily. She is in agreement with it and voiced understanding Plan: Zyprexa 5 mg nightly for anxiety and insomnia. Psychoeducation provided. Supportive psychotherapy provided. Risk, benefits, alternatives of the treatment are discussed. She is in agreement with plan and voiced understanding Adverse drug reaction of the medications including black box warning are also discussed. Monitor for oversedation or respiratory distress. GAURAV LIZARRAGA MD Apr 25, 2020 21:26
[2020-04-25] MEDS ORDERED: OLANZapine 5 MG TABLET PO SCH (22:00)
[2020-04-25] MEDS: LIDOCAINE 2% VISCOUS 15 ML SOLUTION. SWSW SCH (22:05)
[2020-04-26 00:41] VITALS: BP 124/69
[2020-04-26 03:00] VITALS: BP 131/76
[2020-04-26] MEDS: LIDOCAINE 2% VISCOUS 15 ML SOLUTION. SWSW SCH ×2 (06:05→11:54)
[2020-04-26] MEDS: IV NORMAL SALINE 1000ML BAG 1,000 ML IV SCH ×2 (06:05→13:30)
[2020-04-26 07:48] VITALS: BP 144/93
[2020-04-26] MEDS: INSULIN LISPRO 300 UNITS/3 ML VIAL. SQ SCH ×2 (08:00→12:00)
[2020-04-26] MEDS ORDERED: ENOXAPARIN 40 MG/0.4 ML SYRINGE. SQ SCH (09:00)
[2020-04-26 09:08] LABS: BASO % 0 % (0-3); EOS % 0 % (0-3); HEMOGLOBIN 13.5 g/dL (12.0-15.5); LYMPH # 0.9 x10^3/uL (1.0-4.8); LYMPH % 12 % (24-48); MEAN CORPUSCULAR HEMOGLOBIN 32 pg (25-35); MEAN CORPUSCULAR HGB CONC 34 g/dL (31-37); MEAN CORPUSCULAR VOLUME 95 fL (79-100); MONO # 0.6 x10^3/uL (0.0-1.1); MONO % 8 % (0-9); NEUT % 80 % (31-73); PLATELET COUNT 227 x10^3/uL (140-400); RED BLOOD COUNT 4.22 x10^6/uL (3.50-5.40); RED CELL DISTRIBUTION WIDTH 15.2 % (11.5-14.5); WHITE BLOOD COUNT 7.5 x10^3/uL (4.0-11.0)
[2020-04-26 09:29] LABS: ALBUMIN 3.3 g/dL (3.4-5.0); ALBUMIN/GLOBULIN RATIO 0.9 (1.0-1.7); CALCIUM 8.7 mg/dL (8.5-10.1); CREATININE 0.5 mg/dL (0.6-1.0); GFR 132.2; POTASSIUM 3.3 mmol/L (3.5-5.1); TOTAL BILIRUBIN 0.7 mg/dL (0.2-1.0); TOTAL PROTEIN 7.1 g/dL (6.4-8.2)
[2020-04-26] MEDS ORDERED: POTASSIUM CHLORIDE 20 MEQ TABLET.ER. PO ONE (10:45)
[2020-04-26 11:02] VITALS: BP 156/90
--- NOTE | 2020-04-26 11:02 | PDOC ---
[facility] PROGRESS NOTE Date of Service DOS: DATE: 04/26/20 TIME: 11:01 Chief Complaint Chief Complaint Acute hypoxic respiratory distress Acute electrolyte derangementhyponatremia, hypochloremia suggestive of volume depletion Acute anxiety episode Generalized anxiety disorder Lactic acidemia History of Present Illness History of Present Illness 03/27/2020 Patient seen and examined on the [facility]-19 floor She appears quite ill short of breath and on 6 L of nasal cannula oxygen She is clearly anxious Has her brother on the phone we talked to him Discussed with RN Discussed with case management Chart reviewed Vitals/I&O Vitals/I&O: Vital Signs Date Time Temp Pulse Resp B/P (MAP) Pulse Ox O2 Delivery O2 Flow Rate FiO2 04/26/20 08:00 Nasal Cannula 6.0 04/26/20 07:48 98.0 109 20 144/93 (110) 91 98.0 I & O 04/25/20 04/25/20 04/26/20 15:00 23:00 07:00 Intake Total 0 ml 0 ml Output Total 1900 ml Balance -1900 ml 0 ml Physical Exam General: moderate distress Heart: Other (Tachycardic) Lungs: Wheezing, Crackles Abdomen: Normal bowel sounds, Soft Extremities: No clubbing, No cyanosis Skin: No rashes, No breakdown Labs Labs: Laboratory Tests Test 04/25/20 13:40 04/25/20 19:55 04/26/20 08:16 04/26/20 08:25 White Blood Count 11.0 x10^3/uL (4.0-11.0) 7.5 x10^3/uL (4.0-11.0) Red Blood Count 4.29 x10^6/uL (3.50-5.40) 4.22 x10^6/uL (3.50-5.40) Hemoglobin 14.1 g/dL (12.0-15.5) 13.5 g/dL (12.0-15.5) Hematocrit 40.2 % (36.0-47.0) 40.0 % (36.0-47.0) Mean Corpuscular Volume 94 fL (79-100) 95 fL (79-100) Mean Corpuscular Hemoglobin 33 pg (25-35) 32 pg (25-35) Mean Corpuscular Hemoglobin Concent 35 g/dL (31-37) 34 g/dL (31-37) Red Cell Distribution Width 14.6 % (11.5-14.5) 15.2 % (11.5-14.5) Platelet Count 235 x10^3/uL (140-400) 227 x10^3/uL (140-400) Neutrophils (%) (Auto) 82 % (31-73) 80 % (31-73) Lymphocytes (%) (Auto) 11 % (24-48) 12 % (24-48) Monocytes (%) (Auto) 6 % (0-9) 8 % (0-9) Eosinophils (%) (Auto) 0 % (0-3) 0 % (0-3) Basophils (%) (Auto) 0 % (0-3) 0 % (0-3) Neutrophils # (Auto) 9.0 x10^3/uL (1.8-7.7) 6.0 x10^3/uL (1.8-7.7) Lymphocytes # (Auto) 1.2 x10^3/uL (1.0-4.8) 0.9 x10^3/uL (1.0-4.8) Monocytes # (Auto) 0.7 x10^3/uL (0.0-1.1) 0.6 x10^3/uL (0.0-1.1) Eosinophils # (Auto) 0.0 x10^3/uL (0.0-0.7) 0.0 x10^3/uL (0.0-0.7) Basophils # (Auto) 0.0 x10^3/uL (0.0-0.2) 0.0 x10^3/uL (0.0-0.2) Sodium Level 124 mmol/L (136-145) 141 mmol/L (136-145) Potassium Level 3.7 mmol/L (3.5-5.1) 3.3 mmol/L (3.5-5.1) Chloride Level 88 mmol/L (98-107) 104 mmol/L (98-107) Carbon Dioxide Level 26 mmol/L (21-32) 25 mmol/L (21-32) Anion Gap 10 (6-14) 12 (6-14) Blood Urea Nitrogen 10 mg/dL (7-20) 9 mg/dL (7-20) Creatinine 0.5 mg/dL (0.6-1.0) 0.5 mg/dL (0.6-1.0) Estimated GFR (Cockcroft-Gault) 132.2 132.2 BUN/Creatinine Ratio 20 (6-20) 18 (6-20) Glucose Level 197 mg/dL (70-99) 112 mg/dL (70-99) Lactic Acid Level 2.3 mmol/L (0.4-2.0) 1.2 mmol/L (0.4-2.0) Calcium Level 8.8 mg/dL (8.5-10.1) 8.7 mg/dL (8.5-10.1) Total Bilirubin 1.0 mg/dL (0.2-1.0) 0.7 mg/dL (0.2-1.0) Aspartate Amino Transf (AST/SGOT) 32 U/L (15-37) 22 U/L (15-37) Alanine Aminotransferase (ALT/SGPT) 60 U/L (14-59) 54 U/L (14-59) Alkaline Phosphatase 102 U/L (46-116) 85 U/L (46-116) Creatine Kinase 165 U/L (26-192) Creatine Kinase MB (Mass) 13.2 ng/mL (0.0-3.6) Creatine Kinase MB Relative Index 8.0 % (0-4) Total Protein 7.3 g/dL (6.4-8.2) 7.1 g/dL (6.4-8.2) Albumin 3.5 g/dL (3.4-5.0) 3.3 g/dL (3.4-5.0) Albumin/Globulin Ratio 0.9 (1.0-1.7) 0.9 (1.0-1.7) Procalcitonin 0.15 ng/mL (0.00-0.10) Glucose (Fingerstick) 120 mg/dL (70-99) Test 04/26/20 10:30 Glucose (Fingerstick) 123 mg/dL (70-99) Assessment and Plan Assessmemt and Plan Problems Medical Problems: (1) Anxiety Status: Acute (2) Hyponatremia Status: Acute (3) Pneumonia of both lower lobes Status: Acute (4) Respiratory failure Status: Acute (5) Respiratory failure Status: Acute Acute hypoxic respiratory distress Acute electrolyte derangementhyponatremia, hypochloremia suggestive of volume depletion Acute anxiety episode Generalized anxiety disorder Lactic acidemia Plan COVID-19 protocol Respiratory isolation O2 supplementation to maintain O2 saturation greater than 92% Psychiatry consult Ativan as needed for anxiety Continue IV fluids Lovenox for DVT prophylaxis ADA diet Full code Discussed with RN and SW Trend labs Appreciate subspecialist input Comment Review of Relevant I have reviewed the following items eddie (where applicable) has been applied. Medications: Current Medications Medications (Trade) Dose Ordered Sig/Lizbeth Route PRN Reason Start Time Stop Time Status Last Admin Dose Admin Piperacillin Sod/ Tazobactam Sod 4.5 gm/Sodium Chloride 100 ml @ 200 mls/hr 1X ONCE IV 04/25/20 14:30 04/25/20 14:59 DC 04/25/20 15:57 Dexamethasone Sodium Phosphate (Decadron) 10 mg 1X ONCE IV 04/25/20 14:30 04/25/20 14:31 DC 04/25/20 14:46 Famotidine (Pepcid Vial) 20 mg 1X ONCE IVP 04/25/20 14:30 04/25/20 14:31 DC 04/25/20 14:48 Diphenhydramine HCl (Benadryl) 25 mg 1X ONCE IVP 04/25/20 14:30 04/25/20 14:31 DC 04/25/20 14:47 Sodium Chloride 1,000 ml @ 1,650 mls/hr Q37M IV 04/25/20 14:30 04/25/20 15:30 DC 04/25/20 14:48 Vancomycin HCl 1.5 gm/Sodium Chloride 500 ml @ 250 mls/hr 1X ONCE IV 04/25/20 14:45 04/25/20 16:44 DC 04/25/20 16:30 Ondansetron HCl (Zofran) 4 mg 1X ONCE IVP 04/25/20 14:45 04/25/20 14:46 DC 04/25/20 14:45 Piperacillin Sod/ Tazobactam Sod 3.375 gm/Sodium Chloride 50 ml @ 100 mls/hr 1X ONCE IV 04/25/20 15:45 04/25/20 16:14 DC 04/25/20 15:45 Ondansetron HCl (Zofran) 4 mg 1X ONCE IVP 04/25/20 17:30 04/25/20 17:31 DC 04/25/20 17:39 Sodium Chloride 1,000 ml @ 100 mls/hr Q10H IV 04/25/20 18:15 04/26/20 06:05 Acetaminophen (Tylenol) 650 mg PRN Q4HRS PRN PO TEMP OVER 100.4F OR MILD PAIN 04/25/20 18:15 04/25/20 18:38 Lorazepam (Ativan) 0.5 mg PRN Q4HRS PRN PO ANXIETY / AGITATION 04/25/20 18:15 04/25/20 18:38 Enoxaparin Sodium (Lovenox 40mg Syringe) 40 mg Q24H SQ 04/26/20 09:00 04/26/20 08:37 Lidocaine HCl (Viscous Lidocaine) 15 ml Q8HRS SWSW 04/25/20 22:00 04/26/20 06:05 Olanzapine (ZyPREXA) 5 mg HS PO 04/25/20 22:00 04/25/20 22:05 Justifications for Admission Other Justification Acute hypoxic respiratory distress JOSHUA BALDWIN III DO Apr 26, 2020 11:02
[2020-04-26] MEDS ORDERED: guaiFENesin/CODEINE 100mg/10mg 5 ML LIQUID PO PRN (11:15)
--- NOTE | 2020-04-26 11:15 | NUR ---
SW following. Reviewed chart and discussed with RN. Pt was discharged from [facility] last month. Recommendation on last admission was acute rehab and pt and family declined per chart review. Pt currently on 5l 02 (has home 02 as it was arranged on last admission). Pt NPO and on IV fluids. PT/OT to evaluate. SW attempted to call into pt's room, no answer. Spoke with son at [phone] and they are refusing SNU at this time time. SW following. Addendum: 04/26/20 at 1430 by ERIC ANN SW Pt to discharge home, self-care per RN. No further SW needs at this time.
[2020-04-26] MEDS: LORazepam 0.5 MG TABLET PO PRN ×2 (11:51→16:05)
[2020-04-26] MEDS ORDERED: ASPIRIN CHEWABLE 81 MG TABLET. PO SCH (12:00)
[2020-04-26] MEDS ORDERED: MULTIVITAMIN with MINERAL TABLET. PO SCH (12:00)
[2020-04-26] MEDS ORDERED: OLAN5TAB9 PO (14:48)
[2020-04-26] MEDS ORDERED: LEVO500T8 PO (14:48)
[2020-04-26] MEDS ORDERED: LORA0.5T96 PO (14:52)
[2020-04-26] MEDS ORDERED: CODE10LI PO (14:55)
[2020-04-26] MEDS ORDERED: ONDA4TAB12 PO (14:55)
[2020-04-26] MEDS ORDERED: ASPI-886 PO (14:56)
[2020-04-26] MEDS ORDERED: MULT-650 PO (14:57)
[2020-04-26 15:12] VITALS: BP 136/97
[2020-04-26] MEDS: ACETAMINOPHEN 325 MG TABLET. PO PRN (16:05)
--- NOTE | 2020-04-26 17:00 | NUR ---
PT DISCHARGED TO HOME WITH SON. MEDS WERE CALLED INTO [facility] ON [address] PER FAMILY REQUEST. FAMILY NEEDED HELP WITH THE OXYGEN CONCENTRATOR AT HOME. LOOKED IN NOTES TO FIND OXYGEN COMPANY. COMPANY IS [employer]. I GAVE INFO TO SON ALONG WITH THE NUMBER. SON WILL CALL AND ASK A REP TO COME TO HOME.
--- NOTE | 2020-04-26 18:58 | PDOC ---
F/U PHYSCH PROG NOTE Objective: Vital Signs: Vital Signs Date Time Temp Pulse Resp B/P (MAP) Pulse Ox O2 Delivery O2 Flow Rate FiO2 04/26/20 15:12 98.1 109 24 136/97 (110) 97 Nasal Cannula 5.0 98.1 Labs: Laboratory Tests Test 04/25/20 19:55 04/26/20 08:16 04/26/20 08:25 04/26/20 10:30 Lactic Acid Level 1.2 mmol/L (0.4-2.0) White Blood Count 7.5 x10^3/uL (4.0-11.0) Red Blood Count 4.22 x10^6/uL (3.50-5.40) Hemoglobin 13.5 g/dL (12.0-15.5) Hematocrit 40.0 % (36.0-47.0) Mean Corpuscular Volume 95 fL (79-100) Mean Corpuscular Hemoglobin 32 pg (25-35) Mean Corpuscular Hemoglobin Concent 34 g/dL (31-37) Red Cell Distribution Width 15.2 % (11.5-14.5) H Platelet Count 227 x10^3/uL (140-400) Neutrophils (%) (Auto) 80 % (31-73) H Lymphocytes (%) (Auto) 12 % (24-48) L Monocytes (%) (Auto) 8 % (0-9) Eosinophils (%) (Auto) 0 % (0-3) Basophils (%) (Auto) 0 % (0-3) Neutrophils # (Auto) 6.0 x10^3/uL (1.8-7.7) Lymphocytes # (Auto) 0.9 x10^3/uL (1.0-4.8) L Monocytes # (Auto) 0.6 x10^3/uL (0.0-1.1) Eosinophils # (Auto) 0.0 x10^3/uL (0.0-0.7) Basophils # (Auto) 0.0 x10^3/uL (0.0-0.2) Sodium Level 141 mmol/L (136-145) # Potassium Level 3.3 mmol/L (3.5-5.1) L Chloride Level 104 mmol/L (98-107) Carbon Dioxide Level 25 mmol/L (21-32) Anion Gap 12 (6-14) Blood Urea Nitrogen 9 mg/dL (7-20) Creatinine 0.5 mg/dL (0.6-1.0) L Estimated GFR (Cockcroft-Gault) 132.2 BUN/Creatinine Ratio 18 (6-20) Glucose Level 112 mg/dL (70-99) H Calcium Level 8.7 mg/dL (8.5-10.1) Total Bilirubin 0.7 mg/dL (0.2-1.0) Aspartate Amino Transferase (AST) 22 U/L (15-37) Alanine Aminotransferase (ALT) 54 U/L (14-59) Alkaline Phosphatase 85 U/L (46-116) Total Protein 7.1 g/dL (6.4-8.2) Albumin 3.3 g/dL (3.4-5.0) L Albumin/Globulin Ratio 0.9 (1.0-1.7) L Glucose (Fingerstick) 120 mg/dL (70-99) H 123 mg/dL (70-99) H Laboratory Tests 04/26/20 08:16 Laboratory Tests 04/26/20 08:16 Medications: Current Medications Medications (Trade) Dose Ordered Sig/Lizbeth Start Time Stop Time Status Last Admin Dose Admin Acetaminophen (Tylenol) 650 mg PRN Q4HRS PRN 04/25/20 18:15 04/26/20 16:05 650 MG Aspirin (Aspirin Chewable) 81 mg DAILYWBKFT 04/26/20 12:00 04/26/20 11:53 81 MG Dexamethasone Sodium Phosphate (Decadron) 10 mg 1X ONCE 04/25/20 14:30 04/25/20 14:31 DC 04/25/20 14:46 10 MG Dextrose (Dextrose 50%-Water Syringe) 12.5 gm PRN Q15MIN PRN 04/25/20 18:15 Diphenhydramine HCl (Benadryl) 25 mg 1X ONCE 04/25/20 14:30 04/25/20 14:31 DC 04/25/20 14:47 25 MG Docusate Sodium (Colace) 100 mg PRN DAILY PRN 04/25/20 18:15 Doxycycline Hyclate (Vibra-Tab) 100 mg BID 04/26/20 21:00 Enoxaparin Sodium (Lovenox 40mg Syringe) 40 mg Q24H 04/26/20 09:00 04/26/20 08:37 40 MG Famotidine (Pepcid Vial) 20 mg 1X ONCE 04/25/20 14:30 04/25/20 14:31 DC 04/25/20 14:48 20 MG Guaifenesin/ Codeine Phosphate (Robitussin Ac) 5 ml PRN Q6HRS PRN 04/26/20 11:15 Insulin Human Lispro (HumaLOG) 0-7 UNITS TIDWMEALS 04/26/20 08:00 Levofloxacin/ Dextrose 100 ml @ 100 mls/hr Q24H 04/26/20 12:00 04/26/20 11:55 100 MLS/HR Lidocaine HCl (Viscous Lidocaine) 15 ml Q8HRS 04/25/20 22:00 04/26/20 11:54 15 ML Lorazepam (Ativan) 0.5 mg PRN Q4HRS PRN 04/25/20 18:15 04/26/20 16:05 0.5 MG Multivitamins (Thera M Plus) 1 tab DAILY 04/26/20 12:00 04/26/20 11:54 1 TAB Olanzapine (ZyPREXA) 5 mg HS 04/25/20 22:00 04/25/20 22:05 5 MG Ondansetron HCl (Zofran) 4 mg PRN Q8HRS PRN 04/25/20 19:30 04/26/20 19:29 04/26/20 16:05 4 MG Piperacillin Sod/ Tazobactam Sod 3.375 gm/Sodium Chloride 50 ml @ 100 mls/hr 1X ONCE 04/25/20 15:45 04/25/20 16:14 DC 04/25/20 15:45 100 MLS/HR Piperacillin Sod/ Tazobactam Sod 4.5 gm/Sodium Chloride 100 ml @ 200 mls/hr 1X ONCE 04/25/20 14:30 04/25/20 14:59 DC 04/25/20 15:57 200 MLS/HR Potassium Chloride (Klor-Con) 40 meq 1X ONCE 04/26/20 10:45 04/26/20 10:46 DC 04/26/20 11:51 40 MEQ Sennosides (Senna) 17.2 mg PRN BID PRN 04/25/20 18:15 Sertraline HCl (Zoloft) 25 mg QHS 04/25/20 21:00 Sodium Chloride 1,000 ml @ 100 mls/hr Q10H 04/25/20 18:15 04/26/20 13:30 100 MLS/HR Vancomycin HCl (Vanco Per Pharmacy) 1 each 1X ONCE 04/25/20 14:30 04/25/20 14:31 DC Vancomycin HCl 1.5 gm/Sodium Chloride 500 ml @ 250 mls/hr 1X ONCE 04/25/20 14:45 04/25/20 16:44 DC 04/25/20 16:30 250 MLS/HR Physical Exam: Mental Status Exam: female appears her stated age Appears nervous and anxious but cooperative Oriented and alert Thought processes goal-directed Denies suicidal or homicidal thoughts Denies auditory visual hallucinations No abnormal perception noted. Mood is anxious Affect is dysthymic Insight is fair Judgment is fair Impulse control is fair Attention span and concentration fair Recent and remote memory intact Physical Exam: Refer to Physician's note. EARLY CHILDHOOD ASSISTANT: No focal deficit MSK: No EPS, TDK, or abnormal involuntary movements Diagnosis: Unspecified anxiety, rule out anxiety due to general medical condition Unspecified depression, rule out depression due to general medical condition Assessment: 49-year-old female with COVID infection struggling with depressed mood and anxiety. She was expecting benzodiazepines however with given respiratory distress, benzodiazepine may complicate her respiratory distress. Recommending to add Zyprexa 5 mg at bedtime for anxiety and insomnia temporarily. She is in agreement with it and voiced understanding Plan: Zyprexa 5 mg nightly for anxiety and insomnia. Psychoeducation provided. Supportive psychotherapy provided. Risk, benefits, alternatives of the treatment are discussed. She is in agre ement with plan and voiced understanding Adverse drug reaction of the medications including black box warning are also discussed. Monitor for oversedation or respiratory distress. GAURAV LIZARRAGA MD Apr 26, 2020 18:58
[2020-04-26] MEDS ORDERED: DOXYCYCLINE HYCLATE 100 MG TABLET PO SCH (21:00)
== END 2020-04-26 17:00 | disposition home or self-care (01) | DRG 193 ==
LOC: ER 13:13 → 6 SOUTH 17:02 → ER 18:46
PROVIDERS: ADMIT Internal Medicine; ATTEND Internal Medicine
DX: J18.9 Pneumonia, unspecified organism (principal); J96.01 Acute respiratory failure with hypoxia; E87.1 Hypo-osmolality and hyponatremia; E87.2 Acidosis; E11.9 Type 2 diabetes mellitus without complications; E78.00 Pure hypercholesterolemia, unspecified; E78.5 Hyperlipidemia, unspecified; E87.8 Other disorders of electrolyte and fluid balance, not elsewhere classified; F32.9 Major depressive disorder, single episode, unspecified; F41.1 Generalized anxiety disorder; G47.00 Insomnia, unspecified; I10 Essential (primary) hypertension; K76.0 Fatty (change of) liver, not elsewhere classified; Z82.49 Family history of ischemic heart disease and other diseases of the circulatory system; Z83.3 Family history of diabetes mellitus; Z90.710 Acquired absence of both cervix and uterus
CPT/HCPCS: 36415; 71045; 80053; 82553; 82962; 83605; 84145; 85025; 87040; 93005; J1100; J1200; J1650; J1956; J2405; J2543; J3370; J3490; J7030; J7040; G0378

== ENCOUNTER → 2020-06-26 | Outpatient (CLI) | payer BC ==
[~2020-06-26] MED LIST changes: +ASPI-886 PO; +CODE10LI PO; +LEVO500T8 PO; +LORA0.5T96 PO; +MULT-650 PO; +OLAN5TAB9 PO; +ONDA4TAB12 PO
--- NOTE | 2020-06-26 12:21 | RAD ---
INDICATION: Reason: COVID 19 2 MONTHS AGO. PNEUMONIA. / Spl. Instructions: / History: COMPARISON: April 25, 2020 FINDINGS: 2 views of the chest obtained. Hypoexpanded examination. Repeat demonstration of patchy opacities bilaterally including interstitial and groundglass component. Overall severity is similar prior. Degenerative changes the spine. IMPRESSION: * Repeat demonstration of multifocal opacities throughout the bilateral lungs which can be seen with interstitial infiltrate. Similar to prior. Electronically signed by: Noel Pak MD (06/26/2020 12:19 PM) [id number]
== END ==
LOC: RAD 11:47
PROVIDERS: ATTEND Internal Medicine Critical Care Medicine
DX: U07.1 COVID-19 (principal); R91.8 Other nonspecific abnormal finding of lung field; J18.9 Pneumonia, unspecified organism
CPT/HCPCS: 71046

== ENCOUNTER → 2020-09-10 | Outpatient (CLI) | payer BC ==
--- NOTE | 2020-09-10 15:04 | RAD ---
Chest radiograph 09/10/2020 10:31 AM INDICATION: Covid 19 pneumonia COMPARISON: June 1720 TECHNIQUE: Frontal and lateral views of the chest are provided. FINDINGS: The cardiomediastinal silhouette is within normal limits. There are no pleural effusions. There is no pulmonary vascular congestion. There is no pneumothorax. There are persistent bilateral perihilar interstitial changes suggestive of fibrotic changes from oanh or inflammation/infection. No new airspace consolidation. No significant osseous abnormality is identified. IMPRESSION: Fibrotic changes without acute cardiopulmonary process. Electronically signed by: Ingrid Allen MD (09/10/2020 3:02 PM) [id number]
== END ==
LOC: RAD 10:12
PROVIDERS: ATTEND Internal Medicine Critical Care Medicine
DX: J18.9 Pneumonia, unspecified organism (principal); Z86.16 Personal history of COVID-19
CPT/HCPCS: 71046